=== PATIENT | female | born 1945 | race Caucasian/White ===

== ENCOUNTER → 2016-09-08 | Outpatient (CLI) | payer MEDICARE, BC | END | disposition home or self-care (01) | LOC: LABWHC1 10:57 | PROVIDERS: ATTEND Family Medicine | DX: E03.9 Hypothyroidism, unspecified (principal) | CPT/HCPCS: 36415; 84439; 84443 ==

== ENCOUNTER → 2016-10-08 | Outpatient (CLI) | payer MEDICARE, BC ==
--- NOTE | 2016-10-08 15:46 | US ---
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 Lump left neck, thyroidectomy 7 years ago TECHNOLOGIST IMPRESSION: Multiple lymph nodes noted bilateral neck, largest on left = 1.3 x 0.5 x 0. 7cm and largest on right = 1.5 x 1 0.1 x 0.5 cm No pathologically enlarged lymph nodes are identified. IMPRESSION: NO PATHOLOGICALLY ENLARGED LYMPH NODES ARE IDENTIFIED.
== END | disposition home or self-care (01) ==
LOC: RADUSWWP 14:42
PROVIDERS: ATTEND Family Medicine
DX: R59.0 Localized enlarged lymph nodes (principal)
CPT/HCPCS: 76536

== ENCOUNTER → 2016-11-14 | Outpatient (CLI) | payer MEDICARE, BC | END | disposition home or self-care (01) | LOC: LABWHC1 13:47 | PROVIDERS: ATTEND Family Medicine | DX: E03.9 Hypothyroidism, unspecified (principal) | CPT/HCPCS: 36415; 84439; 84443 ==

== ENCOUNTER 2017-01-10 08:47 | Inpatient (IN) | payer MEDICARE, BC ==
[2017-01-10] MEDS ORDERED: SODIUM CHLORIDE 0.9% 1,000 ML IV STA ×2 (08:58→12:04)
--- NOTE | 2017-01-10 09:22 | ED ---
General Adult HPI - General Chief complaint: Weakness Stated complaint: DIARREA, VOMITING Time Seen by Provider: 01/10/17 08:57 Source: patient, RN notes reviewed, old records reviewed Mode of arrival: wheelchair - History of Present Illness Initial comments: This is a 71-year-old female ER for evaluation today. Patient does present for evaluation of severe abdominal pain nausea vomiting decreased appetite anorexia and weight loss. Patient also complains of diarrhea patient's medical history also consists of asthma CAD hypertension high cholesterol CA, a few abdominal surgeries. No recent fevers. No blood in her vomit or stool. Decreased appetite and weight loss. - Related Data Home Medications Medication Instructions Recorded Confirmed Vitamin B Complex 1 cap PO HS 04/15/15 01/10/17 Budesonide/Formoterol Fumarate 2 puff INHALATION RT-BID PRN 05/12/15 01/10/17 [Symbicort 80-4.5 Mcg Inhaler] Lipase/Protease/Amylase [Creon Dr 2 cap PO AC-TID 05/31/16 01/10/17 24,000 Units Capsule] Albuterol Nebulized [Ventolin 2.5 mg INHALATION Q4H PRN 08/14/16 01/10/17 Nebulized] Atorvastatin [Lipitor] 40 mg PO HS 08/14/16 01/10/17 FLUoxetine HCL [PROzac] 20 mg PO DAILY 08/14/16 01/10/17 Folic Acid 1 mg PO DAILY 08/14/16 01/10/17 Omeprazole [PriLOSEC] 20 mg PO AC-BRKFST 08/14/16 01/10/17 Rivaroxaban [Xarelto] 20 mg PO DAILY@1700 08/14/16 01/10/17 Sennosides-Docusate Sodium 1 tab PO BID PRN 08/14/16 01/10/17 [Senokot-S] traMADol HCL [Ultram] 50 mg PO Q6H PRN 08/14/16 01/10/17 Furosemide [Lasix] 40 mg PO DAILY@1100 01/10/17 01/10/17 Levothyroxine Sodium [Synthroid] 112 mcg PO DAILY 01/10/17 01/10/17 Lisinopril [Zestril] 20 mg PO DAILY 01/10/17 01/10/17 Metoprolol Tartrate [Lopressor] 100 mg PO BID@0700,1700 01/10/17 01/10/17 Spironolactone [Aldactone] 25 mg PO DAILY@1100 01/10/17 01/10/17 Previous Rx's Medication Instructions Recorded Clopidogrel [Plavix] 75 mg PO DAILY #30 tab 08/16/16 Allergies Allergy/AdvReac Type Severity Reaction Status Date / Time ibuprofen [From Motrin] Allergy Anaphylaxis Verified 01/10/17 09:15 Iodinated Contrast Media - Allergy Rash/Hives Verified 01/10/17 09:15 Oral and [Iodinated Contrast Media - IV Dye] levofloxacin [From Levaquin] Allergy Anaphylaxis Verified 01/10/17 09:15 shellfish derived AdvReac Nausea & Verified 01/10/17 09:15 Vomiting Review of Systems ROS Statement: Those systems with pertinent positive or pertinent negative responses have been documented in the HPI. ROS Other: All systems not noted in ROS Statement are negative. Past Medical History Past Medical History: Asthma, Coronary Artery Disease (CAD), Cancer, GERD/Reflux , Hypertension, Myocardial Infarction ([place]), Osteoarthritis (OA), Thyroid Disorder Additional Past Medical History / Comment(s): Pancreatitis, pancreatic cyst, ascities with paracentesis, UTI with cystitis, normocytic anemia. chronic stable asthma, DJD, thyroid cancer with thyroidectomy, seasonal allergies, arthiritis bilateral hands."liver infection", per discharge paperwork from [facility] it listed" afib,cardiac arrest, ventricular fib, cardiomyopathy Last Myocardial Infarction Date:: recent History of Any Multi-Drug Resistant Organisms: None Reported Past Surgical History: AICD, Heart Catheterization With Stent, Hysterectomy, Joint Replacement, Pacemaker Additional Past Surgical History / Comment(s): Paracentesis, thyroidectomy, left hip replaced, vein stripping bilaterally, repair right detached retina, cataract removal bilat eyes.liver bx-no cancer. Past Anesthesia/Blood Transfusion Reactions: No Reported Reaction Additional Past Anesthesia/Blood Transfusion Reaction / Comment(s): Pt has received blood in past without reaction. Date of Last Stent Placement:: recent Type of Cardiac Device: AICD Device Placement Date:: Past Psychological History: Anxiety, Depression Additional Psychological History / Comment(s): Pt lives with her spouse. She is independent. She drives. pt stated she has been set up for cardiac rehab Smoking Status: Former smoker Past Alcohol Use History: Occasional Additional Past Alcohol Use History / Comment(s): Pt states she quit smoking before 1979. She last drank alcohol 2 weeks ago. She used to drink 3 bourbons a day but has now quit since being hospitalized. . Lives independently. No travel history. No animal exposures. No experience Past Drug Use History: None Reported - Past Family History Mother Family Medical History: No Reported History Additional Family Medical History / Comment(s): Mother was healthy and at the age of 98yrs. Father Family Medical History: Cancer Additional Family Medical History / Comment(s): father had bone cancer. General Exam General appearance: alert, in no apparent distress, anxious, cachectic Head exam: Present: atraumatic, normocephalic, normal inspection Eye exam: Present: normal appearance, PERRL, EOMI. Absent: scleral icterus, conjunctival injection, periorbital swelling ENT exam: Present: mucous membranes dry Neck exam: Present: normal inspection. Absent: tenderness, meningismus, lymphadenopathy Respiratory exam: Present: normal lung sounds bilaterally. Absent: respiratory distress, wheezes, rales, rhonchi, stridor Cardiovascular Exam: Present: regular rate, normal rhythm, normal heart sounds. Absent: systolic murmur, diastolic murmur, rubs, gallop, clicks GI/Abdominal exam: Present: soft, tenderness (Diffuse), normal bowel sounds. Absent: distended, guarding, rebound, rigid Extremities exam: Present: normal inspection, full ROM, normal capillary refill. Absent: tenderness, pedal edema, joint swelling, calf tenderness Back exam: Present: normal inspection Neurological exam: Present: alert, oriented X3, CN II-XII intact Psychiatric exam: Present: normal affect, normal mood Skin exam: Present: warm, dry, intact, normal color. Absent: rash Course Vital Signs 01/10/17 01/10/17 01/10/17 08:51 10:33 11:52 Temperature 98 F 98.0 F Pulse Rate 70 70 88 Respiratory 18 16 18 Rate Blood Pressure 82/51 88/57 103/61 O2 Sat by Pulse 94 L 100 99 Oximetry - Reevaluation(s) Reevaluation #1: 01/10/17 12:06 Patient is able to have control of pain and vomiting at this time EKG Findings - EKG Comments: EKG Findings:: EKG shows paced rhythm rate of 70, IN 162, QRS 76, QTc 464 Medical Decision Making - Medical Decision Making 71-year-old female ear fevers and all pain nausea vomiting positive severe dehydration with acute renal failure, patient also suffered from pancreatitis. Patient be admitted for significant IV hydration, evaluation by nephrology - Lab Data Result diagrams: 01/10/17 09:43 01/10/17 09:43 Lab Results 01/10/17 01/10/17 01/10/17 Range/Units 09:43 09:43 09:43 WBC 8.9 (3.8-10.6) k/uL RBC 3.27 L (3.80-5.40) m/uL Hgb 11.2 L (11.4-16.0) gm/dL Hct 34.0 (34.0-46.0) % MCV 104.1 H (80.0-100.0) fL MCH 34.3 (25.0-35.0) pg MCHC 32.9 (31.0-37.0) g/dL RDW 13.2 (11.5-15.5) % Plt Count 275 (150-450) k/uL Neutrophils % 82 % Lymphocytes % 10 % Monocytes % 6 % Eosinophils % 1 % Basophils % 0 % Neutrophils # 7.3 (1.3-7.7) k/uL Lymphocytes # 0.9 L (1.0-4.8) k/uL Monocytes # 0.5 (0-1.0) k/uL Eosinophils # 0.1 (0-0.7) k/uL Basophils # 0.0 (0-0.2) k/uL Macrocytosis Slight PT (9.0-12.0) sec INR (<1.1) APTT (22.0-30.0) sec Sodium 137 (137-145) mmol/L Potassium 5.1 (3.5-5.1) mmol/L Chloride 102 (98-107) mmol/L Carbon Dioxide 14 L (22-30) mmol/L Anion Gap 21 mmol/L BUN 83 H* (7-17) mg/dL Creatinine 3.14 H (0.52-1.04) mg/dL Est GFR (MDRD) Af Amer 18 (>60 ml/min/1.73 sqM) Est GFR (MDRD) Non-Af 15 (>60 ml/min/1.73 sqM) Glucose 116 H (74-99) mg/dL Calcium 9.8 (8.4-10.2) mg/dL Phosphorus 5.6 H (2.5-4.5) mg/dL Magnesium 1.2 L (1.6-2.3) mg/dL Total Bilirubin 1.0 (0.2-1.3) mg/dL AST 68 H (14-36) U/L ALT 60 H (9-52) U/L Alkaline Phosphatase 103 (38-126) U/L Total Creatine Kinase <20 L (30-135) U/L CK-MB (CK-2) 1.2 (0.0-2.4) ng/mL CK-MB (CK-2) Rel Index 0.0 Troponin I 0.021 (0.000-0.034) ng/mL Total Protein 7.8 (6.3-8.2) g/dL Albumin 4.2 (3.5-5.0) g/dL Lipase 1330 H (23-300) U/L // Range/Units 09:43 WBC (3.8-10.6) k/uL RBC (3.80-5.40) m/uL Hgb (11.4-16.0) gm/dL Hct (34.0-46.0) % MCV (80.0-100.0) fL MCH (25.0-35.0) pg MCHC (31.0-37.0) g/dL RDW (11.5-15.5) % Plt Count (150-450) k/uL Neutrophils % % Lymphocytes % % Monocytes % % Eosinophils % % Basophils % % Neutrophils # (1.3-7.7) k/uL Lymphocytes # (1.0-4.8) k/uL Monocytes # (0-1.0) k/uL Eosinophils # (0-0.7) k/uL Basophils # (0-0.2) k/uL Macrocytosis PT 13.6 H (9.0-12.0) sec INR 1.4 (<1.1) APTT 29.5 (22.0-30.0) sec Sodium (137-145) mmol/L Potassium (3.5-5.1) mmol/L Chloride (98-107) mmol/L Carbon Dioxide (22-30) mmol/L Anion Gap mmol/L BUN (7-17) mg/dL Creatinine (0.52-1.04) mg/dL Est GFR (MDRD) Af Amer (>60 ml/min/1.73 sqM) Est GFR (MDRD) Non-Af (>60 ml/min/1.73 sqM) Glucose (74-99) mg/dL Calcium (8.4-10.2) mg/dL Phosphorus (2.5-4.5) mg/dL Magnesium (1.6-2.3) mg/dL Total Bilirubin (0.2-1.3) mg/dL AST (14-36) U/L ALT (9-52) U/L Alkaline Phosphatase (38-126) U/L Total Creatine Kinase (30-135) U/L CK-MB (CK-2) (0.0-2.4) ng/mL CK-MB (CK-2) Rel Index Troponin I (0.000-0.034) ng/mL Total Protein (6.3-8.2) g/dL Albumin (3.5-5.0) g/dL Lipase (23-300) U/L - Radiology Data Radiology results: report reviewed (CT abdomen and pelvis positive for pancreatitis GALLBLADDER NEGATIVE FOR ACUTE DISEASE), image reviewed Disposition Clinical Impression: History of ETOH abuse, Liver cirrhosis, alcoholic, H/O chronic pancreatitis, Pancreatitis, Dehydration, Acute renal failure (ARF) Disposition: ADMITTED IP TO THIS [facility] Condition: Serious Referrals: Valerio Lobo MD [Primary Care Provider] - 1-2 days
[2017-01-10 10:01] LABS: Basophils % (A) 0 %; CH 33.1; Eosinophils # (A) 0.1 k/uL (0-0.7); Eosinophils % (A) 1 %; HDW 2.32; HGB 11.2 gm/dL (11.4-16.0); Luc # (Auto) 0.15; Luc % (Auto) 2; Lymphocytes # (A) 0.9 k/uL (1.0-4.8); Lymphocytes % (A) 10 %; MCH 34.3 pg (25.0-35.0); MCHC 32.9 g/dL (31.0-37.0); MCV 104.1 fL (80.0-100.0); Macrocytosis Slight; Mean Platelet Volume 7.8; Monocytes # (A) 0.5 k/uL (0-1.0); Monocytes % (A) 6 %; Neutrophils # (A) 7.3 k/uL (1.3-7.7); Neutrophils % (A) 82 %; RBC 3.27 m/uL (3.80-5.40); RDW 13.2 % (11.5-15.5); WBC 8.9 k/uL (3.8-10.6); WBC (Perox) 9.15
[2017-01-10] MEDS ORDERED: RX INFO: IV CONTRAST WAS GIVEN 1 EACH MISC MISCELLANE PRN (10:08)
[2017-01-10 10:09] LABS: INR 1.4 (<1.1); Partial Thromboplastin Time 29.5 sec (22.0-30.0); Prothrombin Time 13.6 sec (9.0-12.0)
[2017-01-10] MEDS ORDERED: diphenhydrAMINE 50 MG/ML 1 ML VIAL IVP STA (10:10)
[2017-01-10] MEDS ORDERED: methylPREDNISolone SOD SUCCI 125 MG/2 ML VIAL IV STA (10:10)
[2017-01-10] MEDS ORDERED: FAMOTIDINE 20 MG/2 ML VIAL IV STA (10:10)
[2017-01-10 10:17] LABS: Calcium 9.8 mg/dL (8.4-10.2); Magnesium 1.2 mg/dL (1.6-2.3); Phosphorous 5.6 mg/dL (2.5-4.5); Potassium 5.1 mmol/L (3.5-5.1); Total Protein 7.8 g/dL (6.3-8.2)
--- NOTE | 2017-01-10 10:24 | XR ---
EXAMINATION TYPE: XR chest 2V DATE OF EXAM: 01/10/2017 10:14 AM COMPARISON: 08/14/2016 HISTORY: 71-year-old female with weakness and cough TECHNIQUE: AP and lateral views FINDINGS: Left anterior chest wall AICD generator with right atrial and right ventricular leads. Heart is barrett l size. Mild elongation of the thoracic aorta with arch calcifications. Nodular density at the left b ase compatible with nipple shadow. Old healed fifth posterolateral rib fracture deformity. No consoli dation or pleural effusion. IMPRESSION: No acute cardiopulmonary process.
[2017-01-10 10:26] LABS: Creatine Kinase <20 U/L (30-135)
[2017-01-10] MEDS ORDERED: SODIUM CHLORIDE 0.9% 2,000 ML IV STA (10:30)
[2017-01-10] MEDS ORDERED: SODIUM CHLORIDE 0.9% 500 ML IV STA ×2 (10:30→12:04)
[2017-01-10 10:40] LABS: Creatine Kinase MB 1.2 ng/mL (0.0-2.4); Troponin I 0.021 ng/mL (0.000-0.034)
--- NOTE | 2017-01-10 11:25 | CT ---
EXAMINATION TYPE: CT abdomen pelvis wo con DATE OF EXAM: 01/10/2017 11:15 AM HISTORY: Diarrhea and Vomiting per patient. Pain per order. CT DLP: 725 mGycm. Automated Exposure Control for Dose Reduction was Utilized. TECHNIQUE: CT scan of the abdomen and pelvis is performed without oral or IV contrast. COMPARISON: CT abdomen June 17, 2016 FINDINGS: Within the limitations of a non-contrast study, the following observations are made. LUNG BASES: There is partial visualization of pacemaker/defibrillator wires. LIVER/GB: Liver remains somewhat small in size, slight lobulation to peripheral contours identified, underlying cirrhosis should be considered. Clinical correlation advised. PANCREAS: There are calcifications scattered throughout the pancreas with a more prominent calcificat ion at head level on axial image 31 redemonstrated. On current study there is slightly more prominenc e or edema with mild anterior fluid, CT findings suggest acute on chronic pancreatitis. No well-forme d fluid collection is seen on current study. SPLEEN: No significant abnormality is seen. ADRENALS: No significant abnormality is seen. KIDNEYS: There is 2 mm nonobstructing calculus lower pole level right kidney on coronal image 31. BOWEL: Evaluation of bowel is suboptimal secondary to lack of enteric contrast. Stomach is poorly dis tended and thus suboptimally evaluated on current study. Cannot exclude a gastritis in the appropriat e clinical setting. There is no suspicious small or large bowel dilatation. GENITAL ORGANS: Uterus is surgically absent or markedly atrophic in appearance. Small amount of free fluid is seen in pelvis. LYMPH NODES: No greater than 1cm abdominal or pelvic lymph nodes are appreciated. OSSEOUS STRUCTURES: Osseous structures are demineralized. Metallic hardware from left hip arthroplast y is identified causing streak artifact limiting evaluation of pelvic structures. There is levoconvex scoliosis centered in mid lumbar spine redemonstrated. There is some multilevel spurring of the spin e most prominent right L2-L3 and left L4-L5 levels. Nonspecific sclerotic focus left L4 vertebra on c oronal image 34 favors benign bone island. OTHER: No significant additional abnormality is seen. IMPRESSION: 1. Evaluation suboptimal secondary to lack of IV and enteric contrast, CT findings suggests an acute on chronic pancreatitis. Clinical and pancreatic lab correlation advised. No bowel obstruction is not ed.
[2017-01-10] MEDS ORDERED: PANTOPRAZOLE 40 MG/10 ML VIAL IVP STA (12:04)
[2017-01-10] MEDS ORDERED: MORPHINE SULFATE 4 MG/ML SYRINGE IVP STA (12:04)
[2017-01-10] MEDS ORDERED: ONDANSETRON 4 MG/2 ML VIAL IVP STA (12:04)
--- NOTE | 2017-01-10 12:15 | US ---
EXAMINATION TYPE: US gallbladder DATE OF EXAM: 01/10/2017 11:56 AM COMPARISON: CT 01/10/2017 CLINICAL HISTORY: Pain. Pain, patient had coffee this morning. EXAM MEASUREMENTS: Liver Length: 12.5 cm Gallbladder Wall: 0.2 cm CBD: 0.5 cm Right Kidney: 8.9 x 5.0 x 5.5 cm Suboptimal visualization due to patient body habitus and overlying bowel gas Pancreas: Obscured by bowel gas Liver: Suboptimal visualization. Right lobe lesion - 2.1 x 3.4 x 3.1 cm Gallbladder: wnl as visualized Evidence for sonographic Rincon's sign: neg CBD: wnl Right Kidney: Prominent pyramids seen. Suboptimal visualization. IMPRESSION: 1. Limited exam. There is a solid-appearing lesion within the right lobe the liver measuring 3.4 cm w hich was not well demonstrated noncontrast CT. Therefore recommend liver MRI to assess presence of ri ght lobe liver mass.
[2017-01-10 12:49] LABS: Appearance,Urine Cloudy (Clear); Bacteria,Urine Many /hpf; Bilirubin,Urine Negative (Negative); Glucose,Urine (UA) Negative (Negative); Ketones,Urine Trace (Negative); Leukocyte Esterase,Urine Large (Negative); Mucus,Urine Rare /hpf; Nitrite,Urine Negative (Negative); PH, Urine 5.5 (5.0-8.0); Particle Count 17796; Protein,Urine 1+ (Negative); Specific Gravity,Urine 1.011 (1.001-1.035); Squamous Epithelial Cell,Urine 4 /hpf (0-4); UA Billing (MACRO vs. MICRO) MICRO; Urobilinogen,Urine <2.0 mg/dL (<2.0); WBC,Urine 107 /hpf (0-5)
[2017-01-10] MEDS ORDERED: LORazepam 2 MG/ML SYRINGE IV PRN ×3 (14:15)
[2017-01-10] MEDS ORDERED: THIAMINE 100 MG/ML 2 ML VIAL IM STA (14:15)
[2017-01-10] MEDS ORDERED: ALBUTEROL NEBULIZED 2.5 MG/3 ML INHALATION PRN (14:17)
[2017-01-10 15:18] LABS: Alcohol <10 mg/dL; Amylase 153 U/L (30-110)
[2017-01-10] MEDS: MAGNESIUM SULFATE-D5W PMX 1 GM in DEXTROSE/WATER 1 100ML.BAG IVPB SCH ×3 (16:19→18:45)
[2017-01-10] MEDS: METOPROLOL TARTRATE 50 MG TAB PO SCH (16:22)
[2017-01-10] MEDS: RIVAROXABAN 15 MG TAB PO SCH (16:24)
[2017-01-10] MEDS: LIPASE 5,000/PROTEASE 17,000/AMYLASE 27,0000 PO SCH (16:25)
[2017-01-10] MEDS ORDERED: RIVAROXABAN 10 MG TAB PO SCH (17:00)
[2017-01-10] MEDS ORDERED: SODIUM CHLORIDE 0.9% 1,000 ML IV SCH (17:15)
[2017-01-10] MEDS: THIAMINE 100 MG TAB PO SCH (17:32)
[2017-01-10] MEDS: SYMBICORT 80-4.5 MCG INHALER INHALATION PRN (19:56)
--- NOTE | 2017-01-10 20:02 | HP ---
DATE OF ADMISSION: 01/10/2017 PRESENTING COMPLAINT: Abdominal pain. HISTORY OF PRESENTING COMPLAINT: This is a 71-year-old patient, well known to me from multiple prior admissions. Patient follows with Dr. Lobo. Patient had an acute pancreatic pseudocyst in the past and has a known history of chronic pancreatitis with prior history of pancreatic stent. Patient also had a liver abscess with cultures positive for Fusobacterium and Bacteroides. Patient's other chronic stable medical conditions include osteoarthritis in multiple joints, hypothyroid, now atrial fibrillation, and also has had a cardiac arrest from ventricular fibrillation. Patient does have low-grade chronic abdominal pain. Patient continues to drink about 2 drinks at night and presented with 2 or 3 weeks of increasing abdominal pain going across, nausea, vomiting; hence she is here. REVIEW OF SYSTEMS: CONSTITUTIONAL: Weak, tired. HEENT: None. RESPIRATORY: None. CARDIOVASCULAR: None. GASTROINTESTINAL: As above. GENITOURINARY: None. MUSCULOSKELETAL: None. DERMATOLOGIC: None. HEMATOLOGIC: None. LYMPHATICS: None. PSYCHIATRY: None. NEUROLOGICAL: None. PAST MEDICAL HISTORY: 1. Chronic pancreatitis, alcohol-induced. 2. Pancreatic pseudocyst. 3. Hypoalbuminemia. 4. Pancreatic stent. 5. Asthma. 6. Hypertension. 7. DJD. 8. Hypothyroid. 9. Thyroid cancer. 10. Thyroidectomy. 11. Arthritis. 12. Cardiac arrest. 13. Systolic and diastolic dysfunction. 14. Atrial fibrillation. PAST SURGICAL HISTORY: 1. Hysterectomy. 2. Joint replacement. 3. Paracentesis. 4. Left hip replacement. 5. Vein stripping bilaterally. 6. Right detached retina. 7. Cataracts bilaterally. 8. ICD. PAST PSYCH HISTORY: Anxiety, depression. SOCIAL HISTORY: Lives with her . Quit smoking before . Drinking ( ) most of the time and now having about 2 drinks at night. FAMILY HISTORY: Father had bone cancer. ALLERGIES: 1. IBUPROFEN. 2. IV CONTRAST. 3. LEVAQUIN. 4. SHELLFISH. HOME MEDICATIONS: 1. Ultram 50 mg q.6 p.r.n. 2. Vitamin B complex 1 capsule p.o. at bedtime. 3. Aldactone 25 mg p.o. daily. 4. Senokot-S 1 tablet p.o. b.i.d. p.r.n. 5. Xarelto 20 mg p.o. daily. 6. Prilosec 20 mg with breakfast. 7. Lopressor 100 mg p.o. b.i.d. 8. Zestril 20 mg p.o. daily. 9. Creon 24,000 two capsules p.o. t.i.d. 10. Synthroid 112 mcg p.o. daily. 11. Lasix 40 mg p.o. daily. 12. Folic acid 1 mg p.o. daily. 13. Prozac 20 mg p.o. daily. 14. Plavix 75 mg p.o. daily. 15. Symbicort 80/4.5 two puffs b.i.d. 16. Lipitor 40 mg at bedtime. 17. Ventolin 2.5 q.4 p.r.n. PHYSICAL EXAMINATION: VITAL SIGNS ON PRESENTATION: Temperature 98, pulse 70, respiration 18, blood pressure 82/51, pulse ox 94% on 2 L. GENERAL APPEARANCE: Average build. Lying in bed. Tired-appearing. EYES: Pupils equal. Conjunctivae normal. HEENT: Oral cavity normal. NECK: JVD not raised. Mass not palpable. RESPIRATORY: Effort normal. LUNGS: Diminished breath sounds. CARDIOVASCULAR: First and second sounds normal. No edema. ABDOMEN: Soft. Diffuse upper tenderness. No guarding or rigidity. Liver and spleen not palpable. LYMPHATIC: No lymph node palpable in neck or axillae. PSYCHIATRY: Alert and oriented x3. Mood and affect normal. NEUROLOGICAL: Pupils equal. Cranial nerves grossly intact. Power and sensation grossly intact. INVESTIGATIONS: White count 8.9, hemoglobin 11.2. Potassium 5.1. BUN 83, creatinine 3.14. AST and ALT 68 and 60. Magnesium 1.2. Lipase is 1330. Amylase is 153. CT scan of the abdomen and pelvis is suggestive of acute pancreatitis. Gallbladder ultrasound ASSESSMENT: 1. Acute on chronic pancreatitis, recurrent, in a patient who previously had a pancreatic pseudocyst and pancreatic duct stent, from active alcoholism. 2. Chronic congestive heart failure from systolic and diastolic dysfunction; ejection fraction 30% to 35%; underlying coronary artery disease. 3. Single-vessel coronary artery disease with a stent to the circumflex at [facility]. 4. Automatic implantable cardioverter defibrillator for cardiac arrest and ventricular fibrillation. 5. History of liver abscess. 6. Mild persistent asthma. 7. Essential hypertension. 8. Primary osteoarthritis of multiple joints, bilateral, chronic. 9. Hypothyroidism. 10. Acute renal failure. Creatinine has jumped up from being normal. PLAN: Patient will be made n.p.o., put on IV fluids. Pain medication in place. Will cut back on Lopressor if need be. Care was discussed at length with the patient.
[2017-01-10] MEDS: ATORVASTATIN 40 MG TAB PO SCH (21:32)
[2017-01-10] MEDS: B COMPLEX-VIT C-VIT E-ZINC 1 EACH TAB PO SCH (21:32)
[2017-01-11] MEDS: LEVOTHYROXINE 112 MCG TAB PO SCH (06:24)
[2017-01-11] MEDS: METOPROLOL TARTRATE 50 MG TAB PO SCH ×2 (07:39→17:10)
[2017-01-11] MEDS: FLUoxetine HCL 20 MG CAP PO SCH (07:59)
[2017-01-11] MEDS: CLOPIDOGREL 75 MG TAB PO SCH (07:59)
[2017-01-11] MEDS: LIPASE 5,000/PROTEASE 17,000/AMYLASE 27,0000 PO SCH ×3 (07:59→17:12)
[2017-01-11] MEDS: MORPHINE SULFATE 4 MG/ML SYRINGE IVP PRN ×3 (08:07→21:31)
[2017-01-11] MEDS: SYMBICORT 80-4.5 MCG INHALER INHALATION PRN ×2 (08:17→19:42)
[2017-01-11] MEDS ORDERED: ENOXAPARIN 40 MG/0.4 ML SYRINGE SQ SCH (09:00)
[2017-01-11] MEDS ORDERED: ENOXAPARIN 30 MG/0.3 ML SYRINGE SQ SCH (09:00)
[2017-01-11] MEDS ORDERED: LISINOPRIL 20 MG TAB PO SCH (09:00)
[2017-01-11] MEDS ORDERED: PANTOPRAZOLE 40 MG/10 ML VIAL IVP SCH (09:00)
[2017-01-11 09:49] LABS: Calcium 8.5 mg/dL (8.4-10.2); Magnesium 2.1 mg/dL (1.6-2.3); Potassium 4.5 mmol/L (3.5-5.1)
--- NOTE | 2017-01-11 10:09 | P.NPCON ---
History of Present Illness - Reason for Consult acute renal failure - History of Present Illness Reason for consultation: Acute kidney injury History of present illness: Patient is a 71-year-old female seen in renal consultation for acute kidney injury. Her baseline creatinine is near 1 and elevated at 3.14 this admission. She was also hypotensive with systolic blood pressure in the 80s. She did receive 3-4 L of IV fluid bolus and is currently maintained on normal saline at 50 mL an hour. Patient presented to the hospital with abdominal pain that started about 2 weeks ago along with nausea and vomiting. She is also been having diarrhea. Patient felt like she had the flu however the symptoms continued to get worse and she presents to the hospital. Her lipase level was elevated at 1330 and she was noted to have evidence of acute pancreatitis on imaging. Her symptoms are improved in the hospital. She is currently nothing by mouth. Denies chest pain or shortness of breath. Patient was admitted to the hospital in May 2016 and had developed acute kidney injury at that time as well from severe sepsis and intra-abdominal infection. Currently she admits to good urine output. No hematuria or dysuria. She also has history of systolic CHF with ejection fraction of 30-35%. Vital signs are stable. General: The patient appeared well nourished and normally developed. HEENT: Head exam is unremarkable. Neck is without jugular venous distension. LUNGS: Lungs are clear to auscultation and percussion. Breath sounds decreased. HEART: Rate and Rhythm are regular. First and second heart sounds normal. No murmurs, rubs or gallops. ABDOMEN: Abdominal exam reveals normal bowel sounds. Non-tender and non- distended. No evidence of peritonitis. EXTREMITITES: No clubbing, cyanosis, or edema. Past Medical History Past Medical History: Atrial Fibrillation, Asthma, Coronary Artery Disease (CAD) , Cancer, Heart Failure, GERD/Reflux, Hypertension, Myocardial Infarction (MT), Osteoarthritis (OA), Thyroid Disorder Additional Past Medical History / Comment(s): Pancreatitis, pancreatic cyst, ascities with paracentesises, UTI with cystitis, normocytic anemia. chronic stable asthma, DJD, thyroid cancer with thyroidectomy, seasonal allergies, arthiritis bilateral hands, liver abscess, afib, ventricular fib,cardiac arrest , cardiomyopathy Last Myocardial Infarction Date:: 06/2016 History of Any Multi-Drug Resistant Organisms: None Reported Past Surgical History: AICD, Heart Catheterization With Stent, Hysterectomy, Joint Replacement, Pacemaker Additional Past Surgical History / Comment(s): 2016 PCI with stent and AICD, paracentesises, thyroidectomy, left hip replaced, vein stripping bilaterally, repair right detached retina, cataract removal bilat eyes, pancreatic stent, liver bx-no cancer. Past Anesthesia/Blood Transfusion Reactions: No Reported Reaction Additional Past Anesthesia/Blood Transfusion Reaction / Comment(s): Pt has received blood in past without reaction. Date of Last Stent Placement:: 06/2016 Type of Cardiac Device: AICD Device Placement Date:: Past Psychological History: Anxiety, Depression Additional Psychological History / Comment(s): Pt lives with her spouse. She uses no assistive devices. She no longer drives-her spouse takes her to [employer]. Her daughter manages her medications. Smoking Status: Former smoker Past Alcohol Use History: Occasional Additional Past Alcohol Use History / Comment(s): Pt states she resides with her spouse. They have been 52 yrs. Pt states she quit smoking before 1979. She last drank alcohol yesterday- one drink. She used to drink 3 bourbons a day but has now is down to 2 Prakash Javid drinks per day. No experience Past Drug Use History: None Reported - Past Family History Mother Family Medical History: No Reported History Additional Family Medical History / Comment(s): Mother was healthy and at the age of 98yrs. Father Family Medical History: Cancer Additional Family Medical History / Comment(s): father had bone cancer and of this at age 65yrs. Medications and Allergies Home Medications Medication Instructions Recorded Confirmed Type Vitamin B Complex 1 cap PO HS 04/15/15 01/10/17 History Budesonide/Formoterol Fumarate 2 puff INHALATION RT-BID PRN 05/12/15 01/10/17 History [Symbicort 80-4.5 Mcg Inhaler] Lipase/Protease/Amylase [Creon Dr 2 cap PO AC-TID 05/31/16 01/10/17 History 24,000 Units Capsule] Albuterol Nebulized [Ventolin 2.5 mg INHALATION Q4H PRN 08/14/16 01/10/17 History Nebulized] Atorvastatin [Lipitor] 40 mg PO HS 08/14/16 01/10/17 History FLUoxetine HCL [PROzac] 20 mg PO DAILY 08/14/16 01/10/17 History Folic Acid 1 mg PO DAILY 08/14/16 01/10/17 History Omeprazole [PriLOSEC] 20 mg PO AC-BRKFST 08/14/16 01/10/17 History Rivaroxaban [Xarelto] 20 mg PO DAILY@1700 08/14/16 01/10/17 History Sennosides-Docusate Sodium 1 tab PO BID PRN 08/14/16 01/10/17 History [Senokot-S] traMADol HCL [Ultram] 50 mg PO Q6H PRN 08/14/16 01/10/17 History Furosemide [Lasix] 40 mg PO DAILY@1100 01/10/17 01/10/17 History Levothyroxine Sodium [Synthroid] 112 mcg PO DAILY 01/10/17 01/10/17 History Lisinopril [Zestril] 20 mg PO DAILY 01/10/17 01/10/17 History Metoprolol Tartrate [Lopressor] 100 mg PO BID@0700,1700 01/10/17 01/10/17 History Spironolactone [Aldactone] 25 mg PO DAILY@1100 01/10/17 01/10/17 History Allergies Allergy/AdvReac Type Severity Reaction Status Date / Time ibuprofen [From Motrin] Allergy Anaphylaxis Verified 01/10/17 09:15 Iodinated Contrast Media - Allergy Rash/Hives Verified 01/10/17 09:15 Oral and [Iodinated Contrast Media - IV Dye] levofloxacin [From Levaquin] Allergy Anaphylaxis Verified 01/10/17 09:15 shellfish derived AdvReac Nausea & Verified 01/10/17 09:15 Vomiting Physical Exam Vitals: Vital Signs Temp Pulse Pulse Resp BP BP Pulse Ox 01/11/17 07:00 96.6 F L 72 16 92/51 97 01/11/17 01:10 100/52 01/10/17 23:00 97.4 F L 70 17 81/45 95 01/10/17 16:09 97.1 F L 69 16 84/49 96 01/10/17 13:59 97.1 F L 77 16 108/75 96 01/10/17 12:37 97.5 F L 71 18 127/58 100 01/10/17 11:52 88 18 103/61 99 01/10/17 10:33 98.0 F 70 16 88/57 100 Intake and Output 01/10/17 01/11/17 01/11/17 22:59 06:59 14:59 Other: # Voids 0 3 Weight 59 kg Results - Lab Results Most recent lab results Calcium 8.5 mg/dL (8.4-10.2) 01/11/17 08:34 Phosphorus 5.6 mg/dL (2.5-4.5) H 01/10/17 09:43 Magnesium 2.1 mg/dL (1.6-2.3) 01/11/17 08:34 01/10/17 09:43 01/11/17 08:34 Assessment and Plan Plan: Assessment: #1. Nonoliguric acute kidney injury mostly prerenal in nature secondary to hypotension as well as vomiting and diarrhea leading to intravascular volume depletion. Creatinine 3.14 on admission. Improving. Creatinine down to 2.01 today. No evidence of hydronephrosis. Baseline creatinine near 1. #2. Acute pancreatitis. #3. Metabolic acidosis secondary to acute kidney injury and IV fluids. Bicarb level down to 12 today. #4. Systolic CHF with ejection fraction of 30-35%. Compensated. #5. Pyuria. Plan: Continue normal saline at 50 mL an hour. I will avoid putting her on sodium acetate due to her liver dysfunction. There is shortage of sodium bicarbonate IV. I will discuss with pharmacy if this can be provided. Once oral meds have been resumed I will start her on oral sodium bicarbonate supplementation. Avoid nephrotoxic agents and hypotensive episodes. Continue to hold diuretics as well as LIVIA inhibitor for now. Repeat electrolytes in the morning. Follow-up urine culture. Thank you for the consultation. I will continue to follow the patient with you during her hospital stay.
[2017-01-11] MEDS ORDERED: FUROSEMIDE 40 MG TAB PO SCH (11:00)
[2017-01-11] MEDS ORDERED: SPIRONOLACTONE 25 MG TAB PO SCH (11:00)
[2017-01-11] MEDS: MULTIVITAMINS, THERA 1 EACH TAB PO SCH (12:00)
[2017-01-11] MEDS: FOLIC ACID 1 MG TAB PO SCH (12:01)
[2017-01-11] MEDS: THIAMINE 100 MG TAB PO SCH ×2 (12:01→17:12)
[2017-01-11] MEDS: DEXTROSE 5% IN WATER 1,000 ML with SODIUM BICARB (1 MEQ/ML) 150 ML IV SCH (13:57)
[2017-01-11] MEDS: RIVAROXABAN 15 MG TAB PO SCH (17:12)
[2017-01-11] MEDS: ATORVASTATIN 40 MG TAB PO SCH (21:23)
[2017-01-11] MEDS: SODIUM BICARBONATE TAB 650 MG TAB PO SCH (21:23)
[2017-01-11] MEDS: B COMPLEX-VIT C-VIT E-ZINC 1 EACH TAB PO SCH (21:24)
[2017-01-11] MEDS: SODIUM CHLORIDE 0.9% 1,000 ML IV SCH (21:26)
--- NOTE | 2017-01-11 22:11 | PN ---
DATE OF SERVICE: 01/11/2017. PRESENTING COMPLAINT: Abdominal pain. INTERVAL HISTORY: Patient presented with abdominal pain, known to have chronic pancreatitis. Today, patient states she feels much better sitting up in the bed. No acute distress noted or voiced abdominal pain has decreased substantially. Some tenderness noted to the left upper quadrant; however patient states she feels much better. No nausea. No vomiting. Review of systems done for constitutional, cardiovascular, pulmonary and GI, with relevant findings as above. Current medications: Zenpep, Lipitor, Symbicort, ceftriaxone, Plavix, Prozac, Synthroid, Protonix. PHYSICAL EXAMINATION: VITAL SIGNS: Temperature 96.6, pulse 72, respiratory rate 16, blood pressure 108/52, oxygen saturation 97% on room air. GENERAL APPEARANCE: Patient sitting up in the bed. No acute complaints of distress noted or voiced. EYES: Pupils equal. Conjunctivae normal. NECK: JVD not raised. Mass not palpable. LUNGS: Clear to auscultation bilaterally. RESPIRATORY: Effort normal, unlabored. CARDIOVASCULAR: First and second sounds noted. No edema. ABDOMEN: Soft. Tender to the left upper quadrant and the right upper quadrant. Liver and spleen not palpable. PSYCHIATRY: Alert and oriented x3. Mood and affect are normal. INVESTIGATIONS: Sodium 137, potassium 4.5, BUN 58, creatinine 2.01, glucose 65, lipase 78. ASSESSMENT: 1. 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 2. Chronic congestive heart failure from systolic and diastolic dysfunction, ejection fraction 30 to 35%, underlying coronary artery disease stable. 3. Single-vessel coronary artery disease with a stent to the circumflex at [facility]. 4. Automatic implantable cardioverter defibrillator for cardiac arrest and ventricular fibrillation. 5. History of liver abscess. 6. Mild persistent asthma. 7. Essential hypertension. 8. Primary osteoarthritis of multiple joints, bilateral, chronic. 9. Hypothyroidism. 10. Acute renal failure and, creatinine has jumped up from being normal, slow to improve. PLAN: Patient's diet advanced today. Pain medications continue to be utilized. Nephrology recommends eliminating the use of sodium acetate and eliminating nephrotoxic and hypotensive episodes. Patient's IV fluids should also include sodium bicarbonate. We will continue with current medication and treatment plan. Patient was seen and examined by nurse practitioner, Adelia Krishna, and all elements of the case discussed with attending, Dr. Williamson. I performed a history and physical examination of this patient and discussed the same with the dictator. I agree with the dictator's note. Any additional findings/opinions, etc. will be noted.
--- NOTE | 2017-01-11 22:30 | PN ---
DATE OF SERVICE: 01/11/2017 Attending note: This patient examined by me earlier today. I reviewed the note of my nurse practitioner, Ms. Krishna, agree with the same. This is a patient who presented with acute on chronic pancreatitis. Still drinks some alcohol. Abdominal pain is better. Did take some pain medicine earlier. Patient had been on ice chips. On examination, temperature 97%, respiratory rate 16, blood pressure 108/52. ABDOMEN: Minimal tenderness. Soft. PSYCH: Alert and oriented x3. INVESTIGATIONS: Potassium 4.5. BUN 50, creatinine 2.01, lipase 788. UA positive. ASSESSMENT: 1. Acute on chronic recurrent pancreatitis, secondary to alcoholism in a patient previously with pseudocyst pancreatic duct. 2. Chronic congestive heart failure, ejection fraction 30% to 35%. 3. Acute renal failure; could be acute tubular necrosis, present at admission, slow to respond. PLAN: Continue current medication and treatment plan. Supportive care. We will start the patient on clear liquids. Continue to hydrate the patient. Follow.
[2017-01-12] MEDS: MORPHINE SULFATE 4 MG/ML SYRINGE IVP PRN ×4 (01:47→23:10)
[2017-01-12] MEDS: LEVOTHYROXINE 112 MCG TAB PO SCH (07:02)
[2017-01-12] MEDS: LIPASE 5,000/PROTEASE 17,000/AMYLASE 27,0000 PO SCH ×3 (08:11→16:13)
[2017-01-12] MEDS: CLOPIDOGREL 75 MG TAB PO SCH (08:11)
[2017-01-12] MEDS: SODIUM BICARBONATE TAB 650 MG TAB PO SCH ×2 (08:12→23:10)
[2017-01-12] MEDS: DEXTROSE 5% IN WATER 1,000 ML with SODIUM BICARB (1 MEQ/ML) 150 ML IV SCH (08:12)
[2017-01-12] MEDS: FLUoxetine HCL 20 MG CAP PO SCH (08:12)
[2017-01-12] MEDS: SODIUM CHLORIDE 0.9% 1,000 ML IV SCH (08:12)
[2017-01-12] MEDS: METOPROLOL TARTRATE 50 MG TAB PO SCH ×2 (08:12→16:14)
[2017-01-12 10:06] LABS: Calcium 8.6 mg/dL (8.4-10.2); Potassium 4.1 mmol/L (3.5-5.1)
--- NOTE | 2017-01-12 10:42 | P.PN ---
Subjective Patient is seen in follow-up for acute kidney injury. Her baseline creatinine is 1 and was elevated at 3.14 on admission. She is currently maintained on IV fluids and creatinine is down to 1.49 today. She is currently resting in bed. Denies any chest pain or shortness of breath. Does admit to dysuria. No vomiting or diarrhea. Admits to good urine output. Vital signs are stable. General: The patient appeared well nourished and normally developed. HEENT: Head exam is unremarkable. Neck is without jugular venous distension. LUNGS: Lungs are clear to auscultation and percussion. Breath sounds decreased. HEART: Rate and Rhythm are regular. First and second heart sounds normal. No murmurs, rubs or gallops. ABDOMEN: Abdominal exam reveals normal bowel sounds. Non-tender and non- distended. No evidence of peritonitis. EXTREMITITES: No clubbing, cyanosis, or edema. Objective - Vital Signs Vital signs: Vital Signs Temp 98.5 F 01/12/17 07:00 Pulse 85 01/12/17 07:00 Resp 16 01/12/17 07:00 BP 114/58 01/12/17 07:00 Pulse Ox 99 01/12/17 07:00 Intake & Output 01/11/17 01/12/17 01/12/17 18:59 06:59 18:59 Intake Total 400 Balance 400 Weight 62.4 kg Intake: Oral 400 Other: Voiding Method Toilet # Voids 2 1 # Bowel Movements 0 0 - Labs CBC & Chem 7: 01/10/17 09:43 01/12/17 09:31 Labs: Abnormal Lab Results - Last 24 Hours (Table) 01/12/17 Range/Units 09:31 Chloride 108 H (98-107) mmol/L Carbon Dioxide 19 L (22-30) mmol/L BUN 42 H (7-17) mg/dL Creatinine 1.49 H (0.52-1.04) mg/dL Glucose 136 H (74-99) mg/dL Amylase 117 H (30-110) U/L Lipase 708 H (23-300) U/L Microbiology - Last 24 Hours (Table) 01/10/17 12:25 Urine Culture - Preliminary Urine,Voided Gram Neg Bacilli Assessment and Plan Plan: Assessment: #1. Nonoliguric acute kidney injury mostly prerenal in nature secondary to hypotension as well as vomiting and diarrhea leading to intravascular volume depletion. Creatinine 3.14 on admission. Improving. Creatinine down to 1.49 today. No evidence of hydronephrosis. Baseline creatinine near 1. #2. Acute pancreatitis. Lipase levels trending down. #3. Metabolic acidosis secondary to acute kidney injury and IV fluids. Improving. #4. Systolic CHF with ejection fraction of 30-35%. Compensated. #5. UTI. Urine culture positive for gram-negative bacilli. Plan: Maintain isotonic sodium bicarbonate drip to be run at 50 mL an hour for the next 24 hours. Maintain oral sodium bicarbonate supplementation. Avoid nephrotoxic agents and hypotensive episodes. Continue to hold diuretics as well as LIVIA inhibitor for now. Repeat electrolytes in the morning. Follow-up urine culture. Continue with antibiotics.
[2017-01-12] MEDS: THIAMINE 100 MG TAB PO SCH ×2 (11:13→16:13)
[2017-01-12] MEDS: FOLIC ACID 1 MG TAB PO SCH (11:13)
[2017-01-12] MEDS: MULTIVITAMINS, THERA 1 EACH TAB PO SCH (11:13)
[2017-01-12] MEDS ORDERED: DEXTROSE 5% IN WATER 1,000 ML with SODIUM BICARB (1 MEQ/ML) 150 ML IV SCH (15:00)
[2017-01-12] MEDS: RIVAROXABAN 15 MG TAB PO SCH (16:14)
[2017-01-12] MEDS: ONDANSETRON 4 MG/2 ML VIAL IVP PRN (18:21)
--- NOTE | 2017-01-12 19:19 | PN ---
DATE OF SERVICE: 01/12/2017 PRESENTING COMPLAINT: Abdominal pain. This patient was admitted with chronic pancreatitis exacerbation. Today, patient states she is unable to tolerate her diet. She was on a clear liquid diet. Patient is lying in bed, appears comfortable. Does not complain of any nausea or any vomiting. Review of systems done for constitutional, cardiovascular, pulmonary and GI, with relevant findings as above. CURRENT MEDICATIONS: Zenpep, Lipitor, Symbicort, ceftriaxone, Plavix, Prozac, Synthroid, Protonix. PHYSICAL EXAMINATION: VITAL SIGNS: Temperature 98.9, pulse 65, respirations 16, blood pressure 114/58, oxygen saturation 99% on room air. GENERAL APPEARANCE: Patient lying in bed, appears comfortable. EYES: Pupils equal. Conjunctivae normal. NECK: JVD not raised. Mass not palpable. LUNGS: Clear to auscultation. RESPIRATORY: Effort normal. CARDIOVASCULAR: First and second sounds noted. No edema. ABDOMEN: Soft, tender to palpation to right and left upper quadrants. Liver and spleen not palpable. PSYCHIATRY: Alert and oriented x3. Mood and affect normal INVESTIGATIONS: Sodium 137, potassium 4.1, BUN 42, creatinine 1.49, glucose 136, amylase 117, lipase 708. ASSESSMENT: 1. 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 2. Chronic congestive heart failure from systolic and diastolic dysfunction. Ejection fraction 30 to 35%, underlying coronary artery disease, stable. Single-vessel coronary artery disease with a stent to the circumflex at [facility]. Automatic implantable cardioverter defibrillator for cardiac arrest and ventricular fibrillation. 3. History of liver abscess. 4. Mild persistent asthma. 5. Essential hypertension. 6. Primary osteoarthritis of multiple joints, bilateral, chronic. 7. Hypothyroidism. 8. Acute renal failure, and creatinine has jumped up from being normal, slow to respond. PLAN: Patient will remain on a clear liquid diet. Pain medications continue to utilize. We will continue to follow nephrology recommendations. Sodium bicarbonate drip will continue to the next 24 hours. Will continue to follow current medication and treatment plan. Patient was seen and examined by nurse practitioner, Adelia Krishna, and all elements of the case discussed with attending, Dr. Williamson. I performed a history and physical examination of this patient and discussed the same with the dictator. I agree with the dictator's note. Any additional findings/opinions, etc. will be noted.
[2017-01-12] MEDS: ATORVASTATIN 40 MG TAB PO SCH (23:10)
[2017-01-12] MEDS: B COMPLEX-VIT C-VIT E-ZINC 1 EACH TAB PO SCH (23:17)
[2017-01-13] MEDS: SODIUM CHLORIDE 0.9% 1,000 ML IV SCH ×3 (06:12→20:53)
[2017-01-13] MEDS: LEVOTHYROXINE 112 MCG TAB PO SCH (06:31)
[2017-01-13] MEDS: METOPROLOL TARTRATE 50 MG TAB PO SCH ×2 (06:44→17:05)
[2017-01-13] MEDS: SYMBICORT 80-4.5 MCG INHALER INHALATION PRN (07:45)
[2017-01-13] MEDS: FLUoxetine HCL 20 MG CAP PO SCH (07:55)
[2017-01-13] MEDS: SODIUM BICARBONATE TAB 650 MG TAB PO SCH ×2 (07:56→20:53)
[2017-01-13] MEDS: LIPASE 5,000/PROTEASE 17,000/AMYLASE 27,0000 PO SCH ×3 (07:56→17:05)
[2017-01-13] MEDS: CLOPIDOGREL 75 MG TAB PO SCH (07:56)
--- NOTE | 2017-01-13 07:57 | PN ---
DATE OF SERVICE: 01/12/2017 ATTENDING NOTE: This patient was seen and examined by me earlier today. I reviewed the note of my nurse practitioner, Ms. Krishna and discussed with her. Patient was admitted with acute pancreatitis. Has slight abdominal pain, slight nausea, has been out of bed, also has acute renal failure. On examination, ABDOMEN: Soft, mild tenderness. No guarding or rigidity. PSYCHIATRY: Alert and oriented x3. Mood and affect normal. INVESTIGATIONS: BUN 42, creatinine 1.49. Lipase 708. Urine culture growing gram-negative bacilli. ASSESSMENT: 1. Acute on chronic pancreatitis, recurrent in a patient who currently drinks alcohol secondary to acute alcoholism and the patient previously had pancreatic pseudocyst in pancreatic duct. 2. Acute renal failure, probably from acute tubular necrosis, slow to respond. 3. Acute urinary tract infection from gram-negative bacilli. PLAN: Talked with the patient and will keep the patient on clear liquids right now. Advanced to full liquids in the morning. Repeat labs. Continue with IV fluids.
[2017-01-13] MEDS: ONDANSETRON 4 MG/2 ML VIAL IVP PRN (07:58)
[2017-01-13 09:53] LABS: Amylase 69 U/L (30-110); Calcium 8.4 mg/dL (8.4-10.2)
[2017-01-13] MEDS: THIAMINE 100 MG TAB PO SCH ×2 (10:59→17:05)
[2017-01-13] MEDS: MULTIVITAMINS, THERA 1 EACH TAB PO SCH (10:59)
[2017-01-13] MEDS: FOLIC ACID 1 MG TAB PO SCH (10:59)
[2017-01-13] MEDS: MORPHINE SULFATE 4 MG/ML SYRINGE IVP PRN ×3 (11:00→22:52)
--- NOTE | 2017-01-13 11:02 | P.PN ---
Subjective Patient is seen in follow-up for acute kidney injury. Her baseline creatinine is 1 and was elevated at 3.14 on admission. She is currently maintained on IV fluids and creatinine is down to 1.24 today. Denies any chest pain or shortness of breath. Does admit to dysuria. No diarrhea. Admits to good urine output. Did have an episode of emesis last night. Maintained on antibiotics for E. coli UTI. Vital signs are stable. General: The patient appeared well nourished and normally developed. HEENT: Head exam is unremarkable. Neck is without jugular venous distension. LUNGS: Lungs are clear to auscultation and percussion. Breath sounds decreased. HEART: Rate and Rhythm are regular. First and second heart sounds normal. No murmurs, rubs or gallops. ABDOMEN: Abdominal exam reveals normal bowel sounds. Non-tender and non- distended. No evidence of peritonitis. EXTREMITITES: No clubbing, cyanosis, or edema. Objective - Vital Signs Vital signs: Vital Signs Temp 99.3 F 01/13/17 07:00 Pulse 70 01/13/17 07:00 Resp 16 01/13/17 07:00 BP 99/55 01/13/17 07:00 Pulse Ox 96 01/13/17 07:00 Intake & Output 01/12/17 01/13/17 01/13/17 18:59 06:59 18:59 Intake Total 600 Balance 600 Weight 63.3 kg Intake: Oral 600 Other: Voiding Method Toilet Toilet # Voids 2 2 - Labs CBC & Chem 7: 01/10/17 09:43 01/13/17 08:38 Labs: Abnormal Lab Results - Last 24 Hours (Table) 01/13/17 Range/Units 08:38 Sodium 136 L (137-145) mmol/L BUN 26 H (7-17) mg/dL Creatinine 1.24 H (0.52-1.04) mg/dL Glucose 106 H (74-99) mg/dL Microbiology - Last 24 Hours (Table) 01/10/17 12:25 Urine Culture - Final Urine,Voided Escherichia coli Assessment and Plan Plan: Assessment: #1. Nonoliguric acute kidney injury mostly prerenal in nature secondary to hypotension as well as vomiting and diarrhea leading to intravascular volume depletion. Creatinine 3.14 on admission. Improving. Creatinine down to 1.24 today. No evidence of hydronephrosis. Baseline creatinine near 1. #2. Acute pancreatitis. Lipase levels trending down. #3. Metabolic acidosis secondary to acute kidney injury and IV fluids. Improving. #4. Systolic CHF with ejection fraction of 30-35%. Compensated. #5. UTI. Urine culture positive for E. coli. Plan: Sodium bicarbonate drip has been discontinued. Continue with normal saline to be run at 75 mL an hour. Maintain oral sodium bicarbonate supplementation. Avoid nephrotoxic agents and hypotensive episodes. Continue to hold diuretics as well as LIVIA inhibitor for now. Repeat electrolytes in the morning. Continue with antibiotics.
[2017-01-13] MEDS: RIVAROXABAN 15 MG TAB PO SCH (17:05)
--- NOTE | 2017-01-13 20:24 | PN ---
DATE OF SERVICE: 01/13/2017 PRESENTING COMPLAINT: Abdominal pain. INTERVAL HISTORY: This patient was admitted with chronic pancreatitis exacerbation. Today, patient states she was unable to tolerate her diet. She was on a clear liquid diet and an attempt was made to advance. She was not able to tolerate. Patient is lying in bed, appears comfortable. She has complaints of nausea at this time. Review of systems done for constitutional, cardiovascular, pulmonary, and GI, with relevant findings as above. CURRENT MEDICATIONS: Zenpep, Lipitor, Symbicort, ceftriaxone, Plavix, Prozac, Synthroid, Protonix. PHYSICAL EXAMINATION: VITAL SIGNS: Temperature 99.3, pulse 70, respirations 16, blood pressure 99/55, oxygen saturation 96% on room air. GENERAL APPEARANCE: Patient appears comfortable, lying flat in the bed. EYES: Pupils equal. Conjunctivae normal. NECK: JVD not raised. Mass not palpable. LUNGS: Clear to auscultation bilaterally. RESPIRATORY: Effort normal, unlabored. CARDIOVASCULAR: First and second sounds noted. No edema. ABDOMEN: Soft. Tender to both upper left and right quadrants. Liver and spleen not palpable. PSYCHIATRY: Alert and oriented x3. Mood and affect normal. INVESTIGATIONS: Sodium 136, potassium 4.0, BUN 26, creatinine 1.24, amylase 69, lipase 196. ASSESSMENT: 1. Acute on chronic pancreatitis, recurrent in a patient who currently drinks alcohol secondary to acute alcoholism and the patient previously had pancreatic pseudocyst and pancreatic duct. 2. Acute renal failure, probably from acute tubular necrosis, slow to respond. 3. Acute urinary tract infection from gram-negative bacilli. 4. Chronic congestive heart failure from systolic and diastolic dysfunction. Ejection fraction 30 to 35%, underlying coronary artery disease, stable. 5. Single-vessel coronary artery disease with a stent to the circumflex at [facility]. 6. Automatic implantable cardioverter defibrillator for cardiac arrest and ventricular fibrillation. 7. History of liver abscess. 8. Mild persistent asthma. 9. Essential hypertension. 10. Primary osteoarthritis of multiple joints, bilateral, chronic. 11. Hypothyroidism. PLAN: Patient will remain on a clear liquid diet. Pain medication will continue to be administered. Nephrology recommendations include oral supplementation of sodium bicarbonate. Continue with normal saline fluids and to avoid nephrotoxic agents and hypotensive episodes as well as holding diuretics and LIVIA inhibitors for now. Discharge planning in the next 1 to 2 days. Patient was seen and examined by nurse practitioner, Adelia Krishna, and all elements of the case discussed with Dr. Williamson. I performed a history and physical examination of this patient and discussed the same with the dictator. I agree with the dictator's note. Any additional findings/opinions, etc. will be noted.
[2017-01-13] MEDS: traMADol 50 MG TAB PO PRN (20:52)
[2017-01-13] MEDS: ATORVASTATIN 40 MG TAB PO SCH (20:53)
[2017-01-13] MEDS: B COMPLEX-VIT C-VIT E-ZINC 1 EACH TAB PO SCH (20:53)
[2017-01-14] MEDS: MORPHINE SULFATE 4 MG/ML SYRINGE IVP PRN ×4 (03:21→20:03)
[2017-01-14] MEDS: LEVOTHYROXINE 112 MCG TAB PO SCH (06:33)
[2017-01-14] MEDS: LIPASE 5,000/PROTEASE 17,000/AMYLASE 27,0000 PO SCH ×3 (07:59→17:51)
[2017-01-14] MEDS: METOPROLOL TARTRATE 50 MG TAB PO SCH ×2 (07:59→17:30)
--- NOTE | 2017-01-14 09:33 | PN ---
DATE OF SERVICE: 01/13/2017 ATTENDING NOTE: This patient was seen and examined by me yesterday on 01/13/2017. I reviewed the note of my nurse practitioner, Ms. Krishna and discussed with her. Admitted with acute pancreatitis. Patient advanced to full liquids but developed some nausea and actually did throw up once. Abdominal pain is better, but still present. On examination, afebrile. ABDOMEN: Upper abdomen tender, no guarding or rigidity. PSYCH: Alert and oriented x3. INVESTIGATIONS: Potassium 4. BUN 26, creatinine 1.24, amylase, lipase are normal. ASSESSMENT: 1. Acute on chronic pancreatitis recurrent in a patient secondary to alcohol with prior history of pancreatitis. Clinically and biochemically improving. 2. Acute renal failure, probably from acute tubular necrosis, improving. 3. Acute urinary tract infection from Escherichia coli. PLAN: Told the patient to ( ) a bit. Continue with IV fluids. Repeat labs in the morning. Care was discussed with the patient. Encouraged to be out of bed.
[2017-01-14] MEDS: ONDANSETRON 4 MG/2 ML VIAL IVP PRN (09:57)
[2017-01-14] MEDS: CLOPIDOGREL 75 MG TAB PO SCH (09:58)
[2017-01-14] MEDS: SODIUM BICARBONATE TAB 650 MG TAB PO SCH ×2 (09:58→21:59)
[2017-01-14] MEDS: FLUoxetine HCL 20 MG CAP PO SCH (09:58)
[2017-01-14] MEDS: CEPHALEXIN 250 MG CAP PO SCH ×3 (10:07→21:59)
--- NOTE | 2017-01-14 10:27 | P.PN ---
Subjective Patient is seen in follow-up for acute kidney injury. Her baseline creatinine is 1 and was elevated at 3.14 on admission. She is currently maintained on IV fluids and creatinine is down to 1.12 today. Denies any chest pain or shortness of breath. No diarrhea. Admits to good urine output. Did have an episode of emesis last night and again this morning. Maintained on antibiotics for E. coli UTI. Vital signs are stable. General: The patient appeared well nourished and normally developed. HEENT: Head exam is unremarkable. Neck is without jugular venous distension. LUNGS: Lungs are clear to auscultation and percussion. Breath sounds decreased. HEART: Rate and Rhythm are regular. First and second heart sounds normal. No murmurs, rubs or gallops. ABDOMEN: Abdominal exam reveals normal bowel sounds. Non-tender and non- distended. No evidence of peritonitis. EXTREMITITES: No clubbing, cyanosis, or edema. Objective - Vital Signs Vital signs: Vital Signs Temp 97.0 F L 01/14/17 07:00 Pulse 73 01/14/17 07:00 Resp 16 01/14/17 07:00 BP 107/60 01/14/17 07:00 Pulse Ox 96 01/14/17 07:00 Intake & Output 01/13/17 01/14/17 01/14/17 18:59 06:59 18:59 Weight 69 kg Other: Voiding Method Toilet Toilet # Voids 3 2 - Labs CBC & Chem 7: 01/10/17 09:43 01/14/17 08:11 Labs: Abnormal Lab Results - Last 24 Hours (Table) 01/14/17 Range/Units 08:11 Sodium 133 L (137-145) mmol/L Carbon Dioxide 21 L (22-30) mmol/L BUN 18 H (7-17) mg/dL Creatinine 1.12 H (0.52-1.04) mg/dL Glucose 111 H (74-99) mg/dL Calcium 8.0 L (8.4-10.2) mg/dL Assessment and Plan Plan: Assessment: #1. Nonoliguric acute kidney injury mostly prerenal in nature secondary to hypotension as well as vomiting and diarrhea leading to intravascular volume depletion. Creatinine 3.14 on admission. Improving. Creatinine down to 1.12 today. No evidence of hydronephrosis. Baseline creatinine near 1. #2. Acute pancreatitis. Lipase levels trending down. #3. Metabolic acidosis secondary to acute kidney injury and IV fluids. #4. Systolic CHF with ejection fraction of 30-35%. Compensated. #5. UTI. Urine culture positive for E. coli. Plan: Sodium bicarbonate drip has been discontinued. Continue with normal saline to be run at 75 mL an hour. Maintain oral sodium bicarbonate supplementation. Avoid nephrotoxic agents and hypotensive episodes. Continue to hold diuretics as well as LIVIA inhibitor for now. Repeat electrolytes in the morning. Continue with antibiotics.
[2017-01-14 11:44] VITALS: BMI 23.8
[2017-01-14] MEDS: THIAMINE 100 MG TAB PO SCH ×2 (12:40→17:51)
[2017-01-14] MEDS: MULTIVITAMINS, THERA 1 EACH TAB PO SCH (12:40)
[2017-01-14] MEDS: FOLIC ACID 1 MG TAB PO SCH (12:45)
[2017-01-14] MEDS: SODIUM CHLORIDE 0.9% 1,000 ML IV SCH (15:03)
[2017-01-14] MEDS: RIVAROXABAN 15 MG TAB PO SCH (17:51)
[2017-01-14] MEDS: SYMBICORT 80-4.5 MCG INHALER INHALATION PRN (19:33)
[2017-01-14] MEDS: ATORVASTATIN 40 MG TAB PO SCH (21:59)
[2017-01-14] MEDS: B COMPLEX-VIT C-VIT E-ZINC 1 EACH TAB PO SCH (21:59)
--- NOTE | 2017-01-14 23:01 | PN ---
DATE OF SERVICE: 01/14/2017. PRESENTING COMPLAINT: Abdominal pain. INTERVAL HISTORY: This is a patient admitted with chronic pancreatitis exacerbation. Today, the patient was unable to tolerate her diet. She was on a soft diet and states she threw up her breakfast. Patient currently is lying in bed, appears comfortable a little distressed, however. She does complain of nausea at this time. Review of systems done for constitutional, cardiovascular, pulmonary GI with relevant findings as above. CURRENT MEDICATIONS: Zenpep, Lipitor, Symbicort, ceftriaxone, Plavix, Prozac, Synthroid, Protonix. PHYSICAL EXAMINATION: VITAL SIGNS: Temperature 97.0, pulse 73, respiratory rate 16, blood pressure 106/70, oxygen saturation 96% on room air. GENERAL APPEARANCE: Patient lying in bed, looking a little distressed anxious -appearing. EYES: Pupils equal. Conjunctivae normal. NECK: JVD not raised. Mass not palpable. LUNGS: Diminished bilaterally. RESPIRATORY: Effort normal. CARDIOVASCULAR: First and second sounds noted. No edema. ABDOMEN: Soft tender to right upper and left upper quadrants. Liver and spleen not palpable. PSYCHIATRY: Alert and oriented x3. Mood and affect anxious -appearing. INVESTIGATIONS: Sodium 133, potassium 4.0, BUN 18, creatinine 1.12. Amylase 55, lipase 188. ASSESSMENT: 1. Acute on chronic pancreatitis recurrent in a patient secondary to alcohol with prior history of pancreatitis. Clinically and biochemically improving. 2. Acute renal failure, probably from acute tubular necrosis, Improving. 3. Acute urinary tract infection from a Escherichia coli. 4. Chronic congestive heart failure from systolic and diastolic dysfunction. Ejection fraction 30 to 35%, underlying coronary artery disease, stable. 5. Single-vessel coronary artery disease with a stent to the circumflex at [facility]. 6. Automatic implantable cardioverter defibrillator for cardiac arrest and ventricular fibrillation. 7. History of liver abscess. 8. Persistent asthma. 9. Essential hypertension. 10. Primary osteoarthritis of multiple joints, bilateral chronic. 11. Hypothyroidism, stable. PLAN: In light of patient's nausea return, patient will remain on a clear liquid diet. Pain medication will be continued to be provided. Nephrology recommendations include oral supplementation of sodium bicarb. Discharge planning in the next one to two days. Patient was seen and examined by nurse practitioner, Adelia Krishna and all elements of the case discussed with Dr. Clay attending. I performed a history and physical examination of this patient and discussed the same with the dictator. I agree with the dictator's note. Any additional findings/opinions, etc. will be noted.
[2017-01-15] MEDS: MORPHINE SULFATE 4 MG/ML SYRINGE IVP PRN ×2 (01:04→08:04)
[2017-01-15] MEDS: SYMBICORT 80-4.5 MCG INHALER INHALATION PRN (06:59)
[2017-01-15 07:12] VITALS: BP 128/67; PULSE 77; RESP 16; TEMP 98.6
[2017-01-15] MEDS: LEVOTHYROXINE 112 MCG TAB PO SCH (07:30)
[2017-01-15] MEDS: METOPROLOL TARTRATE 50 MG TAB PO SCH (07:30)
[2017-01-15] MEDS: LIPASE 5,000/PROTEASE 17,000/AMYLASE 27,0000 PO SCH ×2 (07:52→12:24)
[2017-01-15] MEDS: CLOPIDOGREL 75 MG TAB PO SCH (07:52)
[2017-01-15] MEDS: SODIUM BICARBONATE TAB 650 MG TAB PO SCH (07:52)
[2017-01-15] MEDS: FLUoxetine HCL 20 MG CAP PO SCH (07:52)
[2017-01-15] MEDS: CEPHALEXIN 250 MG CAP PO SCH (07:52)
[2017-01-15] MEDS: SODIUM CHLORIDE 0.9% 1,000 ML IV SCH (07:53)
[2017-01-15 09:04] LABS: Calcium 7.6 mg/dL (8.4-10.2); Potassium 3.7 mmol/L (3.5-5.1)
[2017-01-15] MEDS: traMADol 50 MG TAB PO PRN (09:56)
--- NOTE | 2017-01-15 11:13 | PN ---
DATE OF SERVICE: 01/14/2017 ATTENDING NOTE: This patient was seen and examined by me yesterday on 01/14/2017. I reviewed the note of my nurse practitioner, Adelia Krishna, discussed and agree with her. Patient still having some nausea, has scaled her back to a liquid diet. Abdominal pain is slightly present. Has been out of bed. On examination, afebrile. ABDOMEN: Soft. Mild tenderness. PSYCH: Alert and oriented x3. LUNGS: Decreased breath sounds. INVESTIGATIONS: BUN 18, creatinine 1.12, amylase 55, lipase 188. ASSESSMENT: 1. Acute on chronic pancreatitis, recurrent in a patient who drinks alcohol. There is a prior history of pancreatitis and pseudocyst. Clinically and biochemically improving. 2. Nausea, still present that is interfering. PLAN: Will try liquids for today. If patient has more pain, may due an ultrasound of the abdomen. Care was discussed with the patient. Will follow.
[2017-01-15] MEDS: MULTIVITAMINS, THERA 1 EACH TAB PO SCH (12:24)
[2017-01-15] MEDS: THIAMINE 100 MG TAB PO SCH (12:24)
[2017-01-15] MEDS: FOLIC ACID 1 MG TAB PO SCH (12:24)
--- NOTE | 2017-01-16 09:22 | DS ---
DATE OF ADMISSION: 01/10/2017 DATE OF DISCHARGE: 01/15/2017 FINAL DIAGNOSES: 1. Acute on chronic pancreatitis recurrent in a patient secondary to alcohol with prior history of pancreatitis. 2. Acute renal failure, probably from acute tubular necrosis. 3. Acute urinary tract infection from Escherichia coli. 4. Chronic congestive heart failure from systolic and diastolic dysfunction. Ejection fraction 30% to 35%, underlying coronary artery disease. 5. Single-vessel coronary artery disease with a stent to the circumflex at [facility]. 6. Automatic implantable cardioverter-defibrillator for cardiac arrest and ventricular fibrillation. 7. History of liver abscess. 8. Persistent asthma. 9. Essential hypertension. 10. Primary osteoarthritis, multiple joints, bilateral chronic. 11. Hypothyroidism, Consultations with Dr. Barton from nephrology. HOSPITAL COURSE: This is a patient who was admitted with chronic pancreatitis exacerbation. Patient was made n.p.o. Labs were drawn and amylase was found to be 117 and lipase was found to be 788. Patient was made n.p.o. IV fluids were initiated. Enzymes improved. Today amylase was 55 and lipase was 188. Patient's diet was advanced. Patient still complains of some residual tenderness to her abdomen, some slight nausea; however, patient can tolerate her diet, is ambulatory in the hallway, eating well, really wants to go home. Discussed at length with the patient the necessity for her to quit drinking entirely. Patient verbalized understanding. ON EXAM: ABDOMEN: Tender to palpation. Positive bowel sounds in all 4 quadrants. Liver and spleen not palpable. CARDIOVASCULAR: First and second sounds normal. DISCHARGE MEDICATIONS: 1. Vitamin B complex 1 cap p.o. at bedtime. 2. Budesonide inhaler 2 puffs inhalation b.i.d. p.r.n. 3. Lipase protease amylase capsules 2 caps p.o. a.c., t.i.d. 4. Albuterol nebulized 2.5 mg inhalation q.4 hours p.r.n. 5. Atorvastatin 40 mg p.o. at bedtime. 6. Fluoxetine 20 mg p.o. daily. 7. Folic acid 1 mg p.o. daily. 8. Omeprazole 20 mg p.o. a.c. breakfast 9. Rivaroxaban 20 mg p.o. daily. 10. Docusate sodium 1 tab p.o. b.i.d. p.r.n. 11. Tramadol 50 mg p.o. q.6 hours p.r.n. 12. Clopidogrel 75 mg p.o. daily. 13. Furosemide 40 mg p.o. daily. 14. Levothyroxine sodium 112 mcg p.o. daily. 15. Metoprolol 100 mg p.o. b.i.d. 16. Spironolactone 25 mg p.o. daily. Follow up with Dr. Kumar in one week and Dr. Lobo in one week. Discharge time more than 35 minutes including discussion. Patient was seen and examined by nurse practitioner, Adelia Krishna, and all elements of the case discussed with attending, Dr. Williamson.
--- NOTE | 2017-01-17 09:52 | DS ---
DATE OF ADMISSION: 01/10/2017 DATE OF DISCHARGE: 01/15/2017 ATTENDING NOTE: This patient was seen and examined by me yesterday on 01/15/17. I reviewed the discharge summary from my nurse practitioner, Ms. Delgadotrudyromeo and discussed the same with her. This is a patient admitted with acute pancreatitis and also has got chronic pancreatitis. Patient's creatinine was 3.14, did drop down to 1.11 at the time of discharge. Pancreatic numbers improved. Abdominal pain was much improved. The patient is tolerating a liquid diet. Told the patient to slowly advance her diet. Overall doing much better. Patient is very keen to go home. On examination, mild epigastric tenderness. Will follow up with Dr. Kumar. More details in my [employer]MENT [employer] notes. The patient does take 1 or 2 drinks a night, advised strongly not to do the same.
== END 2017-01-15 14:12 | disposition home or self-care (01) | DRG 438 ==
LOC: EC 08:47 → 4MS4W 12:04
PROVIDERS: ADMIT Hospitalist; ATTEND Hospitalist
DX: K85.20 Alcohol induced acute pancreatitis without necrosis or infection (principal); N17.0 Acute kidney failure with tubular necrosis; E87.2 Acidosis; I42.9 Cardiomyopathy, unspecified; I50.42 Chronic combined systolic (congestive) and diastolic (congestive) heart failure; N39.0 Urinary tract infection, site not specified; I95.9 Hypotension, unspecified; I11.0 Hypertensive heart disease with heart failure; B96.20 Unspecified Escherichia coli [E. coli] as the cause of diseases classified elsewhere; K86.0 Alcohol-induced chronic pancreatitis; E03.9 Hypothyroidism, unspecified; F10.20 Alcohol dependence, uncomplicated; G89.29 Other chronic pain; I25.10 Atherosclerotic heart disease of native coronary artery without angina pectoris; I25.2 Old myocardial infarction; I48.91 Unspecified atrial fibrillation; J45.30 Mild persistent asthma, uncomplicated; K21.9 Gastro-esophageal reflux disease without esophagitis; M15.9 Polyosteoarthritis, unspecified; F32.9 Major depressive disorder, single episode, unspecified; F41.9 Anxiety disorder, unspecified; H26.9 Unspecified cataract; E86.0 Dehydration; R10.9 Unspecified abdominal pain; Z86.74 Personal history of sudden cardiac arrest; Z79.01 Long term (current) use of anticoagulants; Z79.02 Long term (current) use of antithrombotics/antiplatelets; Z79.899 Other long term (current) drug therapy; Z96.642 Presence of left artificial hip joint; Z95.5 Presence of coronary angioplasty implant and graft; Z85.850 Personal history of malignant neoplasm of thyroid; Z87.891 Personal history of nicotine dependence; Z88.6 Allergy status to analgesic agent; Z88.1 Allergy status to other antibiotic agents; Z91.041 Radiographic dye allergy status
CPT/HCPCS: 36415; 71020; 74176; 76705; 80048; 80053; 80306; 80320; 81001; 82150; 82550; 82553; 83690; 83735; 84100; 84484; 85025; 85610; 85730; 87077; 87086; 87186; 93005; 94640; 94760

== ENCOUNTER 2017-01-21 10:14 | Inpatient (IN) | payer MEDICARE, BC ==
--- NOTE | 2017-01-21 10:38 | ED ---
General Adult HPI - General Chief complaint: Arrhythmia/Palpitations Stated complaint: Arrhythmia Time Seen by Provider: 01/21/17 10:20 Source: EMS, RN notes reviewed Mode of arrival: EMS - History of Present Illness Initial comments: This is a 71-year-old female who presents to the emergency department initially complaining of abdominal pain. According to EMS prior to arrival states the patient almost passed out. When EMS got with the patient she went into V. tach according to them on 3 occasions in her defibrillator shocked her 3 times. They gave 150 mg of amiodarone and have not seen any V. tach since. Patient still complains of epigastric abdominal pain. Patient states she is mildly nauseated but has not vomited. Patient denies any diarrhea. Patient denies any chest pain palpitations difficulty breathing or shortness of breath. Patient has a history of pancreatitis. Patient has a history of drinking but has been sober for months. - Related Data Home Medications Medication Instructions Recorded Confirmed Vitamin B Complex 1 cap PO HS 04/15/15 01/10/17 Budesonide/Formoterol Fumarate 2 puff INHALATION RT-BID PRN 05/12/15 01/10/17 [Symbicort 80-4.5 Mcg Inhaler] Lipase/Protease/Amylase [Creon Dr 2 cap PO AC-TID 05/31/16 01/10/17 24,000 Units Capsule] Albuterol Nebulized [Ventolin 2.5 mg INHALATION Q4H PRN 08/14/16 01/10/17 Nebulized] Atorvastatin [Lipitor] 40 mg PO HS 08/14/16 01/10/17 FLUoxetine HCL [PROzac] 20 mg PO DAILY 08/14/16 01/10/17 Folic Acid 1 mg PO DAILY 08/14/16 01/10/17 Omeprazole [PriLOSEC] 20 mg PO AC-BRKFST 08/14/16 01/10/17 Rivaroxaban [Xarelto] 20 mg PO DAILY@1700 08/14/16 01/10/17 Sennosides-Docusate Sodium 1 tab PO BID PRN 08/14/16 01/10/17 [Senokot-S] traMADol HCL [Ultram] 50 mg PO Q6H PRN 08/14/16 01/10/17 Furosemide [Lasix] 40 mg PO DAILY@1100 01/10/17 01/10/17 Levothyroxine Sodium [Synthroid] 112 mcg PO DAILY 01/10/17 01/10/17 Metoprolol Tartrate [Lopressor] 100 mg PO BID@0700,1700 01/10/17 01/10/17 Spironolactone [Aldactone] 25 mg PO DAILY@1100 01/10/17 01/10/17 Previous Rx's Medication Instructions Recorded Clopidogrel [Plavix] 75 mg PO DAILY #30 tab 08/16/16 Allergies Allergy/AdvReac Type Severity Reaction Status Date / Time ibuprofen [From Motrin] Allergy Anaphylaxis Verified 01/10/17 09:15 Iodinated Contrast Media - Allergy Rash/Hives Verified 01/10/17 09:15 Oral and [Iodinated Contrast Media - IV Dye] levofloxacin [From Levaquin] Allergy Anaphylaxis Verified 01/10/17 09:15 shellfish derived AdvReac Nausea & Verified 01/10/17 09:15 Vomiting Review of Systems ROS Statement: Those systems with pertinent positive or pertinent negative responses have been documented in the HPI. ROS Other: All systems not noted in ROS Statement are negative. Past Medical History Past Medical History: Atrial Fibrillation, Asthma, Coronary Artery Disease (CAD) , Cancer, Heart Failure, GERD/Reflux, Hypertension, Myocardial Infarction (NE), Osteoarthritis (OA), Thyroid Disorder Additional Past Medical History / Comment(s): Pancreatitis, pancreatic cyst, ascities with paracentesises, UTI with cystitis, normocytic anemia. chronic stable asthma, DJD, thyroid cancer with thyroidectomy, seasonal allergies, arthiritis bilateral hands, liver abscess, afib, ventricular fib,cardiac arrest , cardiomyopathy Last Myocardial Infarction Date:: 06/2016 History of Any Multi-Drug Resistant Organisms: None Reported Past Surgical History: AICD, Heart Catheterization With Stent, Hysterectomy, Joint Replacement, Pacemaker Additional Past Surgical History / Comment(s): 2016 PCI with stent and AICD, paracentesises, thyroidectomy, left hip replaced, vein stripping bilaterally, repair right detached retina, cataract removal bilat eyes, pancreatic stent, liver bx-no cancer. Past Anesthesia/Blood Transfusion Reactions: No Reported Reaction Additional Past Anesthesia/Blood Transfusion Reaction / Comment(s): Pt has received blood in past without reaction. Date of Last Stent Placement:: 06/2016 Type of Cardiac Device: AICD Device Placement Date:: Past Psychological History: Anxiety, Depression Additional Psychological History / Comment(s): Pt lives with her spouse. She uses no assistive devices. She no longer drives-her spouse takes her to appts. Her daughter manages her medications. Smoking Status: Former smoker Past Alcohol Use History: Occasional Additional Past Alcohol Use History / Comment(s): Pt states she resides with her spouse. They have been 52 yrs. Pt states she quit smoking before 1979. She last drank alcohol yesterday- one drink. She used to drink 3 bourbons a day but has now is down to 2 Prakash Javid drinks per day. No experience Past Drug Use History: None Reported - Past Family History Mother Family Medical History: No Reported History Additional Family Medical History / Comment(s): Mother was healthy and at the age of 98yrs. Father Family Medical History: Cancer Additional Family Medical History / Comment(s): father had bone cancer and of this at age 65yrs. General Exam - General Exam Comments Initial Comments: GENERAL: Patient is well-developed and well-nourished. Patient is nontoxic and well- hydrated and is in mild distress. ENT: Neck is soft and supple. No significant lymphadenopathy is noted. Oropharynx is clear. Moist mucous membranes. Neck has full range of motion without eliciting any pain. EYES: The sclera were anicteric and conjunctiva are pale. Extraocular movements were intact and pupils were equal round and reactive to light. Eyelids were unremarkable. PULMONARY: Unlabored respirations. Good breath sounds bilaterally. No audible rales rhonchi or wheezing was noted. CARDIOVASCULAR: There is a regular rate and rhythm without any murmurs gallops or rubs. ABDOMEN: Soft and nontender with normal bowel sounds. No palpable organomegaly was noted. There is no palpable pulsatile mass. SKIN: Skin is clear with no lesions or rashes and otherwise unremarkable. NEUROLOGIC: Patient is alert and oriented 2. Cranial nerves II through XII are grossly intact. Motor and sensory are also intact. Normal speech, volume and content. Symmetrical smile. MUSCULOSKELETAL: Normal extremities with adequate strength and full range of motion. No lower extremity swelling or edema. No calf tenderness. LYMPHATICS: No significant lymphadenopathy is noted PSYCHIATRIC: Patient is a very flat affect. Course Vital Signs 01/21/17 01/21/17 10:20 11:25 Temperature 96.9 F L Pulse Rate 77 69 Respiratory 18 18 Rate Blood Pressure 128/81 129/79 O2 Sat by Pulse 100 100 Oximetry Medical Decision Making - Medical Decision Making EKG shows atrial paced rhythm at 70 bpm IA interval is 168 QRSs 76 QT interval 632 QTC is 682 patient has a significantly prolonged QT wave. Chest x-ray shows no acute abnormality. Patient's magnesium was also replaced with 4 g of magnesium. The patient had multiple episodes of V. fib and was shocked by her own fibular. I gave the patient an amiodarone bolus of 150 is started on amiodarone drip. I also spoke with Dr. Ramos he wanted Lopressor given psychiatric the patient Lopressor IV. I spoke with Dr. Mccray he agreed to admit the patient admitted the patient I consult cardiology. - Lab Data Result diagrams: 01/21/17 10:29 01/21/17 10:29 Lab Results 01/21/17 01/21/17 01/21/17 Range/Units 10:29 10:29 10:29 WBC 11.9 H (3.8-10.6) k/uL RBC 3.14 L (3.80-5.40) m/uL Hgb 10.5 L (11.4-16.0) gm/dL Hct 31.7 L (34.0-46.0) % MCV 101.2 H (80.0-100.0) fL MCH 33.4 (25.0-35.0) pg MCHC 33.0 (31.0-37.0) g/dL RDW 13.1 (11.5-15.5) % Plt Count 402 (150-450) k/uL Neutrophils % 90 % Lymphocytes % 6 % Monocytes % 3 % Eosinophils % 1 % Basophils % 0 % Neutrophils # 10.7 H (1.3-7.7) k/uL Lymphocytes # 0.7 L (1.0-4.8) k/uL Monocytes # 0.4 (0-1.0) k/uL Eosinophils # 0.1 (0-0.7) k/uL Basophils # 0.0 (0-0.2) k/uL Macrocytosis Slight PT (9.0-12.0) sec INR (<1.1) APTT (22.0-30.0) sec Sodium 136 L (137-145) mmol/L Potassium 3.7 (3.5-5.1) mmol/L Chloride 98 (98-107) mmol/L Carbon Dioxide 21 L (22-30) mmol/L Anion Gap 17 mmol/L BUN 17 (7-17) mg/dL Creatinine 1.30 H (0.52-1.04) mg/dL Est GFR (MDRD) Af Amer 49 (>60 ml/min/1.73 sqM) Est GFR (MDRD) Non-Af 40 (>60 ml/min/1.73 sqM) Glucose 163 H (74-99) mg/dL Calcium 6.8 L (8.4-10.2) mg/dL Magnesium 0.7 L* (1.6-2.3) mg/dL Total Bilirubin 0.7 (0.2-1.3) mg/dL AST 30 (14-36) U/L ALT 46 (9-52) U/L Alkaline Phosphatase 173 H (38-126) U/L Ammonia (<30) umol/L Total Creatine Kinase 62 (30-135) U/L CK-MB (CK-2) 1.1 (0.0-2.4) ng/mL CK-MB (CK-2) Rel Index 1.8 Troponin I 0.044 H* (0.000-0.034) ng/mL Total Protein 5.9 L (6.3-8.2) g/dL Albumin 3.0 L (3.5-5.0) g/dL Amylase 187 H (30-110) U/L Lipase 674 H (23-300) U/L TSH 0.910 (0.465-4.680) mIU/L 01/21/17 01/21/17 Range/Units 10:29 10:53 WBC (3.8-10.6) k/uL RBC (3.80-5.40) m/uL Hgb (11.4-16.0) gm/dL Hct (34.0-46.0) % MCV (80.0-100.0) fL MCH (25.0-35.0) pg MCHC (31.0-37.0) g/dL RDW (11.5-15.5) % Plt Count (150-450) k/uL Neutrophils % % Lymphocytes % % Monocytes % % Eosinophils % % Basophils % % Neutrophils # (1.3-7.7) k/uL Lymphocytes # (1.0-4.8) k/uL Monocytes # (0-1.0) k/uL Eosinophils # (0-0.7) k/uL Basophils # (0-0.2) k/uL Macrocytosis PT 17.1 H (9.0-12.0) sec INR 1.8 (<1.1) APTT 30.2 H (22.0-30.0) sec Sodium (137-145) mmol/L Potassium (3.5-5.1) mmol/L Chloride (98-107) mmol/L Carbon Dioxide (22-30) mmol/L Anion Gap mmol/L BUN (7-17) mg/dL Creatinine (0.52-1.04) mg/dL Est GFR (MDRD) Af Amer (>60 ml/min/1.73 sqM) Est GFR (MDRD) Non-Af (>60 ml/min/1.73 sqM) Glucose (74-99) mg/dL Calcium (8.4-10.2) mg/dL Magnesium (1.6-2.3) mg/dL Total Bilirubin (0.2-1.3) mg/dL AST (14-36) U/L ALT (9-52) U/L Alkaline Phosphatase (38-126) U/L Ammonia <9 (<30) umol/L Total Creatine Kinase (30-135) U/L CK-MB (CK-2) (0.0-2.4) ng/mL CK-MB (CK-2) Rel Index Troponin I (0.000-0.034) ng/mL Total Protein (6.3-8.2) g/dL Albumin (3.5-5.0) g/dL Amylase (30-110) U/L Lipase (23-300) U/L TSH (0.465-4.680) mIU/L Critical Care Time Critical Care Time: Yes Total Critical Care Time: 35 Disposition Clinical Impression: Ventricular tachycardia, Ventricular fibrillation, Hypomagnesemia, Pancreatitis , History of ETOH abuse Disposition: ADMITTED IP TO THIS HOSP Referrals: Valerio Lobo MD [Primary Care Provider] - 1-2 days Time of Disposition: 11:58
[2017-01-21 10:50] LABS: Basophils % (A) 0 %; CH 32.9; CHCM 32.7; Eosinophils # (A) 0.1 k/uL (0-0.7); Eosinophils % (A) 1 %; HCT 31.7 % (34.0-46.0); HDW 2.61; HGB 10.5 gm/dL (11.4-16.0); Luc % (Auto) 1; Lymphocytes # (A) 0.7 k/uL (1.0-4.8); Lymphocytes % (A) 6 %; MCH 33.4 pg (25.0-35.0); MCV 101.2 fL (80.0-100.0); Macrocytosis Slight; Mean Platelet Volume 6.9; Monocytes # (A) 0.4 k/uL (0-1.0); Monocytes % (A) 3 %; Neutrophils # (A) 10.7 k/uL (1.3-7.7); Neutrophils % (A) 90 %; RBC 3.14 m/uL (3.80-5.40); RDW 13.1 % (11.5-15.5); WBC 11.9 k/uL (3.8-10.6); WBC (Perox) 12.79
[2017-01-21 10:58] LABS: INR 1.8 (<1.1); Partial Thromboplastin Time 30.2 sec (22.0-30.0); Prothrombin Time 17.1 sec (9.0-12.0)
[2017-01-21 11:01] LABS: Calcium 6.8 mg/dL (8.4-10.2); Potassium 3.7 mmol/L (3.5-5.1); Total Bilirubin 0.7 mg/dL (0.2-1.3); Total Protein 5.9 g/dL (6.3-8.2)
--- NOTE | 2017-01-21 11:05 | XR ---
EXAMINATION TYPE: XR chest 2V DATE OF EXAM: 01/21/2017 COMPARISON: Prior chest x-ray 01/10/2017 HISTORY: Dysrhythmia TECHNIQUE: Frontal and lateral views of the chest are obtained. FINDINGS: There is no focal air space opacity, pleural effusion, or pneumothorax seen. The cardiac silhouette size is stable. Intracardiac defibrillator leads are stable, there are coronary artery c alcifications and possibly stent. There are overlying cardiac leads. The osseous structures are intac t. IMPRESSION: No acute cardiopulmonary process.
[2017-01-21] MEDS ORDERED: DEXTROSE 5% IN WATER 250 ML with AMIODARONE 300 MG IV ONE (11:07)
[2017-01-21 11:09] LABS: Magnesium 0.7 mg/dL (1.6-2.3)
[2017-01-21] MEDS ORDERED: DEXTROSE 5% IN WATER 100 ML with AMIODARONE 150 MG IV ONE (11:15)
[2017-01-21] MEDS: MAGNESIUM SULFATE-D5W PMX 1 GM in DEXTROSE/WATER 1 100ML.BAG IVPB SCH ×4 (11:21→12:26)
[2017-01-21 11:22] LABS: Creatine Kinase MB 1.1 ng/mL (0.0-2.4)
[2017-01-21 11:25] LABS: Troponin I 0.044 ng/mL (0.000-0.034)
[2017-01-21] MEDS ORDERED: METOPROLOL TARTRATE 5 MG/5 ML VIAL IVP STA ×2 (11:44→12:55)
[2017-01-21] MEDS ORDERED: NITROGLYCERIN SL TABS 0.4 MG TAB SUBLINGUAL PRN (11:58)
[2017-01-21] MEDS: AMIODARONE 450 MG in DEXTROSE 5% IN WATER 250 ML IV ONE ×4 (12:06→18:55)
[2017-01-21 12:50] LABS: Glucose,Whole Blood 273 mg/dL (75-99)
[2017-01-21] MEDS: SODIUM CHLORIDE 0.9% 1,000 ML IV SCH (13:11)
[2017-01-21] MEDS ORDERED: ENOXAPARIN 40 MG/0.4 ML SYRINGE SQ SCH (13:15)
[2017-01-21] MEDS: PANTOPRAZOLE 40 MG/10 ML VIAL IVP SCH (13:17)
[2017-01-21] MEDS ORDERED: ALBUTEROL NEBULIZED 2.5 MG/3 ML INHALATION PRN (13:50)
[2017-01-21] MEDS ORDERED: SENNOSIDES-DOCUSATE SODIUM 1 EACH TAB PO PRN (13:50)
[2017-01-21 14:30] LABS: Calcium 6.9 mg/dL (8.4-10.2); Potassium 3.1 mmol/L (3.5-5.1)
[2017-01-21] MEDS: POTASSIUM CHLORIDE ER 20 MEQ TAB.ER PO SCH ×2 (15:29→16:48)
[2017-01-21] MEDS: LIPASE 5,000/PROTEASE 17,000/AMYLASE 27,0000 PO SCH ×2 (16:50→21:16)
[2017-01-21 17:32] LABS: Glucose,Whole Blood 134 mg/dL (75-99)
[2017-01-21 17:40] LABS: Creatine Kinase MB 2.6 ng/mL (0.0-2.4)
[2017-01-21 17:41] LABS: Troponin I 0.118 ng/mL (0.000-0.034)
[2017-01-21] MEDS: RIVAROXABAN 10 MG TAB PO SCH (18:18)
[2017-01-21] MEDS: SYMBICORT 80-4.5 MCG INHALER INHALATION PRN (19:30)
[2017-01-21] MEDS ORDERED: NON-FORMULARY DRUG (Rivaroxaban [Xarelto] 20 MG) PO SCH (21:00)
[2017-01-21] MEDS ORDERED: ATORVASTATIN 40 MG TAB PO SCH (21:00)
--- NOTE | 2017-01-21 22:24 | HP ---
DATE OF ADMISSION: The patient is a 71 -year-old female came in after she had on about 3 to 4 occasions. Patient has an AICD. Patient has an ejection fraction of around 30% and patient was found to be hypomagnesemia with ( ) magnesium and patient was admitted to ICU because episodes of V. tach. Patient was mildly nauseated and patient was complaining of epigastric burning sensation. The patient was started on Protonix by Dr. Rosas. Patient is mildly elevated nonspecific elevation of lipase. I do not believe that patient has pancreatitis. The patient has gastritis. REVIEW OF SYSTEMS: CONSTITUTIONAL: No fever, no malaise, no fatigue. HEENT: No recent visual problems or hearing problems. Denied any sore throat. CARDIOVASCULAR: As per HPI. PULMONARY: No shortness of breath, no cough, no hemoptysis. GASTROINTESTINAL: No diarrhea, no nausea, no vomiting, no abdominal pain. Normoactive bowel sounds. NEUROLOGICAL: No headaches, no weakness, no numbness. HEMATOLOGICAL: Denies any bleeding or petechiae. GENITOURINARY: Denies any burning micturition, frequency, or urgency. MUSCULOSKELETAL/RHEUMATOLOGICAL: Denies any joint pain, swelling, or any muscle pain. ENDOCRINE: Denies any polyuria or polydipsia. The rest of the 14 point review of systems is negative. Home medications include: 1. Vitamin B. 2. Budesonide. 3. Formoterol. 4. ( ). 5. ( ). 6. Albuterol. 7. Atorvastatin. 8. Fluoxetine. 9. Folic acid. 10. omeprazole. 11. Rivaroxaban. 12. Senna. 13. Tramadol. 14. Levothyroxine. 15. Metoprolol. 16. Aldactone. 17. Plavix. 18. Patient does not take aspirin. ALLERGIES: ALLERGIC TO IBUPROFEN, IODINATED RADIOCONTRAST, LEVOFLOXACIN, SHELLFISH. PAST MEDICAL HISTORY: Significant for atrial fibrillation, congestive heart failure, chronic systolic dysfunction, ejection fraction 30%. The patient has severe ischemic cardiomyopathy, coronary artery disease, osteoarthritis, hypothyroidism, the patient may have chronic kidney disease stage II from hypertensive nephrosclerosis. Anxiety and depression. SOCIAL HISTORY: Former smoker. Quit drinking recently. Used to be an alcoholic until recently with elevated MCV. FAMILY HISTORY: Mother healthy and at age 98. Father had cancer. PHYSICAL EXAMINATION: 98.6, pulse of 69, respiratory rate of 12, blood pressure 115/( ), saturating at 99% on 2 L O2 by nasal cannula. GENERAL: The patient is alert and oriented x3, not in any acute distress. Well developed, well nourished. HEENT: Pupils are round and equally reacting to light. EOMI. No scleral icterus. No conjunctival pallor. Normocephalic, atraumatic. No pharyngeal erythema. No thyromegaly. CARDIOVASCULAR: S1 and S2 present. No murmurs, rubs, or gallops. PULMONARY: Chest is clear to auscultation, no wheezing or crackles. ABDOMEN: Soft, nontender, nondistended, normoactive bowel sounds. No palpable organomegaly. MUSCULOSKELETAL: No joint swelling or deformity. EXTREMITIES: No cyanosis, clubbing, or pedal edema. NEUROLOGICAL: Gross neurological examination did not reveal any focal deficits. SKIN: No rashes. Chest x-ray did not show any infiltrate or pulmonary edema. ASSESSMENT AND PLAN: 1. Episodes of V. tach and patient has multiple shocks, pacemaker will be ( ) and this is probably related to hypomagnesemia which is being supplemented. Magnesium is 0.9 and hypomagnesemia is probably related to alcoholism and that will be replaced and the hypokalemia may also have contributed to it and hypokalemia secondary to hypomagnesemia. 2. Multiple other electrolytes abnormalities including hypovolemic hyponatremia. The patient is presently hypovolemic because of which I will hold off on Aldactone and Lasix for today and can be restarted tomorrow. Will repeat electrolytes tomorrow. 3. Acute renal failure, prerenal azotemia secondary to excessive diuresis. 4. Congestive heart failure, chronic systolic dysfunction. Patient is on the hypovolemic side because of which we are holding off on Lasix. We will also hold off on the IV fluids and patient has severe ischemic cardiomyopathy. 5. History of chronic alcoholism leading to elevated MCV. 6. Gastroesophageal reflux disease. 7. Mild nonspecific elevation of lipase I do not believe patient has pancreatitis. 8. Chronic obstructive pulmonary disease without any acute exacerbation. 9. Essential hypertension.
[2017-01-21] MEDS ORDERED: ALPRAZolam 0.25 MG TAB PO PRN (22:32)
[2017-01-21 23:26] LABS: Creatine Kinase MB 2.1 ng/mL (0.0-2.4)
[2017-01-21 23:27] LABS: Troponin I 0.112 ng/mL (0.000-0.034)
[2017-01-22] MEDS ORDERED: NALOXONE 0.4 MG/ML 1 ML VIAL IV PRN (00:46)
[2017-01-22 06:27] LABS: INR 1.8 (<1.1); Prothrombin Time 17.6 sec (9.0-12.0)
[2017-01-22 06:31] LABS: Partial Thromboplastin Time 50.7 sec (22.0-30.0)
[2017-01-22 06:32] LABS: Ionized Calcium 3.9 mg/dL (4.5-5.3)
[2017-01-22 06:35] LABS: Basophils % (A) 0 %; CH 32.6; CHCM 31.2; Eosinophils % (A) 0 %; HCT 32.4 % (34.0-46.0); HDW 2.32; HGB 10.3 gm/dL (11.4-16.0); Hypochromasia Slight; Luc # (Auto) 0.17; Luc % (Auto) 2; Lymphocytes # (A) 1.6 k/uL (1.0-4.8); Lymphocytes % (A) 14 %; MCH 33.6 pg (25.0-35.0); MCHC 31.9 g/dL (31.0-37.0); MCV 105.2 fL (80.0-100.0); Macrocytosis Moderate; Mean Platelet Volume 7.2; Monocytes # (A) 0.5 k/uL (0-1.0); Monocytes % (A) 5 %; Neutrophils # (A) 8.5 k/uL (1.3-7.7); Neutrophils % (A) 79 %; RBC 3.08 m/uL (3.80-5.40); RDW 13.3 % (11.5-15.5); WBC 10.8 k/uL (3.8-10.6); WBC (Perox) 10.46
[2017-01-22] MEDS: LEVOTHYROXINE 112 MCG TAB PO SCH (06:38)
[2017-01-22 06:41] LABS: Calcium 7.5 mg/dL (8.4-10.2); Magnesium 2.2 mg/dL (1.6-2.3); Phosphorous 2.8 mg/dL (2.5-4.5); Potassium 3.3 mmol/L (3.5-5.1); Total Bilirubin 0.8 mg/dL (0.2-1.3); Total Protein 6.8 g/dL (6.3-8.2)
[2017-01-22] MEDS: SYMBICORT 80-4.5 MCG INHALER INHALATION PRN (07:29)
[2017-01-22] MEDS ORDERED: Potassium Replacement Protocol 1 EACH MISC MISCELLANE PRN (08:06)
[2017-01-22] MEDS: PANTOPRAZOLE 40 MG/10 ML VIAL IVP SCH (08:06)
[2017-01-22] MEDS: CLOPIDOGREL 75 MG TAB PO SCH (08:19)
[2017-01-22] MEDS: LIPASE 5,000/PROTEASE 17,000/AMYLASE 27,0000 PO SCH ×3 (08:19→16:47)
[2017-01-22] MEDS: FLUoxetine HCL 20 MG CAP PO SCH (08:20)
[2017-01-22] MEDS ORDERED: HYDROmorphone 1 MG/ML 1 ML SYRINGE ONE (08:55)
[2017-01-22] MEDS ORDERED: ONDANSETRON 4 MG/2 ML VIAL ONE (08:56)
[2017-01-22] MEDS ORDERED: POTASSIUM CHLORIDE ER 20 MEQ TAB.ER PO SCH (09:00)
[2017-01-22] MEDS ORDERED: SPIRONOLACTONE 25 MG TAB PO SCH (09:00)
[2017-01-22] MEDS ORDERED: ASPIRIN 325 MG TAB PO SCH (09:00)
[2017-01-22] MEDS ORDERED: NON-FORMULARY DRUG (Omeprazole 20 MG) PO SCH (09:00)
[2017-01-22] MEDS ORDERED: FUROSEMIDE 40 MG TAB PO SCH (09:00)
[2017-01-22] MEDS ORDERED: NON-FORMULARY DRUG (Aspirin Ec 81 MG) PO SCH (09:00)
[2017-01-22] MEDS ORDERED: AMIODARONE 200 MG TAB PO STA (12:08)
[2017-01-22] MEDS: SODIUM CHLORIDE 0.9% 1,000 ML IV SCH ×2 (12:11→17:38)
--- NOTE | 2017-01-22 12:19 | ECHOF ---
Referral Reason:AICD firing, cardiac structure MEASUREMENTS -------- HEIGHT: 170.2 cm WEIGHT: 61.2 kg BP: 115/71 RVIDd: 2.8 cm (< 3.3) IVSd: 1.1 cm (0.6 - 1.1) LVIDd: 5.4 cm (3.9 - 5.3) LVPWd: 1.0 cm (0.6 - 1.1) IVSs: 1.4 cm LVIDs: 4.2 cm LVPWs: 1.2 cm LAESV Index (A-L): 39.90 ml/m Ao Diam: 3.4 cm (2.0 - 3.7) AV Cusp: 1.8 cm (1.5 - 2.6) LA Diam: 4.8 cm (2.7 - 3.8) MV EXCURSION: 17.354 mm (> 18.000) MV EF SLOPE: 82 mm/s (70 - 150) EPSS: 0.5 cm MV E Patrick: 0.78 m/s MV DecT: 229 ms MV A Patrick: 0.51 m/s MV E/A Ratio: 1.54 RAP: 5.00 mmHg RVSP: 13.44 mmHg FINDINGS -------- Sinus rhythm. This was a technically adequate study. Left ventricular wall thickness is normal. Overall left ventricular systolic function is mildly impaired with, an EF between 45 - 50 %. The right ventricle is normal in size and function. LA is severely dilated >40 ml/m2 RA appears enlarged. Aortic valve is trileaflet and is mildly thickened. There is no evidence of aortic regurgitation. There is no evidence of aortic stenosis. The mitral valve leaflets are mildly thickened. Mild mitral regurgitation is present. Trace tricuspid regurgitation present. There is no evidence of pulmonary hypertension. The right ventricular systolic pressure, as measured by Doppler, is 13.44mmHg. The pulmonic valve was not well visualized. The aortic root size is normal. IVC Not well visulized. The pericardium is normal. There is no pericardial effusion. CONCLUSIONS -------- 1. Sinus rhythm. 2. The right ventricular systolic pressure, as measured by Doppler, is 13.44mmHg. 3. The pulmonic valve was not well visualized. 4. The aortic root size is normal. 5. IVC Not well visulized. 6. There is no pericardial effusion. 7. Overall left ventricular systolic function is mildly impaired with, an EF between 45 - 50 %. 8. LA is severely dilated >40 ml/m2 9. RA appears enlarged. 10. Aortic valve is trileaflet and is mildly thickened. 11. The mitral valve leaflets are mildly thickened. 12. Mild mitral regurgitation is present. 13. Trace tricuspid regurgitation present. 14. There is no evidence of pulmonary hypertension. SPINNING FRAME FIXER: Jay Amador RDCS
--- NOTE | 2017-01-22 12:31 | CONS ---
DATE OF CONSULTATION: This 71-year-old female presented to the emergency department complaining of abdominal pain. According to her , she apparently nearly passed out at home. It was probably more of a near syncopal than a syncopal episode. When EMS arrived to the house, she apparently was found to have ventricular tachycardia. Her defibrillator apparently defibrillated her 3 different times. She was given 150 mg of Cordarone and the patient has been stable from rhythm standpoint since. Her ongoing complaints included primarily nausea and abdominal pain. The abdominal pain was epigastric and right upper quadrant. I have asked the nurse to provide her with some Zofran, some Dilaudid for pain and also get an ultrasound of the belly. She denies any chest pain or difficulty breathing. No fever, no chills. Currently, the patient is on Cordarone 0.5 mg per minute. Getting a 0.9 IV at 20 and getting only room air in terms of supplemental oxygen. Not getting any supplemental oxygen for that matter. Just on room air. The patient was also found to have profound hypomagnesemia. That has been corrected. She has been given 4 grams or more of magnesium. Also mildly hypokalemic. Anyway, doing better. Less issues with her heart rhythm as mentioned above. Her home medications include vitamin B, Symbicort, Creon, albuterol, Lipitor, Prozac, folic acid, Prilosec, Xarelto, Ultram, Lasix, Synthroid, Lopressor and Aldactone. At one point she was also on Plavix. Allergies include IBUPROFEN, IVP DYE, LEVAQUIN and SHELLFISH. Medical history is positive for atrial fibrillation, asthma/COPD, CAD, heart failure, GERD, hypertension, myocardial infarction, DJD, hypothyroidism as well as pancreatitis and chronic alcohol abuse. She also has a history of pancreatic pseudocyst, ascites with previous paracentesis, previous UTI, normocytic anemia or anemia of chronic disease and history of thyroid cancer with previous thyroidectomy. She apparently also has a history of arthritis and liver abscess. Surgical history includes heart catheterization, AICD placement, hysterectomy, joint replacement, pacemaker insertion. Social history is positive for heavy tobacco use in the past and previous heavy alcohol abuse. No illicit drug use. Family history is positive for bone cancer in the patient's father. The rest of the history is not too remarkable. REVIEW OF SYSTEMS: CONSTITUTIONAL: Weakness. NEUROLOGIC: Negative. HEENT: Negative. CARDIOVASCULAR: Negative. PULMONARY: Negative. GI: Nausea, abdominal pain. : Negative. RHEUMATOLOGICAL/IMMUNOLOGIC: Negative. ENDOCRINOLOGIC: Negative. Current vital signs revealed a temperature 97.9, heart rate 69, respiratory rate 20, blood pressure 136/80 with a mean of 98 and 2 L saturation 99%. Appears in no acute distress. HEENT examination is grossly unremarkable. Mucous membranes are moist. No oral lesions. ( ) normal. NECK: Supple. Full range of motion. No adenopathy or thyromegaly. Neck veins are flat. Cardiovascular examination reveals regular rhythm and rate. S1, S2 normal. No murmur. Lungs reveal clear breath sounds. No wheezes or rhonchi. ABDOMEN: Soft. Bowel sounds are heard. No masses or tenderness. Extremities are intact. No cyanosis, clubbing or edema. Skin without rash. The patient is currently on Cordarone at 0.5 mg per minute, 0.9 IV at 20. Not receiving any supplemental oxygen. Labs are reviewed. White count 10.8, hemoglobin 10.3, hematocrit 32.4, platelet count 354,000. PT, INR were 17.6 and 1.8 respectively. PTT is 50.7. Sodium 134, potassium 3.3, chloride 96, CO2 of 26. BUN and creatinine were 18 and 1.27. Troponins were 0.118 and 0.112. The rest of the labs look okay. Chest x-ray showed no acute process. Medications are reviewed. She appears to be on appropriate medication. ASSESSMENT: 1. Syncope, near syncope secondary to possible discharge of her AICD. 2. Ventricular tachycardia. 3. Profound electrolyte disturbances including hypomagnesemia, hypokalemia. 4. History of chronic pancreatitis from alcohol abuse. 5. History of chronic obstructive pulmonary disease/asthma. 6. History of atrial fibrillation. 7. History of coronary artery disease. 8. History of hypothyroidism. 9. History of myocardial infarction. 10. History of hypertension. 11. History of normocytic, normochromic anemia. PLAN: The patient's medications are appropriate. We have ordered Zofran for nausea and vomiting. We have also ordered some Dilaudid for pain and ultrasound of the abdomen paying special attention to the epigastrium and right upper quadrant. Will continue to follow. Prognosis is guarded.
[2017-01-22] MEDS: HYDROmorphone 1 MG/ML 1 ML SYRINGE IVP PRN ×3 (12:41→20:41)
--- NOTE | 2017-01-22 13:07 | CONS ---
DATE OF CONSULTATION: CHIEF COMPLAINT: Ventricular tachycardia. This is a 71-year-old lady with history of coronary artery disease, ischemic cardiomyopathy, status post AICD, and history of atrial fibrillation who comes to the hospital having had episodes of AICD discharge. She denies chest pain or difficulty in breathing. She has had multiple episodes of ventricular tachycardia and defibrillator went off. She was found to have severely diminished magnesium that has since been supplemented. Her troponins were in car zone at 0.4, 0.1 and 0.1, probably related to defibrillation. LDL cholesterol is well controlled at 79. I am still waiting for the records from [facility] for which she regularly follows. Past medical history is significant for ischemic cardiomyopathy, coronary artery disease, ventricular tachycardia, and atrial fibrillation. Current medications include Xarelto 20 mg daily, Protonix, Zofran, Senokot, Narcan, Synthroid, Plavix, amiodarone, Xanax and Ventolin. Allergic to MOTRIN, IV DYE, SHELLFISH and LEVOFLOXACIN. Family history is negative for premature coronary artery disease. Social history is negative for current smoking, EtOH abuse or drug abuse. REVIEW OF SYSTEMS: HEENT: Unremarkable. CARDIAC: As described above. RESPIRATORY: As described above. GI: Negative. GENITOURINARY: Negative. ALLERGY/IMMUNOLOGY: Negative. SKIN: Negative. MUSCULOSKELETAL: Significant for arthritis. PSYCHOSOCIAL: Negative. ENDOCRINE: Negative. DERMATOLOGIC: Negative. CONSTITUTIONAL: Negative. ONCOLOGICAL: Negative. LAND SURVEYOR: Negative. The rest of the system review is not relevant. On exam, afebrile. Vital signs are stable. There is no jugular venous distention. Carotid upstroke is normal. There is no bruit. Chest exam reveals diminished air entry at the bases. Heart exam reveals first and second heart sounds. No gallop. Has a systolic murmur at the left lower sternal border. Abdomen is soft. Exam of the extremities did not reveal edema. Peripheral pulses are felt. Labs have been reviewed. ASSESSMENT: 1. Ventricular tachycardia, status post AICD discharge. 2. Ischemic cardiomyopathy. 3. Coronary artery disease, status post angioplasty. 4. Hypomagnesemia. PLAN: We will get the device checked today and the ventricular tachycardia could be due to hypomagnesemia. Will supplement the magnesium and will review her outpatient records from [facility]. The patient is on amiodarone 400 b.i.d. which I am going to continue at this time.
[2017-01-22 13:14] VITALS: RESP 18
[2017-01-22] MEDS: RIVAROXABAN 10 MG TAB PO SCH (16:47)
[2017-01-22 18:21] LABS: Amorphous Sediment,Urine Occasional /hpf; Appearance,Urine Clear (Clear); Bacteria,Urine Few /hpf; Bilirubin,Urine Negative (Negative); Glucose,Urine (UA) Negative (Negative); Ketones,Urine Negative (Negative); Leukocyte Esterase,Urine Small (Negative); Mucus,Urine Occasional /hpf; Nitrite,Urine Negative (Negative); PH, Urine 5.5 (5.0-8.0); Particle Count 3796; Protein,Urine 1+ (Negative); RBC,Urine 5 /hpf (0-5); Specific Gravity,Urine 1.016 (1.001-1.035); Squamous Epithelial Cell,Urine 8 /hpf (0-4); UA Billing (MACRO vs. MICRO) MICRO; Urobilinogen,Urine <2.0 mg/dL (<2.0); WBC,Urine 13 /hpf (0-5)
[2017-01-22] MEDS: AMIODARONE 200 MG TAB PO SCH (20:41)
--- NOTE | 2017-01-22 21:47 | PN ---
This patient is a 71-year-old with AICD, admitted after an episode of ventricular tachycardia. Patient did not have any similar episodes. Patient's device interrogation showed 25 beats of ventricular tachycardia. Patient was subsequently shocked. Patient's ejection fraction improved this time, 40% to 50%. Patient continues to be hyponatremic and continues to have renal dysfunction, because of which I will give her gentle hydration with IV normal saline at 75 mL/hour of up to one liter. REVIEW OF SYSTEMS: CARDIOVASCULAR: No chest pain, no orthopnea, no PND, no palpitations. PULMONARY: Denied any shortness of breath. No cough or hemoptysis. GASTROINTESTINAL: No diarrhea, nausea or vomiting. No abdominal pain. Normoactive bowel sounds. NEUROLOGIC: No headaches, no weakness, no numbness. Medications were reviewed. PHYSICAL EXAMINATION: VITAL SIGNS: Temperature 98.0, pulse of 69, respiratory rate of 18, blood pressure 123/76. Saturating at 100% on room air. GENERAL: The patient is alert and oriented x3, not in any acute distress. Well developed, well nourished. HEENT: Pupils are round and equally reacting to light. EOMI. No scleral icterus. No conjunctival pallor. Normocephalic, atraumatic. No pharyngeal erythema. No thyromegaly. CARDIOVASCULAR: S1 and S2 present. No murmurs, rubs, or gallops. PULMONARY: Chest is clear to auscultation, no wheezing or crackles. ABDOMEN: Soft, nontender, nondistended, normoactive bowel sounds. No palpable organomegaly. MUSCULOSKELETAL: No joint swelling or deformity. EXTREMITIES: No cyanosis, clubbing, or pedal edema. NEUROLOGICAL: Gross neurological examination did not reveal any focal deficits. SKIN: No rashes. LABORATORY DATA: CBC, CMP are abnormal for continued elevation of WBC count of 10,800, which improved compared to yesterday. Sodium of 134. Potassium was supplemented. It is 3.4. Magnesium was supplemented. Creatinine is 1.27. Baseline is normal. ASSESSMENT AND PLAN: 1. Episodes of ventricular tachycardia, for which patient is being continued on amiodarone. 2. Hypomagnesemia is being corrected. 3. Hypomagnesemia and hypokalemia are being corrected. 4. Acute renal failure. 5. Prerenal azotemia due to excessive diuresis. Patient will be started on gentle hydration. Continue to hold off diuretic therapy. 6. Congestive heart failure, improved systolic dysfunction. Patient is on the hypovolemic side. 7. History of chronic alcoholism with elevated mean corpuscular volume. 8. Chronic obstructive pulmonary disease without any acute exacerbation. 9. Essential hypertension. 10. Gastritis, for which we will continue Protonix.
[2017-01-23] MEDS: HYDROmorphone 1 MG/ML 1 ML SYRINGE IVP PRN ×5 (00:59→19:55)
[2017-01-23] MEDS: SODIUM CHLORIDE 0.9% 1,000 ML IV SCH (03:57)
[2017-01-23] MEDS: LEVOTHYROXINE 112 MCG TAB PO SCH (06:28)
[2017-01-23] MEDS: LIPASE 5,000/PROTEASE 17,000/AMYLASE 27,0000 PO SCH ×3 (06:28→17:36)
[2017-01-23 06:50] LABS: Ionized Calcium 4.4 mg/dL (4.5-5.3)
[2017-01-23 06:52] LABS: Basophils % (A) 0 %; CH 32.9; CHCM 31.8; Eosinophils % (A) 0 %; HDW 2.42; HGB 8.1 gm/dL (11.4-16.0); Hypochromasia Slight; Luc # (Auto) 0.16; Luc % (Auto) 2; Lymphocytes # (A) 1.3 k/uL (1.0-4.8); Lymphocytes % (A) 12 %; MCH 32.7 pg (25.0-35.0); MCHC 31.4 g/dL (31.0-37.0); MCV 104.1 fL (80.0-100.0); Macrocytosis Slight; Mean Platelet Volume 7.3; Monocytes # (A) 0.6 k/uL (0-1.0); Monocytes % (A) 5 %; Neutrophils # (A) 8.8 k/uL (1.3-7.7); Neutrophils % (A) 81 %; RDW 13.4 % (11.5-15.5); WBC 10.8 k/uL (3.8-10.6); WBC (Perox) 10.29
[2017-01-23 06:57] LABS: Partial Thromboplastin Time 47.6 sec (22.0-30.0); Prothrombin Time 19.2 sec (9.0-12.0)
[2017-01-23 07:04] LABS: Calcium 7.8 mg/dL (8.4-10.2); Magnesium 1.8 mg/dL (1.6-2.3); Phosphorous 2.5 mg/dL (2.5-4.5); Potassium 3.8 mmol/L (3.5-5.1); Total Bilirubin 0.5 mg/dL (0.2-1.3); Total Protein 5.8 g/dL (6.3-8.2)
[2017-01-23] MEDS: CLOPIDOGREL 75 MG TAB PO SCH (08:28)
[2017-01-23] MEDS: AMIODARONE 200 MG TAB PO SCH ×2 (08:28→19:43)
[2017-01-23] MEDS: SYMBICORT 80-4.5 MCG INHALER INHALATION PRN ×2 (08:29→20:31)
[2017-01-23] MEDS: FLUoxetine HCL 20 MG CAP PO SCH (08:29)
[2017-01-23] MEDS: PANTOPRAZOLE 40 MG/10 ML VIAL IVP SCH (08:29)
--- NOTE | 2017-01-23 11:48 | P.PN ---
Subjective Principal diagnosis: Pancreatitis This is a 71-year-old female patient who presented the emergency room on 2016 with complaints of abdominal pain. She had a near syncopal episode secondary to the pain as well. She was actually found to have a ventricular tachycardia once EMS arrived at house she was defibrillated 3 and given IV amiodarone and developed return of spontaneous circulation. She was initially seen and evaluated in the intensive care unit by Dr. Mendes. She is currently on Cordarone at 400 mg twice a day. No further ventricular tachycardia. She is seen today in follow-up on the selective care unit. She is awake and alert in no acute distress. Her only complaint is still some vague nausea and epigastric discomfort. She has no pulmonary complaints. She is maintaining good O2 saturations in the 90s on room air. Objective - Vital Signs Vital signs: Vital Signs Temp 96.5 F L 01/23/17 08:00 Pulse 75 01/23/17 08:00 Resp 18 01/23/17 04:00 BP 120/67 01/23/17 08:00 Pulse Ox 98 01/23/17 08:00 Intake & Output 01/22/17 01/23/17 01/23/17 18:59 06:59 18:59 Intake Total 545 600 240 Output Total 250 Balance 295 600 240 Weight 61.6 kg 61.6 kg Intake: Intake, IV Titration 100 400 Amount Sodium Chloride 0.9% 1, 400 000 ml @ 100 mls/hr IV . Q10H [facility] Rx#:[id number] Sodium Chloride 0.9% 1, 100 000 ml @ 20 mls/hr IV . Q24H [facility] Rx#:[id number] Oral 445 200 240 Output: Urine 250 Other: Voiding Method Toilet # Voids 2 - Exam GENERAL EXAM: Alert, active, comfortable in no apparent distress. HEAD: Normocephalic. EYES: Normal reaction of pupils, equal size. NOSE: Clear with pink turbinates. THROAT: No erythema or exudates. NECK: No masses, no JVD. CHEST: No chest wall deformity. LUNGS: Equal air entry with no crackles, wheeze, rhonchi or dullness. CVS: S1 and S2 normal with an audible murmur, regular rhythm. ABDOMEN: No hepatosplenomegaly, normal bowel sounds, no guarding or rigidity. SPINE: No scoliosis or deformity SKIN: No rashes CENTRAL NERVOUS SYSTEM: No focal deficits, tone is normal in all 4 extremities. - Labs CBC & Chem 7: 01/23/17 06:30 01/23/17 06:30 Labs: Abnormal Lab Results - Last 24 Hours (Table) 01/22/17 01/23/17 01/23/17 Range/Units 17:30 06:30 06:30 WBC 10.8 H (3.8-10.6) k/uL RBC 2.50 L (3.80-5.40) m/uL Hgb 8.1 L D (11.4-16.0) gm/dL Hct 26.0 L (34.0-46.0) % MCV 104.1 H (80.0-100.0) fL Neutrophils # 8.8 H (1.3-7.7) k/uL PT 19.2 H (9.0-12.0) sec APTT 47.6 H (22.0-30.0) sec Sodium (137-145) mmol/L Creatinine (0.52-1.04) mg/dL Glucose (74-99) mg/dL Calcium (8.4-10.2) mg/dL Ionized Calcium Brad (4.5-5.3) mg/dL Alkaline Phosphatase (38-126) U/L Total Protein (6.3-8.2) g/dL Albumin (3.5-5.0) g/dL Urine Protein 1+ H (Negative) Urine Blood Trace H (Negative) Ur Leukocyte Esterase Small H (Negative) Urine WBC 13 H (0-5) /hpf Ur Squamous Epith Cells 8 H (0-4) /hpf Amorphous Sediment Occasional H (None) /hpf Urine Bacteria Few H (None) /hpf Hyaline Casts 56 H (0-2) /lpf Urine Mucus Occasional H (None) /hpf 01/23/17 Range/Units 06:30 WBC (3.8-10.6) k/uL RBC (3.80-5.40) m/uL Hgb (11.4-16.0) gm/dL Hct (34.0-46.0) % MCV (80.0-100.0) fL Neutrophils # (1.3-7.7) k/uL PT (9.0-12.0) sec APTT (22.0-30.0) sec Sodium 133 L (137-145) mmol/L Creatinine 1.39 H (0.52-1.04) mg/dL Glucose 110 H (74-99) mg/dL Calcium 7.8 L (8.4-10.2) mg/dL Ionized Calcium Brad 4.4 L (4.5-5.3) mg/dL Alkaline Phosphatase 158 H (38-126) U/L Total Protein 5.8 L (6.3-8.2) g/dL Albumin 2.7 L (3.5-5.0) g/dL Urine Protein (Negative) Urine Blood (Negative) Ur Leukocyte Esterase (Negative) Urine WBC (0-5) /hpf Ur Squamous Epith Cells (0-4) /hpf Amorphous Sediment (None) /hpf Urine Bacteria (None) /hpf Hyaline Casts (0-2) /lpf Urine Mucus (None) /hpf Assessment and Plan Plan: Impression: #1 Syncope secondary to ventricular tachycardia status post AICD discharge. #2 Profound electrolyte disturbances including hypomagnesemia magnesium, hypokalemia, recovered. #3 History of chronic pancreatitis from acute alcohol abuse. #4 History of atrial fibrillation. #5 History of chronic obstructive pulmonary disease. #6 Coronary artery disease with previous angioplasty. #7 Hypothyroidism. #8 History of normocytic, normochromic anemia. #9 Depression, currently on Prozac. Plan: The patient was seen and evaluated by Dr. Mendes. She is currently stable from the pulmonary and critical care standpoint. Cardiology is on the case regarding antiarrhythmics. We'll continue with her other medications. We'll increase her activity as tolerated. We'll continue to follow.
[2017-01-23] MEDS: ONDANSETRON 4 MG/2 ML VIAL IVP PRN ×2 (13:15→19:53)
--- NOTE | 2017-01-23 13:15 | P.PN ---
Subjective Principal diagnosis: Ventricular tachycardia 6 is a 71-year-old female with known history of coronary artery disease, ischemic cardio myopathy with prior AICD implantation, paroxysmal atrial fibrillation, who presented to the hospital following several discharges from her AICD. Patient was found to have a severely low magnesium level. She follows with a supervisor area in [facility]. Her device was interrogated yesterday and revealed multiple AICD discharges which were all appropriate for ventricular tachycardia and ventricular fibrillation . Potassium level today 3.8, continuing to be replaced. Magnesium level 1.8. Will give 2 g of IV magnesium today and start oral magnesium. Continue oral amiodarone. Patient has had no further arrhythmias noted on the monitor. A repeat echocardiogram with Doppler study was performed here which revealed an ejection fraction of 45- 50%. Patient denies any chest discomfort, no palpitations, just feeling weak today. He is complaining of some mild abdominal discomfort. Hemoglobin is 8.1. Objective - Vital Signs Vital signs: Vital Signs Temp 96.5 F L 01/23/17 08:00 Pulse 75 01/23/17 08:00 Resp 18 01/23/17 04:00 BP 120/67 01/23/17 08:00 Pulse Ox 98 01/23/17 08:00 Intake & Output 01/22/17 01/23/17 01/23/17 18:59 06:59 18:59 Intake Total 545 600 240 Output Total 250 Balance 295 600 240 Weight 61.6 kg 61.6 kg Intake: Intake, IV Titration 100 400 Amount Sodium Chloride 0.9% 1, 400 000 ml @ 100 mls/hr IV . Q10H [facility] Rx#:[id number] Sodium Chloride 0.9% 1, 100 000 ml @ 20 mls/hr IV . Q24H [facility] Rx#:[id number] Oral 445 200 240 Output: Urine 250 Other: Voiding Method Toilet # Voids 2 - Exam PHYSICAL EXAMINATION: HEENT: Head is atraumatic, normocephalic. Pupils equal, round. Neck is supple. There is no elevated jugular venous pressure. HEART EXAMINATION: Heart S1, S2 normal. No murmur or gallop heard. CHEST EXAMINATION: Lungs reveal diminished air entry to bilateral bases ABDOMEN: Soft, positive generalized tenderness . Bowel sounds are heard. No organomegaly noted. EXTREMITIES: 2+ peripheral pulses with no evidence of peripheral edema and no calf tenderness noted. NEUROLOGIC patient is awake, alert and oriented -3. . - Labs CBC & Chem 7: 01/23/17 06:30 01/23/17 06:30 Labs: Abnormal Lab Results - Last 24 Hours (Table) 01/22/17 01/23/17 01/23/17 Range/Units 17:30 06:30 06:30 WBC 10.8 H (3.8-10.6) k/uL RBC 2.50 L (3.80-5.40) m/uL Hgb 8.1 L D (11.4-16.0) gm/dL Hct 26.0 L (34.0-46.0) % MCV 104.1 H (80.0-100.0) fL Neutrophils # 8.8 H (1.3-7.7) k/uL PT 19.2 H (9.0-12.0) sec APTT 47.6 H (22.0-30.0) sec Sodium (137-145) mmol/L Creatinine (0.52-1.04) mg/dL Glucose (74-99) mg/dL Calcium (8.4-10.2) mg/dL Ionized Calcium Brad (4.5-5.3) mg/dL Alkaline Phosphatase (38-126) U/L Total Protein (6.3-8.2) g/dL Albumin (3.5-5.0) g/dL Urine Protein 1+ H (Negative) Urine Blood Trace H (Negative) Ur Leukocyte Esterase Small H (Negative) Urine WBC 13 H (0-5) /hpf Ur Squamous Epith Cells 8 H (0-4) /hpf Amorphous Sediment Occasional H (None) /hpf Urine Bacteria Few H (None) /hpf Hyaline Casts 56 H (0-2) /lpf Urine Mucus Occasional H (None) /hpf 01/23/17 Range/Units 06:30 WBC (3.8-10.6) k/uL RBC (3.80-5.40) m/uL Hgb (11.4-16.0) gm/dL Hct (34.0-46.0) % MCV (80.0-100.0) fL Neutrophils # (1.3-7.7) k/uL PT (9.0-12.0) sec APTT (22.0-30.0) sec Sodium 133 L (137-145) mmol/L Creatinine 1.39 H (0.52-1.04) mg/dL Glucose 110 H (74-99) mg/dL Calcium 7.8 L (8.4-10.2) mg/dL Ionized Calcium Brad 4.4 L (4.5-5.3) mg/dL Alkaline Phosphatase 158 H (38-126) U/L Total Protein 5.8 L (6.3-8.2) g/dL Albumin 2.7 L (3.5-5.0) g/dL Urine Protein (Negative) Urine Blood (Negative) Ur Leukocyte Esterase (Negative) Urine WBC (0-5) /hpf Ur Squamous Epith Cells (0-4) /hpf Amorphous Sediment (None) /hpf Urine Bacteria (None) /hpf Hyaline Casts (0-2) /lpf Urine Mucus (None) /hpf Assessment and Plan (1) AICD discharge Status: Acute (2) Ischemic cardiomyopathy Status: Acute (3) COPD (chronic obstructive pulmonary disease) Status: Acute (4) Hypomagnesemia Status: Acute (5) Ventricular fibrillation Status: Acute (6) Ventricular tachycardia Status: Acute (7) History of ETOH abuse Status: Acute Plan: From cardiology's perspective, we will replace the patient's magnesium and start her on oral magnesium. Replace potassium. Continue by mouth amiodarone. Plan for possible discharge home in 24 hours if stable. BNP follow-up with her supervisor area in [facility]. Patient has again been advised regarding the importance of EtOH cessation. DNP note has been reviewed, I agree with a documented findings and plan of care. Patient was seen and examined.
[2017-01-23] MEDS: MAGNESIUM SULFATE-D5W PMX 1 GM in DEXTROSE/WATER 1 100ML.BAG IVPB SCH ×2 (14:23→16:00)
--- NOTE | 2017-01-23 15:13 | XR ---
Lumbosacral spine HISTORY: Back pain 5 views of the lumbosacral spine Comparison to prior exam 06/28/2011 Levoscoliosis is again noted. Bone mineralization is reduced. There is a large calcification in the r ight paraspinal level measuring 17 mm at the L1-2 interspace level. There is multilevel spondylosis. No spondylolysis or spondylolisthesis evident. Multilevel loss of di sc height present at the intervertebral levels. Sclerosis present in the posterior elements. Vertebra l body height is maintained. IMPRESSION: Osteoporosis, degenerative disc disease. Facet arthropathy. Large pancreatic calcificatio n, correlate for chronic pancreatitis.
[2017-01-23] MEDS: RIVAROXABAN 10 MG TAB PO SCH (17:36)
--- NOTE | 2017-01-23 20:21 | PN ---
DATE OF SERVICE: 01/23/2017 PRESENTING COMPLAINT: AICD firing. INTERVAL HISTORY: This is a patient who presented after her AICD fired with an episode of ventricular tachycardia. Patient has not had any further episodes of AICD firing. Patient is lying in bed and appears comfortable; states that her appetite is low. She has been ambulatory a little bit in the bergeron and in the room. Patient has been up to the chair for short periods of time. Patient does not state she has any acute distress; however, patient is anxious-appearing. Review of systems is done for constitutional, cardiovascular, GI, pulmonary, with relevant findings as above. CURRENT MEDICATIONS: 1. Xanax 0.25 p.o. q.i.d. 2. Plavix 75 mg p.o. daily. 3. Prozac 20 mg p.o. daily. 4. Synthroid 112 mcg p.o. daily. 5. Rivaroxaban 20 mg p.o. daily at supper. 6. Amiodarone 400 mg p.o. b.i.d. PHYSICAL EXAMINATION: VITAL SIGNS: Temperature 96.5, pulse 75, respirations 18, blood pressure 120/67, oxygen saturation 98% on room air. GENERAL APPEARANCE: Patient is lying in bed, anxious-appearing. Seems tense. EYES: Pupils equal. Conjunctivae normal. NECK: JVD not raised. Mass not palpable. LUNGS: Clear to auscultation in all rivera. RESPIRATORY: Effort normal, unlabored. CARDIOVASCULAR: First and second sounds noted. No edema. ABDOMEN: Soft, nontender. Bowel sounds present x4. PSYCHIATRIC: Alert and oriented x3. Mood and affect are anxious-appearing. INVESTIGATIONS: Hemoglobin 8.1. INR 2.0. Sodium 133. BUN 17, creatinine 1.39. Urinalysis negative. ASSESSMENT: 1. Episodes of ventricular tachycardia with automatic implantable cardioverter defibrillator firing. Patient will be continued on amiodarone. 2. Hypomagnesemia. 3. Hypocalcemia. 4. Acute renal failure. 5. Prerenal azotemia due to excessive diuresis. 6. Congestive heart failure, improved systolic dysfunction. 7. Chronic obstructive pulmonary disease, stable. 8. Essential hypertension, stable. 9. Gastritis. PLAN: From cardiology standpoint, patient can be discharged provided that she remains stable in the next 24 hours. Pulmonology also has cleared the patient for discharge. Patient should follow up with her local company hazmat driver at [facility]. Patient has received supplementation for magnesium as well as potassium, and both of these lab values have been corrected. Patient's creatinine today is 1.39 and there has been a slight bump from previous day of 1.27. Will continue to follow these lab values and determine if a nephrology consult is warranted. Will continue to monitor closely. Patient was seen and examined by nurse practitioner Adelia Krishna, and all elements of the case were discussed with attending, Dr. Williamson.
[2017-01-24] MEDS: HYDROmorphone 1 MG/ML 1 ML SYRINGE IVP PRN ×4 (00:36→13:02)
[2017-01-24] MEDS: ONDANSETRON 4 MG/2 ML VIAL IVP PRN (04:45)
[2017-01-24 05:48] VITALS: TEMP 98.7
[2017-01-24 05:58] LABS: Appearance,Urine Clear (Clear); Bilirubin,Urine Negative (Negative); Glucose,Urine (UA) Negative (Negative); Ketones,Urine Negative (Negative); Leukocyte Esterase,Urine Large (Negative); Nitrite,Urine Negative (Negative); Particle Count 1721; Protein,Urine Negative (Negative); RBC,Urine 1 /hpf (0-5); Specific Gravity,Urine 1.005 (1.001-1.035); Squamous Epithelial Cell,Urine 1 /hpf (0-4); UA Billing (MACRO vs. MICRO) MICRO; Urobilinogen,Urine <2.0 mg/dL (<2.0); WBC,Urine 47 /hpf (0-5)
[2017-01-24] MEDS: LIPASE 5,000/PROTEASE 17,000/AMYLASE 27,0000 PO SCH ×2 (06:46→13:02)
[2017-01-24] MEDS: LEVOTHYROXINE 112 MCG TAB PO SCH (06:46)
--- NOTE | 2017-01-24 07:00 | PN ---
DATE OF SERVICE: 01/23/2017 ATTENDING NOTE: This patient was seen and examined by me earlier today. I reviewed the note of my nurse practitioner, Ms. Krishna. Discussed and agreed with her. Patient presented with recurrent AICD firing. Feels a bit tired, a bit nauseated. Magnesium is being replaced. On examination, blood pressure 126/77, pulse ox 98% on room air. On examination: CARDIOVASCULAR: First and second sounds normal. LUNGS: Slightly decreased breath sounds. ABDOMEN: Minimal epigastric tenderness. Soft. PSYCHIATRY: Alert and oriented x3. INVESTIGATIONS: Creatinine 1.39.3. ASSESSMENT: 1. AICD firing from underlying ventricular tachycardia and ventricular fibrillation, probably from underlying hypomagnesemia. 2. Hypomagnesemia. 3. Chronic pancreatitis in a patient with history of alcoholism. 4. Chronic congestive heart failure from systolic and diastolic dysfunction; ejection fraction 30% to 35% underlying coronary artery disease. 5. Coronary artery disease with single vessel stent to the circumflex. 6. An AICD for cardiac arrest and ventricular fibrillation. 7. History of liver abscess. 8. Persistent asthma. 9. Essential hypertension. 10. Primary osteoarthritis of multiple joints, bilateral chronic. 11. Hypothyroidism. PLAN: Care was discussed with the patient. Will switch the patient over to full liquid diet. Labs are being corrected. Magnesium was replaced. So was potassium. Care was discussed with the patient.
[2017-01-24] MEDS: SYMBICORT 80-4.5 MCG INHALER INHALATION PRN (07:14)
[2017-01-24 07:24] LABS: INR 2.1 (<1.1); Partial Thromboplastin Time 46.3 sec (22.0-30.0); Prothrombin Time 19.9 sec (9.0-12.0)
[2017-01-24 07:26] LABS: Basophils % (A) 0 %; CH 32.5; CHCM 31.2; Eosinophils # (A) 0.1 k/uL (0-0.7); Eosinophils % (A) 1 %; HCT 24.5 % (34.0-46.0); HDW 2.34; HGB 7.6 gm/dL (11.4-16.0); Hypochromasia Slight; Luc # (Auto) 0.11; Luc % (Auto) 2; Lymphocytes % (A) 16 %; MCH 32.3 pg (25.0-35.0); MCHC 30.9 g/dL (31.0-37.0); MCV 104.5 fL (80.0-100.0); Macrocytosis Slight; Mean Platelet Volume 7.3; Monocytes # (A) 0.4 k/uL (0-1.0); Monocytes % (A) 6 %; Neutrophils % (A) 75 %; RBC 2.35 m/uL (3.80-5.40); RDW 13.4 % (11.5-15.5); WBC 6.6 k/uL (3.8-10.6); WBC (Perox) 6.74
[2017-01-24 07:46] LABS: Ionized Calcium 4.8 mg/dL (4.5-5.3)
[2017-01-24 07:58] LABS: Calcium 8.4 mg/dL (8.4-10.2); Phosphorous 2.4 mg/dL (2.5-4.5); Potassium 4.2 mmol/L (3.5-5.1); Total Bilirubin 0.6 mg/dL (0.2-1.3); Total Protein 5.3 g/dL (6.3-8.2)
[2017-01-24] MEDS: AMIODARONE 200 MG TAB PO SCH (08:55)
[2017-01-24] MEDS: PANTOPRAZOLE 40 MG/10 ML VIAL IVP SCH (08:55)
[2017-01-24] MEDS: FLUoxetine HCL 20 MG CAP PO SCH (08:55)
[2017-01-24] MEDS: CLOPIDOGREL 75 MG TAB PO SCH (08:55)
[2017-01-24] MEDS ORDERED: MAGNESIUM OXIDE 400 MG TAB PO SCH (09:00)
[2017-01-24 09:04] VITALS: PULSE 72
[2017-01-24 11:06] VITALS: BMI 21.4
--- NOTE | 2017-01-24 11:51 | P.PN ---
Subjective Principal diagnosis: Ventricular tachycardia 6 is a 71-year-old female with known history of coronary artery disease, ischemic cardio myopathy with prior AICD implantation, paroxysmal atrial fibrillation, who presented to the hospital following several discharges from her AICD. Patient was found to have a severely low magnesium level. She follows with a fence laborer in [facility]. Her device was interrogated yesterday and revealed multiple AICD discharges which were all appropriate for ventricular tachycardia and ventricular fibrillation . Potassium level today 4.2. Magnesium level 2.0. Continue oral amiodarone 400 mg one tablet by mouth twice a day for one week, then 200 mg by mouth 3 times a day for one week , then 200 mg by mouth twice a day.. Patient has had no further arrhythmias noted on the monitor. A repeat echocardiogram with Doppler study was performed here which revealed an ejection fraction of 45-50%. Patient denies any chest discomfort, no palpitations, feeling much stronger overall today. Hemoglobin down to 7.6 today. Patient is currently on Xarelto for anticoagulation. She is also on Plavix. Objective - Vital Signs Vital signs: Vital Signs Temp 98.7 F 01/24/17 08:00 Pulse 72 01/24/17 08:00 Resp 18 01/24/17 04:00 BP 111/66 01/24/17 08:00 Pulse Ox 96 01/24/17 08:00 Intake & Output 01/23/17 01/24/17 01/24/17 18:59 06:59 18:59 Intake Total 900 Output Total 400 Balance 900 -400 Weight 62.2 kg 62.2 kg Intake: Intake, IV Titration 100 Amount Magnesium Sulfate-D5w Pmx 100 1 gm In Dextrose/Water 1 100ml.bag @ 100 mls/hr IVPB Q1H [facility] Rx#: [id number] Oral 800 Output: Urine 400 Other: Voiding Method Toilet # Voids 0 2 # Bowel Movements 0 - Exam PHYSICAL EXAMINATION: HEENT: Head is atraumatic, normocephalic. Pupils equal, round. Neck is supple. There is no elevated jugular venous pressure. HEART EXAMINATION: Heart S1, S2 normal. No murmur or gallop heard. CHEST EXAMINATION: Lungs reveal diminished air entry to bilateral bases ABDOMEN: Soft, positive generalized tenderness . Bowel sounds are heard. No organomegaly noted. EXTREMITIES: 2+ peripheral pulses with no evidence of peripheral edema and no calf tenderness noted. NEUROLOGIC patient is awake, alert and oriented -3. . - Labs CBC & Chem 7: 01/24/17 06:34 01/24/17 06:34 Labs: Abnormal Lab Results - Last 24 Hours (Table) 01/24/17 01/24/17 01/24/17 Range/Units 05:35 06:34 06:34 RBC 2.35 L (3.80-5.40) m/uL Hgb 7.6 L (11.4-16.0) gm/dL Hct 24.5 L (34.0-46.0) % MCV 104.5 H (80.0-100.0) fL MCHC 30.9 L (31.0-37.0) g/dL PT 19.9 H (9.0-12.0) sec APTT 46.3 H (22.0-30.0) sec Sodium (137-145) mmol/L Creatinine (0.52-1.04) mg/dL Phosphorus (2.5-4.5) mg/dL Alkaline Phosphatase (38-126) U/L Total Protein (6.3-8.2) g/dL Albumin (3.5-5.0) g/dL Ur Leukocyte Esterase Large H (Negative) Urine WBC 47 H (0-5) /hpf 01/24/17 Range/Units 06:34 RBC (3.80-5.40) m/uL Hgb (11.4-16.0) gm/dL Hct (34.0-46.0) % MCV (80.0-100.0) fL MCHC (31.0-37.0) g/dL PT (9.0-12.0) sec APTT (22.0-30.0) sec Sodium 132 L (137-145) mmol/L Creatinine 1.17 H (0.52-1.04) mg/dL Phosphorus 2.4 L (2.5-4.5) mg/dL Alkaline Phosphatase 155 H (38-126) U/L Total Protein 5.3 L (6.3-8.2) g/dL Albumin 2.5 L (3.5-5.0) g/dL Ur Leukocyte Esterase (Negative) Urine WBC (0-5) /hpf Assessment and Plan (1) AICD discharge Status: Acute (2) Ischemic cardiomyopathy Status: Acute (3) COPD (chronic obstructive pulmonary disease) Status: Acute (4) Hypomagnesemia Status: Acute (5) Ventricular fibrillation Status: Acute (6) Ventricular tachycardia Status: Acute (7) History of ETOH abuse Status: Acute Plan: From cardiology's perspective, we will continue oral magnesium. From cardiology standpoint, the patient is stable. We will continue the amiodarone 400 mg one tablet by mouth twice a day for one week, then 200 mg by mouth 3 times a day for one week, then 200 mg one tablet by mouth twice a day. Patient is on Xarelto 20 mg daily along with Plavix. Hemoglobin down to 7.6 today, primary to follow. Once the patient is discharged home from the hospital she will follow-up with her fence laborer in [facility]. DNP note has been reviewed, I agree with a documented findings and plan of care. Patient was seen and examined.
--- NOTE | 2017-01-24 11:56 | P.PN ---
Subjective Principal diagnosis: Pancreatitis This is a 71-year-old female patient who presented the emergency room on 2016 with complaints of abdominal pain. She had a near syncopal episode secondary to the pain as well. She was actually found to have a ventricular tachycardia once EMS arrived at house she was defibrillated 3 and given IV amiodarone and developed return of spontaneous circulation. She was initially seen and evaluated in the intensive care unit by Dr. Mendes. She is currently on Cordarone at 400 mg twice a day. No further ventricular tachycardia. She is seen today in follow-up on the selective care unit. She is awake and alert in no acute distress. Her only complaint is still some vague nausea and epigastric discomfort. She has no pulmonary complaints. She is maintaining good O2 saturations in the 90s on room air. The patient is seen again today 01/24/2017 in follow-up on the selective care unit. She is awake and alert in no acute distress. She is stronger today as compared to yesterday. She is also tolerating more activity with less shortness of breath. She is maintaining good O2 saturations in the upper 90s on room air. She's been hemodynamically stable. Afebrile. No recurrent ventricular tachycardia. Her abdominal pain is much improved. Objective - Vital Signs Vital signs: Vital Signs Temp 98.7 F 01/24/17 08:00 Pulse 72 01/24/17 08:00 Resp 18 01/24/17 04:00 BP 111/66 01/24/17 08:00 Pulse Ox 96 01/24/17 08:00 Intake & Output 01/23/17 01/24/17 01/24/17 18:59 06:59 18:59 Intake Total 900 Output Total 400 Balance 900 -400 Weight 62.2 kg 62.2 kg Intake: Intake, IV Titration 100 Amount Magnesium Sulfate-D5w Pmx 100 1 gm In Dextrose/Water 1 100ml.bag @ 100 mls/hr IVPB Q1H [facility] Rx#: [id number] Oral 800 Output: Urine 400 Other: Voiding Method Toilet # Voids 0 2 # Bowel Movements 0 - Exam GENERAL EXAM: Alert, active, comfortable in no apparent distress. HEAD: Normocephalic. EYES: Normal reaction of pupils, equal size. NOSE: Clear with pink turbinates. THROAT: No erythema or exudates. NECK: No masses, no JVD. CHEST: No chest wall deformity. LUNGS: Equal air entry with no crackles, wheeze, rhonchi or dullness. CVS: S1 and S2 normal with an audible murmur, regular rhythm. ABDOMEN: No hepatosplenomegaly, normal bowel sounds, no guarding or rigidity. SPINE: No scoliosis or deformity SKIN: No rashes CENTRAL NERVOUS SYSTEM: No focal deficits, tone is normal in all 4 extremities. - Labs CBC & Chem 7: 01/24/17 06:34 01/24/17 06:34 Labs: Abnormal Lab Results - Last 24 Hours (Table) 01/24/17 01/24/17 01/24/17 Range/Units 05:35 06:34 06:34 RBC 2.35 L (3.80-5.40) m/uL Hgb 7.6 L (11.4-16.0) gm/dL Hct 24.5 L (34.0-46.0) % MCV 104.5 H (80.0-100.0) fL MCHC 30.9 L (31.0-37.0) g/dL PT 19.9 H (9.0-12.0) sec APTT 46.3 H (22.0-30.0) sec Sodium (137-145) mmol/L Creatinine (0.52-1.04) mg/dL Phosphorus (2.5-4.5) mg/dL Alkaline Phosphatase (38-126) U/L Total Protein (6.3-8.2) g/dL Albumin (3.5-5.0) g/dL Ur Leukocyte Esterase Large H (Negative) Urine WBC 47 H (0-5) /hpf 01/24/17 Range/Units 06:34 RBC (3.80-5.40) m/uL Hgb (11.4-16.0) gm/dL Hct (34.0-46.0) % MCV (80.0-100.0) fL MCHC (31.0-37.0) g/dL PT (9.0-12.0) sec APTT (22.0-30.0) sec Sodium 132 L (137-145) mmol/L Creatinine 1.17 H (0.52-1.04) mg/dL Phosphorus 2.4 L (2.5-4.5) mg/dL Alkaline Phosphatase 155 H (38-126) U/L Total Protein 5.3 L (6.3-8.2) g/dL Albumin 2.5 L (3.5-5.0) g/dL Ur Leukocyte Esterase (Negative) Urine WBC (0-5) /hpf Assessment and Plan Plan: Impression: #1 Syncope secondary to ventricular tachycardia status post AICD discharge. Remains on amiodarone 400 mg twice a day. #2 Profound electrolyte disturbances including hypomagnesemia, hypokalemia, recovered. #3 History of chronic pancreatitis from chronic alcohol abuse. Currently on Zosyn. #4 History of atrial fibrillation. Anticoagulated with Xarelto. #5 History of chronic obstructive pulmonary disease. Maintained on Symbicort and albuterol. #6 Coronary artery disease with previous angioplasty. #7 Hypothyroidism. #8 History of normocytic, normochromic anemia. #9 Depression, currently on Prozac. Plan: The patient was seen and evaluated by Dr. Mendes. We'll continue with her current medications. We'll increase her activity as tolerated. She could be discharged home once cleared by cardiology.
[2017-01-24 14:09] VITALS: BP 104/66
[2017-01-25] MEDS ORDERED: PANTOPRAZOLE 40 MG TABLET PO SCH (07:30)
--- NOTE | 2017-01-25 09:25 | DS ---
DATE OF ADMISSION: 01/21/2017 DATE OF DISCHARGE: 01/24/2017 FINAL DIAGNOSES: 1. Automatic implantable cardioverter-defibrillator firing from underlying ventricular tachycardia and ventricular fibrillation in a patient with known underlying coronary artery disease from hypomagnesemia. 2. Hypomagnesemia. 3. Chronic pancreatitis in a patient with history of alcoholism. 4. Chronic congestive heart failure from systolic and diastolic dysfunction; ejection fraction 30% to 35%, underlying coronary artery disease. 5. Coronary artery disease with single vessel stent of the circumflex. 6. Automatic implantable cardioverter-defibrillator for prior history of cardiac arrest and ventricular fibrillation. 7. History of liver abscess and pseudocyst. 8. Persistent asthma. 9. Essential hypertension. 10. History of pancreatic duct stent done at [facility]. 11. Moderate protein calorie malnutrition from decreased oral intake with decreased muscle mass, hypoalbuminemia. 12. Chronic kidney disease stage III, probably from nephrosclerosis does not seem to have an acute component. 13. Macrocytic anemia, multifactorial including nutritional and probably from liver and pancreatic disease. HOSPITAL COURSE: This is a patient with chronic pancreatitis secondary to alcoholism with chronic persistent baseline pain presented with runs of V. tach and V. fib seen by Dr. Toño Mcneal from cardiology. Patient is put on amiodarone. AICD check was carried out. Patient's 2-D echocardiogram showing an EF of around 45% to 50%, it fluctuates. Patient is tolerating a liquid diet. Patient has chronic pain from chronic pancreatitis. Care was discussed with the patient. Keen to go home. She was advised to keep away from alcohol. Patient has not smoked for some time. ON EXAMINATION: LUNGS: Decreased breath sounds. Mild epigastric tenderness. LABS: Hemoglobin is 7.6, no evidence of bleeding. An element is hospital acquired. Discharge planning more than 35 minutes. DISCHARGE MEDICATIONS: 1. Vitamin B complex 1 capsule p.o. q.h.s. 2. Symbicort 80/4.5 two puffs b.i.d. 3. Creon 24,000 two capsules p.o. t.i.d. 4. Ventolin 2.5 inhalation q.4 p.r.n. 5. Prozac 20 mg p.o. daily. 6. Folic acid 1 mg p.o. daily. 7. Prilosec 20 mg p.o. daily. 8. Xarelto 20 mg p.o. q.h.s. 9. Senokot-S 1 tablet p.o. b.i.d. p.r.n. 10. Ultram 50 mg q.6 p.r.n. 11. Plavix 75 mg p.o. daily. 12. Synthroid 112 mcg p.o. daily. 13. Lopressor 100 mg p.o. b.i.d. 14. Lasix 40 mg p.o. daily. 15. Aldactone 25 mg p.o. daily. 16. Cordarone taper dose. 17. Bentyl 10 mg p.o. t.i.d. 18. Magnesium oxide 400 mg p.o. daily. 19. Nitrostat sublingual q.4 p.r.n.. Patient to follow with his gun examiner at [facility] in one week; Dr. Lobo in one week; Dr. Ben Mcneal in one week. The patient is on a full liquid diet, advance as tolerated.
== END 2017-01-24 16:16 | disposition home or self-care (01) | DRG 309 ==
LOC: EC 10:14 → 6ICU 12:01 → 6SEL 01-22 11:56
PROVIDERS: ADMIT Hospitalist; ATTEND Hospitalist
PROC: 4B02XTZ Measurement of Cardiac Defibrillator, External Approach (ICD-10-PCS; principal; 2017-01-22)
DX: I47.2 Ventricular tachycardia (principal); E44.0 Moderate protein-calorie malnutrition; I49.01 Ventricular fibrillation; N17.9 Acute kidney failure, unspecified; I50.42 Chronic combined systolic (congestive) and diastolic (congestive) heart failure; E87.1 Hypo-osmolality and hyponatremia; K86.0 Alcohol-induced chronic pancreatitis; I13.0 Hypertensive heart and chronic kidney disease with heart failure and stage 1 through stage 4 chronic kidney disease, or unspecified chronic kidney disease; Z86.74 Personal history of sudden cardiac arrest; E83.42 Hypomagnesemia; J44.9 Chronic obstructive pulmonary disease, unspecified; N18.3 Chronic kidney disease, stage 3 (moderate); I25.5 Ischemic cardiomyopathy; I25.10 Atherosclerotic heart disease of native coronary artery without angina pectoris; E86.1 Hypovolemia; I48.0 Paroxysmal atrial fibrillation; E83.51 Hypocalcemia; K29.70 Gastritis, unspecified, without bleeding; D63.8 Anemia in other chronic diseases classified elsewhere; D53.9 Nutritional anemia, unspecified; T50.1X5A Adverse effect of loop [high-ceiling] diuretics, initial encounter; R53.1 Weakness; E88.09 Other disorders of plasma-protein metabolism, not elsewhere classified; E89.0 Postprocedural hypothyroidism; F10.20 Alcohol dependence, uncomplicated; I25.2 Old myocardial infarction; E87.6 Hypokalemia; F32.9 Major depressive disorder, single episode, unspecified; F41.9 Anxiety disorder, unspecified; R74.8 Abnormal levels of other serum enzymes; G89.29 Other chronic pain; M19.041 Primary osteoarthritis, right hand; M19.042 Primary osteoarthritis, left hand; K21.9 Gastro-esophageal reflux disease without esophagitis; Z79.02 Long term (current) use of antithrombotics/antiplatelets; Z79.899 Other long term (current) drug therapy; Z80.8 Family history of malignant neoplasm of other organs or systems; Z91.041 Radiographic dye allergy status; Z87.891 Personal history of nicotine dependence; Z95.810 Presence of automatic (implantable) cardiac defibrillator; Z85.850 Personal history of malignant neoplasm of thyroid; Z87.440 Personal history of urinary (tract) infections; Z79.01 Long term (current) use of anticoagulants; Z87.19 Personal history of other diseases of the digestive system; Z86.19 Personal history of other infectious and parasitic diseases; Z88.6 Allergy status to analgesic agent; Z88.1 Allergy status to other antibiotic agents; Z91.013 Allergy to seafood; Z68.21 Body mass index [BMI] 21.0-21.9, adult; Z79.891 Long term (current) use of opiate analgesic; Z79.51 Long term (current) use of inhaled steroids; Z71.3 Dietary counseling and surveillance; Z95.5 Presence of coronary angioplasty implant and graft; Z98.42 Cataract extraction status, left eye; Z98.41 Cataract extraction status, right eye; Z96.642 Presence of left artificial hip joint; Z90.710 Acquired absence of both cervix and uterus
CPT/HCPCS: 36415; 71020; 72110; 80048; 80053; 80061; 81001; 82140; 82150; 82330; 82550; 82553; 83690; 83735; 84100; 84132; 84443; 84484; 85025; 85610; 85730; 93005; 93306; 94640

== ENCOUNTER → 2017-02-20 | Outpatient (CLI) | payer MEDICARE, BC ==
[2017-02-20 11:29] LABS: CH 34.2; CHCM 31.8; HCT 35.1 % (34.0-46.0); HDW 2.16; MCH 34.2 pg (25.0-35.0); MCHC 31.6 g/dL (31.0-37.0); MCV 108.2 fL (80.0-100.0); Macrocytosis Marked; Mean Platelet Volume 6.9; RBC 3.25 m/uL (3.80-5.40); RDW 15.8 % (11.5-15.5)
[2017-02-20 11:35] LABS: HGB 11.1 gm/dL (11.4-16.0)
[2017-02-20 11:55] LABS: Calcium 9.9 mg/dL (8.4-10.2); Magnesium 1.9 mg/dL (1.6-2.3); Phosphorous 4.3 mg/dL (2.5-4.5); Potassium 5.1 mmol/L (3.5-5.1); Total Bilirubin 0.7 mg/dL (0.2-1.3); Total Protein 7.6 g/dL (6.3-8.2); Uric Acid 11.1 mg/dL (3.7-7.4)
[2017-02-20 12:02] LABS: INR 1.5 (<1.1)
[2017-02-20 12:04] LABS: % Iron Saturation 69.3 % (20-50)
== END | disposition home or self-care (01) ==
LOC: LABWHC1 10:54
PROVIDERS: ATTEND Internal Medicine Gastroenterology
DX: K70.30 Alcoholic cirrhosis of liver without ascites (principal); N17.9 Acute kidney failure, unspecified; D64.9 Anemia, unspecified; N39.0 Urinary tract infection, site not specified; E21.3 Hyperparathyroidism, unspecified; E55.9 Vitamin D deficiency, unspecified; M10.9 Gout, unspecified
CPT/HCPCS: 36415; 80053; 82105; 82306; 82728; 83540; 83550; 83735; 83970; 84100; 84550; 85027; 85610

== ENCOUNTER → 2017-02-21 | Outpatient (CLI) | payer MEDICARE, BC ==
[2017-02-21 12:35] LABS: Appearance,Urine Cloudy (Clear); Bacteria,Urine Rare /hpf; Bilirubin,Urine Negative (Negative); Glucose,Urine (UA) Negative (Negative); Ketones,Urine Negative (Negative); Leukocyte Esterase,Urine Large (Negative); Mucus,Urine Rare /hpf; Nitrite,Urine Negative (Negative); PH, Urine 5.5 (5.0-8.0); Particle Count 3349; Protein,Urine Trace (Negative); Specific Gravity,Urine 1.014 (1.001-1.035); Squamous Epithelial Cell,Urine 2 /hpf (0-4); UA Billing (MACRO vs. MICRO) MICRO; Urobilinogen,Urine <2.0 mg/dL (<2.0); WBC,Urine >182 /hpf (0-5)
== END | disposition home or self-care (01) ==
LOC: LABWHC1 12:01
PROVIDERS: ATTEND Nurse Practitioner Family
DX: N17.9 Acute kidney failure, unspecified (principal); D64.9 Anemia, unspecified; N39.0 Urinary tract infection, site not specified; E21.3 Hyperparathyroidism, unspecified; E55.9 Vitamin D deficiency, unspecified; M10.9 Gout, unspecified
CPT/HCPCS: 81001; 87077; 87086; 87186

== ENCOUNTER 2017-03-20 10:54 | Inpatient (IN) | payer MEDICARE, BC ==
[2017-03-20] MEDS ORDERED: ONDANSETRON 4 MG/2 ML VIAL IVP STA (11:36)
[2017-03-20] MEDS ORDERED: SODIUM CHLORIDE 0.9% 1,000 ML IV STA ×2 (11:36)
--- NOTE | 2017-03-20 11:41 | ED ---
Nausea/Vomiting/Diarrhea HPI - General Chief complaint: Nausea/Vomiting/Diarrhea Stated complaint: vomiting, diarrhea Time Seen by Provider: 03/20/17 11:20 Source: patient, family, RN notes reviewed Mode of arrival: wheelchair Limitations: no limitations - History of Present Illness Initial comments: This is a 72-year-old female who presents with complaints of 3 weeks of progressively worsening nausea vomiting diarrhea. She has generalized weakness she states she's had a 25-30 pound weight loss over the last year per her she is feeling thrive at home she is demonstrating dizziness decreased oral intake. Her last episode of nausea and vomiting was last night also her last episode diarrhea was yesterday. She denies any recent antibiotics or history of C. difficile. She states she's had some chills no dysuria hematuria. No bloody bowel movements are reported. She currently is nauseated. MD complaint: nausea, vomiting, diarrhea, other - Related Data Home Medications Medication Instructions Recorded Confirmed Vitamin B Complex 1 cap PO HS 04/15/15 03/20/17 Lipase/Protease/Amylase [Creon Dr 2 cap PO TID 05/31/16 03/20/17 24,000 Units Capsule] FLUoxetine HCL [PROzac] 20 mg PO DAILY 08/14/16 03/20/17 Folic Acid 1 mg PO DAILY 08/14/16 03/20/17 Omeprazole [PriLOSEC] 20 mg PO DAILY 08/14/16 03/20/17 Rivaroxaban [Xarelto] 20 mg PO W/SUPPER 08/14/16 03/20/17 Levothyroxine Sodium [Synthroid] 112 mcg PO DAILY 01/10/17 03/20/17 Metoprolol Tartrate [Lopressor] 100 mg PO BID 01/10/17 03/20/17 Furosemide [Lasix] 40 mg PO DAILY 01/21/17 03/20/17 Spironolactone 25 mg PO DAILY 01/21/17 03/20/17 Allopurinol [Zyloprim] 100 mg PO DAILY 03/20/17 03/20/17 Lisinopril [Zestril] 20 mg PO DAILY 03/20/17 03/20/17 Previous Rx's Medication Instructions Recorded Clopidogrel [Plavix] 75 mg PO DAILY #30 tab 08/16/16 Amiodarone [Cordarone] 400 mg PO BID #60 tab 01/24/17 Magnesium Oxide [Mag-Ox] 400 mg PO DAILY tab 01/24/17 Nitroglycerin Sl Tabs [Nitrostat] 0.4 mg SUBLINGUAL Q5M PRN #30 tab 01/24/17 Allergies Allergy/AdvReac Type Severity Reaction Status Date / Time ibuprofen [From Motrin] Allergy Anaphylaxis Verified 03/20/17 11:27 Iodinated Contrast- Oral and Allergy Rash/Hives Verified 03/20/17 11:27 IV Dye [Iodinated Contrast Media - IV Dye] levofloxacin [From Levaquin] Allergy Anaphylaxis Verified 03/20/17 11:27 shellfish derived AdvReac Nausea & Verified 03/20/17 11:27 Vomiting Review of Systems ROS Statement: Those systems with pertinent positive or pertinent negative responses have been documented in the HPI. ROS Other: All systems not noted in ROS Statement are negative. Past Medical History Past Medical History: Atrial Fibrillation, Asthma, Coronary Artery Disease (CAD) , Cancer, Heart Failure, GERD/Reflux, Hypertension, Myocardial Infarction (SD), Osteoarthritis (OA), Thyroid Disorder Additional Past Medical History / Comment(s): Pancreatitis, pancreatic cyst, ascities with paracentesises, UTI with cystitis, normocytic anemia. chronic stable asthma, DJD, thyroid cancer with thyroidectomy, seasonal allergies, arthiritis bilateral hands, liver abscess, afib, ventricular fib,cardiac arrest , cardiomyopathy Last Myocardial Infarction Date:: 06/2016 History of Any Multi-Drug Resistant Organisms: None Reported Past Surgical History: AICD, Heart Catheterization With Stent, Hysterectomy, Joint Replacement, Pacemaker Additional Past Surgical History / Comment(s): 2016 PCI with stent and AICD, paracentesises, thyroidectomy, left hip replaced, vein stripping bilaterally, repair right detached retina, cataract removal bilat eyes, pancreatic stent, liver bx-no cancer. Past Anesthesia/Blood Transfusion Reactions: No Reported Reaction Additional Past Anesthesia/Blood Transfusion Reaction / Comment(s): Pt has received blood in past without reaction. Date of Last Stent Placement:: 06/2016 Type of Cardiac Device: AICD Device Placement Date:: Past Psychological History: Anxiety, Depression Smoking Status: Former smoker Past Alcohol Use History: Occasional Past Drug Use History: None Reported - Past Family History Mother Family Medical History: No Reported History Additional Family Medical History / Comment(s): Mother was healthy and at the age of 98yrs. Father Family Medical History: Cancer Additional Family Medical History / Comment(s): father had bone cancer and of this at age 65yrs. General Exam - General Exam Comments Initial Comments: This is a well-developed asthenic appearing female Limitations: no limitations General appearance: alert, in no apparent distress Head exam: Present: atraumatic, normocephalic, normal inspection Eye exam: Present: normal appearance, PERRL, EOMI. Absent: scleral icterus, conjunctival injection, periorbital swelling ENT exam: Present: mucous membranes dry Neck exam: Present: normal inspection. Absent: tenderness, meningismus, lymphadenopathy Respiratory exam: Present: normal lung sounds bilaterally. Absent: respiratory distress, wheezes, rales, rhonchi, stridor Cardiovascular Exam: Present: regular rate, normal rhythm, normal heart sounds. Absent: systolic murmur, diastolic murmur, rubs, gallop, clicks GI/Abdominal exam: Present: soft, normal bowel sounds. Absent: distended, tenderness, guarding, rebound, rigid Extremities exam: Present: normal inspection, full ROM, normal capillary refill. Absent: tenderness, pedal edema, joint swelling, calf tenderness Back exam: Present: normal inspection Neurological exam: Present: alert, oriented X3, CN II-XII intact Psychiatric exam: Present: normal affect, normal mood Skin exam: Present: warm, dry, intact, normal color. Absent: rash Course Vital Signs 03/20/17 10:57 Temperature 98.2 F Pulse Rate 73 Respiratory 18 Rate Blood Pressure 89/55 O2 Sat by Pulse 99 Oximetry Medical Decision Making - Medical Decision Making I did discuss findings with patient family patient be admitted she does demonstrate evidence of acute renal failure dehydration and intractable nausea vomiting diarrhea. - Lab Data Result diagrams: 03/20/17 12:13 03/20/17 12:13 Lab Results 03/20/17 03/20/17 03/20/17 Range/Units 12:13 12:13 12:13 WBC 4.6 (3.8-10.6) k/uL RBC 3.37 L (3.80-5.40) m/uL Hgb 11.7 (11.4-16.0) gm/dL Hct 35.9 (34.0-46.0) % MCV 106.5 H (80.0-100.0) fL MCH 34.7 (25.0-35.0) pg MCHC 32.6 (31.0-37.0) g/dL RDW 15.5 (11.5-15.5) % Plt Count 261 (150-450) k/uL Neutrophils % 70 % Lymphocytes % 18 % Monocytes % 8 % Eosinophils % 1 % Basophils % 1 % Neutrophils # 3.2 (1.3-7.7) k/uL Lymphocytes # 0.8 L (1.0-4.8) k/uL Monocytes # 0.4 (0-1.0) k/uL Eosinophils # 0.0 (0-0.7) k/uL Basophils # 0.1 (0-0.2) k/uL Macrocytosis Moderate Sodium 134 L (137-145) mmol/L Potassium 5.9 H (3.5-5.1) mmol/L Chloride 104 (98-107) mmol/L Carbon Dioxide 19 L (22-30) mmol/L Anion Gap 11 mmol/L BUN 45 H (7-17) mg/dL Creatinine 3.56 H (0.52-1.04) mg/dL Est GFR (MDRD) Af Amer 15 (>60 ml/min/1.73 sqM) Est GFR (MDRD) Non-Af 13 (>60 ml/min/1.73 sqM) Glucose 107 H (74-99) mg/dL Calcium 9.6 (8.4-10.2) mg/dL Magnesium 2.0 (1.6-2.3) mg/dL Total Bilirubin 0.4 (0.2-1.3) mg/dL AST 58 H (14-36) U/L ALT 83 H (9-52) U/L Alkaline Phosphatase 103 (38-126) U/L Total Creatine Kinase <20 L (30-135) U/L CK-MB (CK-2) 0.6 (0.0-2.4) ng/mL CK-MB (CK-2) Rel Index 0.0 Troponin I <0.012 (0.000-0.034) ng/mL Total Protein 6.7 (6.3-8.2) g/dL Albumin 3.9 (3.5-5.0) g/dL Amylase 62 (30-110) U/L Lipase 154 (23-300) U/L - Radiology Data Radiology results: report reviewed (Review the imaging shows no acute findings.) , image reviewed Disposition Clinical Impression: Acute renal failure, Gastroenteritis, Dehydration, Failure to thrive Disposition: ADMITTED IP TO THIS [facility] Condition: Stable Referrals: Valerio Lobo MD [Primary Care Provider] - 1-2 days
[2017-03-20 12:39] LABS: Basophils # (A) 0.1 k/uL (0-0.2); Basophils % (A) 1 %; CH 34.3; CHCM 32.4; Eosinophils % (A) 1 %; HCT 35.9 % (34.0-46.0); HDW 2.19; HGB 11.7 gm/dL (11.4-16.0); Luc # (Auto) 0.12; Luc % (Auto) 3; Lymphocytes # (A) 0.8 k/uL (1.0-4.8); Lymphocytes % (A) 18 %; MCH 34.7 pg (25.0-35.0); MCHC 32.6 g/dL (31.0-37.0); MCV 106.5 fL (80.0-100.0); Macrocytosis Moderate; Mean Platelet Volume 7.6; Monocytes # (A) 0.4 k/uL (0-1.0); Monocytes % (A) 8 %; Neutrophils # (A) 3.2 k/uL (1.3-7.7); Neutrophils % (A) 70 %; RBC 3.37 m/uL (3.80-5.40); RDW 15.5 % (11.5-15.5); WBC 4.6 k/uL (3.8-10.6); WBC (Perox) 4.61
[2017-03-20 12:54] LABS: Calcium 9.6 mg/dL (8.4-10.2); Potassium 5.9 mmol/L (3.5-5.1); Total Bilirubin 0.4 mg/dL (0.2-1.3); Total Protein 6.7 g/dL (6.3-8.2)
--- NOTE | 2017-03-20 12:55 | XR ---
EXAMINATION TYPE: XR abdomen acute w cxr , 3 VIEWS DATE OF EXAM ORDERED: 03/20/2017 HISTORY: Pain. COMPARISON: None. FINDINGS: There is a multilead pacing device in place on the left. The lungs are clear. Pleural space are clear. The heart is not enlarged. Within the abdomen, there is a levoscoliosis. There is a 1.7 cm calcification in the right paracolic gutter, unchanged from spine study dated 01/23/2017. The gas pattern is nonspecific with nondistended air-filled loops of large and small bowel throughout the abdomen. There is degenerative spondylosis deformans throughout the lumbar spine. There has been a previous le ft hip arthroplasty. IMPRESSION: NO ACUTE ABDOMINAL OR THORACIC ABNORMALITY.
[2017-03-20 13:06] LABS: Creatine Kinase <20 U/L (30-135)
[2017-03-20 13:18] LABS: Creatine Kinase MB 0.6 ng/mL (0.0-2.4); Troponin I <0.012 ng/mL (0.000-0.034)
[2017-03-20] MEDS ORDERED: NALOXONE 0.4 MG/ML 1 ML VIAL IV PRN (14:21)
[2017-03-20] MEDS ORDERED: ONDANSETRON 4 MG/2 ML VIAL IVP PRN (14:21)
[2017-03-20] MEDS ORDERED: NITROGLYCERIN SL TABS 0.4 MG TAB SUBLINGUAL PRN (14:24)
[2017-03-20 15:04] LABS: Amorphous Sediment,Urine Occasional /hpf; Appearance,Urine Clear (Clear); Bacteria,Urine Rare /hpf; Bilirubin,Urine Negative (Negative); Glucose,Urine (UA) Negative (Negative); Ketones,Urine Negative (Negative); Leukocyte Esterase,Urine Large (Negative); Mucus,Urine Rare /hpf; Nitrite,Urine Negative (Negative); Particle Count 3134; Protein,Urine Negative (Negative); RBC,Urine 3 /hpf (0-5); Specific Gravity,Urine 1.013 (1.001-1.035); Squamous Epithelial Cell,Urine 7 /hpf (0-4); UA Billing (MACRO vs. MICRO) MICRO; Urobilinogen,Urine <2.0 mg/dL (<2.0); WBC,Urine 37 /hpf (0-5)
[2017-03-20] MEDS: SODIUM CHLORIDE 0.9% 1,000 ML IV SCH ×2 (15:55→15:59)
[2017-03-20] MEDS: LIPASE 5,000/PROTEASE 17,000/AMYLASE 27,0000 PO SCH ×2 (15:56→21:59)
[2017-03-20 17:00] VITALS: BMI 20.3
[2017-03-20] MEDS ORDERED: RIVAROXABAN 10 MG TAB PO SCH (17:30)
[2017-03-20] MEDS ORDERED: LORazepam 2 MG/ML SYRINGE IV PRN (18:36)
[2017-03-20] MEDS: HYDROcodone/APAP 5-325MG 1 EACH TAB PO PRN (19:35)
[2017-03-20] MEDS: AMIODARONE 200 MG TAB PO SCH (21:59)
[2017-03-20] MEDS: METOPROLOL TARTRATE 50 MG TAB PO SCH (21:59)
[2017-03-21] MEDS: SODIUM CHLORIDE 0.9% 1,000 ML IV SCH ×3 (05:12→21:16)
[2017-03-21] MEDS: LEVOTHYROXINE 112 MCG TAB PO SCH (06:25)
[2017-03-21] MEDS: PANTOPRAZOLE 40 MG TABLET PO SCH (07:54)
[2017-03-21] MEDS: FLUoxetine HCL 20 MG CAP PO SCH (07:54)
[2017-03-21] MEDS: ALLOPURINOL 100 MG TAB PO SCH (07:54)
[2017-03-21] MEDS: LIPASE 5,000/PROTEASE 17,000/AMYLASE 27,0000 PO SCH ×3 (07:54→21:19)
[2017-03-21] MEDS: MAGNESIUM OXIDE 400 MG TAB PO SCH (07:54)
[2017-03-21] MEDS: CLOPIDOGREL 75 MG TAB PO SCH (07:54)
[2017-03-21] MEDS: AMIODARONE 200 MG TAB PO SCH ×2 (07:54→21:19)
[2017-03-21] MEDS: METOPROLOL TARTRATE 50 MG TAB PO SCH ×2 (07:54→21:19)
--- NOTE | 2017-03-21 09:08 | HP ---
Chief complaints are nausea and diarrhea. HISTORY OF PRESENT ILLNESS: This 70-year-old woman with a past medical history of multiple medical problems including atrial fibrillation, asthma, CAD, history of CHF, GERD, also had recent pancreatitis. Patient had progressive nausea and diarrhea and unable to keep anything down. The patient came to [facility] with chronic renal failure. There is no history of fever, rigors or chills. No history of headache, loss of consciousness. PAST MEDICAL HISTORY: History of CAD, CHF, GERD, DJD, history of AICD, CAD with stent. Home medications prior to admission include: 1. Nitrostat 0.4 sublingual p.r.n. 2. Synthroid 112 mcg p.o. daily. 3. Vitamin B complex. 4. Aldactone 25 mg daily. 5. Xarelto 20 mg with supper. 6. Prilosec 20 mg daily. 7. Lopressor 100 mg p.o. b.i.d. 8. Magnesium oxide 400 mg daily. 9. Zestril 200 mg p.o. daily. 10. Lipase. 11. Lasix 40 mg daily. 12. Folic acid. 13. Prozac 20 mg daily. 14. Plavix 75 mg daily. 15. Cordarone 400 mg daily. 16. Zyloprim 100 mg p.o. daily. ALLERGIES: IBUPROFEN, IODINATED CONTRAST, SHELLFISH. FAMILY HISTORY: Cancer in the family. SOCIAL HISTORY: Previous history of smoking, occasional alcohol intake. REVIEW OF SYSTEMS: ENT: Diminished hearing, diminished vision. CARDIOVASCULAR SYSTEM: No angina, palpitation. RESPIRATORY: No cough. GI: As mentioned earlier. : No dysuria. NERVOUS SYSTEM: No numbness or weakness. ALLERGY/IMMUNOLOGY: No asthma or hayfever. MUSCULOSKELETAL: As mentioned earlier. HEMATOLOGY: No history of anemia. ENDOCRINE: As mentioned earlier. CONSTITUTIONAL: As mentioned earlier. DERMATOLOGY: Negative. PSYCHIATRY: As mentioned earlier. PHYSICAL EXAM: Patient is alert and oriented x3. The pulse 73, blood pressure 89/55, respirations 18, temperature is 98.4, pulse ox 99% on room air. HEENT: Conjunctivae normal. NECK: No jugular venous distension. RESPIRATORY: Breath sounds diminished at the bases, a few scattered rhonchi, no crackles, respiratory wheezing also was noted. ABDOMEN: Soft, nontender. LEGS: No edema, no swelling. NERVOUS SYSTEM: No focal deficits. LABS: No focal deficits. Creatinine 3.56, sodium 135. ASSESSMENT: 1. Acute nausea and diarrhea, possible acute gastritis. 2. Acute on chronic renal failure, possibly prerenal factors with acute tubular necrosis. 3. Hyponatremia. 4. Hyperkalemia. 5. Increased AST, ALT, possibly hepatitis. 6. History of ethyl alcohol. 7. History of recent AICD. 8. History of chronic pericarditis. 9. History of congestive heart failure with chronic systolic dysfunction, ejection fraction 30% to 35%. 10. History of coronary artery disease, stent. 11. History of liver abscess, pseudocyst. RECOMMENDATION: In this 72-year-old woman who presented with multiple complex medical issues, will monitor the patient closely. Continue with the current monitoring and symptomatic treatment. Will check C. difficile, IV fluids, Nephrology consultation. Otherwise, repeat labs will be ordered for tomorrow. Guarded prognosis. Further recommendations to follow. MTDD
--- NOTE | 2017-03-21 10:13 | P.NPCON ---
History of Present Illness - Reason for Consult acute renal failure - History of Present Illness Reason for consultation: Acute kidney injury History of present illness: Patient is a 72-year-old female seen in renal consultation for acute kidney injury. Her creatinine was elevated at 3.56 on admission yesterday. Her baseline creatinine is near 1. Patient presented to the hospital with nausea vomiting and diarrhea going on for the last 3 weeks. Patient states oral intake has been poor and she also noticed a significant decrease in her urine output about 2 days ago. She is currently maintained on normal saline at 100 mL an hour and states her urine output has improved quite a bit. She denies use of NSAIDs. Denies chest pain or shortness of breath. Additionally she was taking diuretics as well as an LIVIA inhibitor at home which are currently held at this time. She denies any hematuria or dysuria. Labs from today are pending at this time. No other complaints. Vital signs are stable. General: The patient appeared well nourished and normally developed. HEENT: Head exam is unremarkable. Neck is without jugular venous distension. LUNGS: Lungs are clear to auscultation and percussion. Breath sounds decreased. HEART: Rate and Rhythm are regular. First and second heart sounds normal. No murmurs, rubs or gallops. ABDOMEN: Abdominal exam reveals normal bowel sounds. Non-tender and non- distended. No evidence of peritonitis. EXTREMITITES: No clubbing, cyanosis, or edema. Past Medical History Past Medical History: Atrial Fibrillation, Asthma, Coronary Artery Disease (CAD) , Cancer, Heart Failure, GERD/Reflux, Hypertension, Myocardial Infarction ([place]), Osteoarthritis (OA), Thyroid Disorder Additional Past Medical History / Comment(s): Pancreatitis, pancreatic cyst, ascities with paracentesises, UTI with cystitis, normocytic anemia. chronic stable asthma, DJD, thyroid cancer with thyroidectomy, seasonal allergies, arthiritis bilateral hands, liver abscess, afib, ventricular fib,cardiac arrest , cardiomyopathy Last Myocardial Infarction Date:: 06/2016 History of Any Multi-Drug Resistant Organisms: None Reported Past Surgical History: AICD, Heart Catheterization With Stent, Hysterectomy, Joint Replacement, Pacemaker Additional Past Surgical History / Comment(s): 2016 PCI with stent and AICD, paracentesises, thyroidectomy, left hip replaced, vein stripping bilaterally, repair right detached retina, cataract removal bilat eyes, pancreatic stent, liver bx-no cancer. Past Anesthesia/Blood Transfusion Reactions: No Reported Reaction Additional Past Anesthesia/Blood Transfusion Reaction / Comment(s): Pt has received blood in past without reaction. Date of Last Stent Placement:: 06/2016 Type of Cardiac Device: AICD Device Placement Date:: Past Psychological History: Anxiety, Depression Additional Psychological History / Comment(s): Pt lives with her spouse. She uses no assistive devices. She no longer drives-her spouse takes her to appts. Her daughter manages her medications. Smoking Status: Former smoker Past Alcohol Use History: Occasional Additional Past Alcohol Use History / Comment(s): Pt states she resides with her spouse. They have been 52 yrs. Pt states she quit smoking before 1979. She last drank alcohol was on. 03/18/17, drinks 2 S[employer]ail [employer] and Sprite Past Drug Use History: None Reported - Past Family History Mother Family Medical History: No Reported History Additional Family Medical History / Comment(s): Mother was healthy and at the age of 98yrs. Father Family Medical History: Cancer Additional Family Medical History / Comment(s): father had bone cancer and of this at age 65yrs. Medications and Allergies Home Medications Medication Instructions Recorded Confirmed Type Vitamin B Complex 1 cap PO HS 04/15/15 03/20/17 History Lipase/Protease/Amylase [Creon Dr 2 cap PO TID 05/31/16 03/20/17 History 24,000 Units Capsule] FLUoxetine HCL [PROzac] 20 mg PO DAILY 08/14/16 03/20/17 History Folic Acid 1 mg PO DAILY 08/14/16 03/20/17 History Omeprazole [PriLOSEC] 20 mg PO DAILY 08/14/16 03/20/17 History Rivaroxaban [Xarelto] 20 mg PO W/SUPPER 08/14/16 03/20/17 History Levothyroxine Sodium [Synthroid] 112 mcg PO DAILY 01/10/17 03/20/17 History Metoprolol Tartrate [Lopressor] 100 mg PO BID 01/10/17 03/20/17 History Furosemide [Lasix] 40 mg PO DAILY 01/21/17 03/20/17 History Spironolactone 25 mg PO DAILY 01/21/17 03/20/17 History Allopurinol [Zyloprim] 100 mg PO DAILY 03/20/17 03/20/17 History Lisinopril [Zestril] 20 mg PO DAILY 03/20/17 03/20/17 History Allergies Allergy/AdvReac Type Severity Reaction Status Date / Time ibuprofen [From Motrin] Allergy Anaphylaxis Verified 03/20/17 11:27 Iodinated Contrast- Oral and Allergy Rash/Hives Verified 03/20/17 11:27 IV Dye [Iodinated Contrast Media - IV Dye] levofloxacin [From Levaquin] Allergy Anaphylaxis Verified 03/20/17 11:27 shellfish derived AdvReac Nausea & Verified 03/20/17 11:27 Vomiting Physical Exam Vitals: Vital Signs Temp Pulse Pulse Pulse Resp BP BP 03/21/17 07:00 97.5 F L 70 18 108/71 03/20/17 23:00 97.6 F 83 16 106/57 03/20/17 15:25 96.2 F L 81 19 150/67 03/20/17 10:57 98.2 F 73 18 89/55 Pulse Ox 03/21/17 07:00 96 03/20/17 23:00 92 L 03/20/17 15:25 95 03/20/17 10:57 99 Intake and Output 03/20/17 03/21/17 03/21/17 22:59 06:59 14:59 Intake Total 200 Balance 200 Intake: Oral 200 Other: Voiding Method Toilet Bedside Commode # Voids 1 4 Weight 58.967 kg Results - Lab Results Most recent lab results Calcium 9.6 mg/dL (8.4-10.2) 03/20/17 12:13 Magnesium 2.0 mg/dL (1.6-2.3) 03/20/17 12:13 03/20/17 12:13 03/20/17 12:13 Assessment and Plan Plan: Assessment: #1. Nonoliguric acute kidney injury mostly prerenal secondary to severe intravascular volume depletion from vomiting and diarrhea and further worsened with the use of diuretics and an LIVIA inhibitor. Creatinine was 3.56 on admission. Baseline creatinine is near 1. Urinalysis is quite benign. #2. Hyperkalemia secondary to acute kidney injury and metabolic acidosis. LIVIA inhibitor and Aldactone were also contribute factors. #3. Nausea vomiting and diarrhea possibly from acute gastroenteritis. Rule out C. diff. #4. Systolic CHF with ejection fraction of 45-50%. Currently compensated. #5. Metabolic acidosis secondary to acute kidney injury. Plan: Maintain normal saline to be run at 100 mL an hour. Check labs now and again in the morning. Avoid nephrotoxic agents and hypotensive episodes. Diuretics and LIVIA inhibitor held for now. Follow-up cultures. Renal diet. Thank you for the consultation. I will continue to follow the patient with you during her hospital stay.
[2017-03-21 10:18] LABS: Calcium 8.7 mg/dL (8.4-10.2); Potassium 5.8 mmol/L (3.5-5.1)
[2017-03-21] MEDS ORDERED: SODIUM POLYSTYRENE SULFONATE 15 GM/60 ML BOTTLE PO STA (10:29)
[2017-03-21] MEDS ORDERED: DEXTROSE 50%-WATER 50 ML SYRINGE IVP STA ×2 (10:29→18:34)
[2017-03-21] MEDS: HYDROcodone/APAP 5-325MG 1 EACH TAB PO PRN (10:29)
[2017-03-21] MEDS ORDERED: INSULIN REGULAR 100 UNIT/ML VIAL IV ONE ×2 (10:29→18:33)
[2017-03-21] MEDS: ONDANSETRON 4 MG/2 ML VIAL IVP PRN ×2 (10:32→19:05)
--- NOTE | 2017-03-21 11:47 | CDI ---
In responding to this query, please exercise your independent professional judgment. The [facility] Coding Staff and Clinical Documentation Specialists appreciate your assistance in clarifying documentation, maintaining compliance with coding guidelines, accurately documenting patients condition and capturing severity of illness. The fact that a question is asked does not imply that any particular answer is desired or expected. Communication forms are a method of clarifying documentation and are not made part of the Legal Health Record. Thank you in advance for your clarification. Last Revision, June 2015 Josselyn Jonas [address] [place] [address] Documentation Clarification Form Date: 03/21/2017 11:22:00 AM From: Kate Sales RN, CDS Admit Date: 03/20/2017 2:21:00 PM Patient Name: Caron Oates Visit Number: [id number] Dr. Jazmin Corbett, 72 year old admitted for progressively worsening nausea, vomiting an diarrhea Possible acute gastritis History/Risk Factors: H/O pancreatitis, chronic systolic heart failure, Clinical Indicators: Decreased appetite and intake due to diarrhea, nausea and vomiting, unintended weight loss of 21% over past year, BMI 20.4, Total Protein 6.7, Albumin 3.9, BMI 20.3 Labs: Albumin/ Pre albumin/Total Protein: Treatment: Dietitian consult, Ensure Enlive supplement TID, BMP daily In your professional opinion, can you please clarify if these findings signify one of the following conditions? Mild Protein-Calorie Malnutrition Moderate Protein-Calorie Malnutrition Severe Protein-Calorie Malnutrition Other condition, please specify Unable to determine Please document in your progress notes and discharge summary in order to capture severity of illness and risk of mortality. Include clinical findings that support your diagnosis. FYI: Press F11 to launch patient chart. Thank you. ARIEL
[2017-03-21] MEDS: RIVAROXABAN 15 MG TAB PO SCH (17:56)
[2017-03-21] MEDS: ACETAMINOPHEN TAB 325 MG TAB PO PRN (19:04)
[2017-03-21] MEDS ORDERED: DEXTROSE 10 % IN WATER 250 ML BAG IV STA (20:28)
[2017-03-21] MEDS: SODIUM BICARBONATE TAB 650 MG TAB PO SCH (21:19)
[2017-03-21 22:34] LABS: Glucose,Whole Blood 98 mg/dL (75-99)
[2017-03-21 22:58] LABS: Glucose,Whole Blood 110 mg/dL (75-99)
[2017-03-22] MEDS: LEVOTHYROXINE 112 MCG TAB PO SCH (06:22)
[2017-03-22] MEDS: SODIUM CHLORIDE 0.9% 1,000 ML IV SCH ×2 (06:23→20:12)
[2017-03-22 06:30] LABS: Glucose,Whole Blood 93 mg/dL (75-99)
[2017-03-22] MEDS: LIPASE 5,000/PROTEASE 17,000/AMYLASE 27,0000 PO SCH ×3 (08:06→21:24)
[2017-03-22] MEDS: CLOPIDOGREL 75 MG TAB PO SCH (08:07)
[2017-03-22] MEDS: ALLOPURINOL 100 MG TAB PO SCH (08:07)
[2017-03-22] MEDS: METOPROLOL TARTRATE 50 MG TAB PO SCH ×2 (08:07→21:24)
[2017-03-22] MEDS: AMIODARONE 200 MG TAB PO SCH ×2 (08:07→21:23)
[2017-03-22] MEDS: FLUoxetine HCL 20 MG CAP PO SCH ×2 (08:07→11:23)
[2017-03-22] MEDS: SODIUM BICARBONATE TAB 650 MG TAB PO SCH ×2 (08:07→21:24)
[2017-03-22] MEDS: MAGNESIUM OXIDE 400 MG TAB PO SCH (08:07)
[2017-03-22] MEDS: PANTOPRAZOLE 40 MG TABLET PO SCH (08:07)
[2017-03-22] MEDS: ONDANSETRON 4 MG/2 ML VIAL IVP PRN (08:18)
--- NOTE | 2017-03-22 08:55 | P.PN ---
Subjective Patient is seen in follow-up for acute kidney injury. Creatinine was elevated at 3.56 on admission and was down to 2.6 yesterday. Patient presented with nausea vomiting and diarrhea along with poor oral intake for the last few days. She was also maintained on diuretics and an LIVIA inhibitor which are currently held. Patient states she vomited last yesterday morning. She did tolerate her dinner last night. Denies chest pain or shortness of breath. Admits to good urine output. Vital signs are stable. General: The patient appeared well nourished and normally developed. HEENT: Head exam is unremarkable. Neck is without jugular venous distension. LUNGS: Lungs are clear to auscultation and percussion. Breath sounds decreased. HEART: Rate and Rhythm are regular. First and second heart sounds normal. No murmurs, rubs or gallops. ABDOMEN: Abdominal exam reveals normal bowel sounds. Non-tender and non- distended. No evidence of peritonitis. EXTREMITITES: No clubbing, cyanosis, or edema. Objective - Vital Signs Vital signs: Vital Signs Temp 97.6 F 03/22/17 07:00 Pulse 73 03/22/17 07:00 Resp 16 03/22/17 07:00 BP 114/64 03/22/17 07:00 Pulse Ox 96 03/22/17 07:00 Intake & Output 03/21/17 03/22/17 03/22/17 18:59 06:59 18:59 Intake Total 400 Balance 400 Weight 58.967 kg Intake: Oral 400 Other: # Voids 2 1 # Bowel Movements 0 - Labs CBC & Chem 7: 03/20/17 12:13 03/21/17 17:00 Labs: Abnormal Lab Results - Last 24 Hours (Table) 03/21/17 03/21/17 03/21/17 Range/Units 09:49 17:00 22:56 Sodium 131 L (137-145) mmol/L Potassium 5.8 H 5.8 H (3.5-5.1) mmol/L Carbon Dioxide 17 L (22-30) mmol/L BUN 37 H (7-17) mg/dL Creatinine 2.60 H (0.52-1.04) mg/dL Glucose 171 H (74-99) mg/dL POC Glucose (mg/dL) 110 H (75-99) mg/dL Microbiology - Last 24 Hours (Table) 03/20/17 14:45 Urine Culture - Preliminary Urine,Voided Group D Enterococcus Assessment and Plan Plan: Assessment: #1. Nonoliguric acute kidney injury mostly prerenal secondary to severe intravascular volume depletion from vomiting and diarrhea and further worsened with the use of diuretics and an LIVIA inhibitor. Creatinine was 3.56 on admission and improved to 2.6 as of yesterday. Baseline creatinine is near 1. Urinalysis is quite benign. #2. Hyperkalemia secondary to acute kidney injury and metabolic acidosis. LIVIA inhibitor and Aldactone were also contribute factors. #3. Nausea vomiting and diarrhea possibly from acute gastroenteritis. Rule out C. diff. #4. Systolic CHF with ejection fraction of 45-50%. Currently compensated. #5. Metabolic acidosis secondary to acute kidney injury. #6. UTI with urine culture positive for group D enterococcus. Plan: Maintain normal saline to be run at 100 mL an hour. Avoid nephrotoxic agents and hypotensive episodes. Diuretics and LIVIA inhibitor held for now. Maintain antibiotics. Renal diet. Follow-up morning labs and repeat electrolytes in the morning.
[2017-03-22 09:17] LABS: Calcium 8.7 mg/dL (8.4-10.2); Potassium 4.7 mmol/L (3.5-5.1)
[2017-03-22] MEDS: RIVAROXABAN 15 MG TAB PO SCH (17:08)
--- NOTE | 2017-03-22 17:15 | P.PN ---
Subjective Date of service 03/21/2017. Personal being dictated for Dr. Corbett. Interval history: This a 72-year-old female admitted with progressive nausea and vomiting diarrhea, possible acute gastritis, dehydration, acute on chronic renal failure in a patient with history of EtOH abuse. No signs or symptoms of withdrawal at this time, maintained on Ativan. Retained on IV fluid hydration , PPI. Renal function improving. Hyperkalemic, currently receiving dextrose and regular insulin as per nephrology. Complained of nausea vomiting this morning. No further diarrhea. Abdominal pain/discomfort controlled with Tylenol. Review of systems: HEENT: Denies headache or focal deficits. Denies any dizziness or lightheadedness. Respiratory: Denies any increased shortness of breath. Cardiac: Denies any chest pain, palpitations. GI: Complains of nausea, vomiting this morning after breakfast, no further diarrhea since admission. abdominal tenderness-currently none. : Denies any dysuria, no hematuria. Psychiatry: Denies any anxiety or depression. Active Medications Acetaminophen (Tylenol Tab) 650 mg PO Q6HR PRN PRN Reason: Mild Pain or Fever > 100.5 Last Admin: 03/21/17 19:04 Dose: 650 mg Allopurinol (Zyloprim) 100 mg PO DAILY [facility] Last Admin: 03/22/17 08:07 Dose: 100 mg Amiodarone HCl (Cordarone) 400 mg PO BID [facility] Last Admin: 03/22/17 08:07 Dose: 400 mg Lipase/Protease/Amylase (Zenpep Dr 5,000 Units Capsule) 8 each PO TID [facility] Last Admin: 03/22/17 08:06 Dose: 8 each Clopidogrel Bisulfate (Plavix) 75 mg PO DAILY [facility] Last Admin: 03/22/17 08:07 Dose: 75 mg Fluoxetine HCl (Prozac) 20 mg PO DAILY [facility] Last Admin: 03/22/17 11:23 Dose: 20 mg Sodium Chloride (Saline 0.9%) 1,000 mls @ 100 mls/hr IV .Q10H [facility] Last Admin: 03/22/17 06:23 Dose: 100 mls/hr Ceftriaxone Sodium 1,000 mg/ (Sodium Chloride) 50 mls @ 100 mls/hr IVPB Q24HR [facility] Last Admin: 03/22/17 08:07 Dose: 100 mls/hr Levothyroxine Sodium (Synthroid) 112 mcg PO DAILY@0630 [facility] Last Admin: 03/22/17 06:22 Dose: 112 mcg Lorazepam (Ativan) 1 mg IV Q6HR PRN PRN Reason: Anxiety Last Admin: 03/21/17 00:54 Dose: 1 mg Magnesium Oxide (Mag-Ox) 400 mg PO DAILY [facility] Last Admin: 03/22/17 08:07 Dose: 400 mg Metoprolol Tartrate (Lopressor) 100 mg PO BID [facility] Last Admin: 03/22/17 08:07 Dose: 100 mg Naloxone HCl (Narcan) 0.2 mg IV Q2M PRN PRN Reason: Opioid Reversal Nitroglycerin (Nitrostat) 0.4 mg SUBLINGUAL Q5M PRN PRN Reason: Chest Pain Ondansetron HCl (Zofran) 4 mg IVP Q6HR PRN PRN Reason: Nausea And Vomiting Last Admin: 03/22/17 08:18 Dose: 4 mg Pantoprazole Sodium (Protonix) 40 mg PO AC-BRKFST [facility] Last Admin: 03/22/17 08:07 Dose: 40 mg Rivaroxaban (Xarelto) 15 mg PO W/SUPPER [facility] Last Admin: 03/21/17 17:56 Dose: 15 mg Sodium Bicarbonate (Sodium Bicarbonate Tab) 1,300 mg PO BID [facility] Last Admin: 03/22/17 08:07 Dose: 1,300 mg Objective - Vital Signs Vital signs: Vital Signs Temp 98.1 F 03/21/17 15:00 Pulse 80 03/21/17 16:06 Resp 18 03/21/17 15:00 BP 108/67 03/21/17 16:06 Pulse Ox 97 03/21/17 15:00 Intake & Output 03/21/17 03/21/17 03/22/17 06:59 18:59 06:59 Intake Total 400 Balance 400 Weight 58.967 kg Intake: Oral 400 Other: # Voids 4 2 # Bowel Movements 0 - Exam PHYSICAL EXAM: VITAL SIGNS: [As above] GENERAL: [Sitting up in bed, no acute distress] HEENT: [Pupils equal conjunctiva normal.] NECK: [Supple, no JVD] RESPIRATORY EFFORT:[ Normal] LUNGS: [Clear to auscultation, bilateral bases diminished ROM and no wheezes rhonchi or crackles] CARDIOVASCULAR[ regular S1 and S2, no murmurs rubs or gallops, no edema] GI: [Abdomen soft, nontender, positive bowel sounds.] PSYCH: [Alert and oriented -3, mood and affect normal.] NEURO: No focal deficits, moves all 4 extremities, strength and sensation grossly intact - Labs CBC & Chem 7: 03/20/17 12:13 03/22/17 08:02 Labs: Abnormal Lab Results - Last 24 Hours (Table) 03/21/17 03/21/17 Range/Units 09:49 17:00 Sodium 131 L (137-145) mmol/L Potassium 5.8 H 5.8 H (3.5-5.1) mmol/L Carbon Dioxide 17 L (22-30) mmol/L BUN 37 H (7-17) mg/dL Creatinine 2.60 H (0.52-1.04) mg/dL Glucose 171 H (74-99) mg/dL Microbiology - Last 24 Hours (Table) 03/20/17 14:45 Urine Culture - Preliminary Urine,Voided Assessment and Plan Plan: 1. [ Acute nausea, vomiting, diarrhea, possible acute gastritis]. 2. [ Acute on chronic renal failure, possibly prerenal factors with acute tubular necrosis]. 3. [ Hyponatremia]. 4. [ Hyperkalemia]. Plan: Continue on current medication regime , PPI, monitoring and symptomatic treatment. Maintain IV fluid hydration. Close monitoring of electrolytes and renal function with repeat labs ordered for a.m. Renal diet. No coffee pop, tea,milk. Follow closely with nephrology. Further recommendations to follow. The impression and plan of care has been dictated as directed. : I performed a H&P examination of this patient and discussed the same with the dictator. I agree with the dictator's note. Any additional findings/opinions/ etc. will be noted.
--- NOTE | 2017-03-22 17:23 | P.PN ---
Subjective Personal being dictated for Dr. Corbett. Interval history: This a 72-year-old female admitted with progressive nausea and vomiting diarrhea, possible acute gastritis, dehydration, acute on chronic renal failure in a patient with history of EtOH abuse. No signs or symptoms of withdrawal at this time, maintained on Ativan. Retained on IV fluid hydration , PPI. Renal function improving. Hyperkalemic, currently receiving dextrose and regular insulin as per nephrology. Complained of nausea vomiting this morning. No further diarrhea. Abdominal pain/discomfort controlled with Tylenol. 03/22/2017 Maintained on IV fluid hydration with significant improvement in renal function. Potassium WNL. Improving diet intake with no further nausea vomiting. No diarrhea. Continues on Rocephin for acute UTI with culture currently positive for group D enterococcus. Denies chest pain, palpitations or increasing shortness of breath. Objective - Vital Signs Vital signs: Vital Signs Temp 97.3 F L 03/22/17 15:00 Pulse 70 03/22/17 15:00 Resp 16 03/22/17 15:00 BP 94/52 03/22/17 15:00 Pulse Ox 95 03/22/17 15:00 Intake & Output 03/21/17 03/22/17 03/22/17 18:59 06:59 18:59 Intake Total 400 440 Balance 400 440 Weight 58.967 kg Intake: Oral 400 440 Other: # Voids 2 1 3 # Bowel Movements 0 0 - Exam PHYSICAL EXAM: VITAL SIGNS: [As above] GENERAL: [Sitting up in bed, no acute distress] HEENT: [Pupils equal conjunctiva normal. Oral mucosa moist] NECK: [Supple, no JVD] RESPIRATORY EFFORT:[ Normal] LUNGS: bilateral bases diminished ROM and no wheezes rhonchi or crackles] CARDIOVASCULAR[ regular S1 and S2, no murmurs rubs or gallops, no edema] GI: [Abdomen soft, nontender, positive bowel sounds.] PSYCH: [Alert and oriented -3, mood and affect normal.] NEURO: No focal deficits, moves all 4 extremities, strength and sensation grossly intact Microbiology 03/21/17 12:53 Blood Blood Culture - Preliminary No Growth after 24 hours 03/20/17 14:45 Urine,Voided Urine Culture - Preliminary Group D Enterococcus - Labs CBC & Chem 7: 03/20/17 12:13 03/22/17 08:02 Labs: Abnormal Lab Results - Last 24 Hours (Table) 03/21/17 03/21/17 03/22/17 Range/Units 17:00 22:56 08:02 Sodium 135 L (137-145) mmol/L Potassium 5.8 H (3.5-5.1) mmol/L Chloride 109 H (98-107) mmol/L Carbon Dioxide 19 L (22-30) mmol/L BUN 25 H (7-17) mg/dL Creatinine 1.92 H (0.52-1.04) mg/dL Glucose 138 H (74-99) mg/dL POC Glucose (mg/dL) 110 H (75-99) mg/dL Microbiology - Last 24 Hours (Table) 03/21/17 12:53 Blood Culture - Preliminary Blood No Growth after 24 hours 03/20/17 14:45 Urine Culture - Preliminary Urine,Voided Group D Enterococcus Assessment and Plan Plan: 1. [ Acute nausea, vomiting, diarrhea, possible acute gastritis]. 2. [ Acute on chronic renal failure, possibly prerenal factors with acute tubular necrosis]. 3. [ Hyponatremia]. 4. [ Hyperkalemia]. 5. Acute UTI with culture positive for group D enterococcus Plan: Continue on current medication regime , PPI, antibiotics monitoring and symptomatic treatment. Continue IV fluid hydration with continued monitoring of electrolytes and renal function. Repeat renal function and lytes in am. Discharge planning in progress for tomorrow pending nephrology clearance. The impression and plan of care has been dictated as directed. : I performed a H&P examination of this patient and discussed the same with the dictator. I agree with the dictator's note. Any additional findings/opinions/ etc. will be noted.
[2017-03-22] MEDS: ACETAMINOPHEN TAB 325 MG TAB PO PRN (20:13)
[2017-03-23] MEDS: SODIUM CHLORIDE 0.9% 1,000 ML IV SCH ×2 (05:47→12:13)
[2017-03-23] MEDS: LEVOTHYROXINE 112 MCG TAB PO SCH (06:30)
[2017-03-23 08:10] LABS: Calcium 8.6 mg/dL (8.4-10.2); Potassium 4.8 mmol/L (3.5-5.1)
[2017-03-23] MEDS: ALLOPURINOL 100 MG TAB PO SCH (08:37)
[2017-03-23] MEDS: PANTOPRAZOLE 40 MG TABLET PO SCH (08:37)
[2017-03-23] MEDS: METOPROLOL TARTRATE 50 MG TAB PO SCH (08:37)
[2017-03-23] MEDS: CLOPIDOGREL 75 MG TAB PO SCH (08:38)
[2017-03-23] MEDS: AMIODARONE 200 MG TAB PO SCH (08:38)
[2017-03-23] MEDS: MAGNESIUM OXIDE 400 MG TAB PO SCH (08:38)
[2017-03-23] MEDS: LIPASE 5,000/PROTEASE 17,000/AMYLASE 27,0000 PO SCH (08:38)
[2017-03-23] MEDS: FLUoxetine HCL 20 MG CAP PO SCH (08:38)
[2017-03-23] MEDS: SODIUM BICARBONATE TAB 650 MG TAB PO SCH (08:39)
--- NOTE | 2017-03-23 09:17 | PN ---
The patient is seen for follow-up for acute kidney injury which appears to be mainly prerenal. Her serum creatinine has improved from 1.2 yesterday to 1.64 today. Admission creatinine was at 3.56. The patient is maintained on IV fluids. She had been on Lasix which is currently on hold. Home medications did not include any ganesh inhibitors. On examination, the patient is comfortable, awake, alert and oriented times three. Not in any acute distress. Blood pressure is 150/75. Heart rate 74 per minute. She is afebrile Examination of the heart S1, and S2. Examination of the lungs bilateral breath sounds are heard. Abdomen is soft, nontender. Extremities of the lower extremities shows no significant edema. [employer] exam is grossly intact. Labs reveal serum creatinine down to 1.6 mgDL. ASSESSMENT: 1. Acute kidney injury mainly prerenal associated with intravascular volume depletion, currently maintained on fluids. Continue to hold off on diuretics for 2 to 3 days post discharge and repeat labs as outpatient in 4 to 5 days. 2. Hyperkalemia associated with acute kidney injury and metabolic acidosis, ganesh inhibitors and Aldactone are currently on hold. 3. Nausea and vomiting. Currently resolved. 4. Cardiomyopathy with EF 45 to 50%, currently compensated. 5. Metabolic acidosis secondary to acute kidney injury, currently resolved. PLAN: The patient is stable for discharge from nephrology standpoint. She is advised to hold off on the Lasix for 2 to 3 days post discharge. We will need to repeat labs as outpatient in four to five days. MTDD
[2017-03-23] MEDS ORDERED: AMOXICILLIN 500 MG CAP PO SCH (12:00)
[2017-03-23 14:54] VITALS: BP 114/67; PULSE 70; RESP 20; TEMP 97.8
--- NOTE | 2017-03-23 20:22 | P.DS ---
Providers Date of admission: 03/20/17 14:21 Expected date of discharge: 03/23/17 Attending physician: Pino Williamson Consults: 03/20/17 14:23 Consult Physician Routine Consulting Provider: Ellen Barton Consult Reason/Comments: Acute renal failure, dehydration Do you want consulting provider notified?: Yes Primary care physician: [facility] Hospital Course: FINAL DIAGNOSES: -Acute nausea and diarrhea, possible gastritis -Acute on chronic renal failure, likely prerenal factors with acute tubular necrosis -Chronic pancreatitis, with continued alcohol use -Chronic congestive heart failure with chronic systolic dysfunction, ejection fraction 30-35% -Coronary artery disease with history of stent placement -History of liver abscess, pseudocyst HOSPTIAL COURSE: This 70-year-old female who presented with progressive nausea and diarrhea unable to keep anything down. Patient was found to be in renal failure. Labs were drawn, nephrology consulted IV fluids initiated. Labs continued to be checked IV fluids continued patient's condition improved. Diuretics, ganesh inhibitors, nephrotoxic agents were all held. Today the patient's BUN is 21 creatinine 1.64 down from 3.56. patient has had no more nausea or vomiting has been able to tolerate her diet ambulatory in the hallway. Moved her bowels. Patient was counseled on the necessity of her stopping the use of alcohol. Patient and reassured physician and nurse practitioner that the patient would no longer be using alcohol. Patient's condition overall has stabilized and therefore is ready for discharge. PHYSICAL EXAM: CARDIOVASCULAR: First and second sounds noted no edema RESPIRATORY: Respiratory effort normal, lung sounds clear to auscultation bilaterally GI: Abdomen soft nontender, liver and spleen not palpable MUSKULOSKELETAL moves all 4 extremities, ambulatory in the hallways.: DISPOSITION: Discharge home to the care of her family Patient was seen and examined by nurse practitioner Adelia Krishna in all elements of the case discussed with attending Dr. Williamson Patient Condition at Discharge: Stable Plan - Discharge Summary New Discharge Prescriptions: Continue Vitamin B Complex 1 cap PO HS Lipase/Protease/Amylase [Harshil Fiore 24,000 Units Capsule] 2 cap PO TID Rivaroxaban [Xarelto] 20 mg PO W/SUPPER Omeprazole [PriLOSEC] 20 mg PO DAILY FLUoxetine HCL [PROzac] 20 mg PO DAILY Folic Acid 1 mg PO DAILY Clopidogrel [Plavix] 75 mg PO DAILY #30 tab Levothyroxine Sodium [Synthroid] 112 mcg PO DAILY Metoprolol Tartrate [Lopressor] 100 mg PO BID Furosemide [Lasix] 40 mg PO DAILY Spironolactone 25 mg PO DAILY Magnesium Oxide [Mag-Ox] 400 mg PO DAILY tab Nitroglycerin Sl Tabs [Nitrostat] 0.4 mg SUBLINGUAL Q5M PRN #30 tab PRN Reason: Chest Pain Allopurinol [Zyloprim] 100 mg PO DAILY Lisinopril [Zestril] 20 mg PO DAILY Changed Amiodarone [Cordarone] 400 mg PO DAILY #60 tab Discharge Medication List Vitamin B Complex 1 cap PO HS 04/15/15 [History] Lipase/Protease/Amylase [Harshil Fiore 24,000 Units Capsule] 2 cap PO TID 05/31/16 [ History] FLUoxetine HCL [PROzac] 20 mg PO DAILY 08/14/16 [History] Folic Acid 1 mg PO DAILY 08/14/16 [History] Omeprazole [PriLOSEC] 20 mg PO DAILY 08/14/16 [History] Rivaroxaban [Xarelto] 20 mg PO W/SUPPER 08/14/16 [History] Clopidogrel [Plavix] 75 mg PO DAILY #30 tab 08/16/16 [Rx] Levothyroxine Sodium [Synthroid] 112 mcg PO DAILY 01/10/17 [History] Metoprolol Tartrate [Lopressor] 100 mg PO BID 01/10/17 [History] Furosemide [Lasix] 40 mg PO DAILY 01/21/17 [History] Spironolactone 25 mg PO DAILY 01/21/17 [History] Magnesium Oxide [Mag-Ox] 400 mg PO DAILY tab 01/24/17 [Rx] Nitroglycerin Sl Tabs [Nitrostat] 0.4 mg SUBLINGUAL Q5M PRN #30 tab 01/24/17 [Rx ] Allopurinol [Zyloprim] 100 mg PO DAILY 03/20/17 [History] Lisinopril [Zestril] 20 mg PO DAILY 03/20/17 [History] Amiodarone [Cordarone] 400 mg PO DAILY #60 tab 03/23/17 [Rx] Follow up Appointment(s)/Referral(s): Ellen Barton MD [STAFF PHYSICIAN] - 1 Week Valerio Lobo MD [Primary Care Provider] - 1 Week [facility], [NON-STAFF] - Ambulatory/Diagnostic Orders: Basic Metabolic Panel [LAB.AMB] Time Frame: 03/28/17, Location: Determined By Patient Patient Instructions/Handouts: Acute Kidney Injury (DC) Activity/Diet/Wound Care/Special Instructions: Cardiac diet. NO alcohol. resume lasix and aldactone from saturday Discharge Disposition: HOME WITH HOME HEALTH SERVICES
--- NOTE | 2017-03-27 08:28 | CDI ---
In responding to this query, please exercise your independent professional judgment. The [facility] Coding Staff and Clinical Documentation Specialists appreciate your assistance in clarifying documentation, maintaining compliance with coding guidelines, accurately documenting patients condition and capturing severity of illness. The fact that a question is asked does not imply that any particular answer is desired or expected. Communication forms are a method of clarifying documentation and are not made part of the Legal Health Record. Thank you in advance for your clarification. Last Revision, June 2015 Josselyn Jonas [address] [place] [address] Documentation Clarification Form Date: 03/21/2017 11:22:00 AM From: Kate Sales RN, CDS Admit Date: 03/20/2017 2:21:00 PM Patient Name: Caron Oates Visit Number: [id number] Discharge Date: 03/23/2017 Dr. Pino Williamson, 72 year old admitted for progressively worsening nausea, vomiting an diarrhea Possible acute gastritis History/Risk Factors: H/O pancreatitis, chronic systolic heart failure, Clinical Indicators: Decreased appetite and intake due to diarrhea, nausea and vomiting, unintended weight loss of 21% over past year, BMI 20.4, Total Protein 6.7, Albumin 3.9, BMI 20.3 Labs: Albumin/ Pre albumin/Total Protein: Treatment: Dietitian consult, Ensure Enlive supplement TID, BMP daily In your professional opinion, can you please clarify if these findings signify one of the following conditions? Mild Protein-Calorie Malnutrition Moderate Protein-Calorie Malnutrition Severe Protein-Calorie Malnutrition Other condition, please specify Unable to determine Please document in your progress notes and discharge summary in order to capture severity of illness and risk of mortality. Include clinical findings that support your diagnosis. FYI: Press F11 to launch patient chart. Thank you. ARIEL
--- NOTE | 2017-03-27 13:32 | DS ---
ATTENDING NOTE: This patient seen and examined by me on 03/23/2017. Discussed the care with my nurse practitioner, Ms. Krishna. FINAL DIAGNOSIS: 1. Acute renal failure, likely acute tubal necrosis. 2. AICD for underlying ventricular tachycardia and atrial fibrillation, present chronically from underlying coronary artery disease. 3. Chronic pancreatitis in a patient with history of alcoholism. 4. Chronic congestive heart failure from systolic and diastolic dysfunction, ejection fraction 30 to 35% underlying coronary artery disease. 5. Coronary artery disease with a single vessel stent of the circumflex. 6. History of liver abscess and cirrhosis. 7. Persistent asthma. 8. Essential hypertension. 9. History of pancreatic duct stent done at [facility]. 10. Moderate protein calorie malnutrition from decreased oral intake. 11. Chronic kidney disease Stage III from nephrosclerosis. 12. Macrocytic anemia, multifactorial. HOSPITAL COURSE: This patient well known to us from prior admissions, presents with acute renal failure. The patients creatinine had gone up to 3.56, did come down to 1.64. The patients diuretics were held. On the day of discharge , care was discussed with the patient and the in detail. The patient again advised to stop alcohol. On examination, abdomen soft and nontender. BUN and creatinine 21 and 1.64. More discharge details in my [employer] notes. Discharge planning more than 35 minutes. LINDAD
== END 2017-03-23 15:32 | disposition home health service (06) | DRG 683 ==
LOC: EC 10:54 → 4MS4W 14:21
PROVIDERS: ADMIT Hospitalist; ATTEND Hospitalist
DX: N17.0 Acute kidney failure with tubular necrosis (principal); I13.0 Hypertensive heart and chronic kidney disease with heart failure and stage 1 through stage 4 chronic kidney disease, or unspecified chronic kidney disease; E87.2 Acidosis; I42.9 Cardiomyopathy, unspecified; K86.1 Other chronic pancreatitis; I50.22 Chronic systolic (congestive) heart failure; N39.0 Urinary tract infection, site not specified; I48.91 Unspecified atrial fibrillation; E87.1 Hypo-osmolality and hyponatremia; E86.0 Dehydration; B95.2 Enterococcus as the cause of diseases classified elsewhere; E87.5 Hyperkalemia; N18.9 Chronic kidney disease, unspecified; I25.10 Atherosclerotic heart disease of native coronary artery without angina pectoris; K21.9 Gastro-esophageal reflux disease without esophagitis; M19.91 Primary osteoarthritis, unspecified site; J45.909 Unspecified asthma, uncomplicated; I25.2 Old myocardial infarction; K29.70 Gastritis, unspecified, without bleeding; R62.7 Adult failure to thrive; F32.9 Major depressive disorder, single episode, unspecified; F10.10 Alcohol abuse, uncomplicated; F41.9 Anxiety disorder, unspecified; Z79.899 Other long term (current) drug therapy; Z79.02 Long term (current) use of antithrombotics/antiplatelets; Z79.01 Long term (current) use of anticoagulants; Z90.710 Acquired absence of both cervix and uterus; Z95.810 Presence of automatic (implantable) cardiac defibrillator; Z95.5 Presence of coronary angioplasty implant and graft; Z86.74 Personal history of sudden cardiac arrest; Z98.42 Cataract extraction status, left eye; Z98.41 Cataract extraction status, right eye; Z87.891 Personal history of nicotine dependence; Z96.642 Presence of left artificial hip joint; Z85.850 Personal history of malignant neoplasm of thyroid; Z88.8 Allergy status to other drugs, medicaments and biological substances; Z88.1 Allergy status to other antibiotic agents; Z91.041 Radiographic dye allergy status; Z91.013 Allergy to seafood
CPT/HCPCS: 36415; 74022; 80048; 80053; 81001; 82150; 82550; 82553; 83690; 83735; 84132; 84484; 85025; 87040; 87077; 87086; 87186; 87324; 93005; 96361; 96374; 99285

== ENCOUNTER → 2017-05-20 | Outpatient (CLI) | payer MEDICARE, BC ==
[2017-05-20 10:17] LABS: Basophils # (A) 0.1 k/uL (0-0.2); Basophils % (A) 1 %; CH 34.5; CHCM 31.2; Eosinophils # (A) 0.1 k/uL (0-0.7); Eosinophils % (A) 2 %; HCT 38.4 % (34.0-46.0); HDW 2.45; Hypochromasia Slight; Luc # (Auto) 0.13; Luc % (Auto) 2; Lymphocytes % (A) 18 %; MCH 34.8 pg (25.0-35.0); MCHC 31.3 g/dL (31.0-37.0); MCV 110.9 fL (80.0-100.0); Macrocytosis Marked; Mean Platelet Volume 7.1; Monocytes # (A) 0.4 k/uL (0-1.0); Monocytes % (A) 7 %; Neutrophils # (A) 4.1 k/uL (1.3-7.7); Neutrophils % (A) 70 %; RBC 3.46 m/uL (3.80-5.40); WBC 5.8 k/uL (3.8-10.6); WBC (Perox) 6.35
[2017-05-20 10:47] LABS: Calcium 9.5 mg/dL (8.4-10.2); Potassium 5.5 mmol/L (3.5-5.1); Total Bilirubin 0.6 mg/dL (0.2-1.3); Total Protein 7.3 g/dL (6.3-8.2)
[2017-05-20 11:46] LABS: Manual Review Performed
== END | disposition home or self-care (01) ==
LOC: LABWHC1 09:26
PROVIDERS: ATTEND Family Medicine
DX: I10 Essential (primary) hypertension (principal)
CPT/HCPCS: 36415; 80053; 82024; 82150; 83690; 85025

== ENCOUNTER → 2017-06-07 | Outpatient (CLI) | payer MEDICARE, BC ==
--- NOTE | 2017-06-11 08:08 | MM ---
Reason for exam: screening (asymptomatic). Last mammogram was performed 1 year and 1 month ago. History: Patient is postmenopausal and has history of other cancer at age 40. Physical Findings: A clinical breast exam by your physician is recommended on an annual basis and results should be correlated with mammographic findings. MG Screening Mammo w CAD Bilateral CC and MLO view(s) were taken. XCCL view(s) were taken of the right breast. Prior study comparison: May 18, 2016, bilateral MG 3d screening mammo w/cad. April 05, 2011, bilateral digital screening mammo w/CAD. The breast tissue is heterogeneously dense. This may lower the sensitivity of mammography. Benign secretory, vascular and oil cyst calcifications. No significant changes when compared with prior studies. ASSESSMENT: Negative, BI-RAD 1 RECOMMENDATION: Routine screening mammogram of both breasts in 1 year.
== END | disposition home or self-care (01) ==
LOC: RADMAMWWP 10:20
PROVIDERS: ATTEND Family Medicine
DX: Z12.31 Encounter for screening mammogram for malignant neoplasm of breast (principal)

== ENCOUNTER 2017-08-30 19:37 | Observation (INO) | payer MEDICARE, BC ==
[2017-08-30] MEDS ORDERED: PANTOPRAZOLE 40 MG/10 ML VIAL IVP STA (19:48)
--- NOTE | 2017-08-30 19:51 | ED ---
General Adult HPI - General Stated complaint: Fall Time Seen by Provider: 08/30/17 19:38 Source: patient, RN notes reviewed Limitations: no limitations - History of Present Illness Initial comments: Patient is a pleasant 72-year-old female presenting to the emergency department for an episode of hematemesis. Episode occurred for to arrival. Patient does take blood thinners that she states for her heart. No other areas of bleeding. Patient has no nausea at this time and feels mostly normal. Patient did have a fall earlier and landed on her right shoulder. Patient only has mild right shoulder pain. Patient denies any head injury or loss of consciousness. No black or bloody stools. Patient did have an episode of emesis yesterday without blood in it. - Related Data Home Medications Medication Instructions Recorded Confirmed Lipase/Protease/Amylase [Harshil Fiore 2 cap PO TID@0700,1100,1700 05/31/16 08/30/17 24,000 Units Capsule] FLUoxetine HCL [PROzac] 20 mg PO DAILY 08/14/16 08/30/17 Folic Acid 1 mg PO HS 08/14/16 08/30/17 Omeprazole [PriLOSEC] 20 mg PO DAILY 08/14/16 08/30/17 Rivaroxaban [Xarelto] 20 mg PO DAILY@1700 08/14/16 08/30/17 Metoprolol Tartrate [Lopressor] 50 mg PO BID@0700,1900 01/10/17 08/30/17 Furosemide [Lasix] 40 mg PO DAILY 01/21/17 08/30/17 Spironolactone 25 mg PO HS 01/21/17 08/30/17 Vitamin B Complex With C 1 tab PO HS 07/22/17 08/30/17 traMADol HCL [Ultram] 50 mg PO Q6HR PRN 07/22/17 08/30/17 Albuterol Nebulized [Ventolin 2.5 mg INHALATION RT-Q4H PRN 08/03/17 08/30/17 Nebulized] Clopidogrel [Plavix] 75 mg PO HS 08/03/17 08/30/17 Magnesium Oxide [Mag-Ox] 400 mg PO HS 08/03/17 08/30/17 Sennosides-Docusate Sodium 1 tab PO DAILY PRN 08/03/17 08/30/17 [Senokot-S] Atorvastatin Calcium [Lipitor] 40 mg PO HS 08/30/17 08/30/17 Fluticasone/Vilanterol [Breo 1 inhalation PO DAILY PRN 08/30/17 08/30/17 Ellipta 100-25 Mcg Inhaler] Levothyroxine Sodium [Synthroid] 175 mcg PO DAILY 08/30/17 08/30/17 Lisinopril [Prinivil] 10 mg PO DAILY 08/30/17 08/30/17 Promethazine [Phenergan] 12.5 mg PO Q6H PRN 08/30/17 08/30/17 diphenhydrAMINE [Benadryl] 50 mg PO HS PRN 08/30/17 08/30/17 predniSONE 50 mg PO DAILY PRN 08/30/17 08/30/17 Allergies Allergy/AdvReac Type Severity Reaction Status Date / Time ibuprofen [From Motrin] Allergy Anaphylaxis Verified 08/30/17 20:32 Iodinated Contrast- Oral and Allergy Rash/Hives Verified 08/30/17 20:32 IV Dye [Iodinated Contrast Media - IV Dye] levofloxacin [From Levaquin] Allergy Anaphylaxis Verified 08/30/17 20:32 shellfish derived AdvReac Nausea & Verified 08/30/17 20:32 Vomiting Review of Systems ROS Statement: Those systems with pertinent positive or pertinent negative responses have been documented in the HPI. ROS Other: All systems not noted in ROS Statement are negative. Constitutional: Denies: fever Eyes: Denies: eye pain ENT: Denies: ear pain Respiratory: Denies: cough Cardiovascular: Denies: chest pain Endocrine: Denies: fatigue Gastrointestinal: Reports: hematemesis. 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, previous history of ascites requiring paracentesis, thyroid cancer status post thyroidectomy, coronary artery disease, angioplasty and stenting of the circumflex artery, CHF with an ejection fraction of 30-35%, questionable liver abscess, chronic atrial fibrillation, history of atrial fibrillation with cardiac arrest requiring an AICD placement, coronary artery disease, pancreatic duct stent insertion, bronchial asthma, hypertension, chronic renal failure with stage III chronic kidney disease, chronic anemia, hydropic gallbladder, colonic polyps, the patient is has been walking with the help of a walker. She is considered to be an increased risk of fall. History of E. coli and enterococcal faecalis urinary tract infection Last Myocardial Infarction Date:: 06/2016 History of Any Multi-Drug Resistant Organisms: Other MDRO Past Surgical History: AICD, Heart Catheterization With Stent, Hysterectomy, Joint Replacement, Pacemaker Additional Past Surgical History / Comment(s): 2015 PCI with stent and AICD, paracentesises, thyroidectomy, left hip replaced, vein stripping bilaterally, repair right detached retina, cataract removal bilat eyes, pancreatic stent, liver bx. Past Anesthesia/Blood Transfusion Reactions: No Reported Reaction Additional Past Anesthesia/Blood Transfusion Reaction / Comment(s): Pt has received blood in past without reaction. Date of Last Stent Placement:: 06/2016 Type of Cardiac Device: Permanent Pacemaker, AICD Device Placement Date:: , [employer] Past Psychological History: Anxiety, Depression Additional Psychological History / Comment(s): . Smoking Status: Former smoker Past Alcohol Use History: Daily Additional Past Alcohol Use History / Comment(s): QUIT SMOKING AT 26 YRS OLD., SMOKED 10 YEARS. DRINKS DAILY 2-3 DRINKS PER DAY. Past Drug Use History: None Reported - Past Family History Mother Family Medical History: No Reported History Additional Family Medical History / Comment(s): Mother was healthy and at the age of 98yrs. Father Family Medical History: Cancer Additional Family Medical History / Comment(s): father had bone cancer and of this at age 65yrs. General Exam Limitations: no limitations General appearance: alert, in no apparent distress Head exam: Present: atraumatic Eye exam: Present: normal appearance, PERRL ENT exam: Present: normal oropharynx Neck exam: Present: normal inspection Respiratory exam: Present: normal lung sounds bilaterally Cardiovascular Exam: Present: regular rate, normal rhythm GI/Abdominal exam: Present: soft. Absent: tenderness Extremities exam: Present: full ROM, tenderness (Mild tenderness right shoulder) Neurological exam: Present: alert Psychiatric exam: Present: normal affect, normal mood Skin exam: Present: normal color Course Vital Signs 08/30/17 08/30/17 19:46 20:13 Temperature 98.5 F Pulse Rate 85 87 Respiratory 18 18 Rate Blood Pressure 141/86 141/75 O2 Sat by Pulse 96 95 Oximetry Medical Decision Making - Medical Decision Making Patient reevaluated and resting comfortably in bed. Patient updated on results and plan. Case was discussed with practitioner Adelia, who will admit for Dr. melendez, covering for Dr. Lobo. - Lab Data Result diagrams: 08/30/17 20:15 08/30/17 20:15 Lab Results 08/30/17 08/30/17 08/30/17 Range/Units 20:15 20:15 20:15 WBC 9.9 (3.8-10.6) k/uL RBC 2.93 L (3.80-5.40) m/uL Hgb 9.3 L (11.4-16.0) gm/dL Hct 29.9 L (34.0-46.0) % MCV 102.0 H (80.0-100.0) fL MCH 31.7 (25.0-35.0) pg MCHC 31.0 (31.0-37.0) g/dL RDW 15.6 H (11.5-15.5) % Plt Count 404 (150-450) k/uL Neutrophils % 72 % Lymphocytes % 16 % Monocytes % 7 % Eosinophils % 2 % Basophils % 1 % Neutrophils # 7.1 (1.3-7.7) k/uL Lymphocytes # 1.6 (1.0-4.8) k/uL Monocytes # 0.7 (0-1.0) k/uL Eosinophils # 0.2 (0-0.7) k/uL Basophils # 0.1 (0-0.2) k/uL Macrocytosis Slight PT (9.0-12.0) sec INR (<1.2) APTT (22.0-30.0) sec Sodium 131 L (137-145) mmol/L Potassium 4.5 (3.5-5.1) mmol/L Chloride 101 (98-107) mmol/L Carbon Dioxide 18 L (22-30) mmol/L Anion Gap 12 mmol/L BUN 12 (7-17) mg/dL Creatinine 1.41 H (0.52-1.04) mg/dL Est GFR (MDRD) Af Amer 44 (>60 ml/min/1.73 sqM) Est GFR (MDRD) Non-Af 37 (>60 ml/min/1.73 sqM) Glucose 103 H (74-99) mg/dL Calcium 8.5 (8.4-10.2) mg/dL Total Bilirubin 1.2 (0.2-1.3) mg/dL AST 269 H (14-36) U/L ALT 113 H (9-52) U/L Alkaline Phosphatase 526 H (38-126) U/L Total Creatine Kinase 48 (30-135) U/L CK-MB (CK-2) 1.8 (0.0-2.4) ng/mL CK-MB (CK-2) Rel Index 3.8 Troponin I 0.019 (0.000-0.034) ng/mL Total Protein 7.1 (6.3-8.2) g/dL Albumin 3.4 L (3.5-5.0) g/dL Amylase 78 (30-110) U/L Lipase 247 (23-300) U/L 08/30/17 Range/Units 20:15 WBC (3.8-10.6) k/uL RBC (3.80-5.40) m/uL Hgb (11.4-16.0) gm/dL Hct (34.0-46.0) % MCV (80.0-100.0) fL MCH (25.0-35.0) pg MCHC (31.0-37.0) g/dL RDW (11.5-15.5) % Plt Count (150-450) k/uL Neutrophils % % Lymphocytes % % Monocytes % % Eosinophils % % Basophils % % Neutrophils # (1.3-7.7) k/uL Lymphocytes # (1.0-4.8) k/uL Monocytes # (0-1.0) k/uL Eosinophils # (0-0.7) k/uL Basophils # (0-0.2) k/uL Macrocytosis PT 18.4 H (9.0-12.0) sec INR 2.0 H (<1.2) APTT 39.8 H (22.0-30.0) sec Sodium (137-145) mmol/L Potassium (3.5-5.1) mmol/L Chloride (98-107) mmol/L Carbon Dioxide (22-30) mmol/L Anion Gap mmol/L BUN (7-17) mg/dL Creatinine (0.52-1.04) mg/dL Est GFR (MDRD) Af Amer (>60 ml/min/1.73 sqM) Est GFR (MDRD) Non-Af (>60 ml/min/1.73 sqM) Glucose (74-99) mg/dL Calcium (8.4-10.2) mg/dL Total Bilirubin (0.2-1.3) mg/dL AST (14-36) U/L ALT (9-52) U/L Alkaline Phosphatase (38-126) U/L Total Creatine Kinase (30-135) U/L CK-MB (CK-2) (0.0-2.4) ng/mL CK-MB (CK-2) Rel Index Troponin I (0.000-0.034) ng/mL Total Protein (6.3-8.2) g/dL Albumin (3.5-5.0) g/dL Amylase (30-110) U/L Lipase (23-300) U/L - Radiology Data Radiology results: image reviewed (X-ray right shoulder shows mild degenerative changes. No fracture.) Disposition Clinical Impression: Upper GI hemorrhage Disposition: ADMITTED IP TO THIS HOSP Referrals: Valerio Lobo MD [Primary Care Provider] - 1-2 days Decision Time: 21:26
--- NOTE | 2017-08-30 20:16 | XR ---
EXAMINATION TYPE: XR shoulder complete RT DATE OF EXAM: 08/30/2017 COMPARISON: NONE HISTORY: Pain TECHNIQUE: 3 views FINDINGS: I see no fracture nor dislocation. There is some calcification at the inferior glenoid. The re is narrowing of shoulder joint space. There is vascular calcification. IMPRESSION: Mild degenerative changes. No fracture seen.
[2017-08-30 20:22] LABS: Basophils # (A) 0.1 k/uL (0-0.2); Basophils % (A) 1 %; Eosinophils # (A) 0.2 k/uL (0-0.7); Eosinophils % (A) 2 %; HCT 29.9 % (34.0-46.0); HGB 9.3 gm/dL (11.4-16.0); Lymphocytes # (A) 1.6 k/uL (1.0-4.8); Lymphocytes % (A) 16 %; MCH 31.7 pg (25.0-35.0); Macrocytosis Slight; Monocytes # (A) 0.7 k/uL (0-1.0); Monocytes % (A) 7 %; Neutrophils # (A) 7.1 k/uL (1.3-7.7); Neutrophils % (A) 72 %; Platelet Count 404 k/uL (150-450); RBC 2.93 m/uL (3.80-5.40); RDW 15.6 % (11.5-15.5); WBC 9.9 k/uL (3.8-10.6)
[2017-08-30 20:31] LABS: Partial Thromboplastin Time 39.8 sec (22.0-30.0); Prothrombin Time 18.4 sec (9.0-12.0)
[2017-08-30 20:42] LABS: Albumin 3.4 g/dL (3.5-5.0); Calcium 8.5 mg/dL (8.4-10.2); Total Bilirubin 1.2 mg/dL (0.2-1.3); Total Protein 7.1 g/dL (6.3-8.2)
[2017-08-30 20:43] LABS: Potassium 4.5 mmol/L (3.5-5.1)
[2017-08-30 20:56] LABS: Creatine Kinase MB 1.8 ng/mL (0.0-2.4); Troponin I 0.019 ng/mL (0.000-0.034)
[2017-08-30] MEDS ORDERED: NALOXONE 0.4 MG/ML 1 ML VIAL IV PRN (21:26)
[2017-08-30 22:18] VITALS: BMI 22.8
[2017-08-30] MEDS: SODIUM CHLORIDE 0.9% 1,000 ML IV SCH (22:29)
[2017-08-31 08:07] LABS: Basophils # (A) 0.1 k/uL (0-0.2); Basophils % (A) 1 %; Eosinophils # (A) 0.1 k/uL (0-0.7); Eosinophils % (A) 2 %; HCT 27.9 % (34.0-46.0); HGB 8.4 gm/dL (11.4-16.0); Hypochromasia Slight; Lymphocytes # (A) 1.1 k/uL (1.0-4.8); Lymphocytes % (A) 17 %; MCHC 30.3 g/dL (31.0-37.0); MCV 102.6 fL (80.0-100.0); Macrocytosis Slight; Mean Platelet Volume 7.1; Monocytes # (A) 0.5 k/uL (0-1.0); Monocytes % (A) 8 %; Neutrophils # (A) 4.3 k/uL (1.3-7.7); Neutrophils % (A) 69 %; Platelet Count 346 k/uL (150-450); RBC 2.72 m/uL (3.80-5.40); RDW 15.4 % (11.5-15.5); WBC 6.2 k/uL (3.8-10.6)
[2017-08-31] MEDS ORDERED: ALBUTEROL NEBULIZED 2.5 MG/3 ML INHALATION PRN (10:32)
[2017-08-31] MEDS ORDERED: PROMETHAZINE 25 MG TAB PO PRN (10:32)
[2017-08-31 10:48] LABS: Calcium 8.4 mg/dL (8.4-10.2); Potassium 3.9 mmol/L (3.5-5.1)
[2017-08-31] MEDS: LIPASE 5,000/PROTEASE 17,000/AMYLASE 27,0000 PO SCH ×2 (12:07→17:34)
[2017-08-31] MEDS: PANTOPRAZOLE 40 MG/10 ML VIAL IV SCH (12:07)
[2017-08-31] MEDS: LISINOPRIL 10 MG TAB PO SCH (12:08)
[2017-08-31 14:25] LABS: HCT 27.4 % (34.0-46.0); HGB 8.5 gm/dL (11.4-16.0); Hypochromasia Slight; MCH 31.8 pg (25.0-35.0); MCV 102.4 fL (80.0-100.0); Macrocytosis Slight; Mean Platelet Volume 6.9; Platelet Count 344 k/uL (150-450); RBC 2.67 m/uL (3.80-5.40); RDW 15.6 % (11.5-15.5); WBC 6.4 k/uL (3.8-10.6)
[2017-08-31] MEDS: traMADol 50 MG TAB PO PRN (15:01)
--- NOTE | 2017-08-31 15:49 | P.HPIM ---
History of Present Illness H&P Date: 08/31/17 Chief Complaint: Upper GI bleeding HISTORY OF PRESENT ILLNESS: This is a 72 year-old female patient of Dr. Lobo with chronic stable medical conditions that include atrial fibrillation, asthma, coronary artery disease,, congestive heart failure, GERD, hypertension, myocardial infarction, osteoarthritis, thyroid disorder, otic stent placement in 2016, who has been a resident of [facility] [place] who presented to the emergency department after an episode of vomiting with thomas blood. Patient states it looked brown to her , but was sent with concerns for upper GI bleeding. Patient is currently on Xarelto for atrial fibrillation. No abdominal pain, no hematochezia. Was admitted for the same. REVIEW OF SYSTEMS GEN.: [ Tired] EYES: [None] HEENT: [None] NECK: [None] RESPIRATORY: [Some shortness of breath] CARDIOVASCULAR: [None] GASTROINTESTINAL: [As above,] GENITOURINARY: [None] MUSCULOSKELETAL: [Back pain] LYMPHATICS: [None] HEMATOLOGICAL: [None] PSYCHIATRY: [None] NEUROLOGICAL: [None] Past medical history: Atrial fibrillation, asthma, coronary artery disease, congestive heart failure, GERD, hypertension, myocardial infarction, osteoarthritis, thyroid disorder, seasonal ALLERGIES, pancreatitis, pancreatic cysts, ascites with paracentesis, DJD, thyroid cancer with thyroidectomy, liver abscess, Past surgical history: AICD placemen in 2016 , heart catheterization with stent in 2016, hysterectomy, joint replacement, repair of right detached retina, cataract removal bilateral eyes, pancreatic stent, liver biopsy. 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 FAMILY HISTORY: Father: : Bone cancer Mother: : Heart failure ALLERGIES: IBUPROFEN, IODINATED CONTRAST, LEVOFLOXACIN, SHELLFISH HOME MEDICATION: Tramadol 50 mg by mouth every 6 hours when necessary, Albuterol 2.5 mg inhalation every 4 hours when necessary Senokot-S one tablet by mouth daily when necessary, Symbicort 1604 0.5 g inhaled 1 puff by mouth twice a day when necessary Vitamin B complex with C one tablet by mouth daily Aldactone 25 mg by mouth daily Xarelto 20 mg by mouth daily, Omeprazole 29 g by mouth daily Lopressor 50mg by mouth twice a day Magnesium oxide 400 mg by mouth daily Creon DR 24,000 unit capsule 2 capsules by mouth 3 times a day Levothyroxine 175 g by mouth daily Furosemide 40 mg by mouth daily Folic acid 1 mg by mouth daily Prozac 20 mg by mouth daily Lisinopril 10 mg by mouth 4 times a day when necessary Plavix 75 mg by mouth daily Vitamin D3 1000 units by mouth daily Calcium carbonate 600 mg by mouth twice a day Amiodarone 200 mg by mouth twice a day VITAL SIGNS: [Temperature 97.4, pulse 70, respiratory rate 16, blood pressure 127/75, oxygen saturation 95% on room air.. BMI noted] GENERAL: [Thin built, sitting up, comfortable]. EYES: [Pupils equal. Conjunctiva pale. HEENT: [External appearance of nose and ears normal, oral cavity grossly normal] . NECK: [JVD not raised; masses not palpable]. HEART: [First and second heart sounds are normal; no edema]. LUNGS:[ Respiratory rate normal; diminished to auscultation]. ABDOMEN: [Soft, nontender, liver spleen not palpable, no masses palpable]. LYMPHATICS: [No lymph nodes palpable in the axilla and neck]. PSYCH: [Alert and oriented x3; mood and affect barrett]l. NEUROLOGICAL: [Cranial nerves grossly intact; no facial asymmetry, power and sensation grossly intact]. INVESTIGATIONS: LABS: Hemoglobin 8.4, BUN 12, creatinine 1.40 ASSESSMENT: -Acute upper GI bleed in a patient who is on Xarelto -chronic pancreatitis in a patient with known history of alcohol use -chronic kidney disease stage III from nephrosclerosis. -Paroxysmal atrial fibrillation, currently in sinus rhythm -History of liver abscess and cirrhosis. -Persistent asthma -Essential hypertension. -History of pancreatic duct stent at [facility]. -Moderate protein calorie malnutrition from decreased oral intake. -Macrocytic anemia, multifactorial. -Chronic congestive heart failure from systolic diastolic dysfunction ejection fraction 30-35% with underlying coronary artery disease. -Coronary artery disease with single-vessel stent in the circumflex. -Medical debility uses walker to get about PLAN: Home medications reordered, Xarelto and Plavix held, GI consulted, serial hemoglobins continue. No further episodes of bloody emesis or dark or bloody stools we'll continue to monitor. Plan of care discussed with patient at the bedside we will follow closely [facility] [facility] [employer] STATEMENT: Patient was seen and examined by nurse practitioner Adelia Krishna and all elements of the case were discussed with attending Dr. Williamson. 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, previous history of ascites requiring paracentesis, thyroid cancer status post thyroidectomy, coronary artery disease, angioplasty and stenting of the circumflex artery, CHF with an ejection fraction of 30-35%, questionable liver abscess, chronic atrial fibrillation, history of atrial fibrillation with cardiac arrest requiring an AICD placement, coronary artery disease, pancreatic duct stent insertion, bronchial asthma, hypertension, chronic renal failure with stage III chronic kidney disease, chronic anemia, hydropic gallbladder, colonic polyps, the patient is has been walking with the help of a walker. She is considered to be an increased risk of fall. History of E. coli and enterococcal faecalis urinary tract infection Last Myocardial Infarction Date:: 06/2016 History of Any Multi-Drug Resistant Organisms: Other MDRO Past Surgical History: AICD, Heart Catheterization With Stent, Hysterectomy, Joint Replacement, Pacemaker Additional Past Surgical History / Comment(s): 2016 PCI with stent and AICD, paracentesises, thyroidectomy, left hip replaced, vein stripping bilaterally, repair right detached retina, cataract removal bilat eyes, pancreatic stent, liver bx. Past Anesthesia/Blood Transfusion Reactions: No Reported Reaction Additional Past Anesthesia/Blood Transfusion Reaction / Comment(s): Pt has received blood in past without reaction. Date of Last Stent Placement:: 06/2016 Type of Cardiac Device: Permanent Pacemaker, AICD Device Placement Date:: , [employer] Smoking Status: Former smoker - Past Family History Mother Family Medical History: No Reported History Additional Family Medical History / Comment(s): Mother had a weak heart Father Family Medical History: Cancer Additional Family Medical History / Comment(s): father had bone cancer and of this at age 65yrs. Medications and Allergies Home Medications Medication Instructions Recorded Confirmed Type Lipase/Protease/Amylase [Harshil Fiore 2 cap PO TID@0700,1100,1700 05/31/16 08/30/17 History 24,000 Units Capsule] FLUoxetine HCL [PROzac] 20 mg PO DAILY 08/14/16 08/30/17 History Folic Acid 1 mg PO HS 08/14/16 08/30/17 History Omeprazole [PriLOSEC] 20 mg PO DAILY 08/14/16 08/30/17 History Rivaroxaban [Xarelto] 20 mg PO DAILY@1700 08/14/16 08/30/17 History Metoprolol Tartrate [Lopressor] 50 mg PO BID@0700,1900 01/10/17 08/30/17 History Furosemide [Lasix] 40 mg PO DAILY 01/21/17 08/30/17 History Spironolactone 25 mg PO HS 01/21/17 08/30/17 History Vitamin B Complex With C 1 tab PO HS 07/22/17 08/30/17 History traMADol HCL [Ultram] 50 mg PO Q6HR PRN 07/22/17 08/30/17 History Albuterol Nebulized [Ventolin 2.5 mg INHALATION RT-Q4H PRN 08/03/17 08/30/17 History Nebulized] Clopidogrel [Plavix] 75 mg PO HS 08/03/17 08/30/17 History Magnesium Oxide [Mag-Ox] 400 mg PO HS 08/03/17 08/30/17 History Atorvastatin Calcium [Lipitor] 40 mg PO HS 08/30/17 08/30/17 History Fluticasone/Vilanterol [Breo 1 inhalation PO DAILY PRN 08/30/17 08/30/17 History Ellipta 100-25 Mcg Inhaler] Levothyroxine Sodium [Synthroid] 175 mcg PO DAILY 08/30/17 08/30/17 History Lisinopril [Prinivil] 10 mg PO DAILY 08/30/17 08/30/17 History Promethazine [Phenergan] 12.5 mg PO Q6H PRN 08/30/17 08/30/17 History Allergies Allergy/AdvReac Type Severity Reaction Status Date / Time ibuprofen [From Motrin] Allergy Anaphylaxis Verified 08/30/17 22:05 Iodinated Contrast- Oral and Allergy Rash/Hives Verified 08/30/17 22:05 IV Dye [Iodinated Contrast Media - IV Dye] levofloxacin [From Levaquin] Allergy Anaphylaxis Verified 08/30/17 22:05 shellfish derived AdvReac Nausea & Verified 08/30/17 22:05 Vomiting Physical Exam Vitals: Vital Signs Temp Pulse Pulse Resp BP BP Pulse Ox 08/31/17 07:26 97.4 F L 70 16 127/75 95 08/31/17 04:00 97.9 F 72 18 140/81 94 L 08/30/17 23:33 18 08/30/17 22:07 98.2 F 75 18 144/78 95 08/30/17 21:36 98.5 F 82 18 138/78 97 08/30/17 20:13 87 18 141/75 95 08/30/17 19:46 98.5 F 85 18 141/86 96 Intake and Output 08/30/17 08/31/17 08/31/17 22:59 06:59 14:59 Intake Total 250 Balance 250 Intake: Oral 250 Other: Voiding Method Toilet # Voids 1 2 Weight 62.23 kg Results CBC & Chem 7: 08/31/17 13:52 08/31/17 07:37 Labs: Abnormal Lab Results - Last 24 Hours (Table) 08/30/17 08/30/17 08/30/17 Range/Units 20:15 20:15 20:15 RBC 2.93 L (3.80-5.40) m/uL Hgb 9.3 L (11.4-16.0) gm/dL Hct 29.9 L (34.0-46.0) % MCV 102.0 H (80.0-100.0) fL MCHC (31.0-37.0) g/dL RDW 15.6 H (11.5-15.5) % PT 18.4 H (9.0-12.0) sec INR 2.0 H (<1.2) APTT 39.8 H (22.0-30.0) sec Sodium 131 L (137-145) mmol/L Carbon Dioxide 18 L (22-30) mmol/L Creatinine 1.41 H (0.52-1.04) mg/dL Glucose 103 H (74-99) mg/dL AST 269 H (14-36) U/L ALT 113 H (9-52) U/L Alkaline Phosphatase 526 H (38-126) U/L Albumin 3.4 L (3.5-5.0) g/dL 08/31/17 Range/Units 07:37 RBC 2.72 L (3.80-5.40) m/uL Hgb 8.4 L (11.4-16.0) gm/dL Hct 27.9 L (34.0-46.0) % MCV 102.6 H (80.0-100.0) fL MCHC 30.3 L (31.0-37.0) g/dL RDW (11.5-15.5) % PT (9.0-12.0) sec INR (<1.2) APTT (22.0-30.0) sec Sodium (137-145) mmol/L Carbon Dioxide (22-30) mmol/L Creatinine (0.52-1.04) mg/dL Glucose (74-99) mg/dL AST (14-36) U/L ALT (9-52) U/L Alkaline Phosphatase (38-126) U/L Albumin (3.5-5.0) g/dL Thrombosis Risk Factor Assmnt - Choose All That Apply Each Risk Factor Represents 2 Points: Age 61-74 years Thrombosis Risk Factor Assessment Total Risk Factor Score: 2 Thrombosis Risk Factor Assessment Level: Low Risk
--- NOTE | 2017-08-31 16:20 | HP ---
HISTORY AND PHYSICAL DATE OF ADMISSION: 08/30/17 PRESENTING COMPLAINT: Possibly coffee-grounds emesis. HISTORY OF PRESENTING COMPLAINT: This is a 72-year-old patient, well known to me of Dr. Lobo with rather extensive medical history. The patient's chronic stable medical conditions include chronic pancreatitis from history of alcoholism, AICD, pancreatic duct CHF, underlying coronary artery disease, cirrhosis, asthma, hypertension. On August 08, the patient went into acute renal failure was transferred to [facility]. Also felt to have possible infected pancreatic pseudocyst. The patient was managed conservatively at [facility] and discharged to rehab. The patient has been tolerating a soft diet, getting rehab. The patient had some emesis yesterday could be coffee-ground and admitted for the same. Last bowel movement was 2 days ago. The patient does not know the color of the same. Denies any abdominal pain. REVIEW OF SYSTEMS: CONSTITUTIONAL: Tired. HEENT: None. RESPIRATORY: None. CARDIOVASCULAR: None. GASTROINTESTINAL: As above. GENITOURINARY: None. MUSCULOSKELETAL: None. DERMATOLOGICAL, HEMATOLOGIC, LYMPHATIC: None. PSYCHIATRY: None. NEUROLOGICAL: None. PAST MEDICAL HISTORY: Chronic pancreatitis from alcoholism, ventricular tachycardia, pseudocyst, CHF, EF 45%, coronary artery disease with stent to the circumflex, liver abscess, cirrhosis from alcoholism, persistent moderate asthma, hypertension, anemia, bilateral kidney stones, chronic kidney disease stage III, hydrops gallbladder. PAST SURGICAL HISTORY: Cardiac cath with stent to the circumflex, hysterectomy, joint replacement, pacemaker, paracentesis, thyroidectomy, left hip replacement, varicose vein stripping, repair of the right detached retina, bilateral cataract surgery, liver biopsy. PSYCH HISTORY: Anxiety and depression. SOCIAL HISTORY: Did smoke in the remote past, was drinking alcohol up to about 3 weeks ago. . FAMILY HISTORY: Father had bone cancer. at age 65. HOME MEDICATIONS: 1. Ultram 50 mg p.o. q.6h p.r.n. 2. Ventolin 2.5 q.6h q.4h p.r.n. 3. Phenergan 12.5 q.6h p.r.n. 4. Lopressor 50 mg p.o. b.i.d. 5. Creon 24 2 caps p.o. t.i.d. 6. Aldactone 25 mg q.h.s. 7. Prinivil 10 mg p.o. daily. 8. Synthroid 175 mcg p.o. daily. 9. Vitamin B complex and C 1 tablet p.o. q.h.s. 10.Lasix 40 mg p.o. daily. 11.Folic acid 1 mg p.o. q.h.s. 12.Lipitor 40 mg q.h.s. 13.Prozac 20 mg p.o. daily. 14.Breo Ellipta 100/25 1 inhalation p.o. daily. 15.Plavix 75 p.o. q.h.s. 16.Xarelto 20 mg p.o. daily. 17.Prilosec 20 mg p.o. daily. 18.Magnesium oxide 400 mg p.o. q.h.s. ALLERGIES: IBUPROFEN, IV CONTRAST DYE, LEVAQUIN, SHELLFISH. PHYSICAL EXAMINATION: Vital signs on presentation: Temperature 98.5, pulse 82, respiratory 18, blood pressure 130/78, pulse ox 97% on room. GENERAL APPEARANCE: Average build lying in bed, tired appearing. EYES: Pupils equal, conjunctivae pale. HEENT: External appearance nose and ear and oral cavity normal. NECK: JVD not raised. Mass not palpable. RESPIRATORY: Effort, lungs slightly decreased breath sounds. CARDIOVASCULAR: First and second sounds normal. ABDOMEN: Soft, minimal upper abdominal tenderness. No guarding, rigidity. Liver and spleen not palpable. LYMPHATIC: No lymph nodes palpable in neck or axillae. PSYCHIATRY: Alert and oriented x3. Mood and affect normal. NEUROLOGICAL: Pupils equal. Cranial nerves grossly intact. Power and sensation grossly intact. INVESTIGATIONS: White count 9.9, hemoglobin 9.3, platelets 404. Potassium 4.5, BUN 12, creatinine 1.41 and was 32/2.57 on 08/08/17. AST 269, ALT 113. ASSESSMENT: 1. Possible acute upper GI bleed in a patient who does take anticoagulation. 2. Chronic pancreatitis secondary to chronic alcoholism. 3. AICD. 4. Chronic congestive heart failure from systolic and diastolic dysfunction, ejection fraction 45% from underlying coronary disease. 5. Coronary artery disease with prior stent to the circumflex. 6. Cirrhosis secondary to chronic alcoholism. 7. Moderate persistent asthma. 8. Essential hypertension. 9. History of pancreatic duct stent . 10.Bilateral kidney stones. 11.Chronic kidney disease stage III from nephrosclerosis. 12.Mild protein-calorie malnutrition. PLAN: Home medications are resumed. The patient's Plavix has been held. Dr. Kumar from GI was consulted. He is probably planning to do an EGD. The patient is put on a clear liquid diet. Care was discussed with the patient. Other home medications are resumed. H and H should be closely followed. The patient is otherwise hemodynamically stable. Patient's albumin is 3.4. This patient states oral intake has been decreased. MMODL / IJN: [id number] /
[2017-08-31 19:39] LABS: HCT 25.1 % (34.0-46.0); HGB 7.6 gm/dL (11.4-16.0); MCH 30.6 pg (25.0-35.0); MCHC 30.1 g/dL (31.0-37.0); MCV 101.4 fL (80.0-100.0); Macrocytosis Slight; Mean Platelet Volume 8.2; Platelet Count 296 k/uL (150-450); RBC 2.47 m/uL (3.80-5.40); RDW 15.6 % (11.5-15.5); WBC 6.5 k/uL (3.8-10.6)
[2017-08-31] MEDS: SODIUM CHLORIDE 0.9% 1,000 ML IV SCH (20:31)
[2017-08-31] MEDS: SYMBICORT 80-4.5 MCG INHALER INHALATION SCH (21:08)
[2017-08-31] MEDS: B COMPLEX-VIT C-VIT E-ZINC 1 EACH TAB PO SCH (21:42)
[2017-08-31] MEDS: SPIRONOLACTONE 25 MG TAB PO SCH (21:42)
[2017-08-31] MEDS: FOLIC ACID 1 MG TAB PO SCH (21:42)
[2017-08-31] MEDS: METOPROLOL TARTRATE 50 MG TAB PO SCH (21:42)
[2017-08-31] MEDS: ATORVASTATIN 40 MG TAB PO SCH (21:42)
[2017-08-31] MEDS: MAGNESIUM OXIDE 400 MG TAB PO SCH (21:42)
[2017-09-01 01:28] LABS: Anisocytosis Slight; HCT 26.6 % (34.0-46.0); Hypochromasia Moderate; MCH 31.3 pg (25.0-35.0); MCV 104.4 fL (80.0-100.0); Macrocytosis Moderate; Mean Platelet Volume 8.8; Platelet Count 278 k/uL (150-450); RBC 2.55 m/uL (3.80-5.40); RDW 16.7 % (11.5-15.5); WBC 6.2 k/uL (3.8-10.6)
[2017-09-01] MEDS: SODIUM CHLORIDE 0.9% 1,000 ML IV SCH (06:12)
[2017-09-01 07:26] LABS: HGB 8.4 gm/dL (11.4-16.0); Hypochromasia Slight; MCH 32.2 pg (25.0-35.0); MCHC 31.1 g/dL (31.0-37.0); MCV 103.2 fL (80.0-100.0); Macrocytosis Moderate; Platelet Count 283 k/uL (150-450); RBC 2.61 m/uL (3.80-5.40); RDW 15.6 % (11.5-15.5); WBC 6.1 k/uL (3.8-10.6)
[2017-09-01 07:39] LABS: Calcium 8.4 mg/dL (8.4-10.2); Potassium 4.1 mmol/L (3.5-5.1)
[2017-09-01] MEDS: SYMBICORT 80-4.5 MCG INHALER INHALATION SCH ×2 (09:42→21:11)
[2017-09-01] MEDS ORDERED: IV FLUID CONTINUATION 1,000 ML IV ONE (10:52)
[2017-09-01] MEDS ORDERED: PROPOFOL 10 MG/ML 20 ML VIAL IV ONE (11:14)
[2017-09-01] MEDS ORDERED: LIDOCAINE 1% INJ 10MG/ML (20 ML MDV) ONE (11:14)
--- NOTE | 2017-09-01 11:38 | P.PCN ---
Date of Procedure: 09/01/17 Procedure(s) Performed: Procedure: Esophagogastroduodenoscopy. Preoperative diagnosis: UGI bleeding. Postoperative diagnosis: Hiatal hernia and low grade distal esophagitis with friability but no spontaneous bleeding. Preparation and sedation: Were provided by anesthesia. Procedure: With the patient on her left lateral decubitus position and after informed consent and adequate sedation, I passed the Olympus-GIF 160 video upper endoscope through the cricopharyngeus down the esophagus. GE junction was around 37 cm from the incisors and there was a sliding hiatal hernia measuring around 2 cm with some erythema and friability in the distal esophagus and the hiatal hernia but no ulcers, mucosal tears, varices or sontaneous bleeding. The endoscope was then passed into the stomach which was insufflated with air and inspected in detail including the retroflex view in the cardia. Finally, the endoscope was passed through the pylorus into the duodenum. The stomach, pyloric channel, duodenal bulb, post bulbar area and descending duodenum appeared normal with no evidence of bleeding. No biopsies were obtained. The patient tolerated the procedure well. Plan: The patient was reassured. Will allow diet and monitor blood counts and course. Continue acid suppressive therapy.
[2017-09-01] MEDS: LIPASE 5,000/PROTEASE 17,000/AMYLASE 27,0000 PO SCH ×3 (13:02→18:24)
[2017-09-01] MEDS: LISINOPRIL 10 MG TAB PO SCH (13:03)
[2017-09-01] MEDS: FUROSEMIDE 40 MG TAB PO SCH (13:03)
[2017-09-01] MEDS: METOPROLOL TARTRATE 50 MG TAB PO SCH ×2 (13:03→20:12)
[2017-09-01] MEDS: LEVOTHYROXINE 75 MCG TAB PO SCH (13:04)
[2017-09-01] MEDS: LEVOTHYROXINE 100 MCG TAB PO SCH (13:04)
[2017-09-01] MEDS: PANTOPRAZOLE 40 MG/10 ML VIAL IV SCH (13:04)
[2017-09-01] MEDS: FLUoxetine HCL 20 MG CAP PO SCH (13:05)
[2017-09-01] MEDS: traMADol 50 MG TAB PO PRN ×2 (13:20→18:24)
[2017-09-01 13:36] LABS: HCT 30.8 % (34.0-46.0); HGB 9.6 gm/dL (11.4-16.0); Hypochromasia Slight; MCH 31.9 pg (25.0-35.0); MCHC 31.1 g/dL (31.0-37.0); MCV 102.6 fL (80.0-100.0); Macrocytosis Slight; Mean Platelet Volume 6.9; Platelet Count 306 k/uL (150-450); RDW 15.5 % (11.5-15.5); WBC 7.3 k/uL (3.8-10.6)
[2017-09-01] MEDS ORDERED: RIVAROXABAN 10 MG TAB PO SCH (17:00)
--- NOTE | 2017-09-01 18:27 | PN ---
PROGRESS NOTE DATE OF SERVICE: 09/01/17 ATTENDING NOTE: Patient seen and examined by me. Discussed with my nurse practitioner, Erendira. Patient admitted with a questionable upper GI bleed. Did undergo EGD today. Showed some friability of the esophagus with a gastric, no overt bleeding. Otherwise, the patient has no abdominal pain. at the bedside. PHYSICAL EXAMINATION: Temperature 98.2, pulse 71, respiration 16, blood pressure 130/72, pulse ox 95% on room air. ABDOMEN: Soft, nontender. Psych AO x3, hemoglobin 9.6. ASSESSMENT: 1. There is no gastrointestinal bleed. 2. The patient has some mild esophagitis. 3. Other medical conditions stable. PLAN: Patient's Plavix and Xarelto can be resumed. Hemoglobin has remained stable. Diet has already been advanced. The patient should be able to go back to the [facility] tomorrow. Care was discussed with the patient and at the bedside. MMODL / IJN: [id number] /
--- NOTE | 2017-09-01 19:26 | P.PN ---
Progress Note - Text Progress Note Date: 09/01/17 DATE OF SERVICE: 09/01/2017 PRESENTING COMPLAINT Upper GI bleed HISTORY OF PRESENT ILLNESS: 82-year-old female who is receiving rehab at [facility] [place] found to have an episode of bloody emesis and was sent in for further evaluation. Since arrival patient has not had any further bloody emesis or hematochezia. INTERVAL HISTORY: 09/01/2017: Patient lying in bed appears comfortable. Has had no bloody emesis, no dark stools no abdominal pain no complaints of shortness of breath. Remains nothing by mouth for EGD this morning. Up with assistance and walker to and from the bathroom. Has no other complaints. REVIEW OF SYSTEMS: Done for constitutional ,cardiovascular, GI, pulmonary with relevant findings as above. CURRENT MEDICATIONS Albuterol, Zenpep, Lipitor, Plavix, Prozac, folic acid, Lasix, levothyroxine, Zestril, mag oxide, Lopressor, Protonix, Phenergan, Xarelto, Aldactone, Ultram. PHYSICAL EXAM VITAL SIGNS: Temperature 98.3, pulse 70, respirations 16, blood pressure 141/76, oxygen saturation 90% on room air GENERAL APPEARANCE: Lying in bed, somewhat anxious appearing EYES: Pupils equal. Conjunctiva normal. NECK: JVD not raised. Mass not palpable. RESPIRATORY: Respiratory effort normal. Lungs clear to auscultation. CARDIOVASCULAR: First and second sounds normal. No edema. ABDOMEN: Soft. Liver and spleen not palpable. No tenderness. No mass palpable. PSYCHIATRY: Alert and oriented x3. Mood and affect somewhat anxious appearing INVESTIGATIONS: Labs: Hemoglobin 9.6, sodium 136, potassium 4.1, BUN 10, creatinine 1.20. EGD: Hiatal hernia and low grade distal esophagitis Some friability of the esophagus with gastric no overt bleeding ASSESSMENT: -Acute upper GI bleed in a patient who is on Xarelto, ruled out -Mild esophagitis in a patient with chronic alcohol use -chronic pancreatitis in a patient with known history of alcohol use -chronic kidney disease stage III from nephrosclerosis. -Paroxysmal atrial fibrillation, currently in sinus rhythm -History of liver abscess and cirrhosis. -Persistent asthma -Essential hypertension. -History of pancreatic duct stent at [facility]. -Moderate protein calorie malnutrition from decreased oral intake. -Macrocytic anemia, multifactorial. -Chronic congestive heart failure from systolic diastolic dysfunction ejection fraction 30-35% with underlying coronary artery disease. -Coronary artery disease with single-vessel stent in the circumflex. -Medical debility uses walker to get about PLAN: Resume Plavix and Xarelto, hemoglobin remained stable. Diet advanced. Discharge planning for return to [facility] [place] the [place] tomorrow. Plan of care discussed with the patient and at the bedside. They are in Agreement. We will follow closely. IMPORT EXPORT CLERK statement: Patient was seen and examined by nurse practitioner Adelia Krishna and all elements of the case discussed with attending Dr. Williamson
[2017-09-01 19:58] LABS: Anisocytosis Slight; HCT 29.2 % (34.0-46.0); HGB 8.6 gm/dL (11.4-16.0); Hypochromasia Marked; MCH 31.3 pg (25.0-35.0); MCHC 29.6 g/dL (31.0-37.0); MCV 105.7 fL (80.0-100.0); Macrocytosis Moderate; Mean Platelet Volume 7.5; Platelet Count 298 k/uL (150-450); RBC 2.77 m/uL (3.80-5.40); RDW 16.7 % (11.5-15.5); WBC 7.6 k/uL (3.8-10.6)
[2017-09-01 20:48] VITALS: RESP 16
[2017-09-01] MEDS ORDERED: CLOPIDOGREL 75 MG TAB PO SCH (21:00)
[2017-09-01] MEDS: ATORVASTATIN 40 MG TAB PO SCH (23:18)
[2017-09-01] MEDS: MAGNESIUM OXIDE 400 MG TAB PO SCH (23:18)
[2017-09-01] MEDS: FOLIC ACID 1 MG TAB PO SCH (23:18)
[2017-09-01] MEDS: SPIRONOLACTONE 25 MG TAB PO SCH (23:18)
[2017-09-01] MEDS: B COMPLEX-VIT C-VIT E-ZINC 1 EACH TAB PO SCH (23:18)
[2017-09-02] MEDS: LIPASE 5,000/PROTEASE 17,000/AMYLASE 27,0000 PO SCH ×2 (06:00→11:03)
[2017-09-02] MEDS: LEVOTHYROXINE 75 MCG TAB PO SCH (06:26)
[2017-09-02] MEDS: LEVOTHYROXINE 100 MCG TAB PO SCH (06:26)
[2017-09-02 07:39] LABS: Calcium 8.6 mg/dL (8.4-10.2); Potassium 4.2 mmol/L (3.5-5.1)
[2017-09-02] MEDS: PANTOPRAZOLE 40 MG/10 ML VIAL IV SCH (09:28)
[2017-09-02] MEDS: LISINOPRIL 10 MG TAB PO SCH (09:28)
[2017-09-02] MEDS: FUROSEMIDE 40 MG TAB PO SCH (09:28)
[2017-09-02] MEDS: FLUoxetine HCL 20 MG CAP PO SCH (09:28)
[2017-09-02] MEDS: METOPROLOL TARTRATE 50 MG TAB PO SCH (09:29)
[2017-09-02] MEDS: SYMBICORT 80-4.5 MCG INHALER INHALATION SCH (09:48)
[2017-09-02 11:26] VITALS: BP 131/72; PULSE 69; TEMP 98.5
--- NOTE | 2017-09-02 14:46 | DS ---
DISCHARGE SUMMARY DATE OF ADMISSION: 08/30/2017 DATE OF DISCHARGE: 09/02/2017 FINAL DIAGNOSIS: 1. Acute upper gastrointestinal bleed, possibly from acute gastritis on a patient is on anticoagulation. 2. Chronic pancreatitis secondary to alcoholism. 3. AICD. 4. Chronic congestive heart failure from systolic and diastolic dysfunction, ejection fraction 45% with underlying coronary artery disease. 5. Coronary artery disease, prior history of stent to the circumflex. 6. Cirrhosis, secondary to chronic alcoholism. 7. Moderate persistent asthma. 8. Essential hypertension. 9. History of pancreatic duct stent at [facility]. 10.Bilateral kidney stones asymptomatic. 11.Chronic kidney disease stage 3 from nephrosclerosis. 12.Mild protein-calorie malnutrition. HOSPITAL COURSE: This patient who is on Xarelto and Plavix, presented with questionable dark vomitus. EGD showed some gastritis. There were no dark stools. Hemoglobin remained stable. Seen by Dr. Kumar. The patient was put back on antiplatelets and anticoagulation. Tolerating a diet. PHYSICAL EXAMINATION: ABDOMEN: Soft, nontender. PSYCH AO x3. Hemoglobin is 8.6. Patient's BUN 12, creatinine 1.23. CONSULTATION: Dr. Kmuar from GI who ordered the EGD DC. MEDICATIONS: 1. Creon 24,000 two capsules p.o. t.i.d. with meals. 2. Prozac 20 mg p.o. daily. 3. Folic acid 1 mg p.o. daily. 4. Prilosec 20 mg p.o. daily. 5. Xarelto 20 mg p.o. daily. 6. Lopressor 50 mg p.o. b.i.d. 7. Lasix 40 mg p.o. daily. 8. Aldactone 25 mg p.o. q.h.s. 9. Vitamin B complex 1 tablet p.o. q.h.s. 10.Ultram 50 mg q.6 p.r.n. 11.Ventolin 2.5 q.4h p.r.n. 12.Plavix 75 mg q.h.s. 13.Magnesium oxide 400 mg q.h.s. 14.Lipitor 40 mg q.h.s. 15.Breo Ellipta 100/25 inhalation p.o. daily p.r.n. 16.Synthroid 75 mcg p.o. daily. 17.Prinivil 10 mg p.o. daily. 18.Phenergan 12.5 p.o. q.6 p.r.n. DISPOSITION: [facility]. LABS: CBC in 3 days. MMODL / IJN: [id number] /
--- NOTE | 2017-09-10 12:00 | P.CONS ---
History of Present Illness - Reason for Consult Consult date: 09/01/17 GI bleeding - History of Present Illness This is a 72 year-old female with chronic stable medical conditions that include atrial fibrillation, asthma, coronary artery disease,, congestive heart failure, GERD, hypertension, myocardial infarction, osteoarthritis, thyroid disorder, otic stent placement in 2016, who has been a resident of [facility] who presented to the emergency department after an episode of vomiting with thomas blood. Patient states it looked brown to her, but was sent with concerns for upper GI bleeding. Patient is currently on Xarelto for atrial fibrillation. No abdominal pain, no hematochezia. We are asked to see her for GI bleeding. Review of Systems 12 point review of systems is, otherwise, not revealing. Past Medical History Past Medical History: Atrial Fibrillation, Asthma, Coronary Artery Disease (CAD) , Cancer, Heart Failure, GERD/Reflux, Hypertension, Myocardial Infarction (MO), Osteoarthritis (OA), Thyroid Disorder Additional Past Medical History / Comment(s): Chronic pancreatitis, alcoholic liver cirrhosis, 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, previous history of ascites requiring paracentesis, thyroid cancer status post thyroidectomy, coronary artery disease, angioplasty and stenting of the circumflex artery, CHF with an ejection fraction of 30-35%, questionable liver abscess, chronic atrial fibrillation, history of atrial fibrillation with cardiac arrest requiring an AICD placement, coronary artery disease, pancreatic duct stent insertion, bronchial asthma, hypertension, chronic renal failure with stage III chronic kidney disease, chronic anemia, hydropic gallbladder, colonic polyps, the patient is has been walking with the help of a walker. She is considered to be an increased risk of fall. History of E. coli and enterococcal faecalis urinary tract infection Last Myocardial Infarction Date:: 06/2016 History of Any Multi-Drug Resistant Organisms: Other MDRO Past Surgical History: AICD, Heart Catheterization With Stent, Hysterectomy, Joint Replacement, Pacemaker Additional Past Surgical History / Comment(s): 2016 PCI with stent and AICD, paracentesises, thyroidectomy, left hip replaced, vein stripping bilaterally, repair right detached retina, cataract removal bilat eyes, pancreatic stent, liver bx. Past Anesthesia/Blood Transfusion Reactions: No Reported Reaction Additional Past Anesthesia/Blood Transfusion Reaction / Comm: Pt has received blood in past without reaction. Date of Last Stent Placement:: 06/2016 Type of Cardiac Device: Permanent Pacemaker, AICD Device Placement Date:: , [employer] Smoking Status: Former smoker - Past Family History Mother Family Medical History: No Reported History Additional Family Medical History / Comment(s): Mother had a weak heart Father Family Medical History: Cancer Additional Family Medical History / Comment(s): father had bone cancer and of this at age 65yrs. Medications and Allergies Home Medications Medication Instructions Recorded Confirmed Type Lipase/Protease/Amylase [Harshil Dr 2 cap PO TID@0700,1100,1700 05/31/16 08/30/17 History 24,000 Units Capsule] FLUoxetine HCL [PROzac] 20 mg PO DAILY 08/14/16 08/30/17 History Folic Acid 1 mg PO HS 08/14/16 08/30/17 History Omeprazole [PriLOSEC] 20 mg PO DAILY 08/14/16 08/30/17 History Rivaroxaban [Xarelto] 20 mg PO DAILY@1700 08/14/16 08/30/17 History Metoprolol Tartrate [Lopressor] 50 mg PO BID@0700,1900 01/10/17 08/30/17 History Furosemide [Lasix] 40 mg PO DAILY 01/21/17 08/30/17 History Spironolactone 25 mg PO HS 01/21/17 08/30/17 History Vitamin B Complex With C 1 tab PO HS 07/22/17 08/30/17 History traMADol HCL [Ultram] 50 mg PO Q6HR PRN 07/22/17 08/30/17 History Albuterol Nebulized [Ventolin 2.5 mg INHALATION RT-Q4H PRN 08/03/17 08/30/17 History Nebulized] Clopidogrel [Plavix] 75 mg PO HS 08/03/17 08/30/17 History Magnesium Oxide [Mag-Ox] 400 mg PO HS 08/03/17 08/30/17 History Atorvastatin Calcium [Lipitor] 40 mg PO HS 08/30/17 08/30/17 History Fluticasone/Vilanterol [Breo 1 inhalation PO DAILY PRN 08/30/17 08/30/17 History Ellipta 100-25 Mcg Inhaler] Levothyroxine Sodium [Synthroid] 175 mcg PO DAILY 08/30/17 08/30/17 History Lisinopril [Prinivil] 10 mg PO DAILY 08/30/17 08/30/17 History Promethazine [Phenergan] 12.5 mg PO Q6H PRN 08/30/17 08/30/17 History Allergies Allergy/AdvReac Type Severity Reaction Status Date / Time ibuprofen [From Motrin] Allergy Anaphylaxis Verified 08/30/17 22:05 Iodinated Contrast- Oral and Allergy Rash/Hives Verified 08/30/17 22:05 IV Dye [Iodinated Contrast Media - IV Dye] levofloxacin [From Levaquin] Allergy Anaphylaxis Verified 08/30/17 22:05 shellfish derived AdvReac Nausea & Verified 08/30/17 22:05 Vomiting Physical Exam Vitals: Vital Signs Temp Pulse Pulse Resp BP Pulse Ox 09/01/17 08:00 98.3 F 70 16 141/76 98 09/01/17 04:00 72 16 09/01/17 00:00 70 16 08/31/17 23:54 98.1 F 70 16 136/75 97 08/31/17 20:00 97.9 F 70 16 129/70 95 08/31/17 15:58 76 08/31/17 15:49 76 08/31/17 11:16 98 F 71 16 140/75 93 L Intake and Output 08/31/17 09/01/17 09/01/17 22:59 06:59 14:59 Intake Total 300 130 Balance 300 130 Intake: Intake, IV Titration 130 Amount Sodium Chloride 0.9% 1, 130 000 ml @ 65 mls/hr IV . [id number] [facility] Rx#:[id number] Oral 300 Other: Voiding Method Toilet Toilet Toilet # Voids 1 2 General: Appeared stated age, very pleasant, in no acute distress Head and neck: Normocephalic and atraumatic. Conjunctivae pink and sclerae not icteric. Mucous membranes moist and pink. No masses in the neck or tracheal shifts Lungs: Clear to auscultation with no dullness to percussion Heart: Regular, no abnormal sounds, murmurs, gallops or friction rubs Abdomen: Soft, no masses, organomegalies or tenderness, bowel sounds present Extremities: No clubbing, cyanosis or edema Neurologic: Alert and oriented 3. Cranial nerves grossly intact. No gross sensory or motor abnormalities Results CBC & Chem 7: 09/01/17 19:39 09/02/17 06:42 Labs: Abnormal Lab Results - Last 24 Hours (Table) 08/31/17 08/31/17 08/31/17 Range/Units 07:37 13:52 19:27 RBC 2.67 L 2.47 L (3.80-5.40) m/uL Hgb 8.5 L 7.6 L (11.4-16.0) gm/dL Hct 27.4 L 25.1 L (34.0-46.0) % MCV 102.4 H 101.4 H (80.0-100.0) fL MCHC 30.1 L (31.0-37.0) g/dL RDW 15.6 H 15.6 H (11.5-15.5) % Sodium (137-145) mmol/L Carbon Dioxide (22-30) mmol/L Creatinine 1.40 H (0.52-1.04) mg/dL Glucose 104 H (74-99) mg/dL 09/01/17 09/01/17 09/01/17 Range/Units 01:17 06:43 06:43 RBC 2.55 L 2.61 L (3.80-5.40) m/uL Hgb 8.0 L 8.4 L (11.4-16.0) gm/dL Hct 26.6 L 27.0 L (34.0-46.0) % MCV 104.4 H 103.2 H (80.0-100.0) fL MCHC 30.0 L (31.0-37.0) g/dL RDW 16.7 H 15.6 H (11.5-15.5) % Sodium 136 L (137-145) mmol/L Carbon Dioxide 21 L (22-30) mmol/L Creatinine 1.20 H (0.52-1.04) mg/dL Glucose (74-99) mg/dL Assessment and Plan Assessment: Upper GI bleeding could be on the basis of gastritis, esophagitis or peptic ulcer disease. At her age, other pathology to be kept in mind. Plan: We'll plan an EGD today.
== END 2017-09-02 16:22 | disposition other institution (70) ==
LOC: EC 19:37 → 3OBS 21:26
PROVIDERS: ADMIT Hospitalist; ATTEND Hospitalist
DX: K92.2 Gastrointestinal hemorrhage, unspecified (principal); J45.40 Moderate persistent asthma, uncomplicated; K29.70 Gastritis, unspecified, without bleeding; N18.3 Chronic kidney disease, stage 3 (moderate); I50.42 Chronic combined systolic (congestive) and diastolic (congestive) heart failure; I13.0 Hypertensive heart and chronic kidney disease with heart failure and stage 1 through stage 4 chronic kidney disease, or unspecified chronic kidney disease; I25.10 Atherosclerotic heart disease of native coronary artery without angina pectoris; N20.0 Calculus of kidney; F10.20 Alcohol dependence, uncomplicated; K86.0 Alcohol-induced chronic pancreatitis; M19.90 Unspecified osteoarthritis, unspecified site; K21.0 Gastro-esophageal reflux disease with esophagitis; I48.0 Paroxysmal atrial fibrillation; I25.2 Old myocardial infarction; E89.0 Postprocedural hypothyroidism; K44.9 Diaphragmatic hernia without obstruction or gangrene; F41.9 Anxiety disorder, unspecified; F32.9 Major depressive disorder, single episode, unspecified; E44.0 Moderate protein-calorie malnutrition; D53.9 Nutritional anemia, unspecified; M25.511 Pain in right shoulder; K70.30 Alcoholic cirrhosis of liver without ascites; Z79.01 Long term (current) use of anticoagulants; Z95.810 Presence of automatic (implantable) cardiac defibrillator; Z95.5 Presence of coronary angioplasty implant and graft; Z91.81 History of falling; Z79.899 Other long term (current) drug therapy; Z79.02 Long term (current) use of antithrombotics/antiplatelets; Z88.6 Allergy status to analgesic agent; Z88.1 Allergy status to other antibiotic agents; Z91.041 Radiographic dye allergy status; Z91.013 Allergy to seafood; Z85.850 Personal history of malignant neoplasm of thyroid; Z86.74 Personal history of sudden cardiac arrest; Z87.440 Personal history of urinary (tract) infections; Z87.891 Personal history of nicotine dependence; Z90.710 Acquired absence of both cervix and uterus; Z82.49 Family history of ischemic heart disease and other diseases of the circulatory system; Z68.22 Body mass index [BMI] 22.0-22.9, adult
CPT/HCPCS: 96376; 96374; 99285; 36415; 94640 ×5; 86900; 86901; 80053; 80048 ×3; 82150; 82550; 82553; 83690; 84484; 85025 ×2; 85027 ×2; 85610; 85730; 86850; 73030; 43235; G0378 ×4; J2001; J2704; C9113 ×4

== ENCOUNTER → 2017-09-16 | Outpatient (CLI) | payer MEDICARE, BC ==
[2017-09-16 13:51] LABS: ALT 221 U/L (9-52); AST 210 U/L (14-36)
== END | disposition home or self-care (01) ==
LOC: LABWHC1 12:44
PROVIDERS: ATTEND Internal Medicine Cardiovascular Disease
DX: I47.2 Ventricular tachycardia (principal); E03.9 Hypothyroidism, unspecified
CPT/HCPCS: 36415; 84443; 84450; 84460

== ENCOUNTER 2018-01-11 13:36 | Emergency (ER) | payer MEDICARE, BC ==
[2018-01-11 13:49] VITALS: BP 147/81; PULSE 79; RESP 18; TEMP 98.1
[2018-01-11] MEDS ORDERED: GELATIN SPONGE,ABSORB (SMALL) 1 EACH SPONGE TOPICAL STA (13:56)
--- NOTE | 2018-01-11 14:06 | ED ---
Fall HPI - General Chief Complaint: Fall Stated Complaint: Fall Time Seen by Provider: 01/11/18 13:45 Source: patient, RN notes reviewed Mode of arrival: ambulatory - History of Present Illness Initial Comments: This is a 72-year-old female who presents to the emergency department with chief complaint of fall. Patient states last evening at approximately 6 PM she lost her balance while ambulating with her cane and fell, striking her left elbow on a heat register. Patient states that she sustained a wound to her left elbow and that she is unable to get the bleeding under control. She states that she is currently taking Xarelto. Denies any other injuries or trauma. States that she has full range of motion of the left elbow and there is no pain other than of the wound. Denies recent fevers or chills, chest pain or shortness of breath, abdominal pain, nausea or vomiting, dizziness or headache. - Related Data Home Medications Medication Instructions Recorded Confirmed Lipase/Protease/Amylase [Creon Dr 2 cap PO TID@0700,1100,1700 05/31/16 08/30/17 24,000 Units Capsule] FLUoxetine HCL [PROzac] 20 mg PO DAILY 08/14/16 08/30/17 Folic Acid 1 mg PO HS 08/14/16 08/30/17 Omeprazole [PriLOSEC] 20 mg PO DAILY 08/14/16 08/30/17 Rivaroxaban [Xarelto] 20 mg PO DAILY@1700 08/14/16 08/30/17 Metoprolol Tartrate [Lopressor] 50 mg PO BID@0700,1900 01/10/17 08/30/17 Furosemide [Lasix] 40 mg PO DAILY 01/21/17 08/30/17 Spironolactone 25 mg PO HS 01/21/17 08/30/17 Vitamin B Complex With C 1 tab PO HS 07/22/17 08/30/17 traMADol HCL [Ultram] 50 mg PO Q6HR PRN 07/22/17 08/30/17 Albuterol Nebulized [Ventolin 2.5 mg INHALATION RT-Q4H PRN 08/03/17 08/30/17 Nebulized] Clopidogrel [Plavix] 75 mg PO HS 08/03/17 08/30/17 Magnesium Oxide [Mag-Ox] 400 mg PO HS 08/03/17 08/30/17 Atorvastatin Calcium [Lipitor] 40 mg PO HS 08/30/17 08/30/17 Fluticasone/Vilanterol [Breo 1 inhalation PO DAILY PRN 08/30/17 08/30/17 Ellipta 100-25 Mcg Inhaler] Levothyroxine Sodium [Synthroid] 175 mcg PO DAILY 08/30/17 08/30/17 Lisinopril [Prinivil] 10 mg PO DAILY 08/30/17 08/30/17 Promethazine [Phenergan] 12.5 mg PO Q6H PRN 08/30/17 08/30/17 Allergies Allergy/AdvReac Type Severity Reaction Status Date / Time ibuprofen [From Motrin] Allergy Anaphylaxis Verified 01/11/18 13:46 Iodinated Contrast- Oral and Allergy Rash/Hives Verified 01/11/18 13:46 IV Dye [Iodinated Contrast Media - IV Dye] levofloxacin [From Levaquin] Allergy Anaphylaxis Verified 01/11/18 13:46 shellfish derived AdvReac Nausea & Verified 01/11/18 13:46 Vomiting Review of Systems ROS Statement: Those systems with pertinent positive or pertinent negative responses have been documented in the HPI. ROS Other: All systems not noted in ROS Statement are negative. 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, previous history of ascites requiring paracentesis, thyroid cancer status post thyroidectomy, coronary artery disease, angioplasty and stenting of the circumflex artery, CHF with an ejection fraction of 30-35%, questionable liver abscess, chronic atrial fibrillation, history of atrial fibrillation with cardiac arrest requiring an AICD placement, coronary artery disease, pancreatic duct stent insertion, bronchial asthma, hypertension, chronic renal failure with stage III chronic kidney disease, chronic anemia, hydropic gallbladder, colonic polyps, the patient is has been walking with the help of a walker. She is considered to be an increased risk of fall. History of E. coli and enterococcal faecalis urinary tract infection Last Myocardial Infarction Date:: 06/2016 History of Any Multi-Drug Resistant Organisms: Other MDRO Past Surgical History: AICD, Heart Catheterization With Stent, Hysterectomy, Joint Replacement, Pacemaker Additional Past Surgical History / Comment(s): 2016 PCI with stent and AICD, paracentesises, thyroidectomy, left hip replaced, vein stripping bilaterally, repair right detached retina, cataract removal bilat eyes, pancreatic stent, liver bx. Past Anesthesia/Blood Transfusion Reactions: No Reported Reaction Additional Past Anesthesia/Blood Transfusion Reaction / Comment(s): Pt has received blood in past without reaction. Date of Last Stent Placement:: 06/2016 Type of Cardiac Device: Permanent Pacemaker, AICD Device Placement Date:: , Kinetatronic Past Psychological History: Anxiety, Depression Smoking Status: Former smoker Past Alcohol Use History: Daily Past Drug Use History: None Reported - Past Family History Mother Family Medical History: No Reported History Additional Family Medical History / Comment(s): Mother was healthy and at the age of 98yrs. Father Family Medical History: Cancer Additional Family Medical History / Comment(s): father had bone cancer and of this at age 65yrs. General Exam - General Exam Comments Initial Comments: General: Awake and alert, well-developed; in no apparent distress. HEENT: Head atraumatic, normocephalic. Pupils are equal, round and reactive to light. Extraocular movements intact. Oropharynx moist without erythema or exudate. Neck: Supple. Normal ROM. Cardiovascular: Regular rate and rhythm. No murmurs, rubs or gallops. Chest symmetrical. Respiratory: Lungs clear to auscultation bilaterally. No wheezes, rales or rhonchi. Normal respiratory effort with no use of accessory muscles. . Musculoskeletal: Normal range of motion of the left elbow. No bony point tenderness. Sensation is intact. Radial pulses are 2+ equal and palpable bilaterally. Skin: [place], warm and dry. Approximately 1 cm in diameter skin tear at posterior elbow. Bleeding is active. Neurological: Alert and oriented x3. CN II-XII grossly intact. Speech is fluent and answers are appropriate. No focal neuro deficits. Psychiatric: Normal mood and affect. No overt signs of depression or anxiety noted. Limitations: no limitations Course Vital Signs 01/11/18 13:46 Temperature 98.1 F Pulse Rate 79 Respiratory 18 Rate Blood Pressure 147/81 O2 Sat by Pulse 100 Oximetry Medical Decision Making - Medical Decision Making This is a 72-year-old female presents to the emergency department with chief complaint of fall injury. Patient states that last evening she struck her elbow on a heat register when she lost her balance. She states she is currently on Xarelto and is unable to get the wound to stop bleeding. There is an approximately 1 cm in diameter skin tear at the left posterior elbow. Wound was irrigated extensively and the skin tear wasn't able to be realigned. Gelfoam was applied. A dressing was then placed over the Gelfoam. Patient tolerated well without complication. She is neurovascularly intact. Recommended removal of Gelfoam in 72 hours. Patient is in agreement with plan and voices understanding. She is no acute distress vital signs are stable. She will be discharged with this time. All questions answered. Disposition Clinical Impression: Skin tear of elbow without complication Disposition: HOME SELF-CARE Condition: Good Instructions: Skin Tear (ED) Additional Instructions: Please leave Gelfoam in place for the next 72 hours. Please keep dressing clean , dry and intact. Please follow up with primary care provider within 1-2 days. Return to emergency department if symptoms should worsen or any concerns arise. Is patient prescribed a controlled substance at d/c from ED?: No Referrals: Valerio Lobo MD [Primary Care Provider] - 1-2 days Time of Disposition: 14:05
== END 2018-01-11 14:21 | disposition home or self-care (01) ==
LOC: EC 13:36
DX: S51.012A Laceration without foreign body of left elbow, initial encounter (principal); I13.0 Hypertensive heart and chronic kidney disease with heart failure and stage 1 through stage 4 chronic kidney disease, or unspecified chronic kidney disease; I50.9 Heart failure, unspecified; I25.10 Atherosclerotic heart disease of native coronary artery without angina pectoris; I48.2 Chronic atrial fibrillation; K86.1 Other chronic pancreatitis; D64.9 Anemia, unspecified; J45.909 Unspecified asthma, uncomplicated; K70.31 Alcoholic cirrhosis of liver with ascites; F32.9 Major depressive disorder, single episode, unspecified; F41.9 Anxiety disorder, unspecified; I25.2 Old myocardial infarction; E89.0 Postprocedural hypothyroidism; Z87.891 Personal history of nicotine dependence; Z79.01 Long term (current) use of anticoagulants; Z79.02 Long term (current) use of antithrombotics/antiplatelets; Z79.899 Other long term (current) drug therapy; Z88.1 Allergy status to other antibiotic agents; Z88.6 Allergy status to analgesic agent; Z91.013 Allergy to seafood; Z91.041 Radiographic dye allergy status; Z85.850 Personal history of malignant neoplasm of thyroid; Z87.19 Personal history of other diseases of the digestive system; Z95.810 Presence of automatic (implantable) cardiac defibrillator; Z96.89 Presence of other specified functional implants; W01.198A Fall on same level from slipping, tripping and stumbling with subsequent striking against other object, initial encounter; Y93.01 Activity, walking, marching and hiking; Y92.009 Unspecified place in unspecified non-institutional (private) residence as the place of occurrence of the external cause
CPT/HCPCS: 99283

== ENCOUNTER 2018-03-10 16:21 | Emergency (ER) | payer MEDICARE, BC ==
[2018-03-10 17:22] VITALS: RESP 18
[2018-03-10] MEDS ORDERED: SILVER NITRATE APPLICATOR 1 EACH STICK..EA. TOPICAL STA (20:06)
[2018-03-10] MEDS ORDERED: GELATIN SPONGE,ABSORB (LARGE) 1 EACH SPONGE TOPICAL STA ×2 (20:06→21:30)
[2018-03-10] MEDS ORDERED: TOPICAL SKIN ADHESIVE 1 EACH AMP TOPICAL ONE (20:24)
--- NOTE | 2018-03-10 20:30 | CT ---
EXAMINATION TYPE: CT brain hubert willams DATE OF EXAM: 03/10/2018 COMPARISON: 05/30/2010 HISTORY: trauma, fall CT DLP: 1444.9 mGycm Automated exposure control for dose reduction was used. TECHNIQUE: CT scan of the head and cervical spine are performed without contrast. FINDINGS: There is some cerebral cortical atrophy. There is no mass effect nor midline shift. There is no sign of intracranial hemorrhage. There is left frontal scalp soft tissue swelling. Calvarium i s intact. Cervical vertebra have normal alignment. There is hypertrophic mild spurring of the endplates in the mid and lower cervical spine. Facet joints appear intact. The skull base appears intact. There is mul tilevel hypertrophic facet arthropathy. IMPRESSION: Cerebral atrophy. No acute intracranial abnormality. Chronic small vessel ischemia. Spondylotic changes in the cervical spine. No fracture.
--- NOTE | 2018-03-10 20:34 | ED ---
Fall HPI - General Chief Complaint: Fall Stated Complaint: Fell head/arm injury Time Seen by Provider: 03/10/18 19:51 Source: patient, RN notes reviewed, old records reviewed Mode of arrival: wheelchair - History of Present Illness Initial Comments: Patient is a 73-year-old female on Plavix chief complaint of a fall yesterday evening. Patient poor she was getting out of bed tripped and fell. Patient reports that she hit the left side of her forehead, has multiple skin tears over her left and right forearms, she also complains of left hand pain and swelling. Patient reports that she was seen in urgent care who sent her here for further evaluation. Patient has had no vomiting episodes. Has been alert and oriented. She lives with her . Patient states that she cannot get the bleeding to stop on her arms - Related Data Home Medications Medication Instructions Recorded Confirmed Lipase/Protease/Amylase [Harshil Dr 2 cap PO TID@0700,1100,1700 05/31/16 08/30/17 24,000 Units Capsule] FLUoxetine HCL [PROzac] 20 mg PO DAILY 08/14/16 08/30/17 Folic Acid 1 mg PO HS 08/14/16 08/30/17 Omeprazole [PriLOSEC] 20 mg PO DAILY 08/14/16 08/30/17 Rivaroxaban [Xarelto] 20 mg PO DAILY@1700 08/14/16 08/30/17 Metoprolol Tartrate [Lopressor] 50 mg PO BID@0700,1900 01/10/17 08/30/17 Furosemide [Lasix] 40 mg PO DAILY 01/21/17 08/30/17 Spironolactone 25 mg PO HS 01/21/17 08/30/17 Vitamin B Complex With C 1 tab PO HS 07/22/17 08/30/17 traMADol HCL [Ultram] 50 mg PO Q6HR PRN 07/22/17 08/30/17 Albuterol Nebulized [Ventolin 2.5 mg INHALATION RT-Q4H PRN 08/03/17 08/30/17 Nebulized] Clopidogrel [Plavix] 75 mg PO HS 08/03/17 08/30/17 Magnesium Oxide [Mag-Ox] 400 mg PO HS 08/03/17 08/30/17 Atorvastatin Calcium [Lipitor] 40 mg PO HS 08/30/17 08/30/17 Fluticasone/Vilanterol [Breo 1 inhalation PO DAILY PRN 08/30/17 08/30/17 Ellipta 100-25 Mcg Inhaler] Levothyroxine Sodium [Synthroid] 175 mcg PO DAILY 08/30/17 08/30/17 Lisinopril [Prinivil] 10 mg PO DAILY 08/30/17 08/30/17 Promethazine [Phenergan] 12.5 mg PO Q6H PRN 08/30/17 08/30/17 Previous Rx's Medication Instructions Recorded HYDROcodone/APAP 5-325MG [[place] 1 tab PO Q6HR PRN #15 tab 03/10/18 5-325] Allergies Allergy/AdvReac Type Severity Reaction Status Date / Time ibuprofen [From Motrin] Allergy Anaphylaxis Verified 03/10/18 17:14 Iodinated Contrast- Oral and Allergy Rash/Hives Verified 03/10/18 17:14 IV Dye [Iodinated Contrast Media - IV Dye] levofloxacin [From Levaquin] Allergy Anaphylaxis Verified 03/10/18 17:14 shellfish derived AdvReac Nausea & Verified 03/10/18 17:14 Vomiting Review of Systems ROS Statement: Those systems with pertinent positive or pertinent negative responses have been documented in the HPI. ROS Other: All systems not noted in ROS Statement are negative. 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, previous history of ascites requiring paracentesis, thyroid cancer status post thyroidectomy, coronary artery disease, angioplasty and stenting of the circumflex artery, CHF with an ejection fraction of 30-35%, questionable liver abscess, chronic atrial fibrillation, history of atrial fibrillation with cardiac arrest requiring an AICD placement, coronary artery disease, pancreatic duct stent insertion, bronchial asthma, hypertension, chronic renal failure with stage III chronic kidney disease, chronic anemia, hydropic gallbladder, colonic polyps, the patient is has been walking with the help of a walker. She is considered to be an increased risk of fall. History of E. coli and enterococcal faecalis urinary tract infection Last Myocardial Infarction Date:: 06/2016 History of Any Multi-Drug Resistant Organisms: Other MDRO Past Surgical History: AICD, Heart Catheterization With Stent, Hysterectomy, Joint Replacement, Pacemaker Additional Past Surgical History / Comment(s): 2016 PCI with stent and AICD, paracentesises, thyroidectomy, left hip replaced, vein stripping bilaterally, repair right detached retina, cataract removal bilat eyes, pancreatic stent, liver bx. Past Anesthesia/Blood Transfusion Reactions: No Reported Reaction Additional Past Anesthesia/Blood Transfusion Reaction / Comment(s): Pt has received blood in past without reaction. Date of Last Stent Placement:: 06/2016 Type of Cardiac Device: Permanent Pacemaker, AICD Device Placement Date:: , [employer] Past Psychological History: Anxiety, Depression Smoking Status: Former smoker Past Alcohol Use History: Daily Past Drug Use History: None Reported - Past Family History Mother Family Medical History: No Reported History Additional Family Medical History / Comment(s): Mother was healthy and at the age of 98yrs. Father Family Medical History: Cancer Additional Family Medical History / Comment(s): father had bone cancer and of this at age 65yrs. General Exam - General Exam Comments Initial Comments: This is a 73-year-old female. Alert and oriented. No significant distress. Limitations: no limitations General appearance: alert, in no apparent distress Head exam: Present: normocephalic, normal inspection. Absent: atraumatic ( Patient has contusion over the left forehead.) Eye exam: Present: normal appearance, PERRL, EOMI. Absent: scleral icterus, conjunctival injection, periorbital swelling ENT exam: Present: normal exam, mucous membranes moist Neck exam: Present: normal inspection. Absent: tenderness, meningismus, lymphadenopathy Respiratory exam: Present: normal lung sounds bilaterally. Absent: respiratory distress, wheezes, rales, rhonchi, stridor Cardiovascular Exam: Present: regular rate, normal rhythm, normal heart sounds. Absent: systolic murmur, diastolic murmur, rubs, gallop, clicks GI/Abdominal exam: Present: soft, normal bowel sounds. Absent: distended, tenderness, guarding, rebound, rigid Left Forearm Wrist exam: Present: tenderness, swelling, ecchymosis. Absent: normal inspection, abrasion, laceration Hand Wrist exam: Present: tenderness, swelling (Patient is significant tenderness and swelling over the first through third metacarpals.). Absent: normal inspection Neuro motor exam: Present: wrist extension intact, thumb opposition intact, thumb IP flexion intact, thumb adduction intact, fingers 2-5 abduction intact Vascular: Present: normal capillary refill Back exam: Present: normal inspection Neurological exam: Present: alert, oriented X3, CN II-XII intact Psychiatric exam: Present: normal affect, normal mood Expanded 1 - skin tear, 4cm X5cm 2 - skin tear 5cm by 6cm 3 - skin tear 4cm by 3 cm Course Vital Signs 03/10/18 03/10/18 17:14 22:01 Temperature 98.8 F 96.6 F L Pulse Rate 70 75 Respiratory 18 18 Rate Blood Pressure 127/78 128/68 O2 Sat by Pulse 98 100 Oximetry Procedures - Laceration Laceration #1 Site: upper extremity (right forearm) Size (cm): 5 Description: flap (skin tear) Depth: simple, single layer Pre-repair: wound explored, irrigated extensively Type of Sutures: other (dermabond, silvernitrate, gelfoam) Patient Tolerated Procedure: well, no complications Laceration #2 Site: upper extremity (right upper arm) Size (cm): 6 Description: flap (skin tear) Depth: simple, single layer Pre-repair: wound explored, irrigated extensively Type of Sutures: other (silvernitate, dermabond, gelfoam) Patient Tolerated Procedure: well, no complications - Orthopedic Splinting/Casting Injury #1 Side: left Upper Extremity Immobilizer: volar splint, [place] wrap, synthetic pre-padded splint Medical Decision Making - Medical Decision Making 73-year-old female presents emergency Department status post fall. She is on blood thinners. She has multiple skin abrasions over the right forearm and right upper arm. Also the left elbow. She also significant swelling over the left hand elbow. Patient CT of the brain and C-spine is negative for any acute process. Patient does have continued bleeding from the skin tears that she is on Plavix. I was able to cauterize this with silver nitrate, clean the area and covered with Dermabond and Gelfoam. Discussed keeping the Gelfoam over this for the next 2 days. Also her left hand is evidence of a spiral fracture of the fifth metacarpal. Placed in a volar splint and will follow up with primary care physician as well as orthopedic. I discussed skin care management. Patient agrees treatment plan will comply. Return parameters were discussed. - Radiology Data Radiology results: report reviewed Possible spiral fracture of the distal fourth metacarpal. Soft tissue swelling. There is no acute abdomen on a very forearm. Negative right humerus exam. CT shows several atrophy. No acute intracranial normality. Chronic small vessel ischemia. Spinal changes in the cervical spine. No fracture. Disposition Clinical Impression: Fall, Skin tear, Hand fracture, left, Head injury Disposition: HOME SELF-CARE Condition: Good Instructions: Hand Fracture (ED), Skin Tear (ED) Additional Instructions: Patient does have close follow-up with foreclosure specialist. Patient should have the wrap on the arm for the next 2 days. Keep the left hand splint on as well. Return to the emergency department if any alarming signs or symptoms occur. Follow-up with primary care physician within the next 1-2 days. Prescriptions: HYDROcodone/APAP 5-325MG [[place] 5-325] 1 tab PO Q6HR PRN #15 tab PRN Reason: Pain Is patient prescribed a controlled substance at d/c from ED?: Yes When asked, does pt state using other controlled substances?: No If prescribed controlled substance>3 days was MAPS reviewed?: Prescribed <3 Days If opioid is for acute pain is fill amount 7 days or less?: Yes If Rx opioid, was Start Talking consent form obtained?: No Referrals: Valerio Lobo MD [Primary Care Provider] - 1-2 days Allen Saba MD [STAFF PHYSICIAN] - 1-2 days Boris Gray DO [Doctor of Osteopathic Medicine] - 1-2 days Time of Disposition: 21:39
--- NOTE | 2018-03-10 21:02 | XR ---
EXAMINATION TYPE: XR hand complete LT DATE OF EXAM: 03/10/2018 COMPARISON: NONE HISTORY: Pain and swelling. Fall. 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 I see no frac ture nor dislocation. There is some narrowing of the IP joint spaces. There is deformity of the dista l fourth metacarpal suggestive of acute nondisplaced spiral fracture. IMPRESSION: Possible spiral fracture of the distal fourth metacarpal. Soft tissue swelling.
--- NOTE | 2018-03-10 21:06 | XR ---
EXAMINATION TYPE: XR forearm RT DATE OF EXAM: 03/10/2018 COMPARISON: NONE HISTORY: Fall and pain 2 views Findings Radius and ulna appear intact. I see no fracture nor dislocation. IMPRESSION: No acute abnormality of the right forearm.
--- NOTE | 2018-03-10 21:07 | XR ---
EXAMINATION TYPE: XR humerus RT DATE OF EXAM: 03/10/2018 COMPARISON: NONE HISTORY: Fell last night. Pain TECHNIQUE: 3 views FINDINGS: I see no fracture nor dislocation. Shoulder joint and elbow joint appear intact. IMPRESSION: Negative right humerus exam.
[2018-03-10] MEDS ORDERED: GELATIN SPONGE,ABSORB (SMALL) 1 EACH SPONGE TOPICAL STA (21:17)
[2018-03-10 22:02] VITALS: BP 128/68; PULSE 75; TEMP 96.6
== END 2018-03-10 22:01 | disposition home or self-care (01) ==
LOC: EC 16:21
DX: S62.397A Other fracture of fifth metacarpal bone, left hand, initial encounter for closed fracture (principal); S51.811A Laceration without foreign body of right forearm, initial encounter; S41.111A Laceration without foreign body of right upper arm, initial encounter; S51.812A Laceration without foreign body of left forearm, initial encounter; S00.83XA Contusion of other part of head, initial encounter; S50.312A Abrasion of left elbow, initial encounter; I13.0 Hypertensive heart and chronic kidney disease with heart failure and stage 1 through stage 4 chronic kidney disease, or unspecified chronic kidney disease; N18.3 Chronic kidney disease, stage 3 (moderate); I50.9 Heart failure, unspecified; I25.10 Atherosclerotic heart disease of native coronary artery without angina pectoris; I25.2 Old myocardial infarction; I48.2 Chronic atrial fibrillation; F41.9 Anxiety disorder, unspecified; F32.9 Major depressive disorder, single episode, unspecified; Z85.850 Personal history of malignant neoplasm of thyroid; Z95.810 Presence of automatic (implantable) cardiac defibrillator; Z95.5 Presence of coronary angioplasty implant and graft; Z95.1 Presence of aortocoronary bypass graft; Z87.891 Personal history of nicotine dependence; Z79.02 Long term (current) use of antithrombotics/antiplatelets; Z79.01 Long term (current) use of anticoagulants; Z79.899 Other long term (current) drug therapy; Z88.6 Allergy status to analgesic agent; Z91.041 Radiographic dye allergy status; Z88.1 Allergy status to other antibiotic agents; Z91.013 Allergy to seafood; W01.10XA Fall on same level from slipping, tripping and stumbling with subsequent striking against unspecified object, initial encounter
CPT/HCPCS: 12004; 29125; 70450; 72125; 99284

== ENCOUNTER 2018-04-14 21:39 | Inpatient (IN) | payer MEDICARE, BC ==
[2018-04-14] MEDS ORDERED: MORPHINE SULFATE 4 MG/ML SYRINGE IV STA (22:20)
--- NOTE | 2018-04-14 22:24 | ED ---
General Adult HPI - General Chief complaint: Fall Stated complaint: FALL Time Seen by Provider: 04/14/18 22:03 Source: patient, EMS, RN notes reviewed Mode of arrival: EMS Limitations: no limitations - History of Present Illness Initial comments: Patient is a pleasant 73-year-old female presenting to the emergency department with complaints of fall. Patient does have balance issues and has had multiple falls over the past year. Patient fell and hurt her right hip today. Patient is unable to get up and ambulate. Patient was lying on the ground for approximately 3 hours. Patient did strike her head. Patient is on Xarelto. Patient states she just bumped it a little bit. No weakness. No confusion. No speech problems. No chest pain or dyspnea. - Related Data Home Medications Medication Instructions Recorded Confirmed Lipase/Protease/Amylase [Harshil Fiore 2 cap PO TID@0700,1100,1700 05/31/16 04/14/18 24,000 Units Capsule] FLUoxetine HCL [PROzac] 20 mg PO DAILY@0700 08/14/16 04/14/18 Folic Acid 1 mg PO DAILY@1100 08/14/16 04/14/18 Omeprazole [PriLOSEC] 20 mg PO DAILY@0700 08/14/16 04/14/18 Rivaroxaban [Xarelto] 20 mg PO DAILY@1700 08/14/16 04/14/18 Metoprolol Tartrate [Lopressor] 50 mg PO BID@0700,1900 01/10/17 04/14/18 Vitamin B Complex With C 1 tab PO DAILY@1100 07/22/17 04/14/18 traMADol HCL [Ultram] 50 mg PO Q6HR PRN 07/22/17 04/14/18 Albuterol Nebulized [Ventolin 2.5 mg INHALATION RT-Q4H PRN 08/03/17 04/14/18 Nebulized] Clopidogrel [Plavix] 75 mg PO DAILY@0700 08/03/17 04/14/18 Magnesium Oxide [Mag-Ox] 400 mg PO DAILY@1100 08/03/17 04/14/18 Atorvastatin Calcium [Lipitor] 40 mg PO HS 08/30/17 04/14/18 Amiodarone [Cordarone] 100 mg PO DAILY@1700 04/14/18 04/14/18 Calcium Carbonate [Calcium] 600 mg PO DAILY 04/14/18 04/14/18 Cholecalciferol [Vitamin D3] 1,000 unit PO DAILY 04/14/18 04/14/18 Famotidine [Pepcid] 20 mg PO BID 04/14/18 04/14/18 Levothyroxine Sodium [Synthroid] 88 mcg PO DAILY@0700 04/14/18 04/14/18 Lisinopril [Zestril] 5 mg PO DAILY@1700 04/14/18 04/14/18 Sennosides [Senokot] 8.6 mg PO DAILY PRN 04/14/18 04/14/18 Allergies Allergy/AdvReac Type Severity Reaction Status Date / Time ibuprofen [From Motrin] Allergy Anaphylaxis Verified 04/14/18 22:09 Iodinated Contrast- Oral and Allergy Rash/Hives Verified 04/14/18 22:09 IV Dye [Iodinated Contrast Media - IV Dye] levofloxacin [From Levaquin] Allergy Anaphylaxis Verified 04/14/18 22:09 shellfish derived AdvReac Nausea & Verified 04/14/18 22:09 Vomiting Review of Systems ROS Statement: Those systems with pertinent positive or pertinent negative responses have been documented in the HPI. ROS Other: All systems not noted in ROS Statement are negative. 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, previous history of ascites requiring paracentesis, thyroid cancer status post thyroidectomy, coronary artery disease, angioplasty and stenting of the circumflex artery, CHF with an ejection fraction of 30-35%, questionable liver abscess, chronic atrial fibrillation, history of atrial fibrillation with cardiac arrest requiring an AICD placement, coronary artery disease, pancreatic duct stent insertion, bronchial asthma, hypertension, chronic renal failure with stage III chronic kidney disease, chronic anemia, hydropic gallbladder, colonic polyps, the patient is has been walking with the help of a walker. She is considered to be an increased risk of fall. History of E. coli and enterococcal faecalis urinary tract infection Last Myocardial Infarction Date:: 06/2016 History of Any Multi-Drug Resistant Organisms: Other MDRO Past Surgical History: AICD, Heart Catheterization With Stent, Hysterectomy, Joint Replacement, Pacemaker Additional Past Surgical History / Comment(s): 2015 PCI with stent and AICD, paracentesises, thyroidectomy, left hip replaced, vein stripping bilaterally, repair right detached retina, cataract removal bilat eyes, pancreatic stent, liver bx. Past Anesthesia/Blood Transfusion Reactions: No Reported Reaction Additional Past Anesthesia/Blood Transfusion Reaction / Comment(s): Pt has received blood in past without reaction. Date of Last Stent Placement:: 06/2016 Type of Cardiac Device: Permanent Pacemaker, AICD Device Placement Date:: , [employer] Past Psychological History: Anxiety, Depression Smoking Status: Former smoker Past Alcohol Use History: Occasional Past Drug Use History: None Reported - Past Family History Mother Family Medical History: No Reported History Additional Family Medical History / Comment(s): Mother was healthy and at the age of 98yrs. Father Family Medical History: Cancer Additional Family Medical History / Comment(s): father had bone cancer and of this at age 65yrs. General Exam Limitations: no limitations General appearance: alert, in no apparent distress Head exam: Present: atraumatic, normocephalic Eye exam: Present: normal appearance, PERRL, EOMI ENT exam: Present: normal oropharynx Neck exam: Present: normal inspection. Absent: tenderness Respiratory exam: Present: normal lung sounds bilaterally Cardiovascular Exam: Present: regular rate, normal rhythm GI/Abdominal exam: Present: soft. Absent: tenderness Extremities exam: Present: tenderness (Tenderness right anterior hip. Pain with range of motion of the hip. Distally the extremity neurovascularly intact. ) Neurological exam: Present: alert, oriented X3, CN II-XII intact. Absent: motor sensory deficit Expanded Neurological exam: Present: protecting the airway Patient oriented to: Present: person, place, time Speech: Present: fluid speech Cranial nerves: EOM's Intact: Normal Sensory exam: Upper Extremity Light Touch: Normal, Lower Extremity Light Touch: Normal Motor strength exam: RUE: 5, LUE: 5, RLE: 5, LLE: 5 Eye Response: (4) open spontaneously Motor Response: (6) obeys commands Verbal Response: (5) oriented Psychiatric exam: Present: normal affect, normal mood Skin exam: Present: normal color Course Vital Signs 04/14/18 21:44 Temperature 98.2 F Pulse Rate 78 Respiratory 18 Rate Blood Pressure 126/63 O2 Sat by Pulse 91 L Oximetry - Reevaluation(s) Reevaluation #1: 04/14/18 23:40 Patient reevaluated and updated. Orthopedics has been paged for admission. 04/14/18 23:45 Case was discussed with Dr. Rincon, who will admit with medical consult. EKG Findings - EKG Comments: EKG Findings:: Paced rhythm at 70. NE 242. QRS 98. QTC 494. QTC 533. Normal axis. Prominent T waves leads V5 and V6. Medical Decision Making - Lab Data Result diagrams: 04/14/18 22:20 04/14/18 22:20 Lab Results 04/14/18 04/14/18 04/14/18 Range/Units 22:20 22:20 22:20 WBC 5.1 (3.8-10.6) k/uL RBC 2.98 L (3.80-5.40) m/uL Hgb 8.8 L (11.4-16.0) gm/dL Hct 29.3 L (34.0-46.0) % MCV 98.4 (80.0-100.0) fL MCH 29.7 (25.0-35.0) pg MCHC 30.2 L (31.0-37.0) g/dL RDW 17.5 H (11.5-15.5) % Plt Count 258 (150-450) k/uL Neutrophils % 64 % Lymphocytes % 24 % Monocytes % 7 % Eosinophils % 2 % Basophils % 1 % Neutrophils # 3.2 (1.3-7.7) k/uL Lymphocytes # 1.2 (1.0-4.8) k/uL Monocytes # 0.4 (0-1.0) k/uL Eosinophils # 0.1 (0-0.7) k/uL Basophils # 0.0 (0-0.2) k/uL Hypochromasia Moderate Anisocytosis Slight Macrocytosis Slight PT 13.6 H (9.0-12.0) sec INR 1.5 H (<1.2) APTT 28.9 (22.0-30.0) sec Sodium 138 (137-145) mmol/L Potassium 3.5 (3.5-5.1) mmol/L Chloride 105 (98-107) mmol/L Carbon Dioxide 19 L (22-30) mmol/L Anion Gap 14 mmol/L BUN 17 (7-17) mg/dL Creatinine 1.20 H (0.52-1.04) mg/dL Est GFR (CKD-EPI)AfAm 52 (>60 ml/min/1.73 sqM) Est GFR (CKD-EPI)NonAf 45 (>60 ml/min/1.73 sqM) Glucose 84 (74-99) mg/dL Calcium 8.8 (8.4-10.2) mg/dL Total Bilirubin 0.3 (0.2-1.3) mg/dL AST 65 H (14-36) U/L ALT 42 (9-52) U/L Alkaline Phosphatase 150 H (38-126) U/L Total Protein 6.9 (6.3-8.2) g/dL Albumin 3.4 L (3.5-5.0) g/dL Urine Color Urine Appearance (Clear) Urine pH (5.0-8.0) Ur Specific [place] (1.001-1.035) Urine Protein (Negative) Urine Glucose (UA) (Negative) Urine Ketones (Negative) Urine Blood (Negative) Urine Nitrite (Negative) Urine Bilirubin (Negative) Urine Urobilinogen (<2.0) mg/dL Ur Leukocyte Esterase (Negative) 04/14/18 Range/Units 22:20 WBC (3.8-10.6) k/uL RBC (3.80-5.40) m/uL Hgb (11.4-16.0) gm/dL Hct (34.0-46.0) % MCV (80.0-100.0) fL MCH (25.0-35.0) pg MCHC (31.0-37.0) g/dL RDW (11.5-15.5) % Plt Count (150-450) k/uL Neutrophils % % Lymphocytes % % Monocytes % % Eosinophils % % Basophils % % Neutrophils # (1.3-7.7) k/uL Lymphocytes # (1.0-4.8) k/uL Monocytes # (0-1.0) k/uL Eosinophils # (0-0.7) k/uL Basophils # (0-0.2) k/uL Hypochromasia Anisocytosis Macrocytosis PT (9.0-12.0) sec INR (<1.2) APTT (22.0-30.0) sec Sodium (137-145) mmol/L Potassium (3.5-5.1) mmol/L Chloride (98-107) mmol/L Carbon Dioxide (22-30) mmol/L Anion Gap mmol/L BUN (7-17) mg/dL Creatinine (0.52-1.04) mg/dL Est GFR (CKD-EPI)AfAm (>60 ml/min/1.73 sqM) Est GFR (CKD-EPI)NonAf (>60 ml/min/1.73 sqM) Glucose (74-99) mg/dL Calcium (8.4-10.2) mg/dL Total Bilirubin (0.2-1.3) mg/dL AST (14-36) U/L ALT (9-52) U/L Alkaline Phosphatase (38-126) U/L Total Protein (6.3-8.2) g/dL Albumin (3.5-5.0) g/dL Urine Color Light Yellow Urine Appearance Clear (Clear) Urine pH 6.0 (5.0-8.0) Ur Specific [place] 1.006 (1.001-1.035) Urine Protein Negative (Negative) Urine Glucose (UA) Negative (Negative) Urine Ketones Negative (Negative) Urine Blood Negative (Negative) Urine Nitrite Negative (Negative) Urine Bilirubin Negative (Negative) Urine Urobilinogen <2.0 (<2.0) mg/dL Ur Leukocyte Esterase Negative (Negative) - Radiology Data Radiology results: report reviewed (Computed tomography scan of the brain reveals atrophy and chronic small vessel ischemia. No acute process.), image reviewed (X-ray of the right hip and pelvis shows right subcapital fracture. Chest x-ray shows no acute process.) Disposition Clinical Impression: Subcapital fracture of right hip Disposition: ADMITTED IP TO THIS HOSP Is patient prescribed a controlled substance at d/c from ED?: No Referrals: Valerio Lobo MD [Primary Care Provider] - 1-2 days Decision Time: 23:46
[2018-04-14 22:46] LABS: Anisocytosis Slight; Basophils % (A) 1 %; Eosinophils # (A) 0.1 k/uL (0-0.7); Eosinophils % (A) 2 %; HCT 29.3 % (34.0-46.0); HGB 8.8 gm/dL (11.4-16.0); Hypochromasia Moderate; Lymphocytes # (A) 1.2 k/uL (1.0-4.8); Lymphocytes % (A) 24 %; MCH 29.7 pg (25.0-35.0); MCHC 30.2 g/dL (31.0-37.0); MCV 98.4 fL (80.0-100.0); Macrocytosis Slight; Monocytes # (A) 0.4 k/uL (0-1.0); Monocytes % (A) 7 %; Neutrophils # (A) 3.2 k/uL (1.3-7.7); Neutrophils % (A) 64 %; Platelet Count 258 k/uL (150-450); RBC 2.98 m/uL (3.80-5.40); RDW 17.5 % (11.5-15.5); WBC 5.1 k/uL (3.8-10.6)
[2018-04-14 22:47] LABS: Appearance,Urine Clear (Clear); Bilirubin,Urine Negative (Negative); Blood,Urine Negative (Negative); Color,Urine Light Yellow; Glucose,Urine (UA) Negative (Negative); Ketones,Urine Negative (Negative); Leukocyte Esterase,Urine Negative (Negative); Nitrite,Urine Negative (Negative); Protein,Urine Negative (Negative); Specific Gravity,Urine 1.006 (1.001-1.035); Urobilinogen,Urine <2.0 mg/dL (<2.0)
[2018-04-14 22:55] LABS: INR 1.5 (<1.2); Partial Thromboplastin Time 28.9 sec (22.0-30.0); Prothrombin Time 13.6 sec (9.0-12.0)
[2018-04-14 22:59] LABS: Albumin 3.4 g/dL (3.5-5.0); Calcium 8.8 mg/dL (8.4-10.2); Potassium 3.5 mmol/L (3.5-5.1); Total Bilirubin 0.3 mg/dL (0.2-1.3); Total Protein 6.9 g/dL (6.3-8.2)
--- NOTE | 2018-04-14 22:59 | XR ---
EXAMINATION TYPE: XR Hip RT and AP Pelvis DATE OF EXAM: 04/14/2018 COMPARISON: None HISTORY: Fall and right hip pain TECHNIQUE: A single AP view of the pelvis is obtained. Two views of the right hip are obtained. There is deformity of the femoral head consistent with impacted subcapital fracture. There is no disl ocation. There is left hip prosthesis. Pelvic ring is intact. IMPRESSION: Acute impacted subcapital fracture right femur.
--- NOTE | 2018-04-14 23:07 | XR ---
EXAMINATION TYPE: XR chest 1V DATE OF EXAM: 04/14/2018 COMPARISON: 08/08/2017 HISTORY: Hip fracture TECHNIQUE: Single frontal view of the chest is obtained. FINDINGS: There is no heart failure nor confluent pneumonic infiltrate. There is left axillary pacem donovan with the lead tips over the right ventricle. There are chest leads. Costophrenic angles are darlyn r. There is old healed right lateral rib fracture. IMPRESSION: No active cardiopulmonary disease. There is clearing of the pulmonary congestion compare d to old exam.
--- NOTE | 2018-04-14 23:08 | CT ---
EXAMINATION TYPE: CT brain wo con DATE OF EXAM: 04/14/2018 COMPARISON: 03/10/2018 HISTORY: fall headache CT DLP: 1108.4 mGycm Automated exposure control for dose reduction was used. FINDINGS: Ventricles of normal size. There is cerebral cortical atrophy. There is no mass effect nor midline sh ift. There is no sign of intracranial hemorrhage. The calvarium is intact. There is hypodensity in th e periventricular white matter. IMPRESSION: CEREBRAL ATROPHY AND CHRONIC SMALL VESSEL ISCHEMIA. NO CHANGE. NO ACUTE INTRACRANIAL ABNORMALITY.
[2018-04-14] MEDS ORDERED: NALOXONE 0.4 MG/ML 1 ML VIAL IV PRN (23:46)
[2018-04-14] MEDS ORDERED: HYDROmorphone 1 MG/ML 1 ML SYRINGE IVP PRN (23:46)
[2018-04-15] MEDS: HYDROmorphone 1 MG/ML 1 ML SYRINGE IVP PRN ×4 (01:08→23:27)
[2018-04-15] MEDS: SODIUM CHLORIDE 0.9% 1,000 ML IV SCH ×2 (07:46→19:29)
[2018-04-15] MEDS ORDERED: Potassium Replacement Protocol 1 EACH MISC MISCELLANE PRN (08:45)
[2018-04-15] MEDS ORDERED: Magnesium Replacement Protocol 1 EACH MISC MISCELLANE PRN (08:46)
[2018-04-15] MEDS ORDERED: ONDANSETRON 4 MG/2 ML VIAL IVP STA (09:36)
[2018-04-15] MEDS ORDERED: DIAZEPAM 5 MG TAB PO PRN (09:52)
[2018-04-15] MEDS ORDERED: HYDROcodone/APAP 5-325MG 1 EACH TAB PO PRN (09:52)
[2018-04-15] MEDS ORDERED: NALOXONE 0.4 MG/ML 1 ML VIAL IV PRN (09:52)
[2018-04-15] MEDS ORDERED: HYDROmorphone 1 MG/ML 1 ML SYRINGE IVP PRN ×3 (09:52)
[2018-04-15] MEDS ORDERED: TEMAZEPAM 15 MG CAP PO PRN (09:52)
[2018-04-15] MEDS ORDERED: MAGNESIUM HYDROXIDE 2,400 MG/10 ML CUP PO PRN (09:52)
--- NOTE | 2018-04-15 10:13 | P.HPOR ---
History of Present Illness H&P Date: 04/15/18 Chief Complaint: Right hip fracture Patient is a pleasant 73-year-old female seen at bedside this morning in the emergency department. She was admitted last evening after suffering a fall at home. X-rays showed a right subcapital hip fracture. She has pain at the right hip as expected. She denies radicular symptoms including numbness or tingling. She has no calf pain, fever, chills, chest pain or shortness of breath currently. She has multiple medical comorbidities including history of cardiovascular disease with an AK 2 years ago. She has no other complaints currently. Review of Systems All systems: negative Constitutional: Denies chills, Denies fever Eyes: denies blurred vision, denies pain Ears, nose, mouth and throat: Denies headache, Denies sore throat Cardiovascular: Denies chest pain, Denies shortness of breath Respiratory: Denies cough Gastrointestinal: Denies abdominal pain, Denies diarrhea, Denies nausea, Denies vomiting Genitourinary: Denies dysuria, Denies hematuria Musculoskeletal: Denies myalgias Integumentary: Denies pruritus, Denies rash Neurological: Denies numbness, Denies weakness Psychiatric: Denies anxiety, Denies depression Endocrine: Denies fatigue, Denies weight change Past Medical History Past Medical History: Hypertension, Myocardial Infarction ([place]), Thyroid Disorder Additional Past Medical History / Comment(s): Chronic pancreatitis, alcoholic liver cirrhosis, 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, previous history of ascites requiring paracentesis, thyroid cancer status post thyroidectomy, coronary artery disease, angioplasty and stenting of the circumflex artery, CHF with an ejection fraction of 30-35%, questionable liver abscess, chronic atrial fibrillation, history of atrial fibrillation with cardiac arrest requiring an AICD placement, coronary artery disease, pancreatic duct stent insertion, bronchial asthma, hypertension, chronic renal failure with stage III chronic kidney disease, chronic anemia, hydropic gallbladder, colonic polyps, the patient is has been walking with the help of a walker. She is considered to be an increased risk of fall. History of E. coli and enterococcal faecalis urinary tract infection Last Myocardial Infarction Date:: 06/2016 History of Any Multi-Drug Resistant Organisms: Other MDRO Past Surgical History: AICD, Heart Catheterization With Stent, Hysterectomy, Joint Replacement, Pacemaker Additional Past Surgical History / Comment(s): 2016 PCI with stent and AICD, paracentesises, thyroidectomy, left hip replaced, vein stripping bilaterally, repair right detached retina, cataract removal bilat eyes, pancreatic stent, liver bx. Past Anesthesia/Blood Transfusion Reactions: No Reported Reaction Additional Past Anesthesia/Blood Transfusion Reaction / Comment(s): Pt has received blood in past without reaction. Date of Last Stent Placement:: 06/2016 Type of Cardiac Device: Permanent Pacemaker, AICD Device Placement Date:: , [employer] Past Psychological History: Anxiety, Depression Smoking Status: Former smoker Past Alcohol Use History: Occasional Past Drug Use History: None Reported - Past Family History Mother Family Medical History: No Reported History Additional Family Medical History / Comment(s): Mother was healthy and at the age of 98yrs. Father Family Medical History: Cancer Additional Family Medical History / Comment(s): father had bone cancer and of this at age 65yrs. Medications and Allergies Home Medications Medication Instructions Recorded Confirmed Type Lipase/Protease/Amylase [Harshil Fiore 2 cap PO TID@0700,1100,1700 05/31/16 04/14/18 History 24,000 Units Capsule] FLUoxetine HCL [PROzac] 20 mg PO DAILY@0700 08/14/16 04/14/18 History Folic Acid 1 mg PO DAILY@1100 08/14/16 04/14/18 History Omeprazole [PriLOSEC] 20 mg PO DAILY@0700 08/14/16 04/14/18 History Rivaroxaban [Xarelto] 20 mg PO DAILY@1700 08/14/16 04/14/18 History Metoprolol Tartrate [Lopressor] 50 mg PO BID@0700,1900 01/10/17 04/14/18 History Vitamin B Complex With C 1 tab PO DAILY@1100 07/22/17 04/14/18 History traMADol HCL [Ultram] 50 mg PO Q6HR PRN 07/22/17 04/14/18 History Albuterol Nebulized [Ventolin 2.5 mg INHALATION RT-Q4H PRN 08/03/17 04/14/18 History Nebulized] Clopidogrel [Plavix] 75 mg PO DAILY@0700 08/03/17 04/14/18 History Magnesium Oxide [Mag-Ox] 400 mg PO DAILY@1100 08/03/17 04/14/18 History Atorvastatin Calcium [Lipitor] 40 mg PO HS 08/30/17 04/14/18 History Amiodarone [Cordarone] 100 mg PO DAILY@1700 04/14/18 04/14/18 History Calcium Carbonate [Calcium] 600 mg PO DAILY 04/14/18 04/14/18 History Cholecalciferol [Vitamin D3] 1,000 unit PO DAILY 04/14/18 04/14/18 History Famotidine [Pepcid] 20 mg PO BID 04/14/18 04/14/18 History Levothyroxine Sodium [Synthroid] 88 mcg PO DAILY@0700 04/14/18 04/14/18 History Lisinopril [Zestril] 5 mg PO DAILY@1700 04/14/18 04/14/18 History Sennosides [Senokot] 8.6 mg PO DAILY PRN 04/14/18 04/14/18 History Allergies Allergy/AdvReac Type Severity Reaction Status Date / Time ibuprofen [From Motrin] Allergy Anaphylaxis Verified 04/14/18 22:09 Iodinated Contrast- Oral and Allergy Rash/Hives Verified 04/14/18 22:09 IV Dye [Iodinated Contrast Media - IV Dye] levofloxacin [From Levaquin] Allergy Anaphylaxis Verified 04/14/18 22:09 shellfish derived AdvReac Nausea & Verified 04/14/18 22:09 Vomiting Physical Examination Inspection of the right lower extremity shows an externally rotated leg. There is no deformity. There are no wounds or lacerations. There is no erythema. Range of motion of the right hip is not tested due to the fracture. Neurovascular status is grossly intact with motor and sensation throughout the right lower extremity. Calf is soft and nontender. 2+ dorsalis pedis pulse present as well as less than 2 second capillary refill. Results X-rays of the pelvis and right hip show a minimal to nondisplaced subcapital right femoral neck fracture. There is also hardware in the left side from previous left total hip replacement. - Labs Labs: Abnormal Lab Results - Last 24 Hours (Table) 04/14/18 04/14/18 04/14/18 Range/Units 22:20 22:20 22:20 RBC 2.98 L (3.80-5.40) m/uL Hgb 8.8 L (11.4-16.0) gm/dL Hct 29.3 L (34.0-46.0) % MCHC 30.2 L (31.0-37.0) g/dL RDW 17.5 H (11.5-15.5) % PT 13.6 H (9.0-12.0) sec INR 1.5 H (<1.2) Carbon Dioxide 19 L (22-30) mmol/L Creatinine 1.20 H (0.52-1.04) mg/dL Magnesium (1.6-2.3) mg/dL AST 65 H (14-36) U/L Alkaline Phosphatase 150 H (38-126) U/L Albumin 3.4 L (3.5-5.0) g/dL 04/14/18 Range/Units 22:20 RBC (3.80-5.40) m/uL Hgb (11.4-16.0) gm/dL Hct (34.0-46.0) % MCHC (31.0-37.0) g/dL RDW (11.5-15.5) % PT (9.0-12.0) sec INR (<1.2) Carbon Dioxide (22-30) mmol/L Creatinine (0.52-1.04) mg/dL Magnesium 1.5 L (1.6-2.3) mg/dL AST (14-36) U/L Alkaline Phosphatase (38-126) U/L Albumin (3.5-5.0) g/dL H & H 04/14/18 Range/Units 22:20 Hgb 8.8 L (11.4-16.0) gm/dL Hct 29.3 L (34.0-46.0) % Coagulation 04/14/18 Range/Units 22:20 INR 1.5 H (<1.2) Result Diagrams: 04/14/18 22:20 04/14/18 22:20 - Diagnostic results Hip x-ray: report reviewed, image reviewed Assessment and Plan (1) Subcapital fracture of right hip Narrative/Plan: This patient has been reviewed with Dr. Rincon. Plan is to proceed with surgical intervention including percutaneous pinning of the right subcapital hip fracture. She takes xarelto and her INR was 1.5 today. Internal medicine and cardiology have been consulted for surgical clearance. She has been placed nothing by mouth after midnight. An order for procedure and consent have been placed. Preoperative antibiotics have been ordered. We'll repeat CBC and PT/ INR in the morning and plan on tentatively proceeding with surgery at 11:30 AM tomorrow, 04/16/2018 Current Visit: Yes Status: Acute Code(s): S72.011A - UNSP INTRACAPSULAR FRACTURE OF RIGHT FEMUR, INIT FOR CLOS FX SNOMED Code(s): 567524842 Time with Patient: Less than 30
[2018-04-15] MEDS ORDERED: ceFAZolin IN SWFI 2 GM/20 ML SYRINGE IVP ONE (10:15)
[2018-04-15] MEDS ORDERED: ALBUTEROL NEBULIZED 2.5 MG/3 ML INHALATION PRN (10:30)
[2018-04-15] MEDS ORDERED: SENNOSIDES 8.6 MG TAB PO PRN (10:30)
[2018-04-15] MEDS: LIPASE 5,000/PROTEASE 17,000/AMYLASE 24,0000 PO SCH ×2 (11:18→17:47)
[2018-04-15] MEDS: MAGNESIUM SULFATE-D5W PMX 1 GM in DEXTROSE/WATER 1 100ML.BAG IVPB SCH ×3 (11:22→16:09)
[2018-04-15] MEDS: SYMBICORT 160-4.5 MCG INHALER INHALATION SCH ×2 (11:50→19:23)
--- NOTE | 2018-04-15 12:08 | P.CONS ---
History of Present Illness - Reason for Consult Preoperative clearance - History of Present Illness Patient is a pleasant 73-year-old female came in to ER after a fall which is a mechanical fall has a is weakness multiple hospitalizations in the past multiple falls and ran out of rehabilitation days. Patient is found to have right hip fracture. I was consulted for preoperative clearance. Patient has multiple chronic medical problems including can start failure chronic systolic dysfunction although pleasantly presently euvolemic ejection fraction was around 40% and patient has an AICD in place. Patient is an alcoholic does drink alcohol on regular basis is on anticoagulation for atrial fibrillation patient drinks about 3-4 beers she says on regular basis and the patient had withdrawals in the past. Patient functional status is fairly good above 4 mets , patient does have history of cirrhosis as well along with chronic kidney disease stage II baseline creatinine is around 1.2 and patient's present creatinine is around that patient denied any shortness of breath orthopnea PND. EKG showed pacer rhythm. And some nonspecific ST-T changes patient denied any chest pain at this time. Patient is fairly euvolemic although getting IV fluids which will be discontinued. Patient is on xeralto, which is presently being held. Patient is having nausea and vomiting and patient was started on GI prophylaxis and as needed Zofran as well. Need to be monitored for alcohol withdrawals Review of Systems REVIEW OF SYSTEMS: CONSTITUTIONAL: No fever, no malaise, no fatigue. HEENT: No recent visual problems or hearing problems. Denied any sore throat. CARDIOVASCULAR: No chest pain, orthopnea, PND, no palpitations, no syncope. PULMONARY: No shortness of breath, no cough, no hemoptysis. GASTROINTESTINAL: As mentioned in HPI NEUROLOGICAL: No headaches, no weakness, no numbness. HEMATOLOGICAL: Denies any bleeding or petechiae. GENITOURINARY: Denies any burning micturition, frequency, or urgency. MUSCULOSKELETAL/RHEUMATOLOGICAL: As mentioned in HPI ENDOCRINE: Denies any polyuria or polydipsia. The rest of the 14-point review of systems is negative. 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, previous history of ascites requiring paracentesis, hydropic gallbladder, hiatal hernia, thyroid cancer status post thyroidectomy, questionable liver abscess, chronic atrial fibrillation, history of atrial fibrillation with cardiac arrest requiring an AICD placement, bronchial asthma, chronic renal failure with stage III chronic kidney disease, aymptomatic kidney stones, chronic anemia, colonic polyps, current R hand fractures wearing brace, UTIs, past L rib fractures, portal vein thrombosis per PMH but pt does not recall, allergic rhinitis Last Myocardial Infarction Date:: 06/2016 History of Any Multi-Drug Resistant Organisms: Other MDRO Past Surgical History: AICD, Heart Catheterization With Stent, Hysterectomy, Joint Replacement, Pacemaker Additional Past Surgical History / Comment(s): 2016 PCI with stent and AICD, paracentesises, thyroidectomy, left hip replaced, vein stripping bilaterally, repair right and left detached retina, cataract removal bilat eyes, pancreatic stent, liver bx, EGD. Past Anesthesia/Blood Transfusion Reactions: No Reported Reaction Additional Past Anesthesia/Blood Transfusion Reaction / Comm: Pt has received blood in past without reaction. Date of Last Stent Placement:: 06/2016 Type of Cardiac Device: AICD Device Placement Date:: , [employer] Smoking Status: Former smoker - Past Family History Mother Family Medical History: No Reported History Additional Family Medical History / Comment(s): Mother was healthy and at the age of 93yrs. She had a "weak" heart. Father Family Medical History: Cancer Additional Family Medical History / Comment(s): father had bone cancer and of this at age 65yrs. Medications and Allergies Home Medications Medication Instructions Recorded Confirmed Type Lipase/Protease/Amylase [Harshil Fiore 2 cap PO TID@0700,1100,1700 05/31/16 04/14/18 History 24,000 Units Capsule] FLUoxetine HCL [PROzac] 20 mg PO DAILY@0700 08/14/16 04/14/18 History Folic Acid 1 mg PO DAILY@1100 08/14/16 04/14/18 History Omeprazole [PriLOSEC] 20 mg PO DAILY@0700 08/14/16 04/14/18 History Rivaroxaban [Xarelto] 20 mg PO DAILY@1700 08/14/16 04/14/18 History Metoprolol Tartrate [Lopressor] 50 mg PO BID@0700,1900 01/10/17 04/14/18 History Vitamin B Complex With C 1 tab PO DAILY@1100 07/22/17 04/14/18 History traMADol HCL [Ultram] 50 mg PO Q6HR PRN 07/22/17 04/14/18 History Albuterol Nebulized [Ventolin 2.5 mg INHALATION RT-Q4H PRN 08/03/17 04/14/18 History Nebulized] Clopidogrel [Plavix] 75 mg PO DAILY@0700 08/03/17 04/14/18 History Magnesium Oxide [Mag-Ox] 400 mg PO DAILY@1100 08/03/17 04/14/18 History Atorvastatin Calcium [Lipitor] 40 mg PO HS 08/30/17 04/14/18 History Amiodarone [Cordarone] 100 mg PO DAILY@1700 04/14/18 04/14/18 History Calcium Carbonate [Calcium] 600 mg PO DAILY 04/14/18 04/14/18 History Cholecalciferol [Vitamin D3] 1,000 unit PO DAILY 04/14/18 04/14/18 History Famotidine [Pepcid] 20 mg PO BID 04/14/18 04/14/18 History Levothyroxine Sodium [Synthroid] 88 mcg PO DAILY@0700 04/14/18 04/14/18 History Lisinopril [Zestril] 5 mg PO DAILY@1700 04/14/18 04/14/18 History Sennosides [Senokot] 8.6 mg PO DAILY PRN 04/14/18 04/14/18 History Allergies Allergy/AdvReac Type Severity Reaction Status Date / Time ibuprofen [From Motrin] Allergy Anaphylaxis Verified 04/14/18 22:09 Iodinated Contrast- Oral and Allergy Rash/Hives Verified 04/14/18 22:09 IV Dye [Iodinated Contrast Media - IV Dye] levofloxacin [From Levaquin] Allergy Anaphylaxis Verified 04/14/18 22:09 shellfish derived AdvReac Nausea & Verified 04/14/18 22:09 Vomiting Physical Exam Vitals: Vital Signs Temp Pulse Resp BP Pulse Ox 04/15/18 06:43 69 20 121/61 93 L 04/15/18 05:43 68 20 111/60 91 L 04/15/18 04:43 69 20 112/62 93 L 04/15/18 03:43 70 18 108/66 97 04/15/18 02:43 70 20 132/69 96 04/15/18 01:43 70 20 114/75 96 04/14/18 23:48 69 18 131/75 98 04/14/18 21:44 98.2 F 78 18 126/63 91 L Intake and Output 04/14/18 04/15/18 04/15/18 22:59 06:59 14:59 Other: Weight 61.235 kg PHYSICAL EXAMINATION: GENERAL: The patient is alert and oriented x3, not in any acute distress. Well developed, well nourished. HEENT: Pupils are round and equally reacting to light. EOMI. No scleral icterus. No conjunctival pallor. Normocephalic, atraumatic. No pharyngeal erythema. No thyromegaly. CARDIOVASCULAR: S1 and S2 present. No murmurs, rubs, or gallops. PULMONARY: Chest is clear to auscultation, no wheezing or crackles. ABDOMEN: Soft, nontender, nondistended, normoactive bowel sounds. No palpable organomegaly. MUSCULOSKELETAL: Deferred to orthopedic surgery EXTREMITIES: No cyanosis, clubbing, or pedal edema. NEUROLOGICAL: Gross neurological examination did not reveal any focal deficits. SKIN: No rashes. Results CBC & Chem 7: 04/14/18 22:20 04/14/18 22:20 Labs: Abnormal Lab Results - Last 24 Hours (Table) 04/14/18 04/14/18 04/14/18 Range/Units 22:20 22:20 22:20 RBC 2.98 L (3.80-5.40) m/uL Hgb 8.8 L (11.4-16.0) gm/dL Hct 29.3 L (34.0-46.0) % MCHC 30.2 L (31.0-37.0) g/dL RDW 17.5 H (11.5-15.5) % PT 13.6 H (9.0-12.0) sec INR 1.5 H (<1.2) Carbon Dioxide 19 L (22-30) mmol/L Creatinine 1.20 H (0.52-1.04) mg/dL Magnesium (1.6-2.3) mg/dL AST 65 H (14-36) U/L Alkaline Phosphatase 150 H (38-126) U/L Albumin 3.4 L (3.5-5.0) g/dL 04/14/18 Range/Units 22:20 RBC (3.80-5.40) m/uL Hgb (11.4-16.0) gm/dL Hct (34.0-46.0) % MCHC (31.0-37.0) g/dL RDW (11.5-15.5) % PT (9.0-12.0) sec INR (<1.2) Carbon Dioxide (22-30) mmol/L Creatinine (0.52-1.04) mg/dL Magnesium 1.5 L (1.6-2.3) mg/dL AST (14-36) U/L Alkaline Phosphatase (38-126) U/L Albumin (3.5-5.0) g/dL Assessment and Plan Plan: -Preoperative clearance for right hip surgery: Patient is definitely moderate to high risk for surgery same thing was discussed the patient although surgery improves her functional status. Patient is euvolemic may not be able to go for surgery anyways because of anticoagulations she is on until tomorrow. I'm consulted in cardiology for preoperative clearance. Patient is agreeable for surgery and understands the risk. We probably have to deal with complicated postoperative course. Which includes going into heart failure exacerbation atrial fibrillation and alcohol withdrawals. -Alcohol abuse: Patient will be monitored for alcohol withdrawal -Depression -Chronic pancreatitis from previous alcohol use and patient continues to drink alcohol. -Congestive heart failure chronic systolic dysfunction patient has an AICD in place IV fluids will be discontinued patient is fairly euvolemic at this time. -Atrial fibrillation presently rate controlled continue on rate control medication hold off anticoagulation for surgery tomorrow -Gastroesophageal reflux disease -History of all colic cirrhosis although patient does not have any signs of cirrhosis at this time. -Coronary artery disease with previous cardiac catheterization and stents
[2018-04-15] MEDS: FAMOTIDINE 20 MG TAB PO SCH (12:18)
--- NOTE | 2018-04-15 14:00 | P.CRDCN ---
History of Present Illness History of present illness: Mrs. Oates is seen and examined resting in bed with at the bedside. Past medical history significant for coronary artery disease s/p angioplasty of circumflex artery at [facility] in [place] 2016, ischemic cardiomyopathy that has improved, paroxysmal atrial fibrillation on halfway anticoagulation, sustained ventricular tachycardia s/p AICD implantation on amiodarone, hypertension, dyslipidemia, chronic renal disease, chronic pancreatitis, chronic daily alcohol abuse and alcoholic liver cirrhosis. She follows with Dr. Mcneal in the office. We have been asked to see her in consultation for cardiac evaluation prior to surgery for right hip fracture. She states she has been falling frequently in the recent couple of weeks. Yesterday she was standing at her home when she suddenly felt dizzy and lost her balance falling backwards. She states she did hit her head. Her witnessed the event and says there is no loss of consciousness. She denies symptoms of chest pain, shortness of breath, palpitations, nausea or diaphoresis associated with this fall. She states she has similar episode occur approximately 2 weeks ago as well. Her states she walks fine with her walker but when she tries to walk without her walker she is off balance. She states her AICD has not fired recently. Orthopedics plans for percutaneous pinning of the right subcapital hip fracture tomorrow. EKG reveals atrial paced rhythm with nonspecific T wave abnormalities noted. No acute ST or T-wave abnormalities. Chest x-ray is negative for acute cardiopulmonary process with clearing of pulmonary congestion. No heart failure noted. Hips/pelvis x-ray reveals acute impacted subcapital fracture of the right femur. Laboratory data reviewed, hemoglobin 8.8, platelets 258, INR 1.5, PT 13.6, sodium 138, potassium 3.5, magnesium 1.5, creatinine 1.2. Current cardiac medications include Xarelto 20 mg daily, Plavix 75 mg daily, Lopressor 50 mg twice a day, lisinopril 5 mg daily, atorvastatin 40 mg daily and amiodarone 100 mg daily. She is also on Ultram, Senokot, Prilosec, Synthroid, Pepcid, Prozac and albuterol. Most recent echocardiogram performed July 2017 reveals preserved left ventricular systolic function with ejection fraction 50-55%, mild aortic valve sclerosis, mild MR and mild TR. Review of Systems At the time of my exam: CONSTITUTIONAL: Denies fever. Denies chills. EYES: Denies blurred vision. Denies vision changes. Denies eye pain. EARS, NOSE, MOUTH & THROAT: Denies headache. Denies sore throat. Denies ear pain. CARDIOVASCULAR: Denies chest pain. Denies shortness of breath. Denies orthopnea. Denies PND. Denies palpitations. RESPIRATORY: Denies cough. GASTROINTESTINAL: Denies abdominal pain. Denies diarrhea. Denies constipation. Denies nausea. Denies vomiting. MUSCULOSKELETAL: Complains of pain to the right hip and lower extremity. INTEGUMENTARY: Denies pruitis. Denies rash. NEUROLOGIC: Denies numbness. Denies tingling. Denies weakness. PSYCHIATRIC: Denies anxiety. Denies depression. ENDOCRINE: Denies fatigue. Denies weight change. Denies polydipsia. Denies polyurina. GENITOURINARY: Denies burning, hematuria or urgency with micturation. HEMATOLOGIC: Denies history of anemia. Denies bleeding. 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, previous history of ascites requiring paracentesis, hydropic gallbladder, hiatal hernia, thyroid cancer status post thyroidectomy, questionable liver abscess, chronic atrial fibrillation, history of atrial fibrillation with cardiac arrest requiring an AICD placement, bronchial asthma, chronic renal failure with stage III chronic kidney disease, aymptomatic kidney stones, chronic anemia, colonic polyps, current R hand fractures wearing brace, UTIs, past L rib fractures, portal vein thrombosis per PMH but pt does not recall, allergic rhinitis Last Myocardial Infarction Date:: 06/2016 History of Any Multi-Drug Resistant Organisms: Other MDRO Past Surgical History: AICD, Heart Catheterization With Stent, Hysterectomy, Joint Replacement, Pacemaker Additional Past Surgical History / Comment(s): 2016 PCI with stent and AICD, paracentesises, thyroidectomy, left hip replaced, vein stripping bilaterally, repair right and left detached retina, cataract removal bilat eyes, pancreatic stent, liver bx, EGD. Past Anesthesia/Blood Transfusion Reactions: No Reported Reaction Additional Past Anesthesia/Blood Transfusion Reaction / Comment(s): Pt has received blood in past without reaction. Date of Last Stent Placement:: 06/2016 Type of Cardiac Device: AICD Device Placement Date:: , [employer] Smoking Status: Former smoker - Past Family History Mother Family Medical History: No Reported History Additional Family Medical History / Comment(s): Mother was healthy and at the age of 93yrs. She had a "weak" heart. Father Family Medical History: Cancer Additional Family Medical History / Comment(s): father had bone cancer and of this at age 65yrs. Medications and Allergies Home Medications Medication Instructions Recorded Confirmed Type Lipase/Protease/Amylase [Harshil Fiore 2 cap PO TID@0700,1100,1700 05/31/16 04/14/18 History 24,000 Units Capsule] FLUoxetine HCL [PROzac] 20 mg PO DAILY@0700 08/14/16 04/14/18 History Folic Acid 1 mg PO DAILY@1100 08/14/16 04/14/18 History Omeprazole [PriLOSEC] 20 mg PO DAILY@0700 08/14/16 04/14/18 History Rivaroxaban [Xarelto] 20 mg PO DAILY@1700 08/14/16 04/14/18 History Metoprolol Tartrate [Lopressor] 50 mg PO BID@0700,1900 01/10/17 04/14/18 History Vitamin B Complex With C 1 tab PO DAILY@1100 07/22/17 04/14/18 History traMADol HCL [Ultram] 50 mg PO Q6HR PRN 07/22/17 04/14/18 History Albuterol Nebulized [Ventolin 2.5 mg INHALATION RT-Q4H PRN 08/03/17 04/14/18 History Nebulized] Clopidogrel [Plavix] 75 mg PO DAILY@0700 08/03/17 04/14/18 History Magnesium Oxide [Mag-Ox] 400 mg PO DAILY@1100 08/03/17 04/14/18 History Atorvastatin Calcium [Lipitor] 40 mg PO HS 08/30/17 04/14/18 History Amiodarone [Cordarone] 100 mg PO DAILY@1700 04/14/18 04/14/18 History Calcium Carbonate [Calcium] 600 mg PO DAILY 04/14/18 04/14/18 History Cholecalciferol [Vitamin D3] 1,000 unit PO DAILY 04/14/18 04/14/18 History Famotidine [Pepcid] 20 mg PO BID 04/14/18 04/14/18 History Levothyroxine Sodium [Synthroid] 88 mcg PO DAILY@0700 04/14/18 04/14/18 History Lisinopril [Zestril] 5 mg PO DAILY@1700 04/14/18 04/14/18 History Sennosides [Senokot] 8.6 mg PO DAILY PRN 04/14/18 04/14/18 History Allergies Allergy/AdvReac Type Severity Reaction Status Date / Time ibuprofen [From Motrin] Allergy Anaphylaxis Verified 04/14/18 22:09 Iodinated Contrast- Oral and Allergy Rash/Hives Verified 04/14/18 22:09 IV Dye [Iodinated Contrast Media - IV Dye] levofloxacin [From Levaquin] Allergy Anaphylaxis Verified 04/14/18 22:09 shellfish derived AdvReac Nausea & Verified 04/14/18 22:09 Vomiting Physical Exam Vitals: Vital Signs Temp Pulse Resp BP Pulse Ox 04/15/18 06:43 69 20 121/61 93 L 04/15/18 05:43 68 20 111/60 91 L 04/15/18 04:43 69 20 112/62 93 L 04/15/18 03:43 70 18 108/66 97 04/15/18 02:43 70 20 132/69 96 04/15/18 01:43 70 20 114/75 96 04/14/18 23:48 69 18 131/75 98 04/14/18 21:44 98.2 F 78 18 126/63 91 L Intake and Output 04/14/18 04/15/18 04/15/18 22:59 06:59 14:59 Other: Weight 61.235 kg Blood pressure 119/66 heart rate 69 afebrile maintaining oxygen saturation on room air GENERAL: This is a 73-year-old female in no apparent distress at the time of my examination. Appears older than stated age. HEENT: Head is atraumatic, normocephalic. Pupils are equal, round. Sclerae anicteric. Conjunctivae are clear. Mucous membranes of the mouth are moist. Neck is supple. There is no jugular venous distention. No carotid bruit is heard. LUNGS: Clear to auscultation no wheezes, rales or rhonchi. No chest wall tenderness is noted on palpation or with deep breathing. HEART: Regular rate and rhythm without murmurs, rubs or gallops. S1 and S2 heard. ABDOMEN: Soft, nontender. Bowel sounds are heard. No organomegaly noted. EXTREMITIES: No evidence of peripheral edema and no calf tenderness noted. VASCULAR: Radial and dorsalis pedis pulses palpated, no evidence of clubbing. NEUROLOGIC: Patient is awake, alert and oriented x3. Results 04/14/18 22:20 04/14/18 22:20 Cardiac Enzymes 04/14/18 Range/Units 22:20 AST 65 H (14-36) U/L Coagulation 04/14/18 Range/Units 22:20 PT 13.6 H (9.0-12.0) sec APTT 28.9 (22.0-30.0) sec CBC 04/14/18 Range/Units 22:20 WBC 5.1 (3.8-10.6) k/uL RBC 2.98 L (3.80-5.40) m/uL Hgb 8.8 L (11.4-16.0) gm/dL Hct 29.3 L (34.0-46.0) % Plt Count 258 (150-450) k/uL Comprehensive Metabolic Panel 04/14/18 Range/Units 22:20 Sodium 138 (137-145) mmol/L Potassium 3.5 (3.5-5.1) mmol/L Chloride 105 (98-107) mmol/L Carbon Dioxide 19 L (22-30) mmol/L BUN 17 (7-17) mg/dL Creatinine 1.20 H (0.52-1.04) mg/dL Glucose 84 (74-99) mg/dL Calcium 8.8 (8.4-10.2) mg/dL AST 65 H (14-36) U/L ALT 42 (9-52) U/L Alkaline Phosphatase 150 H (38-126) U/L Total Protein 6.9 (6.3-8.2) g/dL Albumin 3.4 L (3.5-5.0) g/dL Current Medications Generic Name Dose Route Start Last Admin Trade Name Freq PRN Reason Stop Dose Admin Hydrocodone Bitart/Acetaminophen 1 each 04/15/18 09:52 [place] 5-325 PO Q6HR PRN Pain Scale 1 to 5 Hydrocodone Bitart/Acetaminophen 2 each 04/15/18 09:52 [place] 5-325 PO Q6HR PRN Pain Scale 6 to 10 Albuterol Sulfate 2.5 mg 04/15/18 10:30 Ventolin Nebulized INHALATION RT-Q4H PRN Shortness Of Breath Amiodarone HCl 100 mg 04/15/18 17:00 Cordarone PO DAILY@1700 [facility] Lipase/Protease/Amylase 4 each 04/15/18 11:00 04/15/18 11:[address] 5,000 Units Capsule PO 4 each TID@0700,1100,1700 [facility] Administration Atorvastatin Calcium 40 mg 04/15/18 21:00 Lipitor PO HS [facility] Budesonide/Formoterol Fumarate 2 puff 04/15/18 09:22 04/15/18 11:50 Symbicort 160-4.5 Mcg Inhaler INHALATION Not Given RT-BID [facility] Calcium Carbonate/Glycine 500 mg 04/16/18 09:00 Tums PO DAILY@1200 [facility] Diazepam 2.5 mg 04/15/18 09:52 Valium PO Q8HR PRN Mild Spasms Famotidine 20 mg 04/15/18 10:30 04/15/18 12:18 Pepcid PO 20 mg DAILY [facility] Administration Fluoxetine HCl 20 mg 04/16/18 07:00 Prozac PO DAILY@0700 [facility] Folic Acid 1 mg 04/15/18 12:00 Folic Acid PO DAILY@1200 [facility] Hydromorphone HCl 1 mg 04/14/18 23:46 04/15/18 10:25 Dilaudid IVP 1 mg Q3HR PRN Administration Severe Pain Hydromorphone HCl 0.5 mg 04/14/18 23:46 04/15/18 07:46 Dilaudid IVP 0.5 mg Q3HR PRN Administration Moderate Pain Hydromorphone HCl 0.125 mg 04/15/18 09:52 Dilaudid IVP Q3HR PRN Pain Scale 1 to 3 Hydromorphone HCl 0.25 mg 04/15/18 09:52 Dilaudid IVP Q3HR PRN Pain Scale 4 to 6 Hydromorphone HCl 0.5 mg 04/15/18 09:52 Dilaudid IVP Q3HR PRN Pain Scale 7 to 10 Sodium Chloride 1,000 mls @ 20 mls/hr 04/14/18 23:45 04/15/18 07:46 Saline 0.9% IV 20 mls/hr .Q24H [facility] Administration Magnesium Sulfate/Dextrose 1 100 mls @ 100 mls/hr 04/15/18 10:45 04/15/18 11: 22 gm/ IV Solution IVPB 04/15/18 13:44 100 mls/hr Q1H [facility] Administration Levothyroxine Sodium 88 mcg 04/16/18 07:00 Synthroid PO DAILY@0700 [facility] Lisinopril 5 mg 04/15/18 17:00 Zestril PO DAILY@1700 [facility] Magnesium Hydroxide 2,400 mg 04/15/18 09:52 Milk Of Magnesia PO DAILY PRN Constipation Metoprolol Tartrate 50 mg 04/15/18 09:30 Lopressor PO BID@0700,1900 [facility] Miscellaneous Information 1 each 04/15/18 08:45 Potassium Per Protocol MISCELLANE DAILY PRN Per Protocol Protocol Miscellaneous Information 1 each 04/15/18 08:46 Magnesium Per Protocol MISCELLANE DAILY PRN Per Protocol Protocol Multivitamins 1 each 04/16/18 12:00 Theragran PO DAILY@1200 [facility] Naloxone HCl 0.2 mg 04/15/18 09:52 Narcan IV Q2M PRN Opioid Reversal Senna 8.6 mg 04/15/18 10:30 Senokot PO DAILY PRN Constipation Senna/Docusate Sodium 2 each 04/15/18 21:00 Senokot-S PO HS [facility] Temazepam 15 mg 04/15/18 09:52 Restoril PO HS PRN Insomnia Tramadol HCl 50 mg 04/15/18 09:52 Ultram PO Q6H PRN Mild to Moderate Pain Intake and Output 04/14/18 04/15/18 04/15/18 22:59 06:59 14:59 Other: Weight 61.235 kg 04/14/18 22:20 04/14/18 22:20 Assessment and Plan Assessment: ASSESSMENT Right hip fracture Paroxysmal atrial fibrillation on long-term anticoagulation with Xarelto History of coronary artery disease status post angioplasty of circumflex artery in 2016 at [facility]. History of sustained ventricular tachycardia status post AICD placement currently on amiodarone most recent interrogation revealed no evidence of VT. Hypertension Dyslipidemia History of ischemic cardiomyopathy, improved Chronic daily alcohol dependence PLAN Obtain 2-D echocardiogram and Doppler study to assess cardiac structure and function. Hold Plavix and Xarelto. Last doses 04/14. Combination of dual therapy poses an increased risk for bleeding related to surgical intervention. Xarelto will be cleared from system within 24-48 hours however plavix will take up to 5 days. This has been communicated to Stiven ZAVALA with Dr. Rincon. Angioplasty was greater than one year ago and in Plavix can be discontinued completely at discharge. This patient poses an acceptable but high risk for surgical intervention secondary to blood thinners and antiplatelets as well as multiple co-morbid conditions. Consideration should be made regarding daily ETOH intake and possibility of withdrawl. Recommend cautious fluid administration intra-operatively as well as optimal blood pressure control. Continue amiodarone, lopressor, lisinopril and atorvastatin at home doses. Anti- coagulation moving forward will be addressed post-operatively. Further recommendations to follow based on clinical course. Thank you kindly for this consultation. Nurse Practitioner note has been reviewed, I agree with a documented findings and plan of care. Patient was seen and examined.
[2018-04-15] MEDS: METOPROLOL TARTRATE 50 MG TAB PO SCH ×2 (14:24→19:01)
[2018-04-15] MEDS: FOLIC ACID 1 MG TAB PO SCH (14:25)
[2018-04-15] MEDS ORDERED: LISINOPRIL 5 MG TAB PO SCH (17:00)
[2018-04-15] MEDS ORDERED: ONDANSETRON 4 MG/2 ML VIAL IVP PRN (17:36)
[2018-04-15] MEDS ORDERED: METOPROLOL TARTRATE 50 MG TAB PO SCH (19:00)
[2018-04-15] MEDS: AMIODARONE 100 MG TAB PO SCH (19:01)
[2018-04-15] MEDS: PANTOPRAZOLE 40 MG/10 ML VIAL IVP SCH (19:01)
[2018-04-15] MEDS: ATORVASTATIN 40 MG TAB PO SCH (19:28)
[2018-04-15] MEDS: SENNOSIDES-DOCUSATE SODIUM 1 EACH TAB PO SCH (19:28)
[2018-04-16] MEDS: HYDROmorphone 1 MG/ML 1 ML SYRINGE IVP PRN ×2 (05:39→09:43)
[2018-04-16] MEDS: SYMBICORT 160-4.5 MCG INHALER INHALATION SCH ×2 (07:25→21:09)
[2018-04-16] MEDS: LIPASE 5,000/PROTEASE 17,000/AMYLASE 24,0000 PO SCH ×2 (07:40→21:41)
[2018-04-16 08:22] LABS: Anisocytosis Slight; Basophils % (A) 0 %; Eosinophils # (A) 0.1 k/uL (0-0.7); Eosinophils % (A) 1 %; HCT 27.1 % (34.0-46.0); HGB 8.3 gm/dL (11.4-16.0); Hypochromasia Marked; Lymphocytes # (A) 0.7 k/uL (1.0-4.8); Lymphocytes % (A) 9 %; MCH 30.7 pg (25.0-35.0); MCHC 30.5 g/dL (31.0-37.0); MCV 100.6 fL (80.0-100.0); Macrocytosis Slight; Mean Platelet Volume 7.5; Monocytes # (A) 0.8 k/uL (0-1.0); Monocytes % (A) 10 %; Neutrophils # (A) 6.3 k/uL (1.3-7.7); Neutrophils % (A) 80 %; Platelet Count 248 k/uL (150-450); RBC 2.69 m/uL (3.80-5.40); RDW 17.2 % (11.5-15.5); WBC 7.9 k/uL (3.8-10.6)
[2018-04-16 08:24] LABS: INR 1.5 (<1.2); Prothrombin Time 13.5 sec (9.0-12.0)
[2018-04-16 08:52] LABS: Calcium 8.6 mg/dL (8.4-10.2); Magnesium 2.4 mg/dL (1.6-2.3); Potassium 4.1 mmol/L (3.5-5.1)
[2018-04-16] MEDS: PANTOPRAZOLE 40 MG/10 ML VIAL IVP SCH ×2 (09:07→09:09)
[2018-04-16] MEDS: METOPROLOL TARTRATE 50 MG TAB PO SCH ×2 (09:44→22:03)
[2018-04-16] MEDS: LEVOTHYROXINE 88 MCG TAB PO SCH (09:44)
[2018-04-16] MEDS ORDERED: ceFAZolin 2,000 MG in DEXTROSE/WATER 1 50ML.BAG IVPB ONE (10:30)
--- NOTE | 2018-04-16 10:30 | P.PN ---
Subjective Patient admitted for right subcapital fracture. Patient will undergo surgical correction today patient is off anti-correlation patient has multiple medical problems all of which are fairly stable at this time patient does have alcohol abuse history, will be watch for alcohol withdrawals, congestive heart failure chronic systolic dysfunction presently euvolemic atrial fibrillation rate controlled. Lisinopril will be held to prevent perioperative hypotension and because of her worsening renal function. Constitutional: Denied any fatigue denied any fever. Cardio vascular: denied any chest pain, palpitations Gastrointestinal denied any nausea vomiting Pulmonary: Denied any shortness of breath cough Neurologic denied any new focal deficits Objective - Vital Signs Vital signs: Vital Signs Temp 98 F 04/16/18 06:10 Pulse 74 04/16/18 06:10 Resp 18 04/16/18 06:10 BP 110/57 04/16/18 06:10 Pulse Ox 97 04/16/18 06:10 Intake & Output 04/15/18 04/16/18 04/16/18 18:59 06:59 18:59 Intake Total 840 Balance 840 Intake: Intake, IV Titration 240 Amount Sodium Chloride 0.9% 1, 240 000 ml @ 20 mls/hr IV . Q24H [facility] Rx#:[id number] Oral 600 Other: Voiding Method Bedpan # Voids 2 - Exam PHYSICAL EXAMINATION: GENERAL: The patient is alert and oriented x3, not in any acute distress. Well developed, well nourished. HEENT: Pupils are round and equally reacting to light. EOMI. No scleral icterus. No conjunctival pallor. Normocephalic, atraumatic. No pharyngeal erythema. No thyromegaly. CARDIOVASCULAR: S1 and S2 present. No murmurs, rubs, or gallops. PULMONARY: Chest is clear to auscultation, no wheezing or crackles. ABDOMEN: Soft, nontender, nondistended, normoactive bowel sounds. No palpable organomegaly. MUSCULOSKELETAL: Deferred to orthopedic surgery EXTREMITIES: No cyanosis, clubbing, or pedal edema. NEUROLOGICAL: Gross neurological examination did not reveal any focal deficits. SKIN: No rashes. - Labs CBC & Chem 7: 04/16/18 07:03 04/16/18 07:03 Labs: Abnormal Lab Results - Last 24 Hours (Table) 04/16/18 04/16/18 04/16/18 Range/Units 07:03 07:03 07:03 RBC 2.69 L (3.80-5.40) m/uL Hgb 8.3 L (11.4-16.0) gm/dL Hct 27.1 L (34.0-46.0) % MCV 100.6 H (80.0-100.0) fL MCHC 30.5 L (31.0-37.0) g/dL RDW 17.2 H (11.5-15.5) % Lymphocytes # 0.7 L (1.0-4.8) k/uL PT 13.5 H (9.0-12.0) sec INR 1.5 H (<1.2) Sodium 135 L (137-145) mmol/L BUN 24 H (7-17) mg/dL Creatinine 1.40 H (0.52-1.04) mg/dL Magnesium 2.4 H (1.6-2.3) mg/dL Assessment and Plan Plan: -Preoperative clearance for right hip surgery: Patient is definitely moderate to high risk for surgery same thing was discussed the patient although surgery improves her functional status. Patient is euvolemic patient will undergo surgical intervention for her right subcapital fracture. Presently euvolemic mild worsening in serum creatinine lisinopril is being discontinued for above- mentioned reasons Patient is agreeable for surgery and understands the risk. We probably have to deal with complicated postoperative course. Which includes going into heart failure exacerbation atrial fibrillation and alcohol withdrawals. -Alcohol abuse: Patient will be monitored for alcohol withdrawal -Depression -Chronic pancreatitis from previous alcohol use and patient continues to drink alcohol. -Congestive heart failure chronic systolic dysfunction patient has an AICD in place IV fluids will be discontinued patient is fairly euvolemic at this time. Cautious use of IV fluids in the intr and perioperative period -Atrial fibrillation presently rate controlled continue on rate control medication hold off anticoagulation for surgery tomorrow -Gastroesophageal reflux disease -History of alcoholic cirrhosis although patient does not have any signs of cirrhosis at this time. -Coronary artery disease with previous cardiac catheterization and stents in 2015
[2018-04-16] MEDS ORDERED: IV FLUID CONTINUATION 1,000 ML IV ONE (11:26)
[2018-04-16 11:28] VITALS: BMI 21.1
[2018-04-16] MEDS ORDERED: LACTATED RINGERS 1,000 ML IV ONE (11:34)
[2018-04-16] MEDS ORDERED: fentaNYL (PF) 50 MCG/ML 2 ML AMP ONE ×2 (11:38→11:53)
[2018-04-16] MEDS ORDERED: ceFAZolin 2,000 MG in DEXTROSE/WATER 1 50ML.BAG IVPB STA (11:42)
[2018-04-16] MEDS ORDERED: fentaNYL (PF) 50 MCG/ML 2 ML AMP IV ONE (11:43)
[2018-04-16] MEDS ORDERED: ceFAZolin IN SWFI 2 GM/20 ML SYRINGE IVP ONE (11:45)
[2018-04-16] MEDS ORDERED: SUCCINYLCHOLINE CHLORIDE 100 MG/5 ML SYR IV ONE (11:53)
[2018-04-16] MEDS ORDERED: ETOMIDATE 2 MG/ML 10 ML VIAL ONE (11:53)
[2018-04-16] MEDS ORDERED: NEOSTIGMINE 1 MG/ML 10 ML VIAL ONE (11:53)
[2018-04-16] MEDS ORDERED: GLYCOPYRROLATE 0.2 MG/ML 2 ML VIAL ONE (11:53)
[2018-04-16] MEDS ORDERED: ROCURONIUM BROMIDE 10 MG/ML 10 ML VIAL IV ONE (11:53)
[2018-04-16] MEDS ORDERED: MIDAZOLAM 2 MG/2 ML VIAL ONE (11:53)
[2018-04-16] MEDS ORDERED: LIDOCAINE 1% INJ 10MG/ML (20 ML MDV) ONE (11:53)
--- NOTE | 2018-04-16 12:55 | XR ---
EXAMINATION TYPE: XR Hip Complete RT DATE OF EXAM: 04/16/2018 COMPARISON: NONE HISTORY: Postop TECHNIQUE: One view submitted. FINDINGS: There is postsurgical change in near anatomic alignment. There is soft tissue edema and emphysema. IMPRESSION: 1. Postoperative change. Appears in near-anatomic alignment.
--- NOTE | 2018-04-16 12:55 | FL ---
EXAMINATION TYPE: FL guidance operating room DATE OF EXAM: 04/16/2018 HISTORY: Flouroscopy time 50 seconds of fluoroscopy provided. IMPRESSION: 1. Fluoroscopy time.
--- NOTE | 2018-04-16 13:04 | P.PN ---
Subjective Mrs. Oates is seen and examined resting comfortably in bed. She denies any symptoms of chest pain, shortness of breath, nausea, vomiting, diaphoresis, palpitations or dizziness. She is currently NPO for surgery this afternoon. Plavix and xarelto have been held, last dose 04/14/2018 at 0700 and 1700 respectively. Blood pressure 110/57 heart rate 74. Laboratory data reviewed, hemoglobin 8.3, platelets 248, INR 1.5, sodium 135, potassium 4.1, magnesium 2.4 , creatinine 1.4, cardiac enzymes negative 1. Objective - Vital Signs Vital signs: Vital Signs Temp 98 F 04/16/18 06:10 Pulse 74 04/16/18 06:10 Resp 18 04/16/18 06:10 BP 110/57 04/16/18 06:10 Pulse Ox 97 04/16/18 06:10 Intake & Output 04/15/18 04/16/18 04/16/18 18:59 06:59 18:59 Intake Total 840 Balance 840 Intake: Intake, IV Titration 240 Amount Sodium Chloride 0.9% 1, 240 000 ml @ 20 mls/hr IV . Q24H [facility] Rx#:[id number] Oral 600 Other: Voiding Method Bedpan # Voids 2 - Exam GENERAL: Well-appearing, well-nourished and in no acute distress. NECK: Supple without JVD or thyromegaly. LUNGS: Breath sounds clear to auscultation bilaterally. Respiration equal and unlabored. No wheezes, rales or rhonchi. HEART: Regular rate and rhythm without murmurs, rubs or gallops. S1 and S2 heard. EXTREMITIES: No edema. No clubbing or cyanosis. Peripheral pulses intact. - Labs CBC & Chem 7: 04/16/18 07:03 04/16/18 07:03 Labs: Abnormal Lab Results - Last 24 Hours (Table) 04/16/18 04/16/18 04/16/18 Range/Units 07:03 07:03 07:03 RBC 2.69 L (3.80-5.40) m/uL Hgb 8.3 L (11.4-16.0) gm/dL Hct 27.1 L (34.0-46.0) % MCV 100.6 H (80.0-100.0) fL MCHC 30.5 L (31.0-37.0) g/dL RDW 17.2 H (11.5-15.5) % Lymphocytes # 0.7 L (1.0-4.8) k/uL PT 13.5 H (9.0-12.0) sec INR 1.5 H (<1.2) Sodium 135 L (137-145) mmol/L BUN 24 H (7-17) mg/dL Creatinine 1.40 H (0.52-1.04) mg/dL Magnesium 2.4 H (1.6-2.3) mg/dL Assessment and Plan Assessment: ASSESSMENT Right hip fracture, awaiting surgical intervention Paroxysmal atrial fibrillation on long-term anticoagulation with Xarelto History of coronary artery disease status post angioplasty of circumflex artery in 2016 at [facility]. History of sustained ventricular tachycardia status post AICD placement currently on amiodarone most recent interrogation revealed no evidence of VT. Hypertension Dyslipidemia History of ischemic cardiomyopathy, improved Chronic daily alcohol dependence PLAN Continue to hold anticoagulation and discontinue plavix. Continues to be euvolemic with no anginal symptoms. Nurse Practitioner note has been reviewed, I agree with a documented findings and plan of care. Patient was seen and examined.
--- NOTE | 2018-04-16 13:10 | ECHOF ---
Referral Reason:fall, cad MEASUREMENTS -------- HEIGHT: 170.2 cm WEIGHT: 61.2 kg BP: 121/61 RVIDd: 3.4 cm (< 3.3) IVSd: 0.9 cm (0.6 - 1.1) LVIDd: 5.1 cm (3.9 - 5.3) LVPWd: 0.9 cm (0.6 - 1.1) IVSs: 1.3 cm LVIDs: 3.7 cm LVPWs: 1.5 cm LAESV Index (A-L): 27.85 ml/m Ao Diam: 3.5 cm (2.0 - 3.7) AV Cusp: 2.1 cm (1.5 - 2.6) LA Diam: 4.2 cm (2.7 - 3.8) EPSS: 0.6 cm MV E Patrick: 0.61 m/s MV DecT: 219 ms MV A Patrick: 0.35 m/s MV E/A Ratio: 1.76 RAP: 5.00 mmHg RVSP: 37.10 mmHg MV EF SLOPE: 78.66 mm/s (70 - 150) MV EXCURSION: 1.44 cm (> 18.000) FINDINGS -------- Sinus rhythm. Pacerwire seen in RV and RA. This was a technically adequate study. The left ventricular size is normal. Left ventricular wall thickness is normal. Overall left vent ricular systolic function is mild-moderately impaired with, an EF between 40 - 45 %. Basal inferior LV wall motion is hypokinetic. Basal inferoseptal LV wall motion is hypokinetic. Mid inferior LV wall motion is hypokinetic. Mid inferoseptal LV wall motion is hypokinetic. Apical inferior LV wall motion is hypokinetic. The right ventricle is moderately enlarged. LA is midly dilated 29-33ml/m2. The right atrial size is normal. There is mild aortic valve sclerosis. There is no evidence of aortic regurgitation. There is no e vidence of aortic stenosis. The mitral valve leaflets are mildly thickened. Mild mitral regurgitation is present. [id number] tricuspid regurgitation present. There is mild pulmonary hypertension. The right ventricular systolic pressure, as measured by Doppler, is 37.10mmHg. The pulmonic valve was not well visualized. There is no pulmonic regurgitation present. The aortic root size is normal. IVC Not well visulized. There is no pericardial effusion. CONCLUSIONS -------- 1. Sinus rhythm. 2. Pacerwire seen in RV and RA. 3. This was a technically adequate study. 4. The left ventricular size is normal. 5. Left ventricular wall thickness is normal. 6. Overall left ventricular systolic function is mild-moderately impaired with, an EF between 40 - 45 %. 7. Basal inferior LV wall motion is hypokinetic. 8. Basal inferoseptal LV wall motion is hypokinetic. 9. Mid inferior LV wall motion is hypokinetic. 10. Mid inferoseptal LV wall motion is hypokinetic. 11. Apical inferior LV wall motion is hypokinetic. 12. The right ventricle is moderately enlarged. 13. LA is midly dilated 29-33ml/m2. 14. There is mild aortic valve sclerosis. 15. The mitral valve leaflets are mildly thickened. 16. Mild mitral regurgitation is present. 17. There is mild pulmonary hypertension. 18. The pulmonic valve was not well visualized. 19. There is no pulmonic regurgitation present. 20. The aortic root size is normal. 21. IVC Not well visulized. 22. There is no pericardial effusion. [employer]: Jay Amador RDCS
[2018-04-16] MEDS ORDERED: NALOXONE 0.4 MG/ML 1 ML VIAL IV ONE (13:50)
--- NOTE | 2018-04-16 14:37 | XR ---
EXAMINATION TYPE: XR chest 1V portable DATE OF EXAM: 04/16/2018 COMPARISON: NONE HISTORY: Postintubation TECHNIQUE: Single frontal view of the chest is obtained. FINDINGS: ET tube seen with the tip approximately 1.9 cm above the saige. Cardiac device noted and there is elevation the right hemidiaphragm with bilateral areas of subsegmental consolidation and tin y effusion. No definite sizable pneumothorax. Chronic rib deformities are seen. Atherosclerotic ayala e aorta. IMPRESSION: 1. ET tube approximately 1.9 cm above the saige. 2. Bilateral areas of consolidation and probable tiny effusion. Correlate clinically. 3. Elevated right hemidiaphragm.
[2018-04-16 15:09] LABS: ABG Base Excess -3.2 mmol/L; ABG HCO3 22 mmol/L (21-25); ABG Oxygen Saturation 93.3 % (94-97); ABG PCO2 41 mmHg (35-45); ABG PH 7.35 (7.35-7.45); ABG PO2 70 mmHg (83-108); ABG TCO2 24 mmol/L (19-24)
[2018-04-16] MEDS: HYDROmorphone 0.5 MG/0.5 ML SYRINGE IVP ONE ×3 (15:30→16:58)
--- NOTE | 2018-04-16 17:43 | P.CNPUL ---
History of Present Illness Consult date: 04/16/18 Chief complaint: Right hip fracture, respiratory failure postop History of present illness: This is a 73-year-old female patient who came into the emergency department after a fall as the patient was having multiple falls on outpatient basis. The patient sustained a right hip fracture. She was preoperatively seen by medicine and she was cleared for surgery. The patient was taken to the operating room and she underwent a percutaneous pinning of the right hip fracture. Postop, the patient was extubated however she subsequently failed and she had to be reintubated. At this point in time the patient a mechanical ventilator on assist control mode rate of 12 with anion volume of 500 with an FiO2 of 60% and PEEP of 5. The blood gases showed a pH of 7.35 with a pCO2 of 41 and pO2 of 70 done at 50% FiO2. I discussed the case with the anesthesiologist. I also saw and evaluated this patient in the recovery room. The patient was given rocuronium for paralysis during the procedure. She also received a total of Versed during the procedure. Following the surgery, the patient was awake however she wasn't able to maintain enough tidal volumes to adequately ventilate her lungs. She was having prolonged apneas. She was bagged for a total of 50 minutes in recovery post extubation and she continued to have diminished level of consciousness and addition to hypoventilation. At that point it was decided to reintubate this patient. She was given also Narcan without much help. Her, my arrival at around 5:30 PM, I was able to easily arouse the patient. Note that the events that I was mentioning earlier was at around 1:30 PM which was approximately 4 hours ago. The patient easily arouse. She was able to follow commands. I checked her weaning parameters and I'll also put the patient is point is breathing trial with a pressure support of 5 and a PEEP of 5 with FiO2 of 40%. She was able to maintain tidal volumes above 400 mL and a vital Was reaching almost a liter. She was very comfortable. She was communicating. At that point I decided to extubate this patient to a nasal cannula at 3 L and she is maintaining a saturation above 90% specifically at 97%. She is hemodynamically stable. She is receiving lactated Ringer at the rate of 20 mL an hour. She has no specific complaints at this point in time. Pain is under good control. She received only a dose of Dilaudid 1 mg in the recovery. The postop hemoglobin and blood work has not been obtained yet. The preop hemoglobin was at 8.3 with a white cell count of 7.9. Her preoperative INR was at 1.5. The chest x-ray postop showed adequate positioning of the orotracheal tube. Also she has a left sided anterior pacemaker and the right hemidiaphragm is elevated probably related to chronic hemidiaphragmatic paralysis. No other acute abnormalities noted. Note that the patient had a preoperative echocardiogram that showed an ejection fraction of 40-45% there was basal inferior and inferior septal left ventricular wall motion abnormality and hypokinesis with mild degree of pulmonary hypertension. This patient was seen by critical care services back in July 2017 for hypotension. She has extensive number of medical problems and comorbidities most significantly cardiac disease which includes CHF with systolic dysfunction, chronic atrial fibrillation, previous history of V. 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 The patient has a poor baseline performance and functional status. Apparently she's been falling and she's been walking with the help of a walker and she felt to comply with rehabilitation. She has had also previous history of urine checked infection including infections with enterococcus faecalis. She is considered to be a high fall risk. 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, previous history of ascites requiring paracentesis, hydropic gallbladder, hiatal hernia, thyroid cancer status post thyroidectomy, questionable liver abscess, chronic atrial fibrillation, history of atrial fibrillation with cardiac arrest requiring an AICD placement, bronchial asthma, chronic renal failure with stage III chronic kidney disease, aymptomatic kidney stones, chronic anemia, colonic polyps, current R hand fractures wearing brace, UTIs, past L rib fractures, portal vein thrombosis per PMH but pt does not recall, allergic rhinitis Last Myocardial Infarction Date:: 06/2016 History of Any Multi-Drug Resistant Organisms: CRE Date of last positivie culture/infection: 08/07/17 CRE serratia marcescens MDRO Source:: Blood Past Surgical History: AICD, Heart Catheterization With Stent, Hysterectomy, Joint Replacement, Pacemaker Additional Past Surgical History / Comment(s): 2015 PCI with stent and AICD, paracentesises, thyroidectomy, left hip replaced, vein stripping bilaterally, repair right and left detached retina, cataract removal bilat eyes, pancreatic stent, liver bx, EGD. Past Anesthesia/Blood Transfusion Reactions: No Reported Reaction Additional Past Anesthesia/Blood Transfusion Reaction / Comment(s): Pt has received blood in past without reaction. Date of Last Stent Placement:: 06/2016 Type of Cardiac Device: AICD Device Placement Date:: , [employer] Smoking Status: Former smoker - Past Family History Mother Family Medical History: No Reported History Additional Family Medical History / Comment(s): Mother was healthy and at the age of 93yrs. She had a "weak" heart. Father Family Medical History: Cancer Additional Family Medical History / Comment(s): father had bone cancer and of this at age 65yrs. Medications and Allergies Home Medications Medication Instructions Recorded Confirmed Type Lipase/Protease/Amylase [Harshil Fiore 2 cap PO TID@0700,1100,1700 05/31/16 04/14/18 History 24,000 Units Capsule] FLUoxetine HCL [PROzac] 20 mg PO DAILY@0700 08/14/16 04/14/18 History Folic Acid 1 mg PO DAILY@1100 08/14/16 04/14/18 History Omeprazole [PriLOSEC] 20 mg PO DAILY@0700 08/14/16 04/14/18 History Rivaroxaban [Xarelto] 20 mg PO DAILY@1700 08/14/16 04/14/18 History Metoprolol Tartrate [Lopressor] 50 mg PO BID@0700,1900 01/10/17 04/14/18 History Vitamin B Complex With C 1 tab PO DAILY@1100 07/22/17 04/14/18 History traMADol HCL [Ultram] 50 mg PO Q6HR PRN 07/22/17 04/14/18 History Albuterol Nebulized [Ventolin 2.5 mg INHALATION RT-Q4H PRN 08/03/17 04/14/18 History Nebulized] Magnesium Oxide [Mag-Ox] 400 mg PO DAILY@1100 08/03/17 04/14/18 History Atorvastatin Calcium [Lipitor] 40 mg PO HS 08/30/17 04/14/18 History Amiodarone [Cordarone] 100 mg PO DAILY@1700 04/14/18 04/14/18 History Calcium Carbonate [Calcium] 600 mg PO DAILY 04/14/18 04/14/18 History Cholecalciferol [Vitamin D3] 1,000 unit PO DAILY 04/14/18 04/14/18 History Famotidine [Pepcid] 20 mg PO BID 04/14/18 04/14/18 History Levothyroxine Sodium [Synthroid] 88 mcg PO DAILY@0700 04/14/18 04/14/18 History Lisinopril [Zestril] 5 mg PO DAILY@1700 04/14/18 04/14/18 History Sennosides [Senokot] 8.6 mg PO DAILY PRN 04/14/18 04/14/18 History Allergies Allergy/AdvReac Type Severity Reaction Status Date / Time ibuprofen [From Motrin] Allergy Anaphylaxis Verified 04/16/18 11:24 Iodinated Contrast- Oral and Allergy Rash/Hives Verified 04/16/18 11:24 IV Dye [Iodinated Contrast Media - IV Dye] levofloxacin [From Levaquin] Allergy Anaphylaxis Verified 04/16/18 11:24 shellfish derived AdvReac Nausea & Verified 04/16/18 11:24 Vomiting Physical Exam Vitals: Vital Signs Temp Pulse Pulse Resp BP Pulse Ox 04/16/18 16:49 69 12 86/50 91 L 04/16/18 16:38 80/52 04/16/18 16:34 69 12 77/50 93 L 04/16/18 16:15 69 12 78/49 87 L 04/16/18 16:00 69 12 78/49 99 04/16/18 15:45 69 13 95/53 99 04/16/18 15:31 69 13 110/63 99 04/16/18 15:15 69 13 110/63 99 04/16/18 15:07 69 13 119/63 99 04/16/18 15:00 69 13 78/49 99 04/16/18 14:45 69 12 103/59 99 04/16/18 14:30 69 12 159/71 99 04/16/18 14:15 69 12 78/49 89 L 04/16/18 14:00 70 12 180/81 99 04/16/18 13:42 97 F L 69 168/81 99 04/16/18 11:25 99.1 F 70 18 114/58 93 L 04/16/18 06:10 98 F 74 18 110/57 97 04/15/18 23:40 18 04/15/18 19:20 98.2 F 70 18 120/62 98 Intake and Output 04/16/18 04/16/18 04/16/18 06:59 14:59 22:59 Intake Total 160 1100 150 Balance 160 1100 150 Intake: IV 1100 150 Intake, IV Titration 160 Amount Sodium Chloride 0.9% 1, 160 000 ml @ 20 mls/hr IV . Q24H [facility] Rx#:[id number] Other: Voiding Method Bedpan Bedpan # Voids 2 Weight 61.235 kg Gen. appearance, comfortable sedated intubated on a mechanical ventilator Head exam was generally normal. There was no scleral icterus or corneal arcus. Mucous membranes were dry.Neck was supple and without jugular venous distension , thyromegaly, or carotid bruits. Carotids were easily palpable bilaterally. The mucous membranes are extremely dry and the patient is edentulous There was no adenopathy. The patient has conjunctival pallor no significant icterus. Lungs were clear to auscultation and percussion, and with normal diaphragmatic excursion. No wheezes or rales were noted. Breath sounds are diminished in the right lung base and the patient has a AICD placed over the left anterior chest area. Cardiac exam revealed the PMI to be normally situated and sized. The rhythm and she is paced rhythm for now and no extrasystoles were noted during several minutes of auscultation. The first and second heart sounds were normal and physiologic splitting of the second heart sound was noted. There were no murmurs , rubs, clicks, or gallops. Abdomen shows some small ascites. There is mild direct tenderness no rebound tensile guarding. There is a small surgical incision under the umbilicus and the surgical site is dry clean and intact. Extremities show varicose veins and some trace ankle edema. Pulses are diminished at the present. No cyanosis or clubbing. Surgical wound site over the right hip area is dry clean and intact Neurologically, awake and following commands and answering questions appropriately. Results - Laboratory Findings CBC and BMP: 04/16/18 07:03 04/16/18 07:03 ABG ABG pH 7.35 (7.35-7.45) 04/16/18 15:05 ABG pCO2 41 mmHg (35-45) 04/16/18 15:05 ABG pO2 70 mmHg (83-108) L 04/16/18 15:05 ABG O2 Saturation 93.3 % (94-97) L 04/16/18 15:05 PT/INR, D-dimer PT 13.5 sec (9.0-12.0) H 04/16/18 07:03 INR 1.5 (<1.2) H 04/16/18 07:03 Abnormal lab findings: Abnormal Labs 04/14/18 04/14/18 04/14/18 22:20 22:20 22:20 RBC 2.98 L Hgb 8.8 L Hct 29.3 L MCV MCHC 30.2 L RDW 17.5 H Lymphocytes # PT 13.6 H INR 1.5 H ABG pO2 ABG O2 Saturation Sodium Carbon Dioxide 19 L BUN Creatinine 1.20 H Magnesium AST 65 H Alkaline Phosphatase 150 H Albumin 3.4 L 04/14/18 04/16/18 04/16/18 22:20 07:03 07:03 RBC 2.69 L Hgb 8.3 L Hct 27.1 L MCV 100.6 H MCHC 30.5 L RDW 17.2 H Lymphocytes # 0.7 L PT INR ABG pO2 ABG O2 Saturation Sodium 135 L Carbon Dioxide BUN 24 H Creatinine 1.40 H Magnesium 1.5 L 2.4 H AST Alkaline Phosphatase Albumin 04/16/18 04/16/18 07:03 15:05 RBC Hgb Hct MCV MCHC RDW Lymphocytes # PT 13.5 H INR 1.5 H ABG pO2 70 L ABG O2 Saturation 93.3 L Sodium Carbon Dioxide BUN Creatinine Magnesium AST Alkaline Phosphatase Albumin - Diagnostic Findings Chest x-ray: image reviewed Assessment and Plan Plan: Assessment 1 acute hypoxic respiratory failure, failed extubation following right hip surgery. The patient was probably hypoventilating and she had diminished level of consciousness due to prolonged effect of drugs including the rocuronium and the fentanyl probably related to her underlying chronic liver disease. I was able to extubate this patient. It seems that 4 hours post of the effect of his medications of recovered and the patient was fully awake and alert and she was able to maintained adequate ventilation based on a spontaneous breathing trial. The patient was extubated to nasal cannula at this point she is awake and alert on 3 L of oxygen by nasal cannula. 2 right hip percutaneous pinning for fracture, postop day #0 3 frequent falls related to his medical positive comorbidities 4 congestion heart failure with systolic dysfunction and ejection fraction of 45 % 5 coronary artery disease with previous coronary stent insertion involving the circumflex 6 chronic atrial fibrillation current rhythm is paced, maintained on a combination of amiodarone and Xarelto on outpatient setting 7 history of V. fib status post AICD placement 8 hypothyroidism 9 liver cirrhosis/alcoholism 10 history of pancreatic duct stent insertion, related to chronic pancreatitis and the patient is chronic. 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 coli UTI 18 recent septicemia with Serratia marcescens related to a previous hospitalization from July 2017 Plan Monitor the patient for another 2 hours here recovery. She can go to medical surgical floor with telemetry if it condition remains unchanged and stable.
--- NOTE | 2018-04-16 18:06 | OP ---
OPERATIVE REPORT DATE OF PROCEDURE: 04/16/2018. PREOPERATIVE DIAGNOSIS: Right valgus impacted femoral neck fracture. POSTOPERATIVE DIAGNOSIS: Right valgus impacted femoral neck fracture. PROCEDURE: Closed reduction, percutaneous screw fixation for right femoral neck fracture. SURGEON: Chapin Rincon M.D. TALENT ACQUISITION ASSOCIATE: Stiven HDZ. ANESTHESIA: General endotracheal. ESTIMATED BLOOD LOSS: Less than 20 mL. TOURNIQUET: None. DRAINS: None. COMPLICATIONS: None apparent. DISPOSITION: Postanesthesia care unit. INDICATIONS: Caron is a very pleasant 73-year-old female who fell at home on the evening of 04/14/2018. She presented to the Emergency Department. Workup including x-rays revealed a minimally displaced valgus impacted right femoral neck fracture. She was admitted to my service. She is an independent ambulator. Decision was made to proceed with closed reduction and percutaneous screw fixation for right femoral neck fracture. She does have quite an extensive medical comorbidity list. This includes cirrhosis of her liver. She has also had history of [place] x2 in the past. She was cleared. She was evaluated by the internal medicine service and cleared for surgery after Cardiology consultation as well. The risks were explained to the patient, her family, which include, but are not limited to risk of infection, nerve damage, bleeding, pain, and a small risk of deep vein thrombosis which could lead to fatal pulmonary embolism. Further risks include possibility for failure of the fracture to heal, which could necessitate further surgery. She also has a fairly high perioperative surgical risk secondary to her multiple medical comorbidities. All of her and all of her family's questions were answered to her satisfaction. Appropriate informed consent was obtained. DESCRIPTION OF PROCEDURE: The patient identified in preoperative holding area. Surgical site marked by both the patient and myself. She was given 2 g of Ancef IV for prophylactic purposes. She was then transferred to the operative suite. She was placed supine on the fracture table. General anesthetic was administered dosed by anesthesia without apparent complication. She was then placed on the fracture table well-padded in preparation for surgery. The fluoroscopy was then brought in to ensure that the fracture had remained nondisplaced and had. The patient's right lower extremity then prepped and draped in usual sterile fashion. Standard surgical pause undertaken to ensure that we were operating the correct site and that appropriate preoperative antibiotics were given. All staff in the room in agreement and we proceeded. The fluoroscopy was brought in. The starting point for the inferior screw was then marked on the lateral aspect of her thigh. I then made approximately 2-3 cm incision. The 1st pin was placed inferiorly all along the inferior femoral neck and then placed into the center of the femoral head. I then placed 2 more parallel pins superiorly, 1 anterior and 1 posterior as close to the edge of the femoral neck as possible. I then measured for the screws. I then placed 3 7.0 mm partially threaded Nathan cannulated screws over a washer over the threaded guide pins. The 3 screws had excellent purchase in the femoral head. All of the screw plate placement was done under fluoroscopic imaging. The threaded guide pins were then removed. Final AP and lateral fluoroscopic views were taken. The 3 cannulated screws were parallel. They were placed deep into the into the femoral head. At this point, no further work was deemed necessary. The wound was thoroughly irrigated with sterile saline solution with antibiotic added. The tensor fascia was then closed with 0 Vicryl suture. The subcutaneous tissue closed with 2-0 Vicryl suture. The skin was closed with stainless peterson. Sterile compressive dressing was then applied. All sponge and needle counts were deemed correct prior to closure. The patient tolerated the procedure without apparent complication. She was transferred recovery room in stable condition. MMODL / IJN: [id number] /
[2018-04-16] MEDS: FAMOTIDINE 20 MG TAB PO SCH (21:41)
[2018-04-16] MEDS: CALCIUM CARBONATE 500 MG CHEWABLE PO SCH (21:41)
[2018-04-16] MEDS: FLUoxetine HCL 20 MG CAP PO SCH (21:41)
[2018-04-16] MEDS: FOLIC ACID 1 MG TAB PO SCH (21:42)
[2018-04-16] MEDS: MULTIVITAMINS, THERA 1 EACH TAB PO SCH (21:42)
[2018-04-16] MEDS: ceFAZolin IN SWFI 2 GM/20 ML SYRINGE IVP SCH (22:02)
[2018-04-16] MEDS: AMIODARONE 100 MG TAB PO SCH (22:03)
[2018-04-16] MEDS ORDERED: SODIUM CHLORIDE 0.9% 1,000 ML IV SCH (22:30)
[2018-04-17] MEDS: SENNOSIDES-DOCUSATE SODIUM 1 EACH TAB PO SCH ×2 (00:08→21:09)
[2018-04-17] MEDS: ATORVASTATIN 40 MG TAB PO SCH ×2 (00:08→21:08)
[2018-04-17] MEDS: ceFAZolin IN SWFI 2 GM/20 ML SYRINGE IVP SCH (00:43)
[2018-04-17] MEDS ORDERED: ceFAZolin IN SWFI 2 GM/20 ML SYRINGE IVP ONE (00:44)
[2018-04-17] MEDS: traMADol 50 MG TAB PO PRN ×2 (04:23→11:04)
[2018-04-17] MEDS: SYMBICORT 160-4.5 MCG INHALER INHALATION SCH ×2 (07:05→20:24)
[2018-04-17 07:43] LABS: Anisocytosis Slight; Basophils % (A) 0 %; Eosinophils # (A) 0.1 k/uL (0-0.7); Eosinophils % (A) 1 %; HCT 23.9 % (34.0-46.0); HGB 7.2 gm/dL (11.4-16.0); Hypochromasia Marked; Lymphocytes # (A) 0.5 k/uL (1.0-4.8); Lymphocytes % (A) 7 %; MCH 30.4 pg (25.0-35.0); MCV 101.3 fL (80.0-100.0); Macrocytosis Moderate; Mean Platelet Volume 7.4; Monocytes # (A) 0.5 k/uL (0-1.0); Monocytes % (A) 7 %; Neutrophils # (A) 6.2 k/uL (1.3-7.7); Neutrophils % (A) 83 %; Platelet Count 210 k/uL (150-450); RBC 2.36 m/uL (3.80-5.40); RDW 17.4 % (11.5-15.5); WBC 7.5 k/uL (3.8-10.6)
[2018-04-17 07:50] LABS: INR 1.3 (<1.2); Prothrombin Time 12.3 sec (9.0-12.0)
[2018-04-17] MEDS: FAMOTIDINE 20 MG TAB PO SCH (07:54)
[2018-04-17] MEDS: HYDROcodone/APAP 5-325MG 1 EACH TAB PO PRN ×2 (07:54→13:31)
[2018-04-17] MEDS: LIPASE 5,000/PROTEASE 17,000/AMYLASE 24,0000 PO SCH ×3 (07:54→17:44)
[2018-04-17] MEDS: METOPROLOL TARTRATE 50 MG TAB PO SCH ×2 (07:54→21:08)
[2018-04-17] MEDS: FLUoxetine HCL 20 MG CAP PO SCH (07:55)
[2018-04-17] MEDS: LEVOTHYROXINE 88 MCG TAB PO SCH (07:55)
--- NOTE | 2018-04-17 09:28 | P.PN ---
Subjective Progress Note Date: 04/17/18 Principal diagnosis: Right hip fracture Patient is seen at bedside this morning. She is postop day #1 from percutaneous pinning of right subcapital hip fracture. She has pain at the surgical site as expected but denies any new complaints. She had some difficulty being extubated yesterday after surgery but eventually stabilized and was later extubated without complication. She has no complaints this morning. She denies numbness, tingling or calf pain. Review of systems is negative for fever, chills, chest pain, shortness of breath or other Objective - Vital Signs Vital signs: Vital Signs Temp 98.2 F 04/17/18 05:58 Pulse 84 04/17/18 07:19 Resp 16 04/17/18 05:58 BP 130/63 04/17/18 05:58 Pulse Ox 97 04/17/18 05:58 Intake & Output 04/16/18 04/17/18 04/17/18 18:59 06:59 18:59 Intake Total 1250 1243 Output Total 0 Balance 1250 1243 Weight 61.235 kg Intake: IV 1250 Intake, IV Titration 503 Amount Sodium Chloride 0.9% 1, 40 000 ml @ 20 mls/hr IV . Q24H [facility] Rx#:[id number] Sodium Chloride 0.9% 1, 463 000 ml @ 75 mls/hr IV . [id number] [facility] Rx#:[id number] Oral 740 Output: Urine 0 Other: Voiding Method Bedpan Bedpan # Voids 3 # Bowel Movements 0 - Exam Inspection reveals a benign surgical wound. There is no active bleeding or drainage. Neurovascular status is intact throughout the lower extremity with motor and sensation fully intact. Calf is soft and nontender. 2+ dorsalis pedis pulse and less than 2 second cap refill is present - Constitutional General appearance: Present: no acute distress - Psychiatric Psychiatric: Present: A&O x's 3, appropriate affect, intact judgment & insight - Labs CBC & Chem 7: 04/17/18 07:09 04/16/18 07:03 Labs: Abnormal Lab Results - Last 24 Hours (Table) 04/16/18 04/17/18 04/17/18 Range/Units 15:05 07:09 07:09 RBC 2.36 L (3.80-5.40) m/uL Hgb 7.2 L (11.4-16.0) gm/dL Hct 23.9 L (34.0-46.0) % MCV 101.3 H (80.0-100.0) fL MCHC 30.0 L (31.0-37.0) g/dL RDW 17.4 H (11.5-15.5) % Lymphocytes # 0.5 L (1.0-4.8) k/uL PT 12.3 H (9.0-12.0) sec INR 1.3 H (<1.2) ABG pO2 70 L (83-108) mmHg ABG O2 Saturation 93.3 L (94-97) % Assessment and Plan (1) Subcapital fracture of right hip Narrative/Plan: She appears stable this morning and is NAD. She will continue with routine postop orthopedic protocol including PT, OT, pain management, wound care, DVT prophylaxis and medical management. Expect that she will transfer to an ECF in next few days. She is to be touchdown weightbearing with walker at all times. Request medicine/cardiology recommendations for anticoagulation management. Current Visit: Yes Status: Acute Code(s): S72.011A - UNSP INTRACAPSULAR FRACTURE OF RIGHT FEMUR, INIT FOR CLOS FX SNOMED Code(s): 981038210 Time with Patient: Less than 30
[2018-04-17 10:22] LABS: Calcium 8.1 mg/dL (8.4-10.2); Potassium 3.6 mmol/L (3.5-5.1)
--- NOTE | 2018-04-17 10:43 | P.PN ---
Subjective Patient admitted for right subcapital fracture. Patient will undergo surgical correction today patient is off anti-correlation patient has multiple medical problems all of which are fairly stable at this time patient does have alcohol abuse history, will be watch for alcohol withdrawals, congestive heart failure chronic systolic dysfunction presently euvolemic atrial fibrillation rate controlled. Lisinopril will be held to prevent perioperative hypotension and because of her worsening renal function. 04/17/2018 Patient successfully underwent surgical correction of right subcapital fracture of the femur, hip arthritic surgery is agreeable patient will based resumed on anticoagulation, patient has some crackles on exam doesn't have much of JVD IV fluids will be discontinue will obtain a chest x-ray. Patient is comparing of severe pain in the surgical site area Constitutional: Denied any fatigue denied any fever. Cardio vascular: denied any chest pain, palpitations Gastrointestinal denied any nausea vomiting Pulmonary: Denied any shortness of breath cough Neurologic denied any new focal deficits Objective - Vital Signs Vital signs: Vital Signs Temp 98.2 F 04/17/18 05:58 Pulse 84 04/17/18 07:19 Resp 16 04/17/18 05:58 BP 130/63 04/17/18 05:58 Pulse Ox 97 04/17/18 05:58 Intake & Output 04/16/18 04/17/18 04/17/18 18:59 06:59 18:59 Intake Total 1250 1243 Output Total 0 Balance 1250 1243 Weight 61.235 kg Intake: IV 1250 Intake, IV Titration 503 Amount Sodium Chloride 0.9% 1, 40 000 ml @ 20 mls/hr IV . Q24H [facility] Rx#:[id number] Sodium Chloride 0.9% 1, 463 000 ml @ 75 mls/hr IV . [id number] [facility] Rx#:[id number] Oral 740 Output: Urine 0 Other: Voiding Method Bedpan Bedpan # Voids 3 # Bowel Movements 0 - Exam PHYSICAL EXAMINATION: GENERAL: The patient is alert and oriented x3, not in any acute distress. Well developed, well nourished. HEENT: Pupils are round and equally reacting to light. EOMI. No scleral icterus. No conjunctival pallor. Normocephalic, atraumatic. No pharyngeal erythema. No thyromegaly. CARDIOVASCULAR: S1 and S2 present. No murmurs, rubs, or gallops. PULMONARY: Bibasilar crackles on exam, no JVD ABDOMEN: Soft, nontender, nondistended, normoactive bowel sounds. No palpable organomegaly. MUSCULOSKELETAL: Deferred to orthopedic surgery EXTREMITIES: No cyanosis, clubbing, or pedal edema. NEUROLOGICAL: Gross neurological examination did not reveal any focal deficits. SKIN: No rashes. - Labs CBC & Chem 7: 04/17/18 07:09 04/17/18 07:09 Labs: Abnormal Lab Results - Last 24 Hours (Table) 04/16/18 04/17/18 04/17/18 Range/Units 15:05 07:09 07:09 RBC 2.36 L (3.80-5.40) m/uL Hgb 7.2 L (11.4-16.0) gm/dL Hct 23.9 L (34.0-46.0) % MCV 101.3 H (80.0-100.0) fL MCHC 30.0 L (31.0-37.0) g/dL RDW 17.4 H (11.5-15.5) % Lymphocytes # 0.5 L (1.0-4.8) k/uL PT 12.3 H (9.0-12.0) sec INR 1.3 H (<1.2) ABG pO2 70 L (83-108) mmHg ABG O2 Saturation 93.3 L (94-97) % Sodium (137-145) mmol/L Carbon Dioxide (22-30) mmol/L BUN (7-17) mg/dL Creatinine (0.52-1.04) mg/dL Calcium (8.4-10.2) mg/dL 04/17/18 Range/Units 07:09 RBC (3.80-5.40) m/uL Hgb (11.4-16.0) gm/dL Hct (34.0-46.0) % MCV (80.0-100.0) fL MCHC (31.0-37.0) g/dL RDW (11.5-15.5) % Lymphocytes # (1.0-4.8) k/uL PT (9.0-12.0) sec INR (<1.2) ABG pO2 (83-108) mmHg ABG O2 Saturation (94-97) % Sodium 135 L (137-145) mmol/L Carbon Dioxide 21 L (22-30) mmol/L BUN 26 H (7-17) mg/dL Creatinine 1.34 H (0.52-1.04) mg/dL Calcium 8.1 L (8.4-10.2) mg/dL Assessment and Plan Plan: -Right femur subcapital fracture: Patient is still complaining of pain in the right hip. IV fluids were discontinued chest x-ray is being obtain because of crackles on lung exam. Patient will be resumed on anticoagulation -Alcohol abuse: Patient will be monitored for alcohol withdrawal, no more for withdrawals I do not expect any more withdrawals at this time -Depression -Chronic pancreatitis from previous alcohol use and patient continues to drink alcohol. -Congestive heart failure chronic systolic dysfunction patient has an AICD in place IV fluids will be discontinued patient is fairly euvolemic at this time. Cautious use of IV fluids in the intr and perioperative period -Atrial fibrillation presently rate controlled continue on rate controlled, patient will be resumed on anticoagulation -Gastroesophageal reflux disease -History of alcoholic cirrhosis although patient does not have any signs of cirrhosis at this time. -Coronary artery disease with previous cardiac catheterization and stents in 2016
--- NOTE | 2018-04-17 11:44 | XR ---
EXAMINATION TYPE: XR chest 1V DATE OF EXAM: 04/17/2018 COMPARISON: 04/16/2018 HISTORY: Difficulty breathing TECHNIQUE: Single frontal view of the chest is obtained. FINDINGS: There is improved aeration involving both lung bases with no apparent resolution of a righ t-sided pleural effusion. Heart size is prominent but stable. Atherosclerotic change aorta. Cardiac d evice noted. Diffuse osteopenia seen. Underlying COPD suggested. Chronic rib deformity suggestive pre vious trauma. IMPRESSION: 1. Improving aeration and reducing consolidation involving both lung bases.
[2018-04-17] MEDS: MAGNESIUM OXIDE 400 MG TAB PO SCH (13:32)
[2018-04-17] MEDS: CALCIUM CARBONATE 500 MG CHEWABLE PO SCH (13:32)
[2018-04-17] MEDS: MULTIVITAMINS, THERA 1 EACH TAB PO SCH (13:32)
[2018-04-17] MEDS: FOLIC ACID 1 MG TAB PO SCH (13:32)
--- NOTE | 2018-04-17 14:21 | P.PN ---
Subjective Mrs. Oates is seen and examined resting comfortably in bed. She denies chest pain, shortness of breath, palpitations or dizziness. Telemetry tracings unremarkable. She underwent percutaneous pinning of right subcapital hip fracture yesterday afternoon. She had difficulty with extubation and was monitored in the ICU yesterday afternoon. She is currently breathing comfortably on nasal cannula. Anti-coagulation was resumed this morning. Plavix has been discontinued. Blood pressure 130/63 heart rate 70 afebrile maintaining oxygen saturation on nasal cannula. Laboratory data reviewed, hemoglobin 7.2, platelets 210, sodium 135, potassium 3.6, creatinine 1.34. Objective - Vital Signs Vital signs: Vital Signs Temp 98.2 F 04/17/18 05:58 Pulse 70 04/17/18 08:00 Resp 16 04/17/18 08:00 BP 130/63 04/17/18 05:58 Pulse Ox 97 04/17/18 05:58 Intake & Output 04/16/18 04/17/18 04/17/18 18:59 06:59 18:59 Intake Total 1250 1243 960 Output Total 0 0 Balance 1250 1243 960 Weight 61.235 kg Intake: IV 1250 Intake, IV Titration 503 Amount Sodium Chloride 0.9% 1, 40 000 ml @ 20 mls/hr IV . Q24H [facility] Rx#:[id number] Sodium Chloride 0.9% 1, 463 000 ml @ 75 mls/hr IV . [id number] [facility] Rx#:[id number] Oral 740 960 Output: Urine 0 0 Other: Voiding Method Bedpan Bedpan Bedpan # Voids 3 3 # Bowel Movements 0 0 - Exam GENERAL: Well-appearing, well-nourished and in no acute distress. NECK: Supple without JVD or thyromegaly. LUNGS: Breath sounds clear to auscultation bilaterally. Respiration equal and unlabored. No wheezes, rales or rhonchi. HEART: Regular rate and rhythm without murmurs, rubs or gallops. S1 and S2 heard. EXTREMITIES: No edema. No clubbing or cyanosis. Peripheral pulses intact. - Labs CBC & Chem 7: 04/17/18 07:09 04/17/18 07:09 Labs: Abnormal Lab Results - Last 24 Hours (Table) 04/16/18 04/17/18 04/17/18 Range/Units 15:05 07:09 07:09 RBC 2.36 L (3.80-5.40) m/uL Hgb 7.2 L (11.4-16.0) gm/dL Hct 23.9 L (34.0-46.0) % MCV 101.3 H (80.0-100.0) fL MCHC 30.0 L (31.0-37.0) g/dL RDW 17.4 H (11.5-15.5) % Lymphocytes # 0.5 L (1.0-4.8) k/uL PT 12.3 H (9.0-12.0) sec INR 1.3 H (<1.2) ABG pO2 70 L (83-108) mmHg ABG O2 Saturation 93.3 L (94-97) % Sodium (137-145) mmol/L Carbon Dioxide (22-30) mmol/L BUN (7-17) mg/dL Creatinine (0.52-1.04) mg/dL Calcium (8.4-10.2) mg/dL 04/17/18 Range/Units 07:09 RBC (3.80-5.40) m/uL Hgb (11.4-16.0) gm/dL Hct (34.0-46.0) % MCV (80.0-100.0) fL MCHC (31.0-37.0) g/dL RDW (11.5-15.5) % Lymphocytes # (1.0-4.8) k/uL PT (9.0-12.0) sec INR (<1.2) ABG pO2 (83-108) mmHg ABG O2 Saturation (94-97) % Sodium 135 L (137-145) mmol/L Carbon Dioxide 21 L (22-30) mmol/L BUN 26 H (7-17) mg/dL Creatinine 1.34 H (0.52-1.04) mg/dL Calcium 8.1 L (8.4-10.2) mg/dL Assessment and Plan Assessment: ASSESSMENT Right hip fracture, awaiting surgical intervention Paroxysmal atrial fibrillation on long-term anticoagulation with Xarelto History of coronary artery disease status post angioplasty of circumflex artery in 2016 at [facility]. History of sustained ventricular tachycardia status post AICD placement currently on amiodarone most recent interrogation revealed no evidence of VT. Hypertension Dyslipidemia History of ischemic cardiomyopathy, improved Chronic daily alcohol dependence PLAN Anticoagulation has been resumed. Stable from a cardiac perspective. Ongoing medical management of postoperative care. We will continue to follow the patient as needed. Please feel to call with further questions or concerns. Follow-up with Dr. Mcneal in 2-3 weeks. Nurse Practitioner note has been reviewed, I agree with a documented findings and plan of care. Patient was seen and examined.
--- NOTE | 2018-04-17 15:38 | P.PN ---
Subjective Progress Note Date: 04/17/18 Principal diagnosis: Right hip fracture This is a 73-year-old female patient who came into the emergency department after a fall as the patient was having multiple falls on outpatient basis. The patient sustained a right hip fracture. She was preoperatively seen by medicine and she was cleared for surgery. The patient was taken to the operating room and she underwent a percutaneous pinning of the right hip fracture. Postop, the patient was extubated however she subsequently failed and she had to be reintubated. At this point in time the patient a mechanical ventilator on assist control mode rate of 12 with anion volume of 500 with an FiO2 of 60% and PEEP of 5. The blood gases showed a pH of 7.35 with a pCO2 of 41 and pO2 of 70 done at 50% FiO2. I discussed the case with the anesthesiologist. I also saw and evaluated this patient in the recovery room. The patient was given rocuronium for paralysis during the procedure. She also received a total of Versed during the procedure. Following the surgery, the patient was awake however she wasn't able to maintain enough tidal volumes to adequately ventilate her lungs. She was having prolonged apneas. She was bagged for a total of 50 minutes in recovery post extubation and she continued to have diminished level of consciousness and addition to hypoventilation. At that point it was decided to reintubate this patient. She was given also Narcan without much help. Her, my arrival at around 5:30 PM, I was able to easily arouse the patient. Note that the events that I was mentioning earlier was at around 1:30 PM which was approximately 4 hours ago. The patient easily arouse. She was able to follow commands. I checked her weaning parameters and I'll also put the patient is point is breathing trial with a pressure support of 5 and a PEEP of 5 with FiO2 of 40%. She was able to maintain tidal volumes above 400 mL and a vital Was reaching almost a liter. She was very comfortable. She was communicating. At that point I decided to extubate this patient to a nasal cannula at 3 L and she is maintaining a saturation above 90% specifically at 97%. She is hemodynamically stable. She is receiving lactated Ringer at the rate of 20 mL an hour. She has no specific complaints at this point in time. Pain is under good control. She received only a dose of Dilaudid 1 mg in the recovery. The postop hemoglobin and blood work has not been obtained yet. The preop hemoglobin was at 8.3 with a white cell count of 7.9. Her preoperative INR was at 1.5. The chest x-ray postop showed adequate positioning of the orotracheal tube. Also she has a left sided anterior pacemaker and the right hemidiaphragm is elevated probably related to chronic hemidiaphragmatic paralysis. No other acute abnormalities noted. Note that the patient had a preoperative echocardiogram that showed an ejection fraction of 40-45% there was basal inferior and inferior septal left ventricular wall motion abnormality and hypokinesis with mild degree of pulmonary hypertension. This patient was seen by critical care services back in July 2017 for hypotension. She has extensive number of medical problems and comorbidities most significantly cardiac disease which includes CHF with systolic dysfunction, chronic atrial fibrillation, previous history of V. 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 The patient has a poor baseline performance and functional status. Apparently she's been falling and she's been walking with the help of a walker and she felt to comply with rehabilitation. She has had also previous history of urine checked infection including infections with enterococcus faecalis. She is considered to be a high fall risk. The patient is seen again today 04/17/2018 in follow-up on the regular medical floor. He is awake and alert in no acute distress. She denies any shortness of breath, cough or congestion. She is maintaining O2 saturations in the 90s on room air. She's afebrile. Hemodynamically stable. White count 7.5. Hemoglobin 7.2. INR 1.3. Creatinine 1.34. He is continued on bronchodilators. Anticoagulated with Xarelto. Lites and the incentive spirometer. Objective - Vital Signs Vital signs: Vital Signs Temp 97.2 F L 04/17/18 14:41 Pulse 68 04/17/18 14:41 Resp 15 04/17/18 14:41 BP 108/59 04/17/18 14:41 Pulse Ox 93 L 04/17/18 14:41 Intake & Output 04/16/18 04/17/1818 18:59 06:59 18:59 Intake Total 1250 1243 960 Output Total 0 0 Balance 1250 1243 960 Weight 61.235 kg Intake: IV 1250 Intake, IV Titration 503 Amount Sodium Chloride 0.9% 1, 40 000 ml @ 20 mls/hr IV . Q24H [facility] Rx#:[id number] Sodium Chloride 0.9% 1, 463 000 ml @ 75 mls/hr IV . [id number] [facility] Rx#:[id number] Oral 740 960 Output: Urine 0 0 Other: Voiding Method Bedpan Bedpan Bedpan # Voids 3 4 # Bowel Movements 0 0 - Exam Gen. appearance, comfortable. Maintaining good O2 saturations in the 90s on room air. Head exam was generally normal. There was no scleral icterus or corneal arcus. Mucous membranes were dry.Neck was supple and without jugular venous distension , thyromegaly, or carotid bruits. Carotids were easily palpable bilaterally. The mucous membranes are extremely dry and the patient is edentulous There was no adenopathy. The patient has conjunctival pallor no significant icterus. Lungs were clear to auscultation and percussion, and with normal diaphragmatic excursion. No wheezes or rales were noted. Breath sounds are diminished in the right lung base and the patient has a AICD placed over the left anterior chest area. Cardiac exam revealed the PMI to be normally situated and sized. The rhythm and she is paced rhythm for now and no extrasystoles were noted during several minutes of auscultation. The first and second heart sounds were normal and physiologic splitting of the second heart sound was noted. There were no murmurs , rubs, clicks, or gallops. Abdomen shows some small ascites. There is mild direct tenderness no rebound tensile guarding. There is a small surgical incision under the umbilicus and the surgical site is dry clean and intact. Extremities show varicose veins and some trace ankle edema. Pulses are diminished at the present. No cyanosis or clubbing. Surgical wound site over the right hip area is dry clean and intact Neurologically, awake and following commands and answering questions appropriately. - Labs CBC & Chem 7: 04/17/18 07:09 04/17/18 07:09 Labs: Abnormal Lab Results - Last 24 Hours (Table) 0804/17/18 04/17/18 Range/Units 07:09 07:09 07:09 RBC 2.36 L (3.80-5.40) m/uL Hgb 7.2 L (11.4-16.0) gm/dL Hct 23.9 L (34.0-46.0) % MCV 101.3 H (80.0-100.0) fL MCHC 30.0 L (31.0-37.0) g/dL RDW 17.4 H (11.5-15.5) % Lymphocytes # 0.5 L (1.0-4.8) k/uL PT 12.3 H (9.0-12.0) sec INR 1.3 H (<1.2) Sodium 135 L (137-145) mmol/L Carbon Dioxide 21 L (22-30) mmol/L BUN 26 H (7-17) mg/dL Creatinine 1.34 H (0.52-1.04) mg/dL Calcium 8.1 L (8.4-10.2) mg/dL Assessment and Plan Assessment: Assessment 1 acute hypoxic respiratory failure, failed extubation following right hip surgery. The patient was probably hypoventilating and she had diminished level of consciousness due to prolonged effect of drugs including the rocuronium and the fentanyl probably related to her underlying chronic liver disease. I was able to extubate this patient. It seems that 4 hours post of the effect of his medications of recovered and the patient was fully awake and alert and she was able to maintained adequate ventilation based on a spontaneous breathing trial. The patient was extubated to nasal cannula at this point she is awake and alert on 3 L of oxygen by nasal cannula. 2 right hip percutaneous pinning for fracture, postop day #1 3 frequent falls related to his medical positive comorbidities 4 congestion heart failure with systolic dysfunction and ejection fraction of 45 % 5 coronary artery disease with previous coronary stent insertion involving the circumflex 6 chronic atrial fibrillation current rhythm is paced, maintained on a combination of amiodarone and Xarelto on outpatient setting 7 history of V. fib status post AICD placement 8 hypothyroidism 9 liver cirrhosis/alcoholism 10 history of pancreatic duct stent insertion, related to chronic pancreatitis and the patient is chronic. 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 coli UTI 18 recent septicemia with Serratia marcescens related to a previous hospitalization from July 2017 Plan I'll and The patient was seen and evaluated by Dr. Joy. She is stable from the pulmonary standpoint. Maintaining good O2 saturations in the 90s on room air. Working well with the incentive spirometer. We'll see the patient on as-needed basis. I, the cosigning physician, performed a history & physical examination of the patient. Lungs sounds are clear. Maintaining good O2 saturations in the 90s on room air. I discussed the assessment and plan of care with my nurse practitioner, Kate Tsang. I attest to the above note as dictated by her.
[2018-04-17] MEDS ORDERED: RIVAROXABAN 20 MG TAB PO SCH (17:00)
[2018-04-17] MEDS: AMIODARONE 100 MG TAB PO SCH (17:44)
[2018-04-17] MEDS ORDERED: HYDROmorphone 2 MG TAB PO PRN ×3 (19:28→19:29)
[2018-04-17 21:31] VITALS: PULSE 70
[2018-04-18 06:12] VITALS: BP 148/73; RESP 16; TEMP 97.4
[2018-04-18 07:03] LABS: Appearance,Urine Cloudy (Clear); Bacteria,Urine Occasional /hpf; Bilirubin,Urine Negative (Negative); Blood,Urine Negative (Negative); Color,Urine Yellow; Glucose,Urine (UA) Negative (Negative); Hyaline Casts,Urine 8 /lpf (0-2); Ketones,Urine Negative (Negative); Leukocyte Esterase,Urine Large (Negative); Mucus,Urine Rare /hpf; Nitrite,Urine Negative (Negative); Protein,Urine Trace (Negative); RBC,Urine 1 /hpf (0-5); Specific Gravity,Urine 1.016 (1.001-1.035); Squamous Epithelial Cell,Urine 25 /hpf (0-4); Urobilinogen,Urine <2.0 mg/dL (<2.0); WBC,Urine 26 /hpf (0-5)
[2018-04-18] MEDS ORDERED: PANTOPRAZOLE 40 MG TABLET PO SCH (07:30)
[2018-04-18] MEDS: FLUoxetine HCL 20 MG CAP PO SCH (08:09)
[2018-04-18] MEDS: LIPASE 5,000/PROTEASE 17,000/AMYLASE 24,0000 PO SCH ×2 (08:09→12:18)
[2018-04-18] MEDS: METOPROLOL TARTRATE 50 MG TAB PO SCH (08:09)
[2018-04-18] MEDS: LEVOTHYROXINE 88 MCG TAB PO SCH (08:09)
[2018-04-18] MEDS: traMADol 50 MG TAB PO PRN (08:14)
[2018-04-18] MEDS: SYMBICORT 160-4.5 MCG INHALER INHALATION SCH (08:22)
[2018-04-18 08:36] LABS: Anisocytosis Slight; Basophils % (A) 0 %; Eosinophils # (A) 0.1 k/uL (0-0.7); Eosinophils % (A) 1 %; HCT 28.1 % (34.0-46.0); HGB 8.2 gm/dL (11.4-16.0); Hypochromasia Marked; Lymphocytes # (A) 0.6 k/uL (1.0-4.8); Lymphocytes % (A) 8 %; MCH 30.6 pg (25.0-35.0); MCHC 29.3 g/dL (31.0-37.0); MCV 104.2 fL (80.0-100.0); Macrocytosis Moderate; Mean Platelet Volume 6.9; Monocytes # (A) 0.5 k/uL (0-1.0); Monocytes % (A) 7 %; Neutrophils # (A) 6.3 k/uL (1.3-7.7); Neutrophils % (A) 83 %; Platelet Count 260 k/uL (150-450); RDW 17.4 % (11.5-15.5); WBC 7.6 k/uL (3.8-10.6)
[2018-04-18 08:45] LABS: INR 1.8 (<1.2); Prothrombin Time 16.3 sec (9.0-12.0)
--- NOTE | 2018-04-18 09:26 | P.PN ---
Subjective Mrs. Oates is seen and examined resting comfortably in bed. Vital signs are stable and she is no longer requiring oxygen. She denies symptoms of chest pain, shortness of breath, dizziness or palpitations. Anticoagulation had been resumed yesterday. Hemoglobin 8.2, platelets 260. Blood pressure 148/73 heart rate 70 afebrile maintaining oxygen saturation on room air. Telemetry tracings indicate a paced rhythm with no acute arrhythmia noted. Objective - Vital Signs Vital signs: Vital Signs Temp 97.4 F L 04/18/18 06:12 Pulse 70 04/18/18 06:12 Resp 16 04/18/18 06:12 BP 148/73 04/18/18 06:12 Pulse Ox 92 L 04/18/18 06:12 Intake & Output 04/17/18 04/18/18 04/18/18 18:59 06:59 18:59 Intake Total 3360 240 Output Total 0 Balance 3360 240 Intake: Oral 3360 240 Output: Urine 0 Other: Voiding Method Bedpan Bedpan # Voids 6 6 1 # Bowel Movements 0 - Exam GENERAL: Well-appearing, well-nourished and in no acute distress. NECK: Supple without JVD or thyromegaly. LUNGS: Breath sounds clear to auscultation bilaterally. Respiration equal and unlabored. No wheezes, rales or rhonchi. HEART: Regular rate and rhythm without murmurs, rubs or gallops. S1 and S2 heard. EXTREMITIES: No edema. No clubbing or cyanosis. Peripheral pulses intact. - Labs CBC & Chem 7: 04/18/18 08:09 04/17/18 07:09 Labs: Abnormal Lab Results - Last 24 Hours (Table) 04/17/18 04/18/18 04/18/18 Range/Units 07:09 06:01 08:09 RBC 2.70 L (3.80-5.40) m/uL Hgb 8.2 L (11.4-16.0) gm/dL Hct 28.1 L (34.0-46.0) % MCV 104.2 H (80.0-100.0) fL MCHC 29.3 L (31.0-37.0) g/dL RDW 17.4 H (11.5-15.5) % Lymphocytes # 0.6 L (1.0-4.8) k/uL PT (9.0-12.0) sec INR (<1.2) Sodium 135 L (137-145) mmol/L Carbon Dioxide 21 L (22-30) mmol/L BUN 26 H (7-17) mg/dL Creatinine 1.34 H (0.52-1.04) mg/dL Calcium 8.1 L (8.4-10.2) mg/dL Urine Appearance Cloudy H (Clear) Urine Protein Trace H (Negative) Ur Leukocyte Esterase Large H (Negative) Urine WBC 26 H (0-5) /hpf Ur Squamous Epith Cells 25 H (0-4) /hpf Urine Bacteria Occasional H (None) /hpf Hyaline Casts 8 H (0-2) /lpf Urine Mucus Rare H (None) /hpf 04/18/18 Range/Units 08:09 RBC (3.80-5.40) m/uL Hgb (11.4-16.0) gm/dL Hct (34.0-46.0) % MCV (80.0-100.0) fL MCHC (31.0-37.0) g/dL RDW (11.5-15.5) % Lymphocytes # (1.0-4.8) k/uL PT 16.3 H (9.0-12.0) sec INR 1.8 H (<1.2) Sodium (137-145) mmol/L Carbon Dioxide (22-30) mmol/L BUN (7-17) mg/dL Creatinine (0.52-1.04) mg/dL Calcium (8.4-10.2) mg/dL Urine Appearance (Clear) Urine Protein (Negative) Ur Leukocyte Esterase (Negative) Urine WBC (0-5) /hpf Ur Squamous Epith Cells (0-4) /hpf Urine Bacteria (None) /hpf Hyaline Casts (0-2) /lpf Urine Mucus (None) /hpf Assessment and Plan Assessment: ASSESSMENT Right hip fracture, awaiting surgical intervention Paroxysmal atrial fibrillation on long-term anticoagulation with Xarelto History of coronary artery disease status post angioplasty of circumflex artery in 2016 at [facility]. History of sustained ventricular tachycardia status post AICD placement currently on amiodarone most recent interrogation revealed no evidence of VT. Hypertension Dyslipidemia History of ischemic cardiomyopathy, improved Chronic daily alcohol dependence PLAN Anticoagulation has been resumed. Stable from a cardiac perspective. Ongoing medical management of postoperative care. We will continue to follow the patient as needed. Please feel to call with further questions or concerns. Follow-up with Dr. Mcneal in 2-3 weeks. Nurse Practitioner note has been reviewed, I agree with a documented findings and plan of care. Patient was seen and examined.
--- NOTE | 2018-04-18 10:24 | P.DS ---
Providers Date of admission: 04/14/18 23:46 Expected date of discharge: 04/18/18 Attending physician: Chapin Rincon Consults: 04/14/18 23:47 Consult Physician Urgent Consulting Provider: Pino Williamson Consult Reason/Comments: medical consult Do you want consulting provider notified?: Yes 04/15/18 09:22 Consult Physician Stat Consulting Provider: Miguel Angel Mcneal Consult Reason/Comments: recent CT, needs clearence for surgery Do you want consulting provider notified?: Yes 04/16/18 14:14 Consult Physician Stat Consulting Provider: Jermaine Joy Consult Reason/Comments: [employer] Do you want consulting provider notified?: Yes Primary care physician: Valerio Lobo - Discharge Diagnosis(es) (1) Subcapital fracture of right hip Patient was admitted to the OR on 04/16/2018 to undergo a closed reduction, percutaneous screw fixation of right femoral neck fracture . She had had suffered a fall at home which resulted in a right hip fracture. She underwent the above procedure which she tolerated well without complication. Postoperative hospital course has remained without complication. On day of discharge she is afebrile, vital signs stable, labs within acceptable ranges, tolerating by mouth meds and diet, voiding without difficulty, positive flatus, denies abdominal pain or calf pain, pain is controlled on oral pain medication and has no new complaints. Wound is benign, neurovascular status is intact, calf is soft and nontender, abdomen soft and nontender. Review of systems is negative for numbness, tingling, fever, chills, chest pain, shortness breath, nausea, vomiting, dizziness, headaches, slurred speech or other Current Visit: Yes Status: Acute Priority: Medium Procedures: closed reduction, percutaneous screw fixation of right femoral neck fracture Patient Condition at Discharge: Fair Plan - Discharge Summary Discharge Rx Participant: No New Discharge Prescriptions: Discontinued Clopidogrel [Plavix] 75 mg PO DAILY@0700 No Action Lipase/Protease/Amylase [Harshil Fiore 24,000 Units Capsule] 2 cap PO TID@0700, 1100,1700 Rivaroxaban [Xarelto] 20 mg PO DAILY@1700 Omeprazole [PriLOSEC] 20 mg PO DAILY@0700 FLUoxetine HCL [PROzac] 20 mg PO DAILY@0700 Folic Acid 1 mg PO DAILY@1100 Metoprolol Tartrate [Lopressor] 50 mg PO BID@0700,1900 Vitamin B Complex With C 1 tab PO DAILY@1100 traMADol HCL [Ultram] 50 mg PO Q6HR PRN PRN Reason: Pain Albuterol Nebulized [Ventolin Nebulized] 2.5 mg INHALATION RT-Q4H PRN PRN Reason: Shortness Of Breath Magnesium Oxide [Mag-Ox] 400 mg PO DAILY@1100 Atorvastatin Calcium [Lipitor] 40 mg PO HS Amiodarone [Cordarone] 100 mg PO DAILY@1700 Calcium Carbonate [Calcium] 600 mg PO DAILY Cholecalciferol [Vitamin D3] 1,000 unit PO DAILY Famotidine [Pepcid] 20 mg PO BID Levothyroxine Sodium [Synthroid] 88 mcg PO DAILY@0700 Lisinopril [Zestril] 5 mg PO DAILY@1700 Sennosides [Senokot] 8.6 mg PO DAILY PRN PRN Reason: Constipation Discharge Medication List Lipase/Protease/Amylase [Harshil Dr 24,000 Units Capsule] 2 cap PO TID@0700,1100, 1700 05/31/16 [History] FLUoxetine HCL [PROzac] 20 mg PO DAILY@0700 08/14/16 [History] Folic Acid 1 mg PO DAILY@1100 08/14/16 [History] Omeprazole [PriLOSEC] 20 mg PO DAILY@0700 08/14/16 [History] Rivaroxaban [Xarelto] 20 mg PO DAILY@1700 08/14/16 [History] Metoprolol Tartrate [Lopressor] 50 mg PO BID@0700,1900 01/10/17 [History] Vitamin B Complex With C 1 tab PO DAILY@1100 07/22/17 [History] traMADol HCL [Ultram] 50 mg PO Q6HR PRN 07/22/17 [History] Albuterol Nebulized [Ventolin Nebulized] 2.5 mg INHALATION RT-Q4H PRN 08/03/17 [ History] Magnesium Oxide [Mag-Ox] 400 mg PO DAILY@1100 08/03/17 [History] Atorvastatin Calcium [Lipitor] 40 mg PO HS 08/30/17 [History] Amiodarone [Cordarone] 100 mg PO DAILY@1700 04/14/18 [History] Calcium Carbonate [Calcium] 600 mg PO DAILY 04/14/18 [History] Cholecalciferol [Vitamin D3] 1,000 unit PO DAILY 04/14/18 [History] Famotidine [Pepcid] 20 mg PO BID 04/14/18 [History] Levothyroxine Sodium [Synthroid] 88 mcg PO DAILY@0700 04/14/18 [History] Lisinopril [Zestril] 5 mg PO DAILY@1700 04/14/18 [History] Sennosides [Senokot] 8.6 mg PO DAILY PRN 04/14/18 [History] Follow up Appointment(s)/Referral(s): Valerio Lobo MD [Primary Care Provider] - 1-2 days Miguel Angel Mcneal MD [STAFF PHYSICIAN] - 2 Weeks
[2018-04-18] MEDS ORDERED: FUROSEMIDE 10 MG/ML 4 ML VIAL IV STA (10:49)
--- NOTE | 2018-04-18 11:17 | P.PN ---
Subjective Patient admitted for right subcapital fracture. Patient will undergo surgical correction today patient is off anti-correlation patient has multiple medical problems all of which are fairly stable at this time patient does have alcohol abuse history, will be watch for alcohol withdrawals, congestive heart failure chronic systolic dysfunction presently euvolemic atrial fibrillation rate controlled. Lisinopril will be held to prevent perioperative hypotension and because of her worsening renal function. 04/17/2018 Patient successfully underwent surgical correction of right subcapital fracture of the femur, hip arthritic surgery is agreeable patient will based resumed on anticoagulation, patient has some crackles on exam doesn't have much of JVD IV fluids will be discontinue will obtain a chest x-ray. Patient is comparing of severe pain in the surgical site area 04/18/2018 Patient still has pain: Clinically doing well does have little bit of pulmonary edema we'll give an extra dose of Lasix today patient can be discharged to subacute rehabilitation I did do the medication reconciliation from medical perspective. Constitutional: Denied any fatigue denied any fever. Cardio vascular: denied any chest pain, palpitations Gastrointestinal denied any nausea vomiting Pulmonary: Denied any shortness of breath cough Neurologic denied any new focal deficits Objective - Vital Signs Vital signs: Vital Signs Temp 97.4 F L 04/18/18 06:12 Pulse 70 04/18/18 06:12 Resp 16 04/18/18 06:12 BP 148/73 04/18/18 06:12 Pulse Ox 92 L 04/18/18 06:12 Intake & Output 04/17/18 04/18/18 04/18/18 18:59 06:59 18:59 Intake Total 3360 240 960 Output Total 0 0 Balance 3360 240 960 Weight 61.235 kg Intake: Oral 3360 240 960 Output: Urine 0 0 Other: Voiding Method Bedpan Bedpan # Voids 6 6 1 # Bowel Movements 0 0 - Exam PHYSICAL EXAMINATION: GENERAL: The patient is alert and oriented x3, not in any acute distress. Well developed, well nourished. HEENT: Pupils are round and equally reacting to light. EOMI. No scleral icterus. No conjunctival pallor. Normocephalic, atraumatic. No pharyngeal erythema. No thyromegaly. CARDIOVASCULAR: S1 and S2 present. No murmurs, rubs, or gallops. PULMONARY: Bibasilar crackles on exam, no JVD ABDOMEN: Soft, nontender, nondistended, normoactive bowel sounds. No palpable organomegaly. MUSCULOSKELETAL: Deferred to orthopedic surgery EXTREMITIES: No cyanosis, clubbing, or pedal edema. NEUROLOGICAL: Gross neurological examination did not reveal any focal deficits. SKIN: No rashes. - Labs CBC & Chem 7: 04/18/18 08:09 04/17/18 07:09 Labs: Abnormal Lab Results - Last 24 Hours (Table) 04/18/18 04/18/18 04/18/18 Range/Units 06:01 08:09 08:09 RBC 2.70 L (3.80-5.40) m/uL Hgb 8.2 L (11.4-16.0) gm/dL Hct 28.1 L (34.0-46.0) % MCV 104.2 H (80.0-100.0) fL MCHC 29.3 L (31.0-37.0) g/dL RDW 17.4 H (11.5-15.5) % Lymphocytes # 0.6 L (1.0-4.8) k/uL PT 16.3 H (9.0-12.0) sec INR 1.8 H (<1.2) Urine Appearance Cloudy H (Clear) Urine Protein Trace H (Negative) Ur Leukocyte Esterase Large H (Negative) Urine WBC 26 H (0-5) /hpf Ur Squamous Epith Cells 25 H (0-4) /hpf Urine Bacteria Occasional H (None) /hpf Hyaline Casts 8 H (0-2) /lpf Urine Mucus Rare H (None) /hpf Assessment and Plan Plan: -Right femur subcapital fracture: Patient is still complaining of pain in the right hip. Pain management as per primary service -Alcohol abuse: No withdrawals and patient is being discharged to subacute rehabilitation -Depression -Chronic pancreatitis from alcoholic use -Congestive heart failure chronic systolic dysfunction patient has an AICD I'll exacerbation secondary to perioperative IV fluids which she is improving now -Atrial fibrillation presently rate controlled continue on rate controlled, patient will be resumed on anticoagulation -Gastroesophageal reflux disease -History of alcoholic cirrhosis although patient does not have any signs of cirrhosis at this time. -Coronary artery disease with previous cardiac catheterization and stents in 2015
[2018-04-18] MEDS: HYDROcodone/APAP 5-325MG 1 EACH TAB PO PRN (12:17)
[2018-04-18] MEDS: FOLIC ACID 1 MG TAB PO SCH (12:18)
[2018-04-18] MEDS: CALCIUM CARBONATE 500 MG CHEWABLE PO SCH (12:18)
[2018-04-18] MEDS: MULTIVITAMINS, THERA 1 EACH TAB PO SCH (12:18)
[2018-04-18] MEDS: MAGNESIUM OXIDE 400 MG TAB PO SCH (12:18)
== END 2018-04-18 13:20 | DRG 480 ==
LOC: EC 21:39 → 3SUR 23:46 → 5MS5E 04-15 18:05 → 6ICU 04-16 16:50 → 5MS5E 04-16 17:46
PROVIDERS: ADMIT Orthopaedic Surgery Sports Medicine; ATTEND Orthopaedic Surgery Sports Medicine
PROC: 0BH17EZ Insertion of Endotracheal Airway into Trachea, Via Natural or Artificial Opening (ICD-10-PCS; 2018-04-16)
PROC: 5A1935Z Respiratory Ventilation, Less than 24 Consecutive Hours (ICD-10-PCS; 2018-04-16)
PROC: 0QS634Z Reposition Right Upper Femur with Internal Fixation Device, Percutaneous Approach (ICD-10-PCS; principal; 2018-04-16 11:30)
DX: S72.011A Unspecified intracapsular fracture of right femur, initial encounter for closed fracture (principal); J96.01 Acute respiratory failure with hypoxia; K86.0 Alcohol-induced chronic pancreatitis; I13.0 Hypertensive heart and chronic kidney disease with heart failure and stage 1 through stage 4 chronic kidney disease, or unspecified chronic kidney disease; K82.1 Hydrops of gallbladder; I50.22 Chronic systolic (congestive) heart failure; F10.239 Alcohol dependence with withdrawal, unspecified; I27.20 Pulmonary hypertension, unspecified; I48.2 Chronic atrial fibrillation; I08.3 Combined rheumatic disorders of mitral, aortic and tricuspid valves; J98.6 Disorders of diaphragm; I25.5 Ischemic cardiomyopathy; D64.9 Anemia, unspecified; N18.3 Chronic kidney disease, stage 3 (moderate); K70.30 Alcoholic cirrhosis of liver without ascites; K44.9 Diaphragmatic hernia without obstruction or gangrene; F32.9 Major depressive disorder, single episode, unspecified; E78.5 Hyperlipidemia, unspecified; F41.9 Anxiety disorder, unspecified; I25.10 Atherosclerotic heart disease of native coronary artery without angina pectoris; E89.0 Postprocedural hypothyroidism; K21.9 Gastro-esophageal reflux disease without esophagitis; R29.6 Repeated falls; I25.2 Old myocardial infarction; Z79.02 Long term (current) use of antithrombotics/antiplatelets; Z79.890 Hormone replacement therapy; Z79.01 Long term (current) use of anticoagulants; Z79.899 Other long term (current) drug therapy; Z86.74 Personal history of sudden cardiac arrest; Z95.810 Presence of automatic (implantable) cardiac defibrillator; Z86.010 Personal history of colon polyps; Z85.850 Personal history of malignant neoplasm of thyroid; Z86.19 Personal history of other infectious and parasitic diseases; Z91.81 History of falling; Z95.5 Presence of coronary angioplasty implant and graft; Z96.642 Presence of left artificial hip joint; Z87.891 Personal history of nicotine dependence; Z90.710 Acquired absence of both cervix and uterus; Z98.42 Cataract extraction status, left eye; Z98.41 Cataract extraction status, right eye; Z87.442 Personal history of urinary calculi; Z87.81 Personal history of (healed) traumatic fracture; Z96.89 Presence of other specified functional implants; Z88.8 Allergy status to other drugs, medicaments and biological substances; Z88.1 Allergy status to other antibiotic agents; Z91.041 Radiographic dye allergy status; Z91.013 Allergy to seafood; W01.0XXA Fall on same level from slipping, tripping and stumbling without subsequent striking against object, initial encounter; Y92.009 Unspecified place in unspecified non-institutional (private) residence as the place of occurrence of the external cause; Z80.8 Family history of malignant neoplasm of other organs or systems; Z82.49 Family history of ischemic heart disease and other diseases of the circulatory system
CPT/HCPCS: 36415; 36600; 70450; 71045; 73502; 80048; 80053; 81001; 81003; 82805; 83735; 84484; 85025; 85610; 85730; 86850; 86900; 86901; 93005; 93306; 94002; 94640; 96365; 96366; 96375; 96376; 99285

== ENCOUNTER 2018-06-16 00:53 | Observation (INO) | payer MEDICARE, BC ==
--- NOTE | 2018-06-16 02:26 | XR ---
EXAMINATION TYPE: XR Hip RT and AP Pelvis DATE OF EXAM: 06/16/2018 COMPARISON: 04/14/2018 HISTORY: Hip pain TECHNIQUE: A single AP view of the pelvis is obtained. Two views of the right hip are obtained. FINDINGS: The pelvic ring is intact. There is left hip prosthesis. There are 3 screws fixing subcapit al fracture of the right femur. There is no significant change in position compared to last exam. The re is slight increased impaction. IMPRESSION: Slightly impacted subcapital fracture right femur. I do not see an acute fracture. I do not have a po stoperative exam to compare. The screws appear in good position.
[2018-06-16] MEDS ORDERED: NALOXONE 0.4 MG/ML 1 ML VIAL IV PRN (05:10)
[2018-06-16] MEDS ORDERED: SODIUM CHLORIDE 0.9% 1,000 ML IV SCH (05:15)
[2018-06-16 06:14] LABS: Basophils # (A) 0.1 k/uL (0-0.2); Basophils % (A) 1 %; Eosinophils # (A) 0.2 k/uL (0-0.7); Eosinophils % (A) 3 %; HCT 29.4 % (34.0-46.0); HGB 9.3 gm/dL (11.4-16.0); Hypochromasia Slight; Lymphocytes # (A) 1.4 k/uL (1.0-4.8); Lymphocytes % (A) 19 %; MCH 31.1 pg (25.0-35.0); MCHC 31.6 g/dL (31.0-37.0); MCV 98.6 fL (80.0-100.0); Macrocytosis Slight; Mean Platelet Volume 7.7; Monocytes # (A) 0.5 k/uL (0-1.0); Monocytes % (A) 7 %; Neutrophils # (A) 5.1 k/uL (1.3-7.7); Neutrophils % (A) 69 %; Platelet Count 217 k/uL (150-450); RBC 2.98 m/uL (3.80-5.40); RDW 15.2 % (11.5-15.5); WBC 7.3 k/uL (3.8-10.6)
[2018-06-16 06:25] LABS: Potassium 3.4 mmol/L (3.5-5.1)
--- NOTE | 2018-06-16 07:17 | ED ---
Fall HPI - General Chief Complaint: Fall Stated Complaint: Hip Pain Time Seen by Provider: 06/16/18 01:15 Source: patient Mode of arrival: EMS - History of Present Illness Initial Comments: This patient is 73-year-old woman brought to be evaluated for right hip pain. Patient states that she had acute onset of pain this morning approximately an hour ago. The patient was trying to get up out of bed to use the bathroom area she states that in trying to go to her walker she lost her balance and started to fall. The patient's did catch her before she hit the ground, but she felt a pop in her right hip. She is complaining of pain and states that she is not able to walk since that time. She did have a hip fracture with pin placement prior. MD Complaint: fall Onset/Timin -: hour(s) Fall From: standing Fall Witnessed: yes, by family Place Fall Occurred: home Loss of Consciousness: none Prolonged Down Time?: no Symptoms Prior to Fall: none Location: other (Right hip) Severity: severe Quality: aching Context: tripped/slipped Associated Symptoms: denies - Related Data Home Medications Medication Instructions Recorded Confirmed Lipase/Protease/Amylase [Harshil Fiore 2 cap PO TID@0700,1100,1700 05/31/16 06/16/18 24,000 Units Capsule] FLUoxetine HCL [PROzac] 20 mg PO DAILY@0700 08/14/16 06/16/18 Folic Acid 1 mg PO DAILY@1100 08/14/16 06/16/18 Omeprazole [PriLOSEC] 20 mg PO DAILY@0700 08/14/16 06/16/18 Rivaroxaban [Xarelto] 20 mg PO DAILY@1700 08/14/16 06/16/18 Metoprolol Tartrate [Lopressor] 50 mg PO BID@0700,1900 01/10/17 06/16/18 Vitamin B Complex With C 1 tab PO DAILY@1100 07/22/17 06/16/18 Albuterol Nebulized [Ventolin 2.5 mg INHALATION RT-Q4H PRN 08/03/17 06/16/18 Nebulized] Magnesium Oxide [Mag-Ox] 400 mg PO DAILY@1100 08/03/17 06/16/18 Atorvastatin Calcium [Lipitor] 40 mg PO HS 08/30/17 06/16/18 Amiodarone [Cordarone] 100 mg PO DAILY@1700 04/14/18 06/16/18 Calcium Carbonate [Calcium] 600 mg PO DAILY 04/14/18 06/16/18 Cholecalciferol [Vitamin D3] 1,000 unit PO DAILY 04/14/18 06/16/18 Famotidine [Pepcid] 20 mg PO BID 04/14/18 06/16/18 Levothyroxine Sodium [Synthroid] 88 mcg PO DAILY@0700 04/14/18 06/16/18 Lisinopril [Zestril] 5 mg PO DAILY@1700 04/14/18 06/16/18 Sennosides [Senokot] 8.6 mg PO DAILY PRN 04/14/18 06/16/18 Previous Rx's Medication Instructions Recorded Docusate [Colace] 100 mg PO BID #60 capsule 04/18/18 HYDROcodone/APAP 5-325MG [Urania 1 tab PO Q4HR PRN #42 tab 04/18/18 5-325] traMADol HCL [Ultram] 50 mg PO Q6HR PRN #20 tablet 04/18/18 Allergies Allergy/AdvReac Type Severity Reaction Status Date / Time ibuprofen [From Motrin] Allergy Anaphylaxis Verified 04/16/18 11:24 Iodinated Contrast- Oral and Allergy Rash/Hives Verified 04/16/18 11:24 IV Dye [Iodinated Contrast Media - IV Dye] levofloxacin [From Levaquin] Allergy Anaphylaxis Verified 04/16/18 11:24 shellfish derived AdvReac Nausea & Verified 04/16/18 11:24 Vomiting Review of Systems ROS Statement: Those systems with pertinent positive or pertinent negative responses have been documented in the HPI. ROS Other: All systems not noted in ROS Statement are negative. Constitutional: Denies: fever, chills Respiratory: Denies: cough, dyspnea Cardiovascular: Denies: chest pain, palpitations Gastrointestinal: Denies: abdominal pain, vomiting, diarrhea Genitourinary: Denies: dysuria Musculoskeletal: Reports: as per HPI, arthralgia (Right hip). 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, previous history of ascites requiring paracentesis, hydropic gallbladder, hiatal hernia, thyroid cancer status post thyroidectomy, questionable liver abscess, chronic atrial fibrillation, history of atrial fibrillation with cardiac arrest requiring an AICD placement, bronchial asthma, chronic renal failure with stage III chronic kidney disease, aymptomatic kidney stones, chronic anemia, colonic polyps, current R hand fractures wearing brace, UTIs, past L rib fractures, portal vein thrombosis per PMH but pt does not recall, allergic rhinitis Last Myocardial Infarction Date:: 06/2016 History of Any Multi-Drug Resistant Organisms: CRE Date of last positivie culture/infection: 08/07/17 CRE serratia marcescens MDRO Source:: Blood Past Surgical History: AICD, Heart Catheterization With Stent, Hysterectomy, Joint Replacement, Pacemaker Additional Past Surgical History / Comment(s): 2015 PCI with stent and AICD, paracentesises, thyroidectomy, left hip replaced, vein stripping bilaterally, repair right and left detached retina, cataract removal bilat eyes, pancreatic stent, liver bx, EGD. Past Anesthesia/Blood Transfusion Reactions: No Reported Reaction Additional Past Anesthesia/Blood Transfusion Reaction / Comment(s): Pt has received blood in past without reaction. Date of Last Stent Placement:: 06/2016 Type of Cardiac Device: AICD Device Placement Date:: , Nanophthalmicstronic Past Psychological History: Anxiety, Depression Smoking Status: Former smoker - Past Family History Mother Family Medical History: No Reported History Additional Family Medical History / Comment(s): Mother was healthy and at the age of 93yrs. She had a "weak" heart. Father Family Medical History: Cancer Additional Family Medical History / Comment(s): father had bone cancer and of this at age 65yrs. General Exam Limitations: no limitations General appearance: alert, cachectic Head exam: Present: atraumatic, normocephalic Eye exam: Present: normal appearance Respiratory exam: Present: normal lung sounds bilaterally. Absent: respiratory distress, wheezes, rales, rhonchi, stridor Cardiovascular Exam: Present: regular rate, normal rhythm, normal heart sounds. Absent: systolic murmur, diastolic murmur, rubs, gallop GI/Abdominal exam: Present: soft. Absent: distended, tenderness, guarding, rebound, rigid, mass Extremities exam: Present: normal inspection, normal capillary refill. Absent: pedal edema, calf tenderness Back exam: Present: normal inspection. Absent: CVA tenderness (R), CVA tenderness (L), vertebral tenderness Neurological exam: Present: alert Skin exam: Present: warm, dry, intact, normal color. Absent: rash Course Vital Signs 06/16/18 06/16/18 01:12 05:57 Temperature 98.3 F Pulse Rate 71 70 Respiratory 20 20 Rate Blood Pressure 141/91 130/90 O2 Sat by Pulse 92 L 96 Oximetry Medical Decision Making - Medical Decision Making Patient 73-year-old woman with right hip pain after fall. She did have significant difficulty with ambulation, and therefore admitted with possible rehab placement. - Lab Data Result diagrams: 06/16/18 05:30 06/16/18 05:30 Lab Results 06/16/18 06/16/18 Range/Units 05:30 05:30 WBC 7.3 (3.8-10.6) k/uL RBC 2.98 L (3.80-5.40) m/uL Hgb 9.3 L (11.4-16.0) gm/dL Hct 29.4 L (34.0-46.0) % MCV 98.6 (80.0-100.0) fL MCH 31.1 (25.0-35.0) pg MCHC 31.6 (31.0-37.0) g/dL RDW 15.2 (11.5-15.5) % Plt Count 217 (150-450) k/uL Neutrophils % 69 % Lymphocytes % 19 % Monocytes % 7 % Eosinophils % 3 % Basophils % 1 % Neutrophils # 5.1 (1.3-7.7) k/uL Lymphocytes # 1.4 (1.0-4.8) k/uL Monocytes # 0.5 (0-1.0) k/uL Eosinophils # 0.2 (0-0.7) k/uL Basophils # 0.1 (0-0.2) k/uL Hypochromasia Slight Macrocytosis Slight Sodium 139 (137-145) mmol/L Potassium 3.4 L (3.5-5.1) mmol/L Chloride 110 H (98-107) mmol/L Carbon Dioxide 23 (22-30) mmol/L Anion Gap 6 mmol/L BUN 16 (7-17) mg/dL Creatinine 0.99 (0.52-1.04) mg/dL Est GFR (CKD-EPI)AfAm 66 (>60 ml/min/1.73 sqM) Est GFR (CKD-EPI)NonAf 57 (>60 ml/min/1.73 sqM) Glucose 89 (74-99) mg/dL Calcium 8.0 L (8.4-10.2) mg/dL Disposition Clinical Impression: Fall, Right hip pain Disposition: ADMITTED IP TO THIS HOSP Condition: Fair Is patient prescribed a controlled substance at d/c from ED?: No Referrals: Valerio Lobo MD [Primary Care Provider] - 1-2 days
[2018-06-16] MEDS ORDERED: SENNOSIDES 8.6 MG TAB PO PRN (09:56)
[2018-06-16] MEDS ORDERED: ONDANSETRON 4 MG TAB PO PRN (09:56)
[2018-06-16] MEDS ORDERED: traMADol 50 MG TAB PO PRN (09:56)
[2018-06-16 10:34] LABS: Appearance,Urine Clear (Clear); Bilirubin,Urine Negative (Negative); Blood,Urine Negative (Negative); Color,Urine Dark Yellow; Glucose,Urine (UA) Negative (Negative); Hyaline Casts,Urine 1 /lpf (0-2); Ketones,Urine Negative (Negative); Leukocyte Esterase,Urine Large (Negative); Mucus,Urine Rare /hpf; Nitrite,Urine Negative (Negative); Protein,Urine Trace (Negative); Specific Gravity,Urine 1.023 (1.001-1.035); Squamous Epithelial Cell,Urine 7 /hpf (0-4); WBC,Urine 37 /hpf (0-5)
[2018-06-16] MEDS ORDERED: MAGNESIUM OXIDE 400 MG TAB PO SCH (11:00)
[2018-06-16] MEDS ORDERED: [UNRECOGNIZED DRUG - OTHER] PO SCH (11:00)
[2018-06-16] MEDS ORDERED: FOLIC ACID 1 MG TAB PO SCH (11:00)
[2018-06-16] MEDS ORDERED: HYDROcodone/APAP 5-325MG 1 EACH TAB PO PRN (12:21)
--- NOTE | 2018-06-16 12:59 | P.CNOR ---
History of Present Illness - [facility] Consult date: 06/16/18 Requesting physician: Chapin Rincon Consult reason: joint pain History of present illness: Patient is seen this afternoon in consultation for right hip pain. She is known to Dr. Rincon and myself as she is s/p closed reduction percutaneous pinning on 04/16/18 for right subcap hip fracture. She apparaently had started to fall last evening when she felt right hip pain and thought heard a pop. She has had pain with ambulating. She states the pain is at he lateral aspect of her right hip. She has no groin pain today. She denies radicular symptoms. She has no other complaints. Review of Systems All systems: negative Constitutional: Denies chills, Denies fever Eyes: denies blurred vision, denies pain Ears, nose, mouth and throat: Denies headache, Denies sore throat Cardiovascular: Denies chest pain, Denies shortness of breath Respiratory: Denies cough Gastrointestinal: Denies abdominal pain, Denies diarrhea, Denies nausea, Denies vomiting Genitourinary: Denies dysuria, Denies hematuria Musculoskeletal: Denies myalgias Integumentary: Denies pruritus, Denies rash Neurological: Denies numbness, Denies weakness Psychiatric: Denies anxiety, Denies depression Endocrine: Denies fatigue, Denies weight change Past Medical History Past Medical History: Coronary Artery Disease (CAD), Cancer, Heart Failure, GERD /Reflux, Renal Disease, Thyroid Disorder Additional Past Medical History / Comment(s): Pt last admitted to [facility] on with R hip fracture with percutaneous pinning. 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, previous history of ascites requiring paracentesis, ischemic cardiomyopathy, sustained Vtac, hydropic gallbladder, hiatal hernia, thyroid cancer status post thyroidectomy, questionable liver abscess, chronic atrial fibrillation, history of atrial fibrillation with cardiac arrest requiring an AICD placement, bronchial asthma , chronic renal failure with stage III, asymptomatic kidney stones, chronic anemia, colonic polyps, current R hand fractures wearing brace, UTIs, past L rib fractures, portal vein thrombosis per PMH but pt does not recall, allergic rhinitis Last Myocardial Infarction Date:: 06/2016 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 Past Anesthesia/Blood Transfusion Reactions: No Reported Reaction Additional Past Anesthesia/Blood Transfusion Reaction / Comm: Pt has received blood in past without reaction. Date of Last Stent Placement:: 06/2016 Type of Cardiac Device: AICD Device Placement Date:: , [employer] Past Psychological History: Anxiety, Depression Additional Psychological History / Comment(s): Pt resides with her spouse. She is receiving home care-nursing and PT/OT. She uses a walker to ambulate but feels she will be using her wheelchair more. She no longer drives, her spouse drives. Smoking Status: Former smoker Past Alcohol Use History: Occasional Additional Past Alcohol Use History / Comment(s): Pt started smoking in 1960 and quit in 1970. She is an alcoholic and drinks 4-5 shots of Sohail Olivas a day. Past Drug Use History: None Reported - Past Family History Mother Family Medical History: No Reported History Additional Family Medical History / Comment(s): Mother was healthy and at the age of 93yrs. She had a "weak" heart. Father Family Medical History: Cancer Additional Family Medical History / Comment(s): father had bone cancer and of this at age 65yrs. Medications and Allergies Home Medications Medication Instructions Recorded Confirmed Type Lipase/Protease/Amylase [Creon Dr 2 cap PO AC-TID 05/31/16 06/16/18 History 24,000 Units Capsule] FLUoxetine HCL [PROzac] 20 mg PO DAILY@0700 08/14/16 06/16/18 History Folic Acid 1 mg PO DAILY@1100 08/14/16 06/16/18 History Omeprazole [PriLOSEC] 20 mg PO DAILY@0700 08/14/16 06/16/18 History Rivaroxaban [Xarelto] 20 mg PO DAILY@1700 08/14/16 06/16/18 History Metoprolol Tartrate [Lopressor] 50 mg PO AC-BID 05/18/17 10/22/18 History Vitamin B Complex With C 1 tab PO DAILY@1100 07/22/17 06/16/18 History Magnesium Oxide [Mag-Ox] 400 mg PO DAILY@1100 08/03/17 06/16/18 History Atorvastatin Calcium [Lipitor] 40 mg PO HS 08/30/17 06/16/18 History Amiodarone [Cordarone] 100 mg PO DAILY@1700 04/14/18 06/16/18 History Calcium Carbonate [Calcium] 600 mg PO DAILY 04/14/18 06/16/18 History Cholecalciferol [Vitamin D3] 1,000 unit PO DAILY 04/14/18 06/16/18 History Levothyroxine Sodium [Synthroid] 88 mcg PO DAILY@0700 04/14/18 06/16/18 History Lisinopril [Zestril] 5 mg PO DAILY@1700 04/14/18 06/16/18 History Sennosides [Senokot] 8.6 mg PO DAILY PRN 04/14/18 06/16/18 History Docusate [Colace] 100 mg PO BID #60 capsule 04/18/18 06/16/18 Rx HYDROcodone/APAP 5-325MG [[place] 1 tab PO Q4HR PRN #42 tab 04/18/18 06/16/18 Rx 5-325] Ferrous Sulfate [Feosol] 325 mg PO AC-BID 06/16/18 06/16/18 History Multivitamins, Thera [Multivitamin 1 tab PO DAILY 06/16/18 06/16/18 History (formulary)] Ondansetron [Zofran] 4 mg PO Q8HR PRN 06/16/18 06/16/18 History traMADol HCL [Ultram] 50 mg PO Q6HR PRN 06/16/18 06/16/18 History Allergies Allergy/AdvReac Type Severity Reaction Status Date / Time ibuprofen [From Motrin] Allergy Anaphylaxis Verified 06/16/18 07:29 Iodinated Contrast- Oral and Allergy Rash/Hives Verified 06/16/18 07:29 IV Dye [Iodinated Contrast Media - IV Dye] levofloxacin [From Levaquin] Allergy Anaphylaxis Verified 06/16/18 07:29 shellfish derived AdvReac Nausea & Verified 06/16/18 07:29 Vomiting Physical Examination Inspection of right lower extremity shows no deformity. No acute wound or lacerations. Well healed surgical wound. No erythema or echymosis. There is tenderness at the greater trochanter and IT band. No groin pain with passive IR/ ER, flexion or abduction. Neurovascular status is grossly intact with motor and sensation throughout. Calf is SNT. 2+ DP pulse and less than 2 sec cap refill present Results Xrays of pelvis and right hip show percutaneous screws intact. Previous fracture stable. No new or acute fracture/dislocation seen. - Labs Labs: Abnormal Lab Results - Last 24 Hours (Table) 06/16/18 06/16/18 06/16/18 Range/Units 05:30 05:30 09:51 RBC 2.98 L (3.80-5.40) m/uL Hgb 9.3 L (11.4-16.0) gm/dL Hct 29.4 L (34.0-46.0) % Potassium 3.4 L (3.5-5.1) mmol/L Chloride 110 H (98-107) mmol/L Calcium 8.0 L (8.4-10.2) mg/dL Urine Protein Trace H (Negative) Ur Leukocyte Esterase Large H (Negative) Urine WBC 37 H (0-5) /hpf Ur Squamous Epith Cells 7 H (0-4) /hpf Urine Mucus Rare H (None) /hpf H & H 06/16/18 Range/Units 05:30 Hgb 9.3 L (11.4-16.0) gm/dL Hct 29.4 L (34.0-46.0) % Result Diagrams: 06/16/18 05:30 06/16/18 05:30 - Diagnostic results Hip x-ray: report reviewed, image reviewed Assessment and Plan (1) Right hip pain Narrative/Plan: Patients xrays have been reviewed with Dr. Rincon. She does not appear to have a new fracture or failure of hardware. She appears to have pain at the GT bursa and perhaps IT band. She may be WBAT with walker and assist at all times. She may f/u in 2 weeks or as scheduled. Recommend continued PT, Ice and pain management. Current Visit: Yes Status: Acute Priority: Medium Code(s): M25.551 - PAIN IN RIGHT HIP SNOMED Code(s): 13079629 Time with Patient: Less than 30
[2018-06-16] MEDS: LIPASE 5,000/PROTEASE 17,000/AMYLASE 24,000 PO SCH ×2 (13:03→16:55)
[2018-06-16 15:30] VITALS: BP 150/87; PULSE 72; RESP 18; TEMP 98.1
[2018-06-16] MEDS ORDERED: AMIODARONE 100 MG TAB PO SCH (17:00)
[2018-06-16] MEDS ORDERED: RIVAROXABAN 20 MG TAB PO SCH (17:00)
[2018-06-16] MEDS ORDERED: LISINOPRIL 5 MG TAB PO SCH (17:00)
[2018-06-16] MEDS ORDERED: FERROUS SULFATE 325 MG TAB PO SCH (17:30)
[2018-06-16] MEDS ORDERED: METOPROLOL TARTRATE 50 MG TAB PO SCH (17:30)
--- NOTE | 2018-06-16 18:33 | DS ---
DISCHARGE SUMMARY HISTORY, PHYSICAL AND DISCHARGE SUMMARY: DATE OF ADMISSION: 06/16/2018. DATE OF DISCHARGE: 06/16/2018. FINAL DIAGNOSES: 1. Acute blunt injury to the right hip secondary to fall. 2. Coronary artery disease. 3. Chronic pancreatitis secondary to alcoholism. 4. AICD. 5. Chronic congestive heart failure from systolic and diastolic dysfunction EF 45% from underlying coronary artery disease. 6. Coronary artery disease with prior stent to the circumflex. 7. Cirrhosis secondary to chronic alcoholism. 8. Moderate persistent asthma. 9. Essential hypertension. 10.History of pancreatic duct stent at [facility]. 11.Bilateral kidney stones, asymptomatic. HOSPITAL COURSE: This is a patient who was in rehab until recently with a right hip fracture. Has been home. Does use a walker. The patient took a slip and fall, felt a pop in the right hip and was admitted for the same. The patient did undergo hip and pelvic x-rays that did not reveal any pelvic fracture. The patient was seen by [facility], Dr. Rincon and no further intervention was done. The patient's pain is better controlled. The patient's chronic stable medical conditions include CHF, coronary artery disease, and cirrhosis. REVIEW OF SYSTEMS: CONSTITUTIONAL: Tired. HEENT: None. RESPIRATORY: Occasionally short breath. CARDIOVASCULAR: None. GASTROINTESTINAL: None. GENITOURINARY: None. MUSCULOSKELETAL: Arthritic pain in different joints. The right hip. DERMATOLOGICAL: None. PSYCHIATRY: Slightly forgetful. NEUROLOGICAL: None. PAST MEDICAL HISTORY: 1. Coronary artery disease with prior stent, congestive heart failure, systolic and diastolic dysfunction, EF 45%. 2. Gastroesophageal reflux disease. 3. Chronic pancreatitis secondary to alcoholism. 4. Cirrhosis due to chronic alcoholism. 5. Pancreatic cyst with a prior stent to the pancreatic duct. 6. Hiatal hernia. 7. Thyroid cancer status post thyroidectomy. 8. Asymptomatic kidney stones. 9. Portal vein thrombosis. PAST SURGICAL HISTORY: Cardiac catheterization with stent, AICD, hysterectomy, joint replacement, right hip percutaneous pinning, angioplasty, stent and AICD in 2016, thyroidectomy, left hip replaced, vein stripping bilaterally, repair right and left detached retina, cataracts removal bilaterally. PSYCH HISTORY: Anxiety and depression. SOCIAL HISTORY: . Lives with her . Uses a wheelchair and walker. The patient drank alcohol until recently. The patient stopped smoking in 1970. FAMILY HISTORY: Father with colon cancer and at age 65. HOME MEDICATION AND DISCHARGE MEDICATIONS: 1. Creon 24,000 units 2 capsules p.o. a.c. t.i.d. 2. Prozac 20 mg daily. 3. Folic acid 1 mg p.o. daily. 4. Prilosec 20 mg p.o. daily. 5. Xarelto 20 mg p.o. daily. 6. Lopressor 50 mg p.o. a.c. b.i.d. 7. Vitamin B complex with C 1 tab p.o. daily. 8. Magnesium oxide 400 mg p.o. daily. 9. Lipitor 40 mg p.o. q.h.s. 10.Cordarone 100 mg p.o. daily. 11.Calcium 600 mg p.o. daily. 12.Vitamin D3 1000 units p.o. daily. 13.Synthroid 88 mcg p.o. daily. 14.Zestril 5 mg p.o. daily. 15.Senokot 8.6 mg p.o. daily. 16.Colace 100 mg p.o. b.i.d. 17.[place] 5 one tablet p.o. q.4 p.r.n. 18.Iron 325 p.o. b.i.d. 19.Multivitamin 1 tablet p.o. daily. 20.Zofran 4 mg p.o. q.8h p.r.n. 21.Ultram 50 mg p.o. q.6h p.r.n. ALLERGY: TO MOTRIN, IV CONTRAST DYE, LEVAQUIN, SHELLFISH. EXAMINATION: VITAL SIGNS: Temp 98.1, pulse 72, respiratory 18, blood pressure 150/87, pulse ox 93 percent on room air. GENERAL APPEARANCE: Thin built, lying in bed, awake. EYES: Pupils equal. Conjunctivae slightly pale. HEENT: External appearance of nose and ears normal. Oral cavity normal. NECK: JVD not raised. Mass not palpable. RESPIRATORY: Effort normal. LUNGS : Fair entry. CARDIOVASCULAR: First and second sounds normal. No edema. ABDOMEN: Soft, nontender. Liver and spleen not palpable. LYMPHATICS: No lymph nodes palpable in the neck and axillae. PSYCHIATRY: The patient is able answer questions. Mood and affect normal. MUSCULOSKELETAL: Evidence of osteoarthritis especially in the hands. Slightly limited range of motion of the right hip. NEUROLOGICAL: Pupils equal. Cranial nerves grossly intact. INVESTIGATIONS: White count 7.3, hemoglobin 9.3, potassium 3.4. BUN and creatinine is normal. Pelvic x-ray and hip x-ray does not report any acute fracture. PLAN: Patient is seen by Dr. Rincon, no need for any intervention. Patient has been cleared to go to home. Discussed the care with the patient. Questions were answered. The patient has a walker and a wheelchair at home. Follow with Dr. Lobo. FOLLOWUP: Follow up with Dr. Chapin Rincon's in [address] Lobo. MMODL / IJN: [id number] /
[2018-06-16] MEDS ORDERED: ATORVASTATIN 40 MG TAB PO SCH (21:00)
[2018-06-16] MEDS ORDERED: DOCUSATE 100 MG CAP PO SCH (21:00)
[2018-06-17] MEDS ORDERED: LEVOTHYROXINE 88 MCG TAB PO SCH (07:00)
[2018-06-17] MEDS ORDERED: FLUoxetine HCL 20 MG CAP PO SCH (07:00)
[2018-06-17] MEDS ORDERED: PANTOPRAZOLE 40 MG TABLET PO SCH (07:30)
[2018-06-17] MEDS ORDERED: CALCIUM CARBONATE 500 MG CHEWABLE PO SCH (09:00)
[2018-06-17] MEDS ORDERED: CHOLECALCIFEROL 1,000 UNIT TAB PO SCH (09:00)
[2018-06-17] MEDS ORDERED: MULTIVITAMINS, THERA 1 EACH TAB PO SCH (12:00)
== END 2018-06-16 18:40 | disposition home health service (06) ==
LOC: EC 00:53 → 1SOBS 07:45
PROVIDERS: ADMIT Hospitalist; ATTEND Hospitalist
DX: S79.811A Other specified injuries of right hip, initial encounter (principal); K70.30 Alcoholic cirrhosis of liver without ascites; K86.0 Alcohol-induced chronic pancreatitis; F10.20 Alcohol dependence, uncomplicated; E89.0 Postprocedural hypothyroidism; S72.011D Unspecified intracapsular fracture of right femur, subsequent encounter for closed fracture with routine healing; K44.9 Diaphragmatic hernia without obstruction or gangrene; K21.9 Gastro-esophageal reflux disease without esophagitis; I25.10 Atherosclerotic heart disease of native coronary artery without angina pectoris; I50.42 Chronic combined systolic (congestive) and diastolic (congestive) heart failure; I11.0 Hypertensive heart disease with heart failure; I48.2 Chronic atrial fibrillation; J45.40 Moderate persistent asthma, uncomplicated; N20.0 Calculus of kidney; I81 Portal vein thrombosis; F41.9 Anxiety disorder, unspecified; K82.1 Hydrops of gallbladder; R64 Cachexia; Z68.21 Body mass index [BMI] 21.0-21.9, adult; F32.9 Major depressive disorder, single episode, unspecified; M19.042 Primary osteoarthritis, left hand; M19.041 Primary osteoarthritis, right hand; Z79.01 Long term (current) use of anticoagulants; Z79.899 Other long term (current) drug therapy; Z79.890 Hormone replacement therapy; Z88.6 Allergy status to analgesic agent; Z88.1 Allergy status to other antibiotic agents; Z91.041 Radiographic dye allergy status; Z91.013 Allergy to seafood; Z85.850 Personal history of malignant neoplasm of thyroid; Z95.810 Presence of automatic (implantable) cardiac defibrillator; Z90.710 Acquired absence of both cervix and uterus; Z95.5 Presence of coronary angioplasty implant and graft; Z86.74 Personal history of sudden cardiac arrest; Z87.891 Personal history of nicotine dependence; Z86.010 Personal history of colon polyps; Z16.24 Resistance to multiple antibiotics; Z96.89 Presence of other specified functional implants; Z87.81 Personal history of (healed) traumatic fracture; Z96.642 Presence of left artificial hip joint; Z82.49 Family history of ischemic heart disease and other diseases of the circulatory system; Z80.8 Family history of malignant neoplasm of other organs or systems; Z80.0 Family history of malignant neoplasm of digestive organs; W01.0XXA Fall on same level from slipping, tripping and stumbling without subsequent striking against object, initial encounter
CPT/HCPCS: 36415; 73502; 80048; 81001; 85025; 99285

== ENCOUNTER 2018-08-28 17:09 | Emergency (ER) | payer MEDICARE, BC ==
[2018-08-28 17:20] VITALS: RESP 18; TEMP 98.1
--- NOTE | 2018-08-28 18:43 | XR ---
EXAMINATION TYPE: XR Hip Bilateral and AP pelvis DATE OF EXAM: 08/28/2018 COMPARISON: 06/16/2018 HISTORY: Fall. Pain. TECHNIQUE: 5 views of the pelvis and both hips were obtained. FINDINGS: There is a left hip prosthesis. There are 3 screws fixating an apparent old subcapital fracture right femur. Pelvic ring is intact. I see no pelvic fracture. Hip prosthesis is in good position. I see no acute proximal right femur fracture. IMPRESSION: No acute abnormality of the pelvis and both hips. No change in appearance compared to last exam.
--- NOTE | 2018-08-28 18:45 | XR ---
EXAMINATION TYPE: XR lumbar spine 2 or 3V DATE OF EXAM: 08/28/2018 COMPARISON: 01/23/2017 HISTORY: Pain TECHNIQUE: 3 views FINDINGS: There is mild levoscoliosis. Abdominal aorta is atheromatous. There is osteopenia. I see no acute fracture. There is 10% wedging of L2 vertebra. This appears stable. Sacroiliac joints appear i ntact. IMPRESSION: Spondylotic changes and levoscoliosis. No acute fracture seen. No change compared to old exam.
--- NOTE | 2018-08-28 19:01 | XR ---
EXAMINATION TYPE: XR thoracic spine 2V DATE OF EXAM: 08/28/2018 COMPARISON: NONE HISTORY: Pain TECHNIQUE: 3 views FINDINGS: There is osteopenia. There is slight thoracic kyphotic curvature. There is slight anterior wedging of a few mid thoracic vertebra with up to 20% loss of height. I see no paraspinal mass. Poste rior elements are intact. IMPRESSION: Mild anterior wedging of a few thoracic vertebra of uncertain age.
--- NOTE | 2018-08-28 19:04 | XR ---
EXAMINATION TYPE: XR chest 2V DATE OF EXAM: 08/28/2018 COMPARISON: 01/21/2017 HISTORY: Pain after a fall TECHNIQUE: Frontal and lateral views of the chest are obtained. FINDINGS: There is slight blunting of the costophrenic angles. There is coarsening of the lung claudia ngs. There is osteopenia. There is very slight thoracic kyphotic curvature. There is left axillary pa cemaker noted with the lead tips over the right ventricle. IMPRESSION: There is a slight thoracic kyphosis. This does not appear to be significantly different however compared to the lateral chest x-ray of 01/21/2017. There is some pleural reaction and fluid at the lung bases new compared to old exam. Patchy mild inte rstitial infiltrates. Mild heart failure is possible.
[2018-08-28] MEDS ORDERED: cefTRIAXone 1,000 MG VIAL (IM USE) IM STA (19:55)
[2018-08-28 20:16] VITALS: BP 163/87
--- NOTE | 2018-08-28 20:36 | ED ---
General Adult HPI - General Chief complaint: Fall Stated complaint: FALL Source: EMS, RN notes reviewed, old records reviewed Mode of arrival: EMS Limitations: physical limitation - History of Present Illness Initial comments: 73-year-old female patient with past medical history of CHF, liver cirrhosis, COPD, atrial fibrillation presents to ED after sustaining a mechanical fall today. Patient reports that she was walking with walker when she slipped and fell backwards onto her gluteus. Patient states that she experienced pain in her lumbar spine. Patient was transported by ambulance to ED. Patient is on anticoagulants. Patient denies any trauma to head or neck. Patient denies any headache, changes in vision. Patient denies chest pain, shortness of breath. Patient denies abdominal pain. Loss of bowel or bladder control, IVDU or fever/ chills. Systemic: Pt denies fatigue, myalgia, fever/chills, rash. Pt denies weakness, night sweats, weight loss. Neuro: Pt denies headache, visual disturbances, syncope or pre-syncope. HEENT: Pt denies ocular discharge or irritation, otalgia, rhinorrhea, pharyngitis or notable lymphadenopathy. Cardiopulmonary: Pt denies chest pain, SOB, heart palpitations, dyspnea on exertion. Abdominal/GI: Pt denies abdominal pain, n/v/d. : Pt denies dysuria, burning w/ urination, frequency/urgency. Denies new onset urinary or bowel incontinence. MSK: Pt denies myalgia, loss of strength or function in extremities. Neuro: Pt denies new onset weakness, paresthesias. - Related Data Home Medications Medication Instructions Recorded Confirmed Lipase/Protease/Amylase [Harshil Fiore 2 cap PO AC-TID 05/31/16 06/16/18 24,000 Units Capsule] FLUoxetine HCL [PROzac] 20 mg PO DAILY@0700 08/14/16 06/16/18 Folic Acid 1 mg PO DAILY@1100 08/14/16 06/16/18 Omeprazole [PriLOSEC] 20 mg PO DAILY@0700 08/14/16 06/16/18 Rivaroxaban [Xarelto] 20 mg PO DAILY@1700 08/14/16 06/16/18 Metoprolol Tartrate [Lopressor] 50 mg PO AC-BID 01/10/17 06/16/18 Vitamin B Complex With C 1 tab PO DAILY@1100 07/22/17 06/16/18 Magnesium Oxide [Mag-Ox] 400 mg PO DAILY@1100 08/03/17 06/16/18 Atorvastatin Calcium [Lipitor] 40 mg PO HS 08/30/17 06/16/18 Amiodarone [Cordarone] 100 mg PO DAILY@1700 04/14/18 06/16/18 Calcium Carbonate [Calcium] 600 mg PO DAILY 04/14/18 06/16/18 Cholecalciferol [Vitamin D3] 1,000 unit PO DAILY 04/14/18 06/16/18 Levothyroxine Sodium [Synthroid] 88 mcg PO DAILY@0700 04/14/18 06/16/18 Lisinopril [Zestril] 5 mg PO DAILY@1700 04/14/18 06/16/18 Sennosides [Senokot] 8.6 mg PO DAILY PRN 04/14/18 06/16/18 Ferrous Sulfate [Iron (65 MG 325 mg PO AC-BID 06/16/18 06/16/18 Elemental)] Multivitamins, Thera [Multivitamin 1 tab PO DAILY 06/16/18 06/16/18 (formulary)] Ondansetron [Zofran] 4 mg PO Q8HR PRN 06/16/18 06/16/18 traMADol HCL [Ultram] 50 mg PO Q6HR PRN 06/16/18 06/16/18 Previous Rx's Medication Instructions Recorded Docusate [Colace] 100 mg PO BID #60 capsule 04/18/18 HYDROcodone/APAP 5-325MG [[place] 1 tab PO Q4HR PRN #42 tab 04/18/18 5-325] Amoxicillin/Potassium Clav 1 each PO Q12HR #20 tab 08/28/18 [Augmentin 875-125 Tablet] Azithromycin [Zithromax Z-pack] 0 mg PO DIRECTED #6 tab 08/28/18 Allergies Allergy/AdvReac Type Severity Reaction Status Date / Time ibuprofen [From Motrin] Allergy Anaphylaxis Verified 06/16/18 07:29 Iodinated Contrast- Oral and Allergy Rash/Hives Verified 06/16/18 07:29 IV Dye [Iodinated Contrast Media - IV Dye] levofloxacin [From Levaquin] Allergy Anaphylaxis Verified 06/16/18 07:29 shellfish derived AdvReac Nausea & Verified 06/16/18 07:29 Vomiting Review of Systems ROS Statement: Those systems with pertinent positive or pertinent negative responses have been documented in the HPI. ROS Other: All systems not noted in ROS Statement are negative. Past Medical History Past Medical History: Coronary Artery Disease (CAD), Cancer, Heart Failure, GERD /Reflux, Renal Disease, Thyroid Disorder Additional Past Medical History / Comment(s): Pt last admitted to [facility] on with R hip fracture with percutaneous pinning. 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, previous history of ascites requiring paracentesis, ischemic cardiomyopathy, sustained Vtac, hydropic gallbladder, hiatal hernia, thyroid cancer status post thyroidectomy, questionable liver abscess, chronic atrial fibrillation, history of atrial fibrillation with cardiac arrest requiring an AICD placement, bronchial asthma , chronic renal failure with stage III, asymptomatic kidney stones, chronic anemia, colonic polyps, current R hand fractures wearing brace, UTIs, past L rib fractures, portal vein thrombosis per [facility] but pt does not recall, allergic rhinitis Last Myocardial Infarction Date:: 06/2016 History of Any Multi-Drug Resistant Organisms: CRE Date of last positivie culture/infection: 08/07/17 CRE serratia marcescens MDRO Source:: Blood Past Surgical History: AICD, Heart Catheterization With Stent, Hysterectomy, Joint Replacement, Pacemaker Additional Past Surgical History / Comment(s): 03/2018 R hip percutaneous pinning , 2016 PCI with stent and AICD, paracentesises, thyroidectomy, left hip replaced , vein stripping bilaterally, repair right and left detached retina, cataract removal bilat eyes, pancreatic stent, liver bx, EGD. Past Anesthesia/Blood Transfusion Reactions: No Reported Reaction Additional Past Anesthesia/Blood Transfusion Reaction / Comment(s): Pt has received blood in past without reaction. Date of Last Stent Placement:: 06/2016 Type of Cardiac Device: AICD Device Placement Date:: , [place] Past Psychological History: Anxiety, Depression Smoking Status: Former smoker Past Alcohol Use History: Occasional Past Drug Use History: None Reported - Past Family History Mother Family Medical History: No Reported History Additional Family Medical History / Comment(s): Mother was healthy and at the age of 93yrs. She had a "weak" heart. Father Family Medical History: Cancer Additional Family Medical History / Comment(s): father had bone cancer and of this at age 65yrs. General Exam - General Exam Comments Initial Comments: Constitutional: NAD, AOX3, Pt has pleasant affect. HEENT: NC/AT, trachea midline, neck supple, no lymphadenopathy. Posterior pharynx non erythematous, without exudates. External ears appear normal, without discharge. Mucous membranes moist. Eyes PERRLA, EOM intact. There is no scleral icterus. No pallor noted. Cardiopulmonary: RRR, no murmurs, rubs or gallops, no JVD noted. Lungs CTAB in anterior and posterior rivera. No peripheral edema. Abdominal exam: Abdomen soft and non-distended. Abdomen non-tender to palpation in all 4 quadrants. Bowel sounds active in LLQ. No hepatosplenomegaly. No ecchymosis Neuro: CN II-XII intact. No nuchal rigidity. No cervical spinal tenderness, full active ROM of neck. MSK: Midline cervical, thoracic and lumbar spine nontender to palpation. Para cervical, thoracic and lumbar non tender to palpation. Pt flexion of lower extremities intact bilaterally. Pt sensation intact bilaterally. Distal pulses intact. No posterior calf tenderness bilaterally, homans sign negative bilaterally. No ecchymosis. Limitations: physical limitation Course Vital Signs 08/28/18 08/28/18 08/28/18 17:14 20:15 20:46 Temperature 98.1 F Pulse Rate 88 70 81 Respiratory 18 18 Rate Blood Pressure 140/88 163/87 O2 Sat by Pulse 94 L 93 L 95 Oximetry Medical Decision Making - Medical Decision Making 73-year-old female patient with past medical history of CHF, liver cirrhosis, COPD, atrial fibrillation presents to ED after sustaining a mechanical fall today. Patient reports that she was walking with walker when she slipped and fell backwards onto her gluteus. Patient states that she experienced pain in her lumbar spine. Patient was transported by ambulance to ED. Patient is on anticoagulants. Patient denies any trauma to head or neck. Physical exam displayed normal neurologic examination, no cervical spinal tenderness. MSK exam displayed Midline cervical, thoracic and lumbar spine nontender to palpation. Para cervical, thoracic and lumbar non tender to palpation. Pt flexion of lower extremities intact bilaterally. Pt sensation intact bilaterally. Distal pulses intact. No posterior calf tenderness bilaterally, homans sign negative bilaterally. No ecchymosis. Imaging modalities displayed mild anterior wedging of the thoracic vertebrae of uncertain age. Likely not acute. No acute findings of lumbar spine. No acute abnormality of the pelvis and both hips. No change in comparison to old exam. Chest x-ray displayed some pleural fluid at the base of lungs and patchy mild interstitial infiltrates. Mild heart failure versus pneumonia. Patient has no symptoms of CHF exacerbation. No peripheral edema, no JVD. Pulse ox at discharge 95%. Patient treated for pneumonia with 1 g Rocephin in ED, by mouth antibiotics outpatient - augmentin and azithromycin. Patient additionally given 1 dose of Lasix in ED. Patient has appointment with primary care physician tomorrow will follow up and receive continued evaluation. Pt to return to ED if new s/sx develops or if condition worsens in anyway. Case discussed and Pt seen by dr carpenter. Disposition Clinical Impression: Pneumonia, Fall, Congestive heart disease Disposition: HOME SELF-CARE Condition: Good Instructions: Fall Prevention for Older Adults (ED), Community Acquired Pneumonia (ED) Additional Instructions: Patient to adhere to previously discussed treatment plan and will take medication(s) as directed. Patient to follow up with PCP in 1-2 days. Patient to return to ED if symptoms do not improve. Prescriptions: Amoxicillin/Potassium Clav [Augmentin 875-125 Tablet] 1 each PO Q12HR #20 tab Azithromycin [Zithromax Z-pack] 0 mg PO DIRECTED #6 tab Is patient prescribed a controlled substance at d/c from ED?: No Referrals: Valerio Lobo MD [Primary Care Provider] - 1-2 days Time of Disposition: 20:36
[2018-08-28] MEDS ORDERED: FUROSEMIDE 40 MG TAB PO STA (20:44)
[2018-08-28 20:47] VITALS: PULSE 81
== END 2018-08-28 21:03 | disposition home or self-care (01) ==
LOC: EC 17:09
DX: J18.9 Pneumonia, unspecified organism (principal); J44.0 Chronic obstructive pulmonary disease with (acute) lower respiratory infection; I50.9 Heart failure, unspecified; R93.7 Abnormal findings on diagnostic imaging of other parts of musculoskeletal system; M54.5 Low back pain; I48.2 Chronic atrial fibrillation; N18.3 Chronic kidney disease, stage 3 (moderate); K70.30 Alcoholic cirrhosis of liver without ascites; I25.10 Atherosclerotic heart disease of native coronary artery without angina pectoris; K21.9 Gastro-esophageal reflux disease without esophagitis; E89.0 Postprocedural hypothyroidism; D64.9 Anemia, unspecified; F32.9 Major depressive disorder, single episode, unspecified; F41.9 Anxiety disorder, unspecified; Z87.891 Personal history of nicotine dependence; Z88.1 Allergy status to other antibiotic agents; Z88.6 Allergy status to analgesic agent; Z91.013 Allergy to seafood; Z91.041 Radiographic dye allergy status; Z79.01 Long term (current) use of anticoagulants; Z79.899 Other long term (current) drug therapy; Z85.850 Personal history of malignant neoplasm of thyroid; Z95.0 Presence of cardiac pacemaker; Z96.642 Presence of left artificial hip joint; Z82.49 Family history of ischemic heart disease and other diseases of the circulatory system; W01.0XXA Fall on same level from slipping, tripping and stumbling without subsequent striking against object, initial encounter; Y93.01 Activity, walking, marching and hiking; Y92.009 Unspecified place in unspecified non-institutional (private) residence as the place of occurrence of the external cause
CPT/HCPCS: 72070; 72100; 73521; 71046; 99284; 96372; J0696

== ENCOUNTER 2018-11-25 07:04 | Emergency (ER) | payer MEDICARE, BC ==
[2018-11-25 07:20] VITALS: PULSE 71; RESP 18; TEMP 98.5
--- NOTE | 2018-11-25 07:27 | ED ---
Fall HPI - General Source: patient, EMS Mode of arrival: EMS Limitations: no limitations <Boris Walker - Last Filed: 11/25/18 08:24> <Leonardo Torer - Last Filed: 11/25/18 08:34> - General Chief Complaint: Fall Stated Complaint: Fall/shoudler injury Time Seen by Provider: 11/25/18 07:20 - History of Present Illness Initial Comments: 73-year-old female presents emergency department via EMS chief complaint of trip and fall. Patient states she tripped and fell on her bathroom onto her left shoulder. Patient states that she has no other injury. She denies any head injury no loss conscious no neck, hip or lower extremity injury. Patient states that she has no headache or dizziness any chest pain or shortness of breath no syncope. Patient states she has severe pain in her left shoulder which is swollen. Patient was given tramadol at home but did not help the pain so EMS was called. Patient was given 150 g of fentanyl by EMS. Patient states her pain is much improved at this time does not request any further pain medication. Patient denies any paresthesias. Patient states she currently has a right wrist fracture that happened approximately 3 weeks ago. (Boris Walker) - Related Data Home Medications Medication Instructions Recorded Confirmed Lipase/Protease/Amylase [Harshil Fiore 2 cap PO AC-TID 05/31/16 11/25/18 24,000 Units Capsule] Folic Acid 1 mg PO DAILY@1100 08/14/16 11/25/18 Omeprazole [PriLOSEC] 20 mg PO DAILY@0900 08/14/16 11/25/18 Rivaroxaban [Xarelto] 20 mg PO DAILY@1700 08/14/16 11/25/18 Metoprolol Tartrate [Lopressor] 50 mg PO BID@0900,1700 01/10/17 11/25/18 Magnesium Oxide [Mag-Ox] 400 mg PO DAILY@1100 08/03/17 11/25/18 Atorvastatin Calcium [Lipitor] 40 mg PO DAILY@1700 08/30/17 11/25/18 Amiodarone [Cordarone] 100 mg PO DAILY@1700 04/14/18 11/25/18 Calcium Carbonate [Calcium] 600 mg PO DAILY@1100 04/14/18 11/25/18 Cholecalciferol [Vitamin D3] 2,000 unit PO DAILY@1100 04/14/18 11/25/18 Lisinopril [Zestril] 5 mg PO DAILY@1700 04/14/18 11/25/18 Ferrous Sulfate [Iron (65 MG 325 mg PO DAILY@1700 06/16/18 11/25/18 Elemental)] Multivitamins, Thera [Multivitamin 1 tab PO DAILY@1100 06/16/18 11/25/18 (formulary)] Albuterol Nebulized [Ventolin 2.5 mg INHALATION RT-Q6H PRN 11/25/18 11/25/18 Nebulized] Bisacodyl [Dulcolax] 5 mg PO DAILY PRN 11/25/18 11/25/18 Donepezil [Aricept] 10 mg PO DAILY@1700 11/25/18 11/25/18 FLUoxetine HCL 40 mg PO DAILY@0700 11/25/18 11/25/18 Famotidine [Pepcid] 20 mg PO BID 11/25/18 11/25/18 Levothyroxine Sodium [Synthroid] 100 mcg PO DAILY@0700 11/25/18 11/25/18 Ondansetron HCl [Zofran] 8 mg PO Q8H PRN 11/25/18 11/25/18 Allergies Allergy/AdvReac Type Severity Reaction Status Date / Time furosemide [From Lasix] Allergy Unknown Verified 11/25/18 08:12 ibuprofen [From Motrin] Allergy Anaphylaxis Verified 11/25/18 08:12 Iodinated Contrast- Oral and Allergy Rash/Hives Verified 11/25/18 08:12 IV Dye [Iodinated Contrast Media - IV Dye] levofloxacin [From Levaquin] Allergy Anaphylaxis Verified 11/25/18 08:12 shellfish derived AdvReac Nausea & Verified 11/25/18 08:12 Vomiting Review of Systems ROS Other: All systems not noted in ROS Statement are negative. <Boris Walker - Last Filed: 11/25/18 08:24> ROS Other: All systems not noted in ROS Statement are negative. <Leonardo Torre - Last Filed: 11/25/18 08:34> ROS Statement: Those systems with pertinent positive or pertinent negative responses have been documented in the HPI. Past Medical History Past Medical History: Coronary Artery Disease (CAD), Cancer, Heart Failure, GERD/Reflux, Renal Disease, Thyroid Disorder Additional Past Medical History / Comment(s): Pt last admitted to [facility] on 04/14/18 with R hip fracture with percutaneous pinning. 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 but pt does not recall, allergic rhinitis Last Myocardial Infarction Date:: 06/2016 History of Any Multi-Drug Resistant Organisms: CRE Date of last positivie culture/infection: 08/07/17 CRE serratia marcescens MDRO Source:: Blood Past Surgical History: AICD, Heart Catheterization With Stent, Hysterectomy, Joint Replacement, Pacemaker Additional Past Surgical History / Comment(s): 03/2018 R hip percutaneous pinning, 2016 PCI with stent and AICD, paracentesises, thyroidectomy, left hip replaced, vein stripping bilaterally, repair right and left detached retina, cataract removal bilat eyes, pancreatic stent, liver bx, EGD. Past Anesthesia/Blood Transfusion Reactions: No Reported Reaction Additional Past Anesthesia/Blood Transfusion Reaction / Comment(s): Pt has received blood in past without reaction. Date of Last Stent Placement:: 06/2016 Type of Cardiac Device: AICD Device Placement Date:: , [employer] Past Psychological History: Anxiety, Depression Smoking Status: Former smoker Past Alcohol Use History: Occasional Past Drug Use History: None Reported - Past Family History Mother Family Medical History: No Reported History Additional Family Medical History / Comment(s): Mother was healthy and at the age of 93yrs. She had a "weak" heart. Father Family Medical History: Cancer Additional Family Medical History / Comment(s): father had bone cancer and of this at age 65yrs. <Boris Walker - Last Filed: 11/25/18 08:24> General Exam Limitations: no limitations General appearance: alert, in no apparent distress Head exam: Present: atraumatic, normocephalic, normal inspection Eye exam: Present: normal appearance, PERRL, EOMI. Absent: scleral icterus, conjunctival injection, periorbital swelling ENT exam: Present: normal exam, normal oropharynx, mucous membranes moist, TM's normal bilaterally, normal external ear exam Neck exam: Present: normal inspection, full ROM. Absent: tenderness, meningismus, lymphadenopathy Respiratory exam: Present: normal lung sounds bilaterally. Absent: respiratory distress, wheezes, rales, rhonchi, stridor Cardiovascular Exam: Present: regular rate, normal rhythm, normal heart sounds. Absent: systolic murmur, diastolic murmur, rubs, gallop, clicks Extremities exam: Present: other (Left shoulder there is moderate swelling and moderate to severe tenderness with palpation, limited range of motion neurovascular intact, there is no elbow tenderness no forearm tenderness. Remaining extremity exam within normal limits) Back exam: Present: full ROM. Absent: tenderness, paraspinal tenderness, vertebral tenderness Neurological exam: Present: alert, oriented X3, CN II-XII intact, reflexes normal. Absent: motor sensory deficit Skin exam: Present: warm, dry, intact, normal color. Absent: rash <Boris Walker - Last Filed: 11/25/18 08:24> Course <Leonardo Torre - Last Filed: 11/25/18 08:34> Vital Signs 11/25/18 11/25/18 07:06 07:53 Temperature 98.5 F Pulse Rate 71 Respiratory 18 18 Rate Blood Pressure 149/98 136/85 O2 Sat by Pulse 95 97 Oximetry - Reevaluation(s) Reevaluation #1: 11/25/18 08:33 PA supervision: I did personally do a [id number] evaluation patient did discuss the findings with her. Patient does demonstrate a fracture she is in a sling at this time and will be referred to orthopedics. They are in agreement with this. I do agree with the assessment and plan. Patient does demonstrate humeral head fracture on the left after a fall. He did review the imaging and report. (Leonardo Torre) Medical Decision Making <Boris Walker - Last Filed: 11/25/18 08:24> - Medical Decision Making This a 73-year-old female presented for fall, left shoulder injury. Patient x- rays of her left shoulder which shows humeral neck fracture. Patient we placed a sling, follow-up with orthopedics. Patient we discharged with pain medication and return parameters were discussed. (Boris Walker) Disposition Is patient prescribed a controlled substance at d/c from ED?: No Time of Disposition: 08:27 <Boris Walker - Last Filed: 11/25/18 08:24> <Leonardo Torre - Last Filed: 11/25/18 08:34> Clinical Impression: Fall, Left humeral fracture Disposition: HOME SELF-CARE Condition: Stable Instructions (If sedation given, give patient instructions): Proximal Humerus Fracture (ED) Additional Instructions: Please return to the Emergency Department if symptoms worsen or any other concerns. Referrals: Valerio Lobo MD [Primary Care Provider] - 1-2 days Allen Saba MD [STAFF PHYSICIAN] - 1-2 days
--- NOTE | 2018-11-25 08:11 | XR ---
EXAMINATION TYPE: XR shoulder complete LT DATE OF EXAM: 11/25/2018 COMPARISON: NONE HISTORY: Pain TECHNIQUE: Two views are submitted. FINDINGS: There is a displaced fracture of the left humeral neck. Cardiac device seen and there is arthropathy of the shoulder. Calcific tendinosis suspected. IMPRESSION: 1. There is a left humeral neck fracture.
[2018-11-25] MEDS ORDERED: ACET/COD 300 MG/30 MG STARTER PACK 6 TAB BTL PO STA (08:28)
[2018-11-25 08:35] VITALS: BP 109/82
[2018-11-25] MEDS ORDERED: ONDANSETRON 4 MG/2 ML VIAL IM STA (09:00)
[2018-11-25] MEDS ORDERED: ONDANSETRON 4 MG ODT STARTER PACK 2 TAB BTL PO STA (09:00)
== END 2018-11-25 09:16 ==
LOC: EC 07:04
DX: S42.202A Unspecified fracture of upper end of left humerus, initial encounter for closed fracture (principal); I25.10 Atherosclerotic heart disease of native coronary artery without angina pectoris; I50.9 Heart failure, unspecified; I25.5 Ischemic cardiomyopathy; K21.9 Gastro-esophageal reflux disease without esophagitis; I48.2 Chronic atrial fibrillation; J45.909 Unspecified asthma, uncomplicated; D64.9 Anemia, unspecified; F41.9 Anxiety disorder, unspecified; F32.9 Major depressive disorder, single episode, unspecified; Z85.850 Personal history of malignant neoplasm of thyroid; Z90.89 Acquired absence of other organs; Z95.810 Presence of automatic (implantable) cardiac defibrillator; Z95.5 Presence of coronary angioplasty implant and graft; Z96.642 Presence of left artificial hip joint; Z87.891 Personal history of nicotine dependence; Z79.01 Long term (current) use of anticoagulants; Z79.890 Hormone replacement therapy; Z79.899 Other long term (current) drug therapy; Z88.8 Allergy status to other drugs, medicaments and biological substances; Z88.6 Allergy status to analgesic agent; Z91.041 Radiographic dye allergy status; Z88.1 Allergy status to other antibiotic agents; Z91.013 Allergy to seafood; W01.0XXA Fall on same level from slipping, tripping and stumbling without subsequent striking against object, initial encounter; Y92.002 Bathroom of unspecified non-institutional (private) residence as the place of occurrence of the external cause; Y93.01 Activity, walking, marching and hiking
CPT/HCPCS: 96372; 99283

== ENCOUNTER 2018-11-28 08:42 | Observation (INO) | payer MEDICARE, BC ==
[2018-11-28 09:11] LABS: Anisocytosis Slight; Basophils % (A) 1 %; Eosinophils # (A) 0.1 k/uL (0-0.7); Eosinophils % (A) 1 %; HCT 25.1 % (34.0-46.0); HGB 8.4 gm/dL (11.4-16.0); Lymphocytes # (A) 0.6 k/uL (1.0-4.8); Lymphocytes % (A) 9 %; MCH 32.1 pg (25.0-35.0); MCHC 33.3 g/dL (31.0-37.0); MCV 96.4 fL (80.0-100.0); Mean Platelet Volume 9.6; Monocytes # (A) 0.6 k/uL (0-1.0); Monocytes % (A) 9 %; Neutrophils # (A) 4.8 k/uL (1.3-7.7); Neutrophils % (A) 78 %; Platelet Count 189 k/uL (150-450); RDW 16.2 % (11.5-15.5); WBC 6.2 k/uL (3.8-10.6)
--- NOTE | 2018-11-28 09:11 | ED ---
Lower Extremity Injury HPI - General Source: patient, RN notes reviewed Mode of arrival: EMS Limitations: no limitations <Boris Walker - Last Filed: 11/28/18 10:45> <Leonardo Wilkerson - Last Filed: 11/28/18 11:03> - General Chief Complaint: Extremity Injury, Lower Stated Complaint: Hip Pain Time Seen by Provider: 11/28/18 08:47 - History of Present Illness Initial Comments: This a 73-year-old female presents emergency department via EMS for generalized weakness unable to family. Patient had a recent fall 3 days ago seen in emergency department diagnosed with a left humeral head fracture. Patient states that she's been laying in bed for last 3 days has not gotten up out of bed. Patient states she's having too much difficulty ambulating is now developed some hip discomfort, left-sided neck discomfort. Denies any chest pain or shortness of breath. Patient states she had no other falls. Patient s tates that she also has a right wrist fracture. Patient unable to take care of herself at home. Patient is requesting placement in facility. Denies any other complaints. (Boris Walker) - Related Data Home Medications Medication Instructions Recorded Confirmed Lipase/Protease/Amylase [Sonon Dr 2 cap PO AC-TID 05/31/16 11/28/18 24,000 Units Capsule] Folic Acid 1 mg PO DAILY@1100 08/14/16 11/28/18 Omeprazole [PriLOSEC] 20 mg PO DAILY@0900 08/14/16 11/28/18 Rivaroxaban [Xarelto] 20 mg PO DAILY@1700 08/14/16 11/28/18 Metoprolol Tartrate [Lopressor] 50 mg PO BID@0900,1700 01/10/17 11/28/18 Magnesium Oxide [Mag-Ox] 400 mg PO DAILY@1100 08/03/17 11/28/18 Atorvastatin Calcium [Lipitor] 40 mg PO DAILY@1700 08/30/17 11/28/18 Amiodarone [Cordarone] 100 mg PO DAILY@1700 04/14/18 11/28/18 Calcium Carbonate [Calcium] 600 mg PO DAILY@1100 04/14/18 11/28/18 Cholecalciferol [Vitamin D3] 2,000 unit PO DAILY@1100 04/14/18 11/28/18 Lisinopril [Zestril] 5 mg PO DAILY@1700 04/14/18 11/28/18 Ferrous Sulfate [Iron (65 MG 325 mg PO DAILY@1700 06/16/18 11/28/18 Elemental)] Multivitamins, Thera [Multivitamin 1 tab PO DAILY@1100 06/16/18 11/28/18 (formulary)] Albuterol Nebulized [Ventolin 2.5 mg INHALATION RT-Q6H PRN 11/25/18 11/28/18 Nebulized] Bisacodyl [Dulcolax] 5 mg PO DAILY PRN 11/25/18 11/28/18 Donepezil [Aricept] 10 mg PO DAILY@1700 11/25/18 11/28/18 FLUoxetine HCL 40 mg PO DAILY@0700 11/25/18 11/28/18 Famotidine [Pepcid] 20 mg PO BID 11/25/18 11/28/18 Levothyroxine Sodium [Synthroid] 100 mcg PO DAILY@0700 11/25/18 11/28/18 Ondansetron HCl [Zofran] 8 mg PO Q8H PRN 11/25/18 11/28/18 Allergies Allergy/AdvReac Type Severity Reaction Status Date / Time furosemide [From Lasix] Allergy Unknown Verified 11/28/18 09:41 ibuprofen [From Motrin] Allergy Anaphylaxis Verified 11/28/18 09:41 Iodinated Contrast- Oral and Allergy Rash/Hives Verified 11/28/18 09:41 IV Dye [Iodinated Contrast Media - IV Dye] levofloxacin [From Levaquin] Allergy Anaphylaxis Verified 11/28/18 09:41 shellfish derived AdvReac Nausea & Verified 11/28/18 09:41 Vomiting Review of Systems ROS Other: All systems not noted in ROS Statement are negative. <Boris Walker - Last Filed: 11/28/18 10:45> ROS Other: All systems not noted in ROS Statement are negative. <Leonardo Wilkerson - Last Filed: 11/28/18 11:03> ROS Statement: Those systems with pertinent positive or pertinent negative responses have been documented in the HPI. Past Medical History Past Medical History: Coronary Artery Disease (CAD), Cancer, Heart Failure, GERD/Reflux, Renal Disease, Thyroid Disorder Additional Past Medical History / Comment(s): Pt last admitted to [facility] on 03/27 with R hip fracture with percutaneous pinning. 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, previous history of ascites requiring paracentesis, ischemic cardiomyopathy, sustained Vtac, hydropic gallbladder, hiatal hernia, thyroid cancer status post thyroidectomy, questionable liver abscess, chronic atrial fibrillation, history of atrial fibrillation with cardiac arrest requiring an AICD placement, bronchial asthma, chronic renal failure with stage III, asymptomatic kidney stones, chronic anemia, colonic polyps, current R hand fractures wearing brace, UTIs, past L rib fractures, portal vein thrombosis per H but pt does not recall, allergic rhinitis Last Myocardial Infarction Date:: 06/2016 History of Any Multi-Drug Resistant Organisms: CRE Date of last positivie culture/infection: 08/07/17 CRE serratia marcescens MDRO Source:: Blood Past Surgical History: AICD, Heart Catheterization With Stent, Hysterectomy, Joint Replacement, Pacemaker Additional Past Surgical History / Comment(s): 03/2018 R hip percutaneous pinning, 2015 PCI with stent and AICD, paracentesises, thyroidectomy, left hip replaced, vein stripping bilaterally, repair right and left detached retina, cataract removal bilat eyes, pancreatic stent, liver bx, EGD. Past Anesthesia/Blood Transfusion Reactions: No Reported Reaction Additional Past Anesthesia/Blood Transfusion Reaction / Comment(s): Pt has recei anthony blood in past without reaction. Date of Last Stent Placement:: 06/2016 Type of Cardiac Device: AICD Device Placement Date:: , Medtronic Past Psychological History: Anxiety, Depression Smoking Status: Former smoker Past Alcohol Use History: Occasional Past Drug Use History: None Reported - Past Family History Mother Family Medical History: No Reported History Additional Family Medical History / Comment(s): Mother was healthy and at the age of 93yrs. She had a "weak" heart. Father Family Medical History: Cancer Additional Family Medical History / Comment(s): father had bone cancer and of this at age 65yrs. <Boris Walker - Last Filed: 11/28/18 10:45> General Exam Limitations: no limitations General appearance: alert, in no apparent distress Head exam: Present: atraumatic, normocephalic, normal inspection Eye exam: Present: normal appearance, PERRL, EOMI. Absent: scleral icterus, conjunctival injection, periorbital swelling ENT exam: Present: normal exam, normal oropharynx, mucous membranes moist Neck exam: Present: normal inspection, full ROM. Absent: tenderness, meningismus, lymphadenopathy Respiratory exam: Present: normal lung sounds bilaterally. Absent: respiratory distress, wheezes, rales, rhonchi, stridor Cardiovascular Exam: Present: regular rate, normal rhythm, normal heart sounds. Absent: systolic murmur, diastolic murmur, rubs, gallop, clicks Neurological exam: Present: alert, oriented X3, CN II-XII intact, reflexes normal. Absent: motor sensory deficit Skin exam: Present: warm, dry, intact, normal color. Absent: rash <Boris Walker - Last Filed: 11/28/18 10:45> Course Vital Signs 11/28/18 08:51 Temperature 99.9 F H Pulse Rate 75 Respiratory 18 Rate Blood Pressure 116/74 O2 Sat by Pulse 98 Oximetry Medical Decision Making - Lab Data Result diagrams: 11/28/18 09:00 11/28/18 09:00 <Boris Walker - Last Filed: 11/28/18 10:45> - Lab Data Result diagrams: 11/28/18 09:00 11/28/18 09:00 <Leonardo Wilkerson - Last Filed: 11/28/18 11:03> - Medical Decision Making 73-year-old female presented for difficulty ambulating, hip pain. Patient had lab work which shows chronic anemia, mild transaminitis. Patient's urinalysis unremarkable. Patient will be admitted for placement to rehab facility secondary to bilateral upper extremity fractures. (Boris Walker) Patient presenting with inability, multiple orthopedic injuries status post multiple falls, including bilateral upper extremity fractures. Workup in the emergency department reveals anemia which she is stable for this patient, she has mild transaminitis with elevated alkaline phosphatase, ultrasound will be obtained regarding this lab abnormality although the patient has no right upper quadrant pain. Patient will be admitted for further evaluation and treatment, case discussed with admitting physician. Orthopedics on consult. (Leonardo Hardin) - Lab Data Lab Results 04/05/19 04/05/19 04/05/19 Range/Units 09:00 09:00 10:15 WBC 6.2 (3.8-10.6) k/uL RBC 2.60 L (3.80-5.40) m/uL Hgb 8.4 L (11.4-16.0) gm/dL Hct 25.1 L (34.0-46.0) % MCV 96.4 (80.0-100.0) fL MCH 32.1 (25.0-35.0) pg MCHC 33.3 (31.0-37.0) g/dL RDW 16.2 H (11.5-15.5) % Plt Count 189 (150-450) k/uL Neutrophils % 78 % Lymphocytes % 9 % Monocytes % 9 % Eosinophils % 1 % Basophils % 1 % Neutrophils # 4.8 (1.3-7.7) k/uL Lymphocytes # 0.6 L (1.0-4.8) k/uL Monocytes # 0.6 (0-1.0) k/uL Eosinophils # 0.1 (0-0.7) k/uL Basophils # 0.0 (0-0.2) k/uL Anisocytosis Slight Sodium 136 L (137-145) mmol/L Potassium 4.3 (3.5-5.1) mmol/L Chloride 103 (98-107) mmol/L Carbon Dioxide 26 (22-30) mmol/L Anion Gap 7 mmol/L BUN 24 H (7-17) mg/dL Creatinine 1.03 (0.52-1.04) mg/dL Est GFR (CKD-EPI)AfAm 62 (>60 ml/min/1.73 sqM) Est GFR (CKD-EPI)NonAf 54 (>60 ml/min/1.73 sqM) Glucose 98 (74-99) mg/dL Calcium 8.6 (8.4-10.2) mg/dL Total Bilirubin 0.9 (0.2-1.3) mg/dL AST 57 H (14-36) U/L ALT 69 H (9-52) U/L Alkaline Phosphatase 139 H (38-126) U/L Creatine Kinase <20 L (30-135) U/L Total Protein 5.4 L (6.3-8.2) g/dL Albumin 2.6 L (3.5-5.0) g/dL Urine Color Yellow Urine Appearance Cloudy H (Clear) Urine pH 7.5 (5.0-8.0) Ur Specific [place] 1.019 (1.001-1.035) Urine Protein Trace H (Negative) Urine Glucose (UA) Negative (Negative) Urine Ketones Negative (Negative) Urine Blood Negative (Negative) Urine Nitrite Negative (Negative) Urine Bilirubin Negative (Negative) Urine Urobilinogen 2.0 (<2.0) mg/dL Ur Leukocyte Esterase Trace H (Negative) Urine RBC 1 (0-5) /hpf Urine WBC 4 (0-5) /hpf Ur Squamous Epith Cells 14 H (0-4) /hpf Urine Bacteria Rare H (None) /hpf Urine Mucus Rare H (None) /hpf Disposition <Boris Walker M - Last Filed: 11/28/18 10:45> <Leonardo Wilkerson - Last Filed: 11/28/18 11:03> Clinical Impression: Left humeral fracture, Right wrist fracture, Hip pain, Assistance needed for ambulation and movement Disposition: ADMITTED IP TO THIS [facility] Condition: Fair Referrals: Valerio Lobo MD [Primary Care Provider] - 1-2 days
[2018-11-28 09:33] LABS: ALT 69 U/L (9-52); AST 57 U/L (14-36); Albumin 2.6 g/dL (3.5-5.0); Alkaline Phosphatase 139 U/L (38-126); Anion Gap 7 mmol/L; Blood Urea Nitrogen 24 mg/dL (7-17); Calcium 8.6 mg/dL (8.4-10.2); Carbon Dioxide 26 mmol/L (22-30); Chloride 103 mmol/L (98-107); Creatine Kinase <20 U/L (30-135); Glucose 98 mg/dL (74-99); Potassium 4.3 mmol/L (3.5-5.1); Sodium 136 mmol/L (137-145); Total Bilirubin 0.9 mg/dL (0.2-1.3); Total Protein 5.4 g/dL (6.3-8.2)
--- NOTE | 2018-11-28 10:06 | XR ---
EXAMINATION TYPE: XR cervical spine comp DATE OF EXAM: 11/28/2018 COMPARISON: NONE HISTORY: Pain TECHNIQUE: Four views are submitted. FINDINGS: The odontoid is intact. There are no compression deformities. The prevertebral soft tissue structur es are within normal limits. Diffuse osteopenia with multilevel significant degenerative disc diseas e and facet arthropathy. Surgical clips in the soft tissues. There is calcification the soft tissue t he neck likely related atherosclerotic change of the carotid arteries. Due to positioning assessment of the neural foramina nondiagnostic. Grossly odontoid intact IMPRESSION: 1. Multilevel degenerative disc disease and facet arthropathy. If symptoms persist correlate with CT scan.
--- NOTE | 2018-11-28 10:08 | XR ---
EXAMINATION TYPE: XR Hip Bilateral and AP pelvis DATE OF EXAM: 11/28/2018 COMPARISON: NONE HISTORY: Pain TECHNIQUE: A single AP view of the pelvis is obtained. Two views of the bilateral hip are obtained. FINDINGS: There is no acute fracture/dislocation evident in the pelvis. The hip and sacroiliac join ts appear symmetric and unremarkable. The overlying soft tissue appears unremarkable. Two views of bilateral hip show no acute fracture or dislocation. Postsurgical changes noted bilatera lly. Vascular calcification seen. Hypertrophic degenerative change lower lumbar spine. IMPRESSION: There is no acute fracture or dislocation in the pelvis or bilateral hip.
[2018-11-28 10:33] LABS: Appearance,Urine Cloudy (Clear); Bacteria,Urine Rare /hpf; Bilirubin,Urine Negative (Negative); Blood,Urine Negative (Negative); Color,Urine Yellow; Glucose,Urine (UA) Negative (Negative); Ketones,Urine Negative (Negative); Leukocyte Esterase,Urine Trace (Negative); Mucus,Urine Rare /hpf; Nitrite,Urine Negative (Negative); PH, Urine 7.5 (5.0-8.0); Protein,Urine Trace (Negative); RBC,Urine 1 /hpf (0-5); Specific Gravity,Urine 1.019 (1.001-1.035); Squamous Epithelial Cell,Urine 14 /hpf (0-4)
[2018-11-28] MEDS ORDERED: NALOXONE 0.4 MG/ML 1 ML VIAL IV PRN (10:47)
[2018-11-28] MEDS: HYDROcodone/APAP 5-325MG 1 EACH TAB PO PRN ×2 (12:17→20:20)
[2018-11-28 12:33] VITALS: BMI 18.0
[2018-11-28] MEDS ORDERED: ONDANSETRON 4 MG/2 ML VIAL IVP PRN (12:33)
[2018-11-28] MEDS ORDERED: ACETAMINOPHEN TAB 325 MG TAB PO PRN (12:33)
[2018-11-28] MEDS ORDERED: BISACODYL 5 MG TABLET.DR PO PRN (12:33)
[2018-11-28] MEDS ORDERED: ALBUTEROL NEBULIZED 2.5 MG/3 ML INHALATION PRN (12:33)
--- NOTE | 2018-11-28 13:22 | P.HPIM ---
History of Present Illness H&P Date: 11/28/18 Chief Complaint: Generalized weakness This is a 73-year-old female with complex past medical history noted below who presented to the emergency room originally 3 days ago after she sustained a mechanical fall at home. At the time patient was diagnosed with a left humeral fracture and right wrist fracture. She had a sliding to the left upper extremity and was sent home with a follow-up appointment with orthopedic. Patient said since she got home she has been very weak and unable to perform any of her activities of daily living. She has been in bed most of the time. She was having worsening neck pain. She decided to come to the emergency room for placement to a senior living. She is doing fairly well otherwise. She denies shortness of breath or chest pain. No urinary symptoms. No other complaints whatsoever. Review of Systems Review of system: 14 points review of systems were obtained and were negative except to what were mentioned in the HPI. Past Medical History Past Medical History: Coronary Artery Disease (CAD), Cancer, Heart Failure, GERD/Reflux, Renal Disease, Thyroid Disorder Additional Past Medical History / Comment(s): Pt last admitted to [facility] on with R hip fracture with percutaneous pinning. 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, previous history of ascites requiring paracentesis, ischemic cardiomyopathy, sustained Vtac, hydropic gallbladder, hiatal hernia, thyroid cancer status post thyroidectomy, questionable liver abscess, chronic atrial fibrillation, history of atrial fibrillation with cardiac arrest requiring an AICD placement, bronchial asthma, chronic renal failure with stage III, asymptomatic kidney stones, chronic anemia, colonic polyps, current R hand fractures wearing brace, UTIs, past L rib fractures, portal vein thrombosis per [facility] but pt does not recall, allergic rhinitis Last Myocardial Infarction Date:: 06/2016 History of Any Multi-Drug Resistant Organisms: CRE Date of last positivie culture/infection: 08/07/17 CRE serratia marcescens MDRO Source:: Blood Past Surgical History: AICD, Heart Catheterization With Stent, Hysterectomy, Joint Replacement, Pacemaker Additional Past Surgical History / Comment(s): 03/2018 R hip percutaneous pinning, 2016 PCI with stent and AICD, paracentesises, thyroidectomy, left hip replaced, vein stripping bilaterally, repair right and left detached retina, cataract removal bilat eyes, pancreatic stent, liver bx, EGD. Past Anesthesia/Blood Transfusion Reactions: No Reported Reaction Additional Past Anesthesia/Blood Transfusion Reaction / Comment(s): Pt has rec eived blood in past without reaction. Date of Last Stent Placement:: 06/2016 Type of Cardiac Device: AICD Device Placement Date:: , [employer]tr[employer] Past Psychological History: Anxiety, Depression Additional Psychological History / Comment(s): Pt resides with her spouse. She is receiving home care-nursing and PT/OT. She uses a walker to ambulate but feels she will be using her wheelchair more. She no longer drives, her spouse drives. Smoking Status: Former smoker Past Alcohol Use History: None Reported, Occasional Additional Past Alcohol Use History / Comment(s): Pt started smoking in 1960 and quit in 1970. She is an alcoholic and drank 4-5 shots of Sohail Beam a day. Past Drug Use History: None Reported - Past Family History Mother Family Medical History: No Reported History Additional Family Medical History / Comment(s): Mother was healthy and at the age of 93yrs. She had a "weak" heart. Father Family Medical History: Cancer Additional Family Medical History / Comment(s): father had bone cancer and of this at age 65yrs. Medications and Allergies Home Medications Medication Instructions Recorded Confirmed Type Lipase/Protease/Amylase [Harshil Fiore 2 cap PO AC-TID 05/31/16 11/28/18 History 24,000 Units Capsule] Folic Acid 1 mg PO DAILY@1100 08/14/16 11/28/18 History Omeprazole [PriLOSEC] 20 mg PO DAILY@0900 08/14/16 11/28/18 History Rivaroxaban [Xarelto] 20 mg PO DAILY@17008/14/16 11/28/18 History Metoprolol Tartrate [Lopressor] 50 mg PO BID@0900,1700 01/10/17 11/28/18 History Magnesium Oxide [Mag-Ox] 400 mg PO DAILY@1100 08/03/17 11/28/18 History Atorvastatin Calcium [Lipitor] 40 mg PO DAILY@1700 08/30/17 11/28/18 History Amiodarone [Cordarone] 100 mg PO DAILY@1700 04/14/18 11/28/18 History Calcium Carbonate [Calcium] 600 mg PO DAILY@1100 04/14/18 11/28/18 History Cholecalciferol [Vitamin D3] 2,000 unit PO DAILY@1100 04/14/18 11/28/18 History Lisinopril [Zestril] 5 mg PO DAILY@1700 04/14/18 11/28/18 History Ferrous Sulfate [Iron (65 MG 325 mg PO DAILY@1700 06/16/18 11/28/18 History Elemental)] Multivitamins, Thera [Multivitamin 1 tab PO DAILY@1100 06/16/18 11/28/18 History (formulary)] Albuterol Nebulized [Ventolin 2.5 mg INHALATION RT-Q6H PRN 11/25/18 11/28/18 History Nebulized] Bisacodyl [Dulcolax] 5 mg PO DAILY PRN 11/25/18 11/28/18 History Donepezil [Aricept] 10 mg PO DAILY@1700 11/25/18 11/28/18 History FLUoxetine HCL 40 mg PO DAILY@0700 11/25/18 11/28/18 History Famotidine [Pepcid] 20 mg PO BID 11/25/18 11/28/18 History Levothyroxine Sodium [Synthroid] 100 mcg PO DAILY@0700 11/25/18 11/28/18 History Ondansetron HCl [Zofran] 8 mg PO Q8H PRN 11/25/18 11/28/18 History Allergies Allergy/AdvReac Type Severity Reaction Status Date / Time furosemide [From Lasix] Allergy Unknown Verified 11/28/18 09:41 ibuprofen [From Motrin] Allergy Anaphylaxis Verified 11/28/18 09:41 Iodinated Contrast- Oral and Allergy Rash/Hives Verified 11/28/18 09:41 IV Dye [Iodinated Contrast Media - IV Dye] levofloxacin [From Levaquin] Allergy Anaphylaxis Verified 11/28/18 09:41 shellfish derived AdvReac Nausea & Verified 11/28/18 09:41 Vomiting Physical Exam Vitals: Vital Signs Temp Pulse Pulse Resp BP BP Pulse Ox 11/28/18 12:03 98.3 F 71 122/72 97 11/28/18 11:00 18 95/77 98 11/28/18 10:30 121/73 96 04/05/19 09:30 118/70 11/28/18 09:00 116/74 95 11/28/18 08:51 99.9 F H 75 18 116/74 98 11/28/18 08:49 116/74 Intake and Output 11/27/18 11/28/18 11/28/18 22:59 06:59 14:59 Other: Weight 52.254 kg General: The patient is awake and alert, in no distress Eye: there is normal conjunctiva bilaterally. Neck: The neck is supple, there is no JVD. Cardiovascular: Normal S1-S2, no S3-S4, no murmurs. Respiratory: Lungs clear to auscultation bilaterally Gastrointestinal: Abdomen is soft, nontender Musculoskeletal: There is no pedal edema. Neurological:. Speech is normal. Skin: Skin is warm and dry Results CBC & Chem 7: 11/28/18 09:00 11/28/18 09:00 Labs: Abnormal Lab Results - Last 24 Hours (Table) 11/28/18 11/28/18 11/28/18 Range/Units 09:00 09:00 10:15 RBC 2.60 L (3.80-5.40) m/uL Hgb 8.4 L (11.4-16.0) gm/dL Hct 25.1 L (34.0-46.0) % RDW 16.2 H (11.5-15.5) % Lymphocytes # 0.6 L (1.0-4.8) k/uL Sodium 136 L (137-145) mmol/L BUN 24 H (7-17) mg/dL AST 57 H (14-36) U/L ALT 69 H (9-52) U/L Alkaline Phosphatase 139 H (38-126) U/L Creatine Kinase <20 L (30-135) U/L Total Protein 5.4 L (6.3-8.2) g/dL Albumin 2.6 L (3.5-5.0) g/dL Urine Appearance Cloudy H (Clear) Urine Protein Trace H (Negative) Ur Leukocyte Esterase Trace H (Negative) Ur Squamous Epith Cells 14 H (0-4) /hpf Urine Bacteria Rare H (None) /hpf Urine Mucus Rare H (None) /hpf Thrombosis Risk Factor Assmnt - Choose All That Apply Any of the Below Risk Factors Present?: No Other Risk Factors: Yes Each Risk Factor Represents 2 Points: Age 61-74 years Other congenital or acquired thrombophilia - If yes, enter type in comment: No Thrombosis Risk Factor Assessment Total Risk Factor Score: 2 Thrombosis Risk Factor Assessment Level: Low Risk Assessment and Plan Assessment: 1. Left humeral fracture and right wrist fracture, currently left arm in sling. Orthopedic consult for further evaluation. Pain is well controlled. 2. Physical debility, PT/OT consulted. May benefit from placement to ECF. 3. Paroxysmal atrial fibrillation on anticoagulation with Rivaroxaban. 4. Mild transaminitis: Patient is a symptomatic. I would hold Lipitor and repeat lab work in the morning. 5. Coronary artery disease with prior stent placement: Continue medical management 6. History of alcoholic cirrhosis of the liver, now compensated 7. Chronic pancreatitis with prior pancreatic duct stent at [facility]. Maintained on pancreatic enzymes Today, I reviewed her medication list and lab work results. Continue current management. Awaiting PT/OT evaluation. Repeat lab work in the morning.
[2018-11-28] MEDS: FAMOTIDINE 20 MG TAB PO SCH (14:16)
[2018-11-28] MEDS ORDERED: ATORVASTATIN 40 MG TAB PO SCH (17:00)
[2018-11-28] MEDS: RIVAROXABAN 20 MG TAB PO SCH (17:22)
[2018-11-28] MEDS: AMIODARONE 100 MG TAB PO SCH (17:22)
[2018-11-28] MEDS: METOPROLOL TARTRATE 50 MG TAB PO SCH (17:22)
[2018-11-28] MEDS: LIPASE 5,000/PROTEASE 17,000/AMYLASE 24,000 PO SCH (17:22)
[2018-11-28] MEDS: DONEPEZIL 10 MG TAB PO SCH (17:22)
[2018-11-28] MEDS: LISINOPRIL 5 MG TAB PO SCH (17:22)
[2018-11-28] MEDS: FERROUS SULFATE 325 MG TAB PO SCH (17:22)
[2018-11-28] MEDS ORDERED: HEPARIN SODIUM,PORCINE 5,000 UNIT/ML 1 ML VIAL SQ SCH (21:00)
[2018-11-28] MEDS ORDERED: FAMOTIDINE 20 MG TAB PO SCH (21:00)
[2018-11-29] MEDS: METOPROLOL TARTRATE 50 MG TAB PO SCH ×2 (07:44→17:24)
[2018-11-29] MEDS: CHOLECALCIFEROL 1,000 UNIT TAB PO SCH (07:44)
[2018-11-29] MEDS: FAMOTIDINE 20 MG TAB PO SCH (07:44)
[2018-11-29] MEDS: FOLIC ACID 1 MG TAB PO SCH (07:44)
[2018-11-29] MEDS: MAGNESIUM OXIDE 400 MG TAB PO SCH (07:44)
[2018-11-29] MEDS: FLUoxetine HCL 20 MG CAP PO SCH (07:44)
[2018-11-29] MEDS: LEVOTHYROXINE 100 MCG TAB PO SCH (07:44)
[2018-11-29] MEDS: LIPASE 5,000/PROTEASE 17,000/AMYLASE 24,000 PO SCH ×3 (07:46→17:23)
[2018-11-29] MEDS: HYDROcodone/APAP 5-325MG 1 EACH TAB PO PRN ×3 (08:02→17:27)
--- NOTE | 2018-11-29 09:41 | P.CNOR ---
History of Present Illness - HPI Consult date: 11/29/18 History of present illness: This is a 73-year-old female who sustained a left proximal humerus fracture and right wrist fracture after multiple falls. Patient was evaluated as an outpatient by Dr. Chanel for the left proximal humerus and right wrist fractures. These are currently being treated nonoperatively with an arm sling and a wrist brace. Patient states that she thinks the wrist fracture happened in August 2018 and left proximal humerus fracture happened more recently. Patient states that when she ambulates she often loses her balance. Patient states that she presented to the emergency room after another fall and is hoping for ECF placement. Patient denies any recent head injury, but states that her family has told her she did recently faint. Patient denies any fever/chills, numbness, weakness, tingling, abdominal pain, shortness of breath or chest pain. Review of Systems See HPI. Past Medical History Past Medical History: Coronary Artery Disease (CAD), Cancer, Heart Failure, GERD/Reflux, Renal Disease, Thyroid Disorder Additional Past Medical History / Comment(s): Pt last admitted to [facility] on 04/14/18 with R hip fracture with percutaneous pinning. 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, previous history of ascites requiring paracentesis, ischemic cardiomyopathy, sustained Vtac, hydropic gallbladder, hiatal hernia, thyroid cancer status post thyroidectomy, questionable liver abscess, chronic atrial fibrillation, history of atrial fibrillation with cardiac arrest requiring an AICD placement, bronchial asthma, chronic renal failure with stage III, asymptomatic kidney stones, chronic anemia, colonic polyps, current R hand fractures wearing brace, UTIs, past L rib fractures, portal vein thrombosis per H but pt does not recall, allergic rhinitis Last Myocardial Infarction Date:: 06/2016 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 Past Anesthesia/Blood Transfusion Reactions: No Reported Reaction Additional Past Anesthesia/Blood Transfusion Reaction / Comm: Pt has received blood in past without reaction. Date of Last Stent Placement:: 06/2016 Type of Cardiac Device: AICD Device Placement Date:: , [employer] Past Psychological History: Anxiety, Depression Additional Psychological History / Comment(s): Pt resides with her spouse. She is receiving home care-nursing and PT/OT. She uses a walker to ambulate but feels she will be using her wheelchair more. She no longer drives, her spouse drives. Smoking Status: Former smoker Past Alcohol Use History: None Reported, Occasional Additional Past Alcohol Use History / Comment(s): Pt started smoking in 1960 and quit in 1970. She is an alcoholic and drank 4-5 shots of Sohail Beam a day. Past Drug Use History: None Reported - Past Family History Mother Family Medical History: No Reported History Additional Family Medical History / Comment(s): Mother was healthy and at the age of 93yrs. She had a "weak" heart. Father Family Medical History: Cancer Additional Family Medical History / Comment(s): father had bone cancer and of this at age 65yrs. Medications and Allergies Home Medications Medication Instructions Recorded Confirmed Type Lipase/Protease/Amylase [Harshil Fiore 2 cap PO AC-TID 05/31/16 11/28/18 History 24,000 Units Capsule] Folic Acid 1 mg PO DAILY@1100 08/14/16 11/28/18 History Omeprazole [PriLOSEC] 20 mg PO DAILY@0900 08/14/16 11/28/18 History Rivaroxaban [Xarelto] 20 mg PO DAILY@1700 08/14/16 11/28/18 History Metoprolol Tartrate [Lopressor] 50 mg PO BID@0900,1700 01/10/17 11/28/18 History Magnesium Oxide [Mag-Ox] 400 mg PO DAILY@1100 08/03/17 11/28/18 History Atorvastatin Calcium [Lipitor] 40 mg PO DAILY@1700 08/30/17 11/28/18 History Amiodarone [Cordarone] 100 mg PO DAILY@1700 04/14/18 11/28/18 History Calcium Carbonate [Calcium] 600 mg PO DAILY@1100 04/14/18 11/28/18 History Cholecalciferol [Vitamin D3] 2,000 unit PO DAILY@1100 04/14/18 11/28/18 History Lisinopril [Zestril] 5 mg PO DAILY@1700 04/14/18 11/28/18 History Ferrous Sulfate [Iron (65 MG 325 mg PO DAILY@1700 06/16/18 11/28/18 History Elemental)] Multivitamins, Thera [Multivitamin 1 tab PO DAILY@1100 06/16/18 11/28/18 History (formulary)] Albuterol Nebulized [Ventolin 2.5 mg INHALATION RT-Q6H PRN 11/25/18 11/28/18 History Nebulized] Bisacodyl [Dulcolax] 5 mg PO DAILY PRN 11/25/18 11/28/18 History Donepezil [Aricept] 10 mg PO DAILY@1700 11/25/18 11/28/18 History FLUoxetine HCL 40 mg PO DAILY@0700 11/25/18 11/28/18 History Famotidine [Pepcid] 20 mg PO BID 11/25/18 11/28/18 History Levothyroxine Sodium [Synthroid] 100 mcg PO DAILY@0700 11/25/18 11/28/18 History Ondansetron HCl [Zofran] 8 mg PO Q8H PRN 11/25/18 11/28/18 History Allergies Allergy/AdvReac Type Severity Reaction Status Date / Time furosemide [From Lasix] Allergy Unknown Verified 11/28/18 09:41 ibuprofen [From Motrin] Allergy Anaphylaxis Verified 11/28/18 09:41 Iodinated Contrast- Oral and Allergy Rash/Hives Verified 11/28/18 09:41 IV Dye [Iodinated Contrast Media - IV Dye] levofloxacin [From Levaquin] Allergy Anaphylaxis Verified 11/28/18 09:41 shellfish derived AdvReac Nausea & Verified 11/28/18 09:41 Vomiting Physical Examination On exam patient is sitting up comfortably in bed in no acute distress. Patient is alert and oriented. Sling is intact to left upper extremity. There is tenderness to palpation over the left shoulder. There is no erythema and skin is intact. Patient has good range of motion of the left wrist and hand. Radial pulse is 2+. Sensation is intact. Left upper extremity is warm and well perfused. Right wrist brace is removed from right wrist. Skin is intact and there is no erythema or ecchymosis. There is tenderness to palpation over the right wrist. There is no obvious bony deformity. Radial pulse is 2+. Right upper extremity is warm and well perfused. Neurovascular status and circulatory status are intact. Results X-rays of the left shoulder dated 11/25/2018 shows a minimally displaced left hu meral neck fracture. X-rays of bilateral hips and pelvis dated 11/28/2018 are negative for any frac ture or dislocation. No recent right wrist x-rays. - Labs Labs: Abnormal Lab Results - Last 24 Hours (Table) 11/28/18 11/28/18 Range/Units 09:00 10:15 Sodium 136 L (137-145) mmol/L BUN 24 H (7-17) mg/dL AST 57 H (14-36) U/L ALT 69 H (9-52) U/L Alkaline Phosphatase 139 H (38-126) U/L Creatine Kinase <20 L (30-135) U/L Total Protein 5.4 L (6.3-8.2) g/dL Albumin 2.6 L (3.5-5.0) g/dL Urine Appearance Cloudy H (Clear) Urine Protein Trace H (Negative) Ur Leukocyte Esterase Trace H (Negative) Ur Squamous Epith Cells 14 H (0-4) /hpf Urine Bacteria Rare H (None) /hpf Urine Mucus Rare H (None) /hpf H & H 11/28/18 Range/Units 09:00 Hgb 8.4 L (11.4-16.0) gm/dL Hct 25.1 L (34.0-46.0) % Result Diagrams: 11/28/18 09:00 11/28/18 09:00 Assessment and Plan Assessment: Coronary artery disease Heart failure GERD Chronic renal failure Thyroid disorder History of thyroid cancer and thyroidectomy Atrial fibrillation Plan: 1. Maintain right wrist brace and sling to left upper extremity. 2. Rest, ice and elevate the right wrist. Ice to the left shoulder as needed. 3. Continue pain control. 4. Right wrist x-ray pending. 5. No surgical intervention planned. Patient is awaiting ECF placement. Patient may continue following as an outpatient for left proximal humerus and right wrist fractures.
--- NOTE | 2018-11-29 10:08 | XR ---
EXAMINATION TYPE: XR wrist limited RT , 2 VIEWS DATE OF EXAM ORDERED: 11/29/2018 HISTORY: pain. COMPARISON: None. FINDINGS: The bones are osteopenic. There is a fracture of the distal radial styloid which appears s ubacute. There is callus present. A definite acute fracture is not seen. There is degenerative change in the right first carpal metacarpal joint. IMPRESSION: 1. DEGENERATIVE CHANGE. 2. FRACTURE OF THE RADIAL STYLOID, AGE UNDETERMINED. THIS DOES NOT APPEAR ACUTE.
[2018-11-29 10:15] LABS: Anisocytosis Slight; Basophils % (A) 1 %; Eosinophils # (A) 0.2 k/uL (0-0.7); Eosinophils % (A) 3 %; HCT 25.7 % (34.0-46.0); HGB 8.3 gm/dL (11.4-16.0); Lymphocytes # (A) 0.8 k/uL (1.0-4.8); Lymphocytes % (A) 16 %; MCH 30.4 pg (25.0-35.0); MCHC 32.2 g/dL (31.0-37.0); MCV 94.2 fL (80.0-100.0); Mean Platelet Volume 11.4; Monocytes # (A) 0.5 k/uL (0-1.0); Monocytes % (A) 9 %; Neutrophils # (A) 3.5 k/uL (1.3-7.7); Neutrophils % (A) 69 %; Platelet Count 184 k/uL (150-450); RBC 2.73 m/uL (3.80-5.40); RDW 16.9 % (11.5-15.5)
--- NOTE | 2018-11-29 10:18 | P.PN ---
Subjective Progress Note Date: 11/29/18 Principal diagnosis: Placement Patient seen and examined. No acute events overnight. Patient reports right wrist pain, 8 out of 10 in severity. Well-controlled with current [place] regimen. She denies any chest pain, shortness of breath or palpitations. Objective - Vital Signs Vital signs: Vital Signs Temp 98.0 F 11/29/18 07:48 Pulse 69 11/29/18 07:48 Resp 14 11/29/18 07:48 BP 130/73 11/29/18 07:48 Pulse Ox 94 L 11/29/18 07:48 Intake & Output 11/28/18 11/29/18 11/29/18 18:59 06:59 18:59 Intake Total 250 560 Balance 250 560 Weight 52.254 kg Intake: Oral 250 560 Other: # Voids 1 # Bowel Movements 1 - Exam General: [non toxic], [no distress], [appears at stated age] Derm: [warm], [dry] Head: [atraumatic], [normocephalic], [symmetric] Eyes: [EOMI], [no lid lag], [anicteric sclera] Mouth: [no lip lesion], [mucus membranes moist] Cardiovascular: [S1S2 reg], [no murmur], [positive DP pulse bilateral] Lungs: [CTA bilateral], [no rhonchi, no rales] , [no accessory muscle use] Abdominal: [soft], [ nontender to palpation], [no guarding], [no appreciable organomegaly] Ext: [no gross muscle atrophy], [no edema], [left upper extremity in sling, right wrist brace] Neuro: [no focal neuro deficits] Psych: [Alert], [oriented], [appropriate affect] - Labs CBC & Chem 7: 11/28/18 09:00 11/28/18 09:00 Labs: Abnormal Lab Results - Last 24 Hours (Table) 11/28/18 Range/Units 10:15 Urine Appearance Cloudy H (Clear) Urine Protein Trace H (Negative) Ur Leukocyte Esterase Trace H (Negative) Ur Squamous Epith Cells 14 H (0-4) /hpf Urine Bacteria Rare H (None) /hpf Urine Mucus Rare H (None) /hpf Assessment and Plan Assessment: Assessment and Plan Physical debility Left humeral fracture and right wrist fracture Paroxysmal atrial fibrillation Transaminitis CAD status post stent Chronic pancreatitis Hypothyroidism Secondary to recent fractures. Hip x-ray negative. C-spine x-ray shows DJD. Pending PT and OT consultation. Plans for hopeful ECF. Due to mechanical fall. As seen on x-ray. Orthopedic surgery consulted, recommends no surgical intervention. Pain management with Tylenol, [place] as needed. Follow PT and OT recommendations. Follow orthopedic recommendations. Rhythm controlled with amiodarone. Rate control with metoprolol 50 mg by mouth twice a day. Anticoagulation with Xarelto. Keep potassium greater than 4 and magnesium greater than 2. Sees Dr. Rivero outpatient. AST 57, ALT 69, alkaline phosphatase 139. Total bilirubin is within normal limits. This is likely secondary to chronic alcoholic cirrhosis. Hold statin. Daily CMP. Stable. Continue Xarelto. Lipitor on hold due to elevated liver enzymes. Continue beta cassi. Heart healthy diet. Follow Dr. Rivero in the outpatient setting. Received pancreatic duct stent at [facility]. Continue pancreatic enzymes. Low-fat diet. Continue Synthroid. Patient unable to take care of herself at home. Secondary to recent fractures. PTOT consult pending. Social work consult pending.
[2018-11-29 10:35] LABS: Albumin 2.6 g/dL (3.5-5.0); Total Bilirubin 0.7 mg/dL (0.2-1.3); Total Protein 5.4 g/dL (6.3-8.2)
[2018-11-29 10:36] LABS: Potassium 5.3 mmol/L (3.5-5.1)
[2018-11-29] MEDS: LISINOPRIL 5 MG TAB PO SCH (17:23)
[2018-11-29] MEDS: FERROUS SULFATE 325 MG TAB PO SCH (17:23)
[2018-11-29] MEDS: DONEPEZIL 10 MG TAB PO SCH (17:23)
[2018-11-29] MEDS: AMIODARONE 100 MG TAB PO SCH (17:23)
[2018-11-29] MEDS: RIVAROXABAN 20 MG TAB PO SCH (17:24)
[2018-11-30] MEDS: HYDROcodone/APAP 5-325MG 1 EACH TAB PO PRN ×4 (03:35→18:32)
--- NOTE | 2018-11-30 07:51 | P.PN ---
Subjective Progress Note Date: 11/30/18 This is a 73-year-old female who is admitted for ECF placement. Patient sustained fractures to the right wrist and left proximal humerus due to multiple falls. Patient is seen and evaluated at bedside. Patient states that the left shoulder is painful, but overall her pain is controlled. Patient denies any new complaints today. Patient denies any fever/chills, numbness, weakness, t ingling, abdominal pain, shortness of breath or chest pain. Objective - Vital Signs Vital signs: Vital Signs Temp 98.1 F 11/30/18 01:10 Pulse 70 11/30/18 01:10 Resp 16 11/30/18 01:10 BP 125/71 11/30/18 01:10 Pulse Ox 97 11/30/18 01:10 Intake & Output 11/29/18 11/30/18 11/30/18 18:59 06:59 18:59 Intake Total 280 Output Total 200 Balance -200 280 Weight 52.254 kg Intake: Oral 280 Output: Urine 200 Other: # Voids 1 - Exam On exam patient is lying comfortably in bed in no acute distress. There is ecchymosis and mild swelling to the left shoulder. This area is tender to palpation. Skin is intact. Patient has good range of motion of the left wrist and hand. Left upper extremity is warm and well perfused. Radial pulse is 2+. Right wrist brace intact. Patient has good range of motion of the fingers of the right hand. Right upper extremity is warm and well perfused. Sensation intact. Neurovascular status and circulatory status are intact.. - Labs CBC & Chem 7: 11/29/18 07:54 11/29/18 07:54 Labs: Abnormal Lab Results - Last 24 Hours (Table) 11/29/18 11/29/18 Range/Units 07:54 07:54 RBC 2.73 L (3.80-5.40) m/uL Hgb 8.3 L (11.4-16.0) gm/dL Hct 25.7 L (34.0-46.0) % RDW 16.9 H (11.5-15.5) % Lymphocytes # 0.8 L (1.0-4.8) k/uL Potassium 5.3 H (3.5-5.1) mmol/L BUN 37 H (7-17) mg/dL Creatinine 1.33 H (0.52-1.04) mg/dL AST 51 H (14-36) U/L ALT 61 H (9-52) U/L Alkaline Phosphatase 130 H (38-126) U/L Total Protein 5.4 L (6.3-8.2) g/dL Albumin 2.6 L (3.5-5.0) g/dL Assessment and Plan Assessment: Coronary artery disease Heart failure GERD Chronic renal failure Thyroid disorder History of thyroid cancer and thyroidectomy Atrial fibrillation Plan: X-rays of the right wrist are reviewed revealing a stable and old fracture of the radial styloid. 1. Maintain right wrist brace and sling to left upper extremity. 2. Rest, ice and elevate the right wrist. Ice to the left shoulder as needed. 3. Continue pain control. 4. No surgical intervention planned. Patient is awaiting ECF placement. Patient may continue following as an outpatient for left proximal humerus and right wrist fractures.
[2018-11-30] MEDS: FAMOTIDINE 20 MG TAB PO SCH (09:14)
[2018-11-30] MEDS: FLUoxetine HCL 20 MG CAP PO SCH (09:14)
[2018-11-30] MEDS: METOPROLOL TARTRATE 50 MG TAB PO SCH ×2 (09:14→18:32)
[2018-11-30 09:15] LABS: Basophils % (A) 1 %; Eosinophils # (A) 0.2 k/uL (0-0.7); Eosinophils % (A) 4 %; HGB 8.1 gm/dL (11.4-16.0); Lymphocytes # (A) 0.7 k/uL (1.0-4.8); Lymphocytes % (A) 16 %; MCH 32.9 pg (25.0-35.0); MCHC 33.6 g/dL (31.0-37.0); Mean Platelet Volume 7.6; Monocytes # (A) 0.3 k/uL (0-1.0); Monocytes % (A) 8 %; Neutrophils % (A) 70 %; Platelet Count 216 k/uL (150-450); RBC 2.45 m/uL (3.80-5.40); RDW 15.3 % (11.5-15.5); WBC 4.3 k/uL (3.8-10.6)
[2018-11-30] MEDS: LIPASE 5,000/PROTEASE 17,000/AMYLASE 24,000 PO SCH ×3 (09:15→19:08)
[2018-11-30] MEDS: LEVOTHYROXINE 100 MCG TAB PO SCH (09:15)
[2018-11-30 10:03] LABS: Albumin 2.4 g/dL (3.5-5.0); Calcium 8.9 mg/dL (8.4-10.2); Potassium 4.5 mmol/L (3.5-5.1); Total Bilirubin 0.6 mg/dL (0.2-1.3); Total Protein 5.1 g/dL (6.3-8.2)
[2018-11-30] MEDS ORDERED: POLYETHYLENE GLYCOL 3350 17 GM POWD.PACK PO STA (11:24)
--- NOTE | 2018-11-30 11:24 | P.PN ---
Subjective Progress Note Date: 11/30/18 Principal diagnosis: physical debility Patient was seen and examined. No acute events overnight. Patient complains of left upper extremity and right wrist pain. Pain is well-controlled withcurrent medications. Patient requesting increasing her [place]. Also complains of constip ation, last bowel movement 3 days ago. Objective - Vital Signs Vital signs: Vital Signs Temp 97.8 F 11/30/18 06:59 Pulse 70 11/30/18 06:59 Resp 14 11/30/18 06:59 BP 142/78 11/30/18 06:59 Pulse Ox 97 11/30/18 06:59 Intake & Output 11/29/18 11/30/18 11/30/18 18:59 06:59 18:59 Intake Total 280 Output Total 200 100 Balance -200 280 -100 Weight 52.254 kg Intake: Oral 280 Output: Urine 200 100 Other: # Voids 1 - Exam General: [non toxic], [no distress], [appears at stated age] Derm: [warm], [dry] Head: [atraumatic], [normocephalic], [symmetric] Eyes: [EOMI], [no lid lag], [anicteric sclera] Mouth: [no lip lesion], [mucus membranes moist] Cardiovascular: [S1S2 reg], [no murmur], [positive DP pulse bilateral] Lungs: [CTA bilateral], [no rhonchi, no rales] , [no accessory muscle use] Abdominal: [soft], [ nontender to palpation], [no guarding], [no appreciable organomegaly] Ext: [no gross muscle atrophy], [no edema], [left upper extremity in sling, right wrist brace] Neuro: [decreased sensation to touch in the left upper extremity] Psych: [Alert], [oriented], [appropriate affect] - Labs CBC & Chem 7: 11/30/18 07:25 11/30/18 07:25 Labs: Abnormal Lab Results - Last 24 Hours (Table) 11/30/18 11/30/18 Range/Units 07:25 07:25 RBC 2.45 L (3.80-5.40) m/uL Hgb 8.1 L (11.4-16.0) gm/dL Hct 24.0 L (34.0-46.0) % Lymphocytes # 0.7 L (1.0-4.8) k/uL Sodium 136 L (137-145) mmol/L BUN 29 H (7-17) mg/dL AST 37 H (14-36) U/L Alkaline Phosphatase 135 H (38-126) U/L Total Protein 5.1 L (6.3-8.2) g/dL Albumin 2.4 L (3.5-5.0) g/dL Assessment and Plan Assessment: Assessment and Plan Constipation Physical debility Left humeral fracture and right wrist fracture Paroxysmal atrial fibrillation Transaminitis CAD status post stent Chronic pancreatitis Hypothyroidism Possibly from the use of [place]. Aggressive bowel regimen. Secondary to recent fractures. Hip x-ray negative. C-spine x-ray shows DJD. Pending PT and OT consultation. Plans for hopeful ECF. Due to mechanical fall. As seen on x-ray. Orthopedic surgery consulted, recom mends no surgical intervention. Pain management with Tylenol, [place] as needed (increase today). Follow PT and OT recommendations. Follow orthopedic recommendations. Rhythm controlled with amiodarone. Rate control with metoprolol 50 mg by mouth twice a day. Anticoagulation with Xarelto. Keep potassium greater than 4 and magnesium greater than 2. Sees Dr. Rivero outpatient. AST 57, ALT 69, alkaline phosphatase 139. Total bilirubin is within normal limits. This is likely secondary to chronic alcoholic cirrhosis. Hold statin. Daily CMP. Stable. Continue Xarelto. Lipitor on hold due to elevated liver enzymes. Continue beta cassi. Heart healthy diet. Follow Dr. Rivero in the outpatient setting. Received pancreatic duct stent at [facility]. Continue pancreatic enzymes. Low-fat diet. Continue Synthroid. Patient unable to take care of herself at home. Secondary to recent fractures. PTOT consult pending. Social work consult pending.
[2018-11-30] MEDS: FOLIC ACID 1 MG TAB PO SCH (13:33)
[2018-11-30] MEDS: MAGNESIUM OXIDE 400 MG TAB PO SCH (13:33)
[2018-11-30] MEDS: CHOLECALCIFEROL 1,000 UNIT TAB PO SCH (13:34)
[2018-11-30] MEDS: LISINOPRIL 5 MG TAB PO SCH (18:30)
[2018-11-30] MEDS: DONEPEZIL 10 MG TAB PO SCH (18:32)
[2018-11-30] MEDS: RIVAROXABAN 20 MG TAB PO SCH (18:32)
[2018-11-30] MEDS: AMIODARONE 100 MG TAB PO SCH (18:32)
[2018-11-30] MEDS: FERROUS SULFATE 325 MG TAB PO SCH (18:32)
[2018-12-01] MEDS: HYDROcodone/APAP 5-325MG 1 EACH TAB PO PRN ×2 (02:41→10:12)
[2018-12-01 08:07] LABS: Basophils % (A) 1 %; Eosinophils # (A) 0.1 k/uL (0-0.7); Eosinophils % (A) 3 %; HCT 25.7 % (34.0-46.0); HGB 8.1 gm/dL (11.4-16.0); Hypochromasia Slight; Lymphocytes # (A) 0.8 k/uL (1.0-4.8); Lymphocytes % (A) 19 %; MCH 31.2 pg (25.0-35.0); MCHC 31.4 g/dL (31.0-37.0); MCV 99.5 fL (80.0-100.0); Macrocytosis Slight; Mean Platelet Volume 7.1; Monocytes # (A) 0.4 k/uL (0-1.0); Monocytes % (A) 9 %; Neutrophils # (A) 2.9 k/uL (1.3-7.7); Neutrophils % (A) 66 %; Platelet Count 218 k/uL (150-450); RBC 2.59 m/uL (3.80-5.40); WBC 4.3 k/uL (3.8-10.6)
[2018-12-01 08:56] LABS: Albumin 2.4 g/dL (3.5-5.0); Potassium 4.9 mmol/L (3.5-5.1); Total Bilirubin 0.5 mg/dL (0.2-1.3); Total Protein 5.2 g/dL (6.3-8.2)
[2018-12-01] MEDS: LEVOTHYROXINE 100 MCG TAB PO SCH (10:09)
[2018-12-01] MEDS: LIPASE 5,000/PROTEASE 17,000/AMYLASE 24,000 PO SCH ×2 (10:14→10:16)
[2018-12-01] MEDS: METOPROLOL TARTRATE 50 MG TAB PO SCH (10:15)
[2018-12-01] MEDS: FOLIC ACID 1 MG TAB PO SCH (10:15)
[2018-12-01] MEDS: FAMOTIDINE 20 MG TAB PO SCH (10:15)
[2018-12-01] MEDS: CHOLECALCIFEROL 1,000 UNIT TAB PO SCH (10:15)
[2018-12-01] MEDS: FLUoxetine HCL 20 MG CAP PO SCH (10:15)
[2018-12-01] MEDS: MAGNESIUM OXIDE 400 MG TAB PO SCH (10:15)
[2018-12-01 16:04] VITALS: BP 130/70; PULSE 69; RESP 14; TEMP 98.4
== END 2018-12-01 15:21 | disposition home health service (06) ==
LOC: EC 08:42 → 4SSUR 10:45 → INTOOBSV 10:45
PROVIDERS: ADMIT Hospitalist; ATTEND Hospitalist
DX: S42.202A Unspecified fracture of upper end of left humerus, initial encounter for closed fracture (principal); S62.101A Fracture of unspecified carpal bone, right wrist, initial encounter for closed fracture; W19.XXXA Unspecified fall, initial encounter; R29.6 Repeated falls; F32.9 Major depressive disorder, single episode, unspecified; D64.9 Anemia, unspecified; I48.2 Chronic atrial fibrillation; F41.9 Anxiety disorder, unspecified; I25.10 Atherosclerotic heart disease of native coronary artery without angina pectoris; K86.1 Other chronic pancreatitis; F10.20 Alcohol dependence, uncomplicated; I50.9 Heart failure, unspecified; M47.9 Spondylosis, unspecified; N18.9 Chronic kidney disease, unspecified; R74.0 Nonspecific elevation of levels of transaminase and lactic acid dehydrogenase [LDH]; E03.9 Hypothyroidism, unspecified; I25.5 Ischemic cardiomyopathy; I48.0 Paroxysmal atrial fibrillation; K21.9 Gastro-esophageal reflux disease without esophagitis; R53.81 Other malaise; K59.00 Constipation, unspecified; Z98.890 Other specified postprocedural states; Z98.42 Cataract extraction status, left eye; Z98.41 Cataract extraction status, right eye; Z95.5 Presence of coronary angioplasty implant and graft; Z90.710 Acquired absence of both cervix and uterus; Z87.891 Personal history of nicotine dependence; Z85.850 Personal history of malignant neoplasm of thyroid; Z79.899 Other long term (current) drug therapy; Z79.01 Long term (current) use of anticoagulants; Z79.890 Hormone replacement therapy; Z95.810 Presence of automatic (implantable) cardiac defibrillator; Z96.642 Presence of left artificial hip joint; I25.2 Old myocardial infarction; Z82.49 Family history of ischemic heart disease and other diseases of the circulatory system
CPT/HCPCS: 96374; 99285; 36415; 97530; 97162; 97166; 80053 ×4; 82550; 85025 ×4; 81001; 87502; 72050; 73521; 73100; G0378 ×5; J2405

== ENCOUNTER → 2019-03-10 | Outpatient (CLI) | payer MEDICARE, BC ==
--- NOTE | 2019-03-10 12:07 | US ---
EXAMINATION TYPE: US liver DATE OF EXAM: 03/10/2019 COMPARISON: US 08/03/2017, CT 08/07/2017 CLINICAL HISTORY: K70.30 Alcoholic Cirrhosis. Chronic pancreatitis. Very difficult and limited exam d ue to overlying bowel gas EXAM MEASUREMENTS: Liver Length: 13.1 cm Gallbladder Wall: 0.2 cm CBD: 0.6 cm Right Kidney: 8.7 x 5.4 x 3.6 cm Pancreas: Obscured by bowel gas, unremarkable in its visualized portions Liver: Heterogeneous Gallbladder: Possible sludge visualized Evidence for sonographic Rincon's sign: No CBD: wnl as visualized, distal portion obscured by bowel gas Right Kidney: Measuring small. No hydronephrosis or masses seen Right kidney shows thinned cortex and poor cortical medullary differentiation as on prior. IMPRESSION: Heterogeneous appearance to the liver is indeterminate. Limitations as described. Suspect tumefactive sludge within the gallbladder. Additional findings above.
== END | disposition home or self-care (01) ==
LOC: RADUSWWP 08:24
PROVIDERS: ATTEND Internal Medicine Gastroenterology
DX: K70.30 Alcoholic cirrhosis of liver without ascites (principal)
CPT/HCPCS: 76705

== ENCOUNTER → 2019-03-12 | Outpatient (CLI) | payer MEDICARE, BC ==
[2019-03-12 16:11] LABS: HCT 29.3 % (34.0-46.0); HGB 8.7 gm/dL (11.4-16.0); Hypochromasia Marked; MCH 29.6 pg (25.0-35.0); MCHC 29.7 g/dL (31.0-37.0); MCV 99.8 fL (80.0-100.0); Macrocytosis Slight; Mean Platelet Volume 7.1; Platelet Count 314 k/uL (150-450); RBC 2.93 m/uL (3.80-5.40); RDW 14.4 % (11.5-15.5); WBC 6.6 k/uL (3.8-10.6)
[2019-03-12 16:20] LABS: INR 1.3 (<1.2); Prothrombin Time 13.6 sec (9.0-12.0)
[2019-03-13 00:02] LABS: Vitamin D 25 Hydroxy 59.6 ng/mL (30.0-100.0)
[2019-03-13 00:06] LABS: Alpha Fetoprotein, Tumor Mkr <2.5 ng/mL (0.0-7.9)
[2019-03-13 00:54] LABS: African American GFR (CKD) 31.6 (60.0-200.0); Albumin 3.4 g/dL (3.80-4.90); Albumin/Globulin Ratio 1.31 (1.60-3.17); Anion Gap 12.9 mmol/L (4.00-12.00); BUN/Creat Ratio 17.78 Ratio (12.00-20.00); Calcium 8.8 mg/dL (8.7-10.3); Carbon Dioxide 22.1 mmol/L (21.6-31.8); Globulin 2.6 g/dL (1.6-3.3); Potassium 4.3 mmol/L (3.5-5.5); Total Bilirubin 0.4 mg/dL (0.3-1.2)
== END | disposition home or self-care (01) ==
LOC: LABWHC1 14:57
PROVIDERS: ATTEND Internal Medicine Gastroenterology
DX: K70.30 Alcoholic cirrhosis of liver without ascites (principal)
CPT/HCPCS: 36415; 80053; 82105; 82306; 85027; 85610